=== PATIENT | male | born 1985 | race Caucasian/White ===

== ENCOUNTER 2016-11-21 09:18 | Outpatient (CLI) | payer OTHER | END 2016-11-21 09:19 | disposition home or self-care (01) | LOC: SC 09:18 | PROVIDERS: ATTEND Specialist | DX: G47.10 Hypersomnia, unspecified (principal); R06.83 Snoring; G47.8 Other sleep disorders | CPT/HCPCS: 99204; 99212 ==

== ENCOUNTER 2016-12-14 21:31 | Outpatient (CLI) | payer OTHER | END 2016-12-14 21:32 | disposition home or self-care (01) | LOC: SC 21:31 | PROVIDERS: ATTEND Specialist | DX: G47.33 Obstructive sleep apnea (adult) (pediatric) (principal) | CPT/HCPCS: 95810 ==

== ENCOUNTER 2017-03-06 08:55 | Outpatient (CLI) | payer OTHER | END 2017-03-06 08:56 | disposition home or self-care (01) | LOC: SC 08:55 | PROVIDERS: ATTEND Specialist | DX: R06.83 Snoring (principal) | CPT/HCPCS: 99212; 99214 ==

== ENCOUNTER 2017-12-17 15:18 | Outpatient (CLI) | payer BC | END 2017-12-17 15:19 | disposition home or self-care (01) | LOC: SC 15:18 | PROVIDERS: ATTEND Nurse Practitioner Family | DX: G47.33 Obstructive sleep apnea (adult) (pediatric) (principal) | CPT/HCPCS: 99212; 99214 ==

== ENCOUNTER 2018-03-14 13:33 | Outpatient (CLI) | payer BC | END 2018-03-14 13:34 | disposition home or self-care (01) | LOC: SC 13:33 | PROVIDERS: ATTEND Nurse Practitioner Family | DX: G47.33 Obstructive sleep apnea (adult) (pediatric) (principal) | CPT/HCPCS: 99212; 99214 ==

== ENCOUNTER 2018-06-20 12:48 | Outpatient (CLI) | payer BC | END 2018-06-20 12:49 | disposition home or self-care (01) | LOC: SC 12:48 | PROVIDERS: ATTEND Nurse Practitioner Family | DX: G47.33 Obstructive sleep apnea (adult) (pediatric) (principal) | CPT/HCPCS: 99212; 99214 ==

== ENCOUNTER 2018-11-06 08:16 | Outpatient (CLI) | payer BC | END 2018-11-06 08:17 | disposition home or self-care (01) | LOC: SC 08:16 | PROVIDERS: ATTEND Nurse Practitioner Family | DX: G47.33 Obstructive sleep apnea (adult) (pediatric) (principal) | CPT/HCPCS: 99212; 99214 ==

== ENCOUNTER 2020-04-13 08:00 | Outpatient (CLI) | payer BC | END 2020-04-13 23:59 | disposition home or self-care (01) | LOC: LAB.R 08:00 | PROVIDERS: ATTEND Nurse Practitioner | DX: U07.1 COVID-19 (principal) | CPT/HCPCS: 87070; 87077; 87275; 87276 ==

== ENCOUNTER 2020-05-26 15:47 | Outpatient (CLI) | payer BC ==
[2020-05-26 18:26] LABS: ALBUMIN 4.7 g/dL (3.2-5.5); ALBUMIN/GLOBULIN RATIO 1.9 (1.0-2.2); ALKALINE PHOSPHATASE 60 IU/L (42-121); ALT ALANINE AMINOTRANSFERASE 63 IU/L (10-60); AST ASPARTATE AMINOTRANSFERASE 31 IU/L (10-42); BILIRUBIN,TOTAL 0.8 mg/dL (0.2-1.0); BUN - BLOOD UREA NITROGEN 21 mg/dL (6-20); CALCIUM 9.3 mg/dL (8.5-10.3); CARBON DIOXIDE - CO2 22 mmol/L (21-32); CHLORIDE 110 mmol/L (101-111); CHOL/HDL RATIO 7.2 (<5.0); CHOLESTEROL 246 mg/dL; CREATININE 0.8 mg/dL (0.6-1.2); GLUCOSE 122 mg/dL (70-100); HDL CHOLESTEROL 34 mg/dL; LDL CHOLESTEROL,CALCULATED 148 mg/dL; LDL/HDL RATIO 4.4 (<3.6); SODIUM 138 mmol/L (135-145); TOTAL PROTEIN 7.2 g/dL (6.7-8.2); VLDL CHOLESTEROL 64 mg/dL
== END 2020-05-26 23:59 | disposition home or self-care (01) ==
LOC: LAB.WCP 15:47
PROVIDERS: ATTEND Physician Assistant Medical
DX: E83.52 Hypercalcemia (principal); E78.1 Pure hyperglyceridemia; F43.21 Adjustment disorder with depressed mood
CPT/HCPCS: 36415; 80053; 80061; 83721; 84443

== ENCOUNTER 2021-02-25 08:00 | Outpatient (CLI) | payer BC | END 2021-02-25 23:59 | disposition home or self-care (01) | LOC: LAB.N 08:00 | PROVIDERS: ATTEND Family Medicine | DX: R07.0 Pain in throat (principal); Z20.822 Contact with and (suspected) exposure to COVID-19 | CPT/HCPCS: 87070 ==

== ENCOUNTER 2021-06-08 08:00 | Outpatient (CLI) | payer BC ==
[2021-06-08 19:01] LABS: ALBUMIN 4.5 g/dL (3.2-5.5); ALBUMIN/GLOBULIN RATIO 1.7 (1.0-2.2); ALKALINE PHOSPHATASE 61 IU/L (42-121); ALT ALANINE AMINOTRANSFERASE 82 IU/L (10-60); AST ASPARTATE AMINOTRANSFERASE 37 IU/L (10-42); BILIRUBIN,TOTAL 0.7 mg/dL (0.2-1.0); BUN - BLOOD UREA NITROGEN 15 mg/dL (6-20); CARBON DIOXIDE - CO2 23 mmol/L (21-32); CHLORIDE 106 mmol/L (101-111); CHOL/HDL RATIO 6.8 (<5.0); CHOLESTEROL 250 mg/dL; CREATININE 0.8 mg/dL (0.6-1.2); GFR - MDRD 110 (>89); GLUCOSE 93 mg/dL (70-100); HDL CHOLESTEROL 37 mg/dL; LDL CHOLESTEROL,CALCULATED 178 mg/dL; LDL/HDL RATIO 4.8 (<3.6); POTASSIUM 4.1 mmol/L (3.5-5.0); SODIUM 137 mmol/L (135-145); TOTAL PROTEIN 7.2 g/dL (6.7-8.2); TRIGLYCERIDES 174 mg/dL; VLDL CHOLESTEROL 35 mg/dL
[2021-06-08 20:25] LABS: ESTIMATED AVERAGE GLUCOSE 108 mg/dL (70-100); HEMOGLOBIN A1c% 5.4 % (4.27-6.07)
== END 2021-06-08 23:59 | disposition home or self-care (01) ==
LOC: LAB.WCP 08:00
PROVIDERS: ATTEND Physician Assistant Medical
DX: E78.1 Pure hyperglyceridemia (principal); R73.9 Hyperglycemia, unspecified
CPT/HCPCS: 36415; 80053; 80061; 83036; 83721

== ENCOUNTER 2022-03-22 16:49 | Outpatient (CLI) | payer BC ==
--- NOTE | 2022-03-22 18:39 | CT Report ---
PROCEDURE: ABDOMEN/PELVIS WO INDICATIONS: HEMATURIA TECHNIQUE: Noncontrast 5 mm thick sections acquired from the diaphragms to the symphysis. 5 mm coronal and sagi ttal reformats were then performed. For radiation dose reduction, the following was used: automated exposure control, adjustment of mA and/or kV according to patient size. COMPARISON: None. FINDINGS: Image quality: Excellent. FINDINGS: Visualized lung bases: No pleural effusion. Liver and biliary tree: Hepatic steatosis. No obvious evidence of bile duct dilation on this noncontr ast exam. Gallbladder: No radiopaque cholelithiasis. Spleen: Unremarkable noncontrast appearance. Pancreas: Unremarkable noncontrast appearance. Adrenal glands: 7.3 cm right adrenal myelolipoma. Kidneys and ureters: 4 mm stone present at the left mid ureter with minimal-mild upstream hydroureter onephrosis. Multiple, approximately 4 small nonobstructing stones present at the inferior left kidney , largest measures 6 mm. Gastrointestinal tract: No bowel obstruction. Peritoneal cavity: No free air or free fluid. Bladder: Unremarkable noncontrast appearance. Pelvic organs: Unremarkable noncontrast appearance. Vasculature: No abdominal aortic aneurysm. Musculoskeletal: Degenerative change of the spine. IMPRESSION: 1. A 4 mm stone is present at the left mid ureter with minimal-mild upstream hydroureteronephrosis. 2. Nonobstructing left nephrolithiasis. 3. A 7.3 cm right adrenal myelolipoma is present. 4. Hepatic steatosis. Reviewed by: Michael Tuttle MD on 03/22/2022 6:37 PM PST Approved by: Michael Tuttle MD on 03/22/2022 6:37 PM PST Station ID: [id number]
== END 2022-03-22 16:50 | disposition home or self-care (01) ==
LOC: DI 16:49
PROVIDERS: ATTEND Physician Assistant
DX: N13.2 Hydronephrosis with renal and ureteral calculous obstruction (principal); D17.79 Benign lipomatous neoplasm of other sites; K76.0 Fatty (change of) liver, not elsewhere classified

== ENCOUNTER 2022-07-07 10:27 | Inpatient (IN) | payer BC ==
[2022-07-07] MEDS ORDERED: SODIUM CHLORIDE 0.9% 1,000 ML IV STA ×4 (10:59→16:28)
--- OUTSIDE RECORDS SUMMARY | 2022-07-07 11:16 | EXTERNAL MEDICAL SUMMARY RPT | Continuity of Care Document ---
:1985 Author Organization [facility] Address [address] [place] [address] Phone Care Team Providers Name Role Phone Unavailable Unavailable Unavailable Pinky Kahn Unavailable Unavailable Allergies and Intolerances date description facility type (no date) amoxicillin [facility] (unknown) Encounters No information. Functional Status No information. Immunizations No information. Medications date description facility 2022-04-24 00:00 Ondansetron [facility] 2022-06-01 00:00 Ondansetron [facility] 2022-06-05 00:00 Ondansetron [facility] 2022-06-01 00:00 [facility]:00 Oxycodone [facility] 2022-06-06 00:00 Paroxetine Hcl [facility] 2022-04-24 00:00 Ipratropium [place] [facility] 2022-04-24 00:00 Benzonatate [facility] 2022-05-17 00:00 Sucralfate [facility] 2022-05-17 00:00 Omeprazole [facility] 2022-06-01 00:00 Ketorolac [facility] 2022-06-12 00:00 Oxybutynin Chloride [facility] 2022-06-01 00:00 Tamsulosin [facility] Problems date description facility 2022-04-24 10:10 Cough, unspecified [facility] 2022-04-24 10:10 Fever, unspecified [facility] 2022-04-24 10:14 Cough, unspecified [facility] 2022-04-24 10:14 Fever, unspecified [facility] 2022-04-24 10:35 Cough, unspecified [facility] 2022-04-24 10:35 Fever, unspecified [facility] 2022-04-25 02:12 Cough, unspecified [facility] 2022-04-25 02:12 Fever, unspecified [facility] 2022-05-17 00:00 Acute epigastric pain [facility] 2022-05-30 00:00 Myelolipoma of right adrenal gland Is [facility] 2022-05-30 00:00 Calculus of left kidney [facility] 2022-05-30 00:00 History of renal calculi [facility] 2022-05-30 08:32 Epigastric pain [facility] 2022-05-30 08:39 Epigastric pain [facility] 2022-06-01 00:00 Steatosis of [facility] 2022-06-01 00:00 Calculus of proximal left ureter [facility] 2022-06-06 00:00 Calculus of left ureter [facility] 2022-06-06 00:00 Renal colic on left side [facility] 2022-06-06 00:00 Family history of kidney stones [facility] 2022-06-06 13:22 Contact with and (suspected) exposure [place] [id number] 2022-06-06 13:40 Contact with and (suspected) exposure [place] [id number] 2022-06-06 14:36 [facility] 2022-06-06 15:00 [facility] 2022-06-06 17:20 [facility] 2022-06-06 17:29 [facility] 2022-06-06 17:31 [facility] 2022-06-06 17:32 [facility] 2022-06-06 17:37 [facility] 2022-06-07 00:58 Contact with and (suspected) exposure [place] [id number] 2022-06-07 07:48 [facility] 2022-06-07 13:04 [facility] 2022-06-09 13:50 [facility] 2022-06-12 10:04 [facility] 2022-06-12 10:04 [facility] 2022-06-12 11:55 [facility] 2022-06-12 11:55 [facility] 2022-06-15 00:00 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 2022-06-16 07:34 [facility] 2022-06-16 07:34 Other mechanical complication of [facility] ureteral stent, 2022-06-16 09:53 [facility] 2022-06-16 09:53 Other mechanical complication of [facility] ureteral stent, 2022-06-16 10:04 Calculus of ureter [facility] 2022-06-16 10:04 Other mechanical complication of [facility] ureteral stent, 2022-06-16 10:52 Calculus of ureter [facility] 2022-06-16 10:52 Other mechanical complication of [facility] ureteral stent, Procedures date description facility 2022-04-17 00:00 XR [facility] 2022-06-06 00:00 XR [facility] 2022-06-12 00:00 XR [facility] 2022-06-16 00:00 Cysto/Ureteroscopy/Laser Lithotripsy (L eft) [facility] 2022-05-17 00:00 CT kidney, ureter and bladder [facility] 2022-06-01 00:00 CT kidney, ureter and bladder [facility] 2022-06-06 00:00 XR fluoro, less than 60 minutes [facility] 2022-06-16 00:00 XR fluoro, less than 60 minutes [facility] Results/Labs test date author facility value unit interpret ation Result panel 1 (unknown) (no date) (unknown) [place] (no value[facility] Result panel 2 (unknown) (no date) (unknown) [place] ([facility]) Result panel 3 (unknown) (no date) (unknown) [place] ([facility] value[facility] unknown) Result panel 4 (unknown) (no date) ([place] [facility] [facility]) Result panel 5 (unknown) (no date) (unknown) [place] (no value[facility] unknown) Result panel 6 (unknown) (no date) (unknown) [place] (no value[facility]) Result panel 7 (unknown) (no date) (unknown[facility] [place] [facility]) Result panel 8 (unknown) (no date) (unknown) [place] (no value[facility] unknown) Result panel 9 (unknown) (no date) (unknown[facility] [place] [facility]) Result panel 10 (unknown) (no date) (unknown[facility] [place] [facility]) Result panel 11 (unknown) (no date) (unknown[facility] [place] [facility]) Result panel 12 (unknown) (no date) (unknown[facility] [place] [facility]) Result panel 13 (unknown) (no date) (unknown[facility] [place] [facility]) Result panel 14 (unknown) (no date) (unknown[facility] [place] [facility]) Result panel 15 (unknown) (no date) (unknown[facility] [place] [facility]) Result panel 16 (unknown) (no date) (unknown[facility] [place] [facility]) Result panel 17 (unknown) (no date) (unknown[facility] [place] [facility]) Result panel 18 (unknown) (no date) (unknown[facility] [place] [facility]) Result panel 19 (unknown) (no date) (unknown[facility] [place] [facility]) Result panel 20 (unknown) (no date) (unknown[facility] [place] [facility]) Result panel 21 (unknown) (no date) (unknown[facility] [place] [facility]) Result panel 22 (unknown) (no date) (unknown[facility] [place] [facility]) Result panel 23 (unknown) (no date) (unknown[facility] [place] [facility]) Result panel 24 (unknown) (no date) (unknown[facility]) Result panel 25 (unknown) (no date) (unknown[facility] [place] [facility]) Result panel 26 (unknown) (no date) (unknown[facility]) Result panel 27 (unknown) (no date) (unknown[facility]) Result panel 28 (unknown) (no date) (unknown[facility]) Result panel 29 (unknown) (no date) (unknown[facility]) Result panel 30 (unknown) (no date) (unknown[facility]) Result panel 31 (unknown) (no date) (unknown[facility]) Result panel 32 (unknown) (no date) (unknown[facility]) Result panel 33 (unknown) (no date) (unknown[facility]) Result panel 34 (unknown) (no date) (unknown[facility]) Result panel 35 (unknown) (no date) (unknown[facility]) Result panel 36 (unknown) (no date) (unknown[facility]) Result panel 37 (unknown) (no date) (unknown[facility]) Result panel 38 (unknown) (no date) (unknown[facility]) Result panel 39 (unknown) (no date) (unknown[facility]) Result panel 40 (unknown) (no date) (unknown[facility]) Result panel 41 (unknown) (no date) (unknown[facility]) Result panel 42 (unknown) (no date) (unknown[facility]) Result panel 43 (unknown) (no date) (unknown[facility]) Result panel 44 (unknown) (no date) (unknown[facility]) Result panel 45 (unknown) (no date) (unknown[facility]) Result panel 46 (unknown) (no date) (unknown[facility]) Result panel 47 (unknown) (no date) (unknown[facility]) Result panel 48 (unknown) (no date) (unknown[facility]) Result panel 49 (unknown) (no date) (unknown[facility]) Result panel 50 (unknown) (no date) (unknown[facility]) Result panel 51 (unknown) (no date) (unknown[facility]) Result panel 52 (unknown) (no date) (unknown[facility]) Result panel 53 (unknown) (no date) (unknown[facility]) Result panel 54 (unknown) (no date) (unknown[facility]) Result panel 55 (unknown) (no date) (unknown[facility]) Result panel 56 (unknown) (no date) (unknown[facility]) Result panel 57 (unknown) (no date) (unknown[facility]) Result panel 58 (unknown) (no date) (unknown[facility]) Result panel 59 (unknown) (no date) (unknown[facility]) Result panel 60 (unknown) (no date) (unknown[facility]) Result panel 61 (unknown) (no date) (unknown[facility]) Result panel 62 (unknown) (no date) (unknown[facility]) Result panel 63 (unknown) (no date) (unknown[facility]) Result panel 64 (unknown) (no date) (unknown[facility]) Result panel 65 (unknown) (no date) (unknown[facility]) Result panel 66 (unknown) (no date) (unknown[facility]) Result panel 67 (unknown) (no date) (unknown[facility]) Result panel 68 (unknown) (no date) (unknown[facility]) Result panel 69 (unknown) (no date) (unknown[facility]) Result panel 70 (unknown) (no date) (unknown[facility]) Result panel 71 (unknown) (no date) (unknown[facility]) Result panel 72 (unknown) (no date) (unknown[facility]) Result panel 73 (unknown) (no date) (unknown[facility]) Result panel 74 (unknown) (no date) (unknown[facility]) Result panel 75 (unknown) (no date) (unknown[facility]) Result panel 76 (unknown) (no date) (unknown[facility]) Result panel 77 (unknown) (no date) (unknown[facility]) Result panel 78 (unknown) (no date) (unknown[facility]) Result panel 79 (unknown) (no date) (unknown[facility]) Result panel 80 (unknown) (no date) (unknown[facility]) Result panel 81 (unknown) (no date) (unknown[facility]) Result panel 82 (unknown) (no date) (unknown[facility]) Result panel 83 (unknown) (no date) (unknown[facility]) Result panel 84 (unknown) (no date) (unknown[facility]) Result panel 85 (unknown) (no date) (unknown[facility]) Result panel 86 (unknown) (no date) (unknown[facility]) Result panel 87 (unknown) (no date) (unknown[facility]) Result panel 88 (unknown) (no date) (unknown[facility]) Result panel 89 (unknown) (no date) (unknown[facility]) Result panel 90 (unknown) (no date) (unknown[facility]) Result panel 91 (unknown) (no date) (unknown[facility]) Result panel 92 (unknown) (no date) (unknown[facility]) Result panel 93 (unknown) (no date) (unknown[facility]) Result panel 94 (unknown) (no date) (unknown[facility]) Result panel 95 (unknown) (no date) (unknown[facility]) Result panel 96 (unknown) (no date) (unknown[facility]) Result panel 97 (unknown) (no date) (unknown[facility]) Result panel 98 (unknown) (no date) (unknown[facility]) Result panel 99 (unknown) (no date) (unknown[facility]) Result panel 100 (unknown) (no date) (unknown[facility]) Result panel 101 (unknown) (no date) (unknown[facility]) Result panel 102 (unknown) (no date) (unknown[facility]) Result panel 103 (unknown) (no date) (unknown[facility]) Result panel 104 (unknown) (no date) (unknown[facility]) Result panel 105 (unknown) (no date) (unknown[facility]) Result panel 106 (unknown) (no date) (unknown[facility]) Result panel 107 (unknown) (no date) (unknown[facility]) Result panel 108 (unknown) (no date) (unknown[facility]) Result panel 109 (unknown) (no date) (unknown[facility]) Result panel 110 (unknown) (no date) (unknown[facility]) Result panel 111 (unknown) (no date) (unknown[facility]) Result panel 112 (unknown) (no date) (unknown[facility]) Result panel 113 (unknown) (no date) (unknown[facility]) Result panel 114 (unknown) (no date) (unknown[facility]) Result panel 115 (unknown) (no date) (unknown[facility]) Result panel 116 (unknown) (no date) (unknown[facility]) Result panel 117 (unknown) (no date) (unknown[facility]) Result panel 118 (unknown) (no date) (unknown[facility]) Result panel 119 (unknown) (no date) (unknown[facility]) Result panel 120 (unknown) (no date) (unknown[facility]) Result panel 121 (unknown) (no date) (unknown[facility]) Result panel 122 (unknown) (no date) (unknown[facility]) Result panel 123 (unknown) (no date) (unknown[facility]) Result panel 124 (unknown) (no date) (unknown[facility]) Result panel 125 (unknown) (no date) (unknown[facility]) Result panel 126 (unknown) (no date) (unknown[facility]) Result panel 127 (unknown) (no date) (unknown[facility]) Result panel 128 (unknown) (no date) (unknown[facility]) Result panel 129 (unknown) (no date) (unknown[facility]) Result panel 130 (unknown) (no date) (unknown[facility]) Result panel 131 (unknown) (no date) (unknown[facility]) Result panel 132 (unknown) (no date) (unknown[facility]) Result panel 133 (unknown) (no date) (unknown[facility]) Result panel 134 (unknown) (no date) (unknown[facility]) Result panel 135 (unknown) (no date) (unknown[facility]) Result panel 136 (unknown) (no date) (unknown[facility]) Result panel 137 (unknown) (no date) (unknown[facility]) Result panel 138 (unknown) (no date) (unknown[facility]) Result panel 139 (unknown) (no date) (unknown[facility]) Result panel 140 (unknown) (no date) (unknown[facility]) Result panel 141 (unknown) (no date) (unknown[facility]) Result panel 142 (unknown) (no date) (unknown[facility]) Result panel 143 (unknown) (no date) (unknown[facility]) Result panel 144 (unknown) (no date) (unknown[facility]) Result panel 145 (unknown) (no date) (unknown[facility]) Result panel 146 (unknown) (no date) (unknown[facility]) Result panel 147 (unknown) (no date) (unknown[facility]) Result panel 148 (unknown) (no date) (unknown[facility]) Result panel 149 (unknown) (no date) (unknown[facility]) Result panel 150 (unknown) (no date) (unknown[facility]) Result panel 151 (unknown) (no date) (unknown[facility]) Result panel 152 (unknown) (no date) (unknown[facility]) Result panel 153 (unknown) (no date) (unknown[facility]) Result panel 154 (unknown) (no date) (unknown[facility]) Result panel 155 (unknown) (no date) (unknown[facility]) Result panel 156 (unknown) (no date) (unknown[facility]) Result panel 157 (unknown) (no date) (unknown[facility]) Result panel 158 (unknown) (no date) (unknown[facility]) Result panel 159 (unknown) (no date) (unknown[facility]) Result panel 160 (unknown) (no date) (unknown[facility]) Result panel 161 (unknown) (no date) (unknown[facility]) Result panel 162 (unknown) (no date) (unknown[facility]) Result panel 163 (unknown) (no date) (unknown[facility]) Result panel 164 (unknown) (no date) (unknown[facility]) Result panel 165 (unknown) (no date) (unknown[facility]) Result panel 166 (unknown) (no date) (unknown[facility]) Result panel 167 (unknown) (no date) (unknown[facility]) Result panel 168 (unknown) (no date) (unknown[facility]) Result panel 169 (unknown) (no date) (unknown[facility]) Result panel 170 (unknown) (no date) (unknown[facility]) Result panel 171 (unknown) (no date) (unknown[facility]) Result panel 172 (unknown) (no date) (unknown[facility]) Result panel 173 (unknown) (no date) (unknown[facility]) Result panel 174 (unknown) (no date) (unknown[facility]) Result panel 175 (unknown) (no date) (unknown[facility]) Result panel 176 (unknown) (no date) (unknown[facility]) Result panel 177 (unknown) (no date) (unknown[facility]) Result panel 178 (unknown) (no date) (unknown[facility]) Result panel 179 (unknown) (no date) (unknown[facility]) Result panel 180 (unknown) (no date) (unknown[facility]) Result panel 181 (unknown) (no date) (unknown[facility]) Result panel 182 (unknown) (no date) (unknown[facility]) Result panel 183 (unknown) (no date) (unknown[facility]) Result panel 184 (unknown) (no date) (unknown[facility]) Result panel 185 (unknown) (no date) (unknown[facility]) Result panel 186 (unknown) (no date) (unknown[facility]) Result panel 187 (unknown) (no date) (unknown[facility]) Result panel 188 (unknown) (no date) (unknown[facility] Result panel 189 (unknown) (no date) (unknown[facility]) Result panel 190 (unknown) (no date) (unknown[facility] Result panel 191 (unknown) (no date) (unknown[facility]) Result panel 192 (unknown) (no date) (unknown) [facility]) Result panel 193 (unknown) (no date) (unknown) [facility] [facility] Result panel 194 (unknown) (no date) (unknown) [facility]) Result panel 195 (unknown) (no date) (unknown) [facility]) Result panel 196 (unknown) (no date) (unknown) [facility] Result panel 197 (unknown) (no date) (unknown) [facility]) Result panel 198 (unknown) (no date) (unknown) [facility]) Result panel 199 (unknown) (no date) (unknown) [facility]) Result panel 200 (unknown) (no date) (unknown) [facility]) Result panel 201 (unknown) (no date) (unknown) [facility]) Result panel 202 (unknown) (no date) (unknown) [facility]) Result panel 203 (unknown) (no date) (unknown) [facility]) Result panel 204 (unknown) (no date) (unknown) [facility]) Result panel 205 (unknown) (no date) (unknown) [facility]) Result panel 206 (unknown) (no date) (unknown) [facility]) Result panel 207 (unknown) (no date) (unknown) [facility]) Result panel 208 (unknown) (no date) (unknown) [facility]) Result panel 209 (unknown) (no date) (unknown) [facility]) Result panel 210 (unknown) (no date) (unknown) [facility]) Result panel 211 (unknown) (no date) (unknown) [facility] Result panel 212 (unknown) (no date) (unknown) [facility]) Result panel 213 (unknown) (no date) (unknown) [facility]) Result panel 214 (unknown) (no date) (unknown) [facility]) Result panel 215 (unknown) (no date) (unknown) [facility]) Result panel 216 (unknown) (no date) (unknown) [facility]) Result panel 217 (unknown) (no date) (unknown) [facility]) Result panel 218 (unknown) (no date) (unknown) [facility]) Result panel 219 (unknown) (no date) (unknown[facility]) Result panel 220 (unknown) (no date) (unknown) [facility]) Result panel 221 (unknown) (no date) (unknown) [facility]) Result panel 222 (unknown) (no date) (unknown) [facility]) Result panel 223 (unknown) (no date) (unknown) [facility]) Result panel 224 (unknown) (no date) (unknown) [facility]) Result panel 225 (unknown) (no date) (unknown) [facility]) Result panel 226 (unknown) (no date) (unknown) [facility]) Result panel 227 (unknown) (no date) (unknown) [facility]) Result panel 228 (unknown) (no date) (unknown) [facility]) Result panel 229 (unknown) (no date) (unknown) [facility]) Result panel 230 (unknown) (no date) (unknown) [facility]) Result panel 231 (unknown) (no date) (unknown) [facility]) Result panel 232 (unknown) (no date) (unknown) [facility]) Result panel 233 (unknown) (no date) (unknown) [facility]) Result panel 234 (unknown) (no date) (unknown) [facility]) Result panel 235 (unknown) (no date) (unknown) [facility]) Result panel 236 (unknown) (no date) (unknown) [facility]) Result panel 237 (unknown) (no date) (unknown) [facility]) Result panel 238 (unknown) (no date) (unknown) [facility]) Result panel 239 (unknown) (no date) (unknown) [facility]) Result panel 240 (unknown) (no date) (unknown) [facility]) Result panel 241 (unknown) (no date) (unknown) [facility]) Result panel 242 (unknown) (no date) (unknown) [facility]) Result panel 243 (unknown) (no date) (unknown) [facility]) Result panel 244 (unknown) (no date) (unknown) [facility]) Result panel 245 (unknown) (no date) (unknown) [facility]) Result panel 246 (unknown) (no date) (unknown) [facility]) Result panel 247 (unknown) (no date) (unknown) [facility]) Result panel 248 (unknown) (no date) (unknown) [facility]) Result panel 249 (unknown) (no date) (unknown) [facility]) Result panel 250 (unknown) (no date) (unknown) [facility]) Result panel 251 (unknown) (no date) (unknown) [facility]) Result panel 252 (unknown) (no date) (unknown) [facility]) Result panel 253 (unknown) (no date) (unknown) [facility]) Result panel 254 (unknown) (no date) (unknown) [facility]) Result panel 255 (unknown) (no date) (unknown) [facility]) Result panel 256 (unknown) (no date) (unknown) [facility]) Result panel 257 (unknown) (no date) (unknown) [facility]) Result panel 258 (unknown) (no date) (unknown) [facility]) Result panel 259 (unknown) (no date) (unknown) [facility]) Result panel 260 (unknown) (no date) (unknown) [facility]) Result panel 261 (unknown) (no date) (unknown) [facility]) Result panel 262 (unknown) (no date) (unknown) [facility]) Result panel 263 (unknown) (no date) (unknown) [facility]) Result panel 264 (unknown) (no date) (unknown) [facility]) Result panel 265 (unknown) (no date) (unknown) [facility]) Result panel 266 (unknown) (no date) (unknown) [facility]) Result panel 267 (unknown) (no date) (unknown) [facility]) Result panel 268 (unknown) (no date) (unknown) [facility]) Result panel 269 (unknown) (no date) (unknown) [facility]) Result panel 270 (unknown) (no date) (unknown) [facility]) Result panel 271 (unknown) (no date) (unknown) [facility]) Result panel 272 (unknown) (no date) (unknown) [facility]) Result panel 273 (unknown) (no date) (unknown) [facility]) Result panel 274 (unknown) (no date) (unknown) [facility]) Result panel 275 (unknown) (no date) (unknown) [facility]) Result panel 276 (unknown) (no date) (unknown) [facility]) Result panel 277 (unknown) (no date) (unknown) [facility]) Result panel 278 (unknown) (no date) (unknown) [facility]) Result panel 279 (unknown) (no date) (unknown) [facility]) Result panel 280 (unknown) (no date) (unknown) [facility]) Result panel 281 (unknown) (no date) (unknown) [facility]) Result panel 282 (unknown) (no date) (unknown) [facility]) Result panel 283 (unknown) (no date) (unknown) [facility]) Result panel 284 (unknown) (no date) (unknown) [facility]) Result panel 285 (unknown) (no date) (unknown) [facility]) Result panel 286 (unknown) (no date) (unknown) [facility]) Result panel 287 (unknown) (no date) (unknown) [facility]) Result panel 288 (unknown) (no date) (unknown) [facility]) Result panel 289 (unknown) (no date) (unknown) [facility]) Result panel 290 (unknown) (no date) (unknown) [facility]) Result panel 291 (unknown) (no date) (unknown) [facility]) Result panel 292 (unknown) (no date) (unknown) [facility]) Result panel 293 (unknown) (no date) (unknown) [facility]) Result panel 294 (unknown) (no date) (unknown) [facility]) Result panel 295 (unknown) (no date) (unknown) [facility]) Result panel 296 (unknown) (no date) (unknown) [facility]) Result panel 297 (unknown) (no date) (unknown) [facility]) Result panel 298 (unknown) (no date) (unknown) [facility]) Result panel 299 (unknown) (no date) (unknown) [facility]) Result panel 300 (unknown) (no date) (unknown) [facility]) Result panel 301 (unknown) (no date) (unknown) [facility]) Result panel 302 (unknown) (no date) (unknown) [facility]) Result panel 303 (unknown) (no date) (unknown) [facility]) Result panel 304 (unknown) (no date) (unknown) [facility]) Result panel 305 (unknown) (no date) (unknown) [facility]) Result panel 306 (unknown) (no date) (unknown) [facility]) Result panel 307 (unknown) (no date) (unknown) [facility]) Result panel 308 (unknown) (no date) (unknown) [facility]) Result panel 309 (unknown) (no date) (unknown) [facility]) Result panel 310 (unknown) (no date) (unknown[facility]) Result panel 311 (unknown) (no date) (unknown[facility]) Result panel 312 (unknown) (no date) (unknown) [facility]) Result panel 313 (unknown) (no date) (unknown) [facility]) Result panel 314 (unknown) (no date) (unknown) [facility]) Result panel 315 (unknown) (no date) (unknown) [facility]) Result panel 316 (unknown) (no date) (unknown) [facility]) Result panel 317 (unknown) (no date) (unknown) [facility]) Result panel 318 (unknown) (no date) (unknown) [facility]) Result panel 319 (unknown) (no date) (unknown) [facility]) Result panel 320 (unknown) (no date) (unknown) [facility]) Result panel 321 (unknown) (no date) (unknown) [facility]) Result panel 322 (unknown) (no date) (unknown) [facility]) Result panel 323 (unknown) (no date) (unknown) [facility]) Result panel 324 (unknown) (no date) (unknown) [facility]) Result panel 325 (unknown) (no date) (unknown) [facility]) Result panel 326 (unknown) (no date) (unknown) [facility]) Result panel 327 (unknown) (no date) (unknown) [facility]) Result panel 328 (unknown) (no date) (unknown) [facility]) Result panel 329 (unknown) (no date) (unknown) [facility]) Result panel 330 (unknown) (no date) (unknown) [facility]) Result panel 331 (unknown) (no date) (unknown) [facility]) Result panel 332 (unknown) (no date) (unknown) [facility]) Result panel 333 (unknown) (no date) (unknown) [facility]) Result panel 334 (unknown) (no date) (unknown) [facility]) Result panel 335 (unknown) (no date) (unknown) [facility]) Result panel 336 (unknown) (no date) (unknown) [facility]) Result panel 337 (unknown) (no date) (unknown) [facility]) Result panel 338 (unknown) (no date) (unknown) [facility]) Result panel 339 (unknown) (no date) (unknown) [facility]) Result panel 340 (unknown) (no date) (unknown) [facility]) Result panel 341 (unknown) (no date) (unknown) [facility]) Result panel 342 (unknown) (no date) (unknown) [facility]) Result panel 343 (unknown) (no date) (unknown) [facility]) Result panel 344 (unknown) (no date) (unknown) [facility]) Result panel 345 (unknown) (no date) (unknown) [facility]) Result panel 346 (unknown) (no date) (unknown) [facility]) Result panel 347 (unknown) (no date) (unknown) [facility]) Result panel 348 (unknown) (no date) (unknown) [facility]) Result panel 349 (unknown) (no date) (unknown) [facility]) Result panel 350 (unknown) (no date) (unknown) [facility]) Result panel 351 (unknown) (no date) (unknown) [facility]) Result panel 352 (unknown) (no date) (unknown) [facility]) Result panel 353 (unknown) (no date) (unknown) [facility]) Result panel 354 (unknown) (no date) (unknown) [facility]) Result panel 355 (unknown) (no date) (unknown) [facility]) Result panel 356 (unknown) (no date) (unknown) [facility]) Result panel 357 (unknown) (no date) (unknown) [facility]) Result panel 358 (unknown) (no date) (unknown) [facility]) Result panel 359 (unknown) (no date) (unknown) [facility]) Result panel 360 (unknown) (no date) (unknown) [facility]) Result panel 361 (unknown) (no date) (unknown) [facility]) Result panel 362 (unknown) (no date) (unknown) [facility]) Result panel 363 (unknown) (no date) (unknown) [facility]) Result panel 364 (unknown) (no date) (unknown) [facility]) Result panel 365 (unknown) (no date) (unknown) [facility]) Result panel 366 (unknown) (no date) (unknown) [facility]) Result panel 367 (unknown) (no date) (unknown) [facility]) Result panel 368 (unknown) (no date) (unknown) [facility]) Result panel 369 (unknown) (no date) (unknown) [facility]) Result panel 370 (unknown) (no date) (unknown) [facility]) Result panel 371 (unknown) (no date) (unknown) [facility]) Result panel 372 (unknown) (no date) (unknown) [facility]) Result panel 373 (unknown) (no date) (unknown) [facility]) Result panel 374 (unknown) (no date) (unknown) [facility]) Result panel 375 (unknown) (no date) (unknown) [facility]) Result panel 376 (unknown) (no date) (unknown) [facility]) Result panel 377 (unknown) (no date) (unknown) [facility]) Result panel 378 (unknown) (no date) (unknown) [facility]) Result panel 379 (unknown) (no date) (unknown) [facility]) Result panel 380 (unknown) (no date) (unknown) [facility]) Result panel 381 (unknown) (no date) (unknown) [facility]) Result panel 382 (unknown) (no date) (unknown) [facility]) Result panel 383 (unknown) (no date) (unknown) [facility]) Result panel 384 (unknown) (no date) (unknown) [facility]) Result panel 385 (unknown) (no date) (unknown) [facility]) Result panel 386 (unknown) (no date) (unknown) [facility]) Result panel 387 (unknown) (no date) (unknown) [facility]) Result panel 388 (unknown) (no date) (unknown) [facility]) Result panel 389 (unknown) (no date) (unknown) [facility]) Result panel 390 (unknown) (no date) (unknown) [facility]) Result panel 391 (unknown) (no date) (unknown[facility]) Result panel 392 (unknown) (no date) (unknown) [facility]) Result panel 393 (unknown) (no date) (unknown) [facility]) Result panel 394 (unknown) (no date) (unknown) [facility]) Result panel 395 (unknown) (no date) (unknown) [facility]) Result panel 396 (unknown) (no date) (unknown) [facility]) Result panel 397 (unknown) (no date) (unknown) [facility]) Result panel 398 (unknown) (no date) (unknown) [facility]) Result panel 399 (unknown) (no date) (unknown) [facility]) Result panel 400 (unknown) (no date) (unknown) [facility]) Result panel 401 (unknown) (no date) (unknown) [facility]) Result panel 402 (unknown) (no date) (unknown) [facility]) Result panel 403 (unknown) (no date) (unknown) [facility]) Result panel 404 (unknown) (no date) (unknown) [facility]) Result panel 405 (unknown) (no date) (unknown) [facility]) Result panel 406 (unknown) (no date) (unknown) [facility]) Result panel 407 (unknown) (no date) (unknown) [facility]) Result panel 408 (unknown) (no date) (unknown) [facility]) Result panel 409 (unknown) (no date) (unknown) [facility]) Result panel 410 (unknown) (no date) (unknown[facility]) Result panel 411 (unknown) (no date) (unknown) [facility]) Result panel 412 (unknown) (no date) (unknown) [facility]) Result panel 413 (unknown) (no date) (unknown) [facility]) Result panel 414 (unknown) (no date) (unknown) [facility]) Result panel 415 (unknown) (no date) (unknown) [facility]) Result panel 416 (unknown) (no date) (unknown) [facility]) Result panel 417 (unknown) (no date) (unknown) [facility]) Result panel 418 (unknown) (no date) (unknown) [facility]) Result panel 419 (unknown) (no date) (unknown) [facility]) Result panel 420 (unknown) (no date) (unknown) [facility]) Result panel 421 (unknown) (no date) (unknown) [facility]) Result panel 422 (unknown) (no date) (unknown) [facility]) Result panel 423 (unknown) (no date) (unknown) [facility]) Result panel 424 (unknown) (no date) (unknown) [facility]) Result panel 425 (unknown) (no date) (unknown) [facility]) Result panel 426 (unknown) (no date) (unknown) [facility]) Result panel 427 (unknown) (no date) (unknown) [facility]) Result panel 428 (unknown) (no date) (unknown) [facility]) Result panel 429 (unknown) (no date) (unknown) [facility]) Result panel 430 (unknown) (no date) (unknown) [facility] Result panel 431 (unknown) (no date) [facility]) Result panel 432 (unknown) (no date) (unknown) [facility] Result panel 433 (unknown) (no date) (unknown) [facility] Result panel 434 (unknown) (no date) (unknown) [facility] Result panel 435 (unknown) (no date) (unknown) [facility]) Result panel 436 (unknown) (no date) (unknown) [facility] Result panel 437 (unknown) (no date) (unknown) [facility]) Result panel 438 (unknown) (no date) (unknown) [facility] Result panel 439 (unknown) (no date) (unknown) [facility] Result panel 440 (unknown) (no date) (unknown) [facility] Result panel 441 (unknown) (no date) (unknown) [facility]) Result panel 442 (unknown) (no date) (unknown) [facility] Result panel 443 (unknown) (no date) (unknown) [facility]) Result panel 444 (unknown) (no date) (unknown) [facility] Result panel 445 (unknown) (no date) (unknown) [facility] Result panel 446 (unknown) (no date) (unknown) [facility]) Result panel 447 (unknown) (no date) (unknown) [facility]) Result panel 448 (unknown) (no date) (unknown) [facility] Result panel 449 (unknown) (no date) (unknown) [facility]) Result panel 450 (unknown) (no date) (unknown[facility]) Result panel 451 (unknown) (no date) (unknown) [facility] Result panel 452 (unknown) (no date) (unknown) [facility] Result panel 453 (unknown) (no date) (unknown[facility] Result panel 454 (unknown) (no date) (unknown) [facility] Result panel 455 (unknown) (no date) (unknown) [facility] Result panel 456 (unknown) (no date) (unknown) [facility] Result panel 457 (unknown) (no date) (unknown) [facility] Result panel 458 (unknown) (no date) (unknown[facility] Result panel 459 (unknown) (no date) (unknown[facility]) Result panel 460 (unknown) (no date) (unknown) [facility]) Result panel 461 (unknown) (no date) (unknown) [facility]) Result panel 462 (unknown) (no date) (unknown) [facility]) Result panel 463 (unknown) (no date) (unknown) [facility] Result panel 464 (unknown) (no date) (unknown) [facility]) Result panel 465 (unknown) (no date) (unknown[facility] Result panel 466 (unknown) (no date) (unknown) [facility]) Result panel 467 (unknown) (no date) (unknown[facility]) Result panel 468 (unknown) (no date) (unknown) [facility] Result panel 469 (unknown) (no date) (unknown) [facility] Result panel 470 (unknown) (no date) (unknown) [facility] Result panel 471 (unknown) (no date) (unknown) [facility] Result panel 472 (unknown) (no date) (unknown) [facility] Result panel 473 (unknown) (no date) (unknown) [facility] Result panel 474 (unknown) (no date) (unknown) [facility] Result panel 475 (unknown) (no date) (unknown) [facility]) Result panel 476 (unknown) (no date) (unknown) [facility]) Result panel 477 (unknown) (no date) (unknown[facility] Result panel 478 (unknown) (no date) (unknown[facility]) Result panel 479 (unknown) (no date) (unknown) [facility]) Result panel 480 (unknown) (no date) (unknown) [facility]) Result panel 481 (unknown) (no date) (unknown) [facility]) Result panel 482 (unknown) (no date) (unknown) [facility]) Result panel 483 (unknown) (no date) (unknown) [facility]) Result panel 484 (unknown) (no date) (unknown) [facility]) Result panel 485 (unknown) (no date) (unknown) [facility] Result panel 486 (unknown) (no date) (unknown) [facility]) Result panel 487 (unknown) (no date) (unknown) [facility] Result panel 488 (unknown) (no date) (unknown) [facility]) Result panel 489 (unknown) (no date) (unknown) [facility]) Result panel 490 (unknown) (no date) (unknown) [facility] Result panel 491 (unknown) (no date) (unknown) [facility]) Result panel 492 (unknown) (no date) (unknown) [facility]) Result panel 493 (unknown) (no date) (unknown) [facility]) Result panel 494 (unknown) (no date) (unknown) [facility]) Result panel 495 (unknown) (no date) (unknown) [facility]) Result panel 496 (unknown) (no date) (unknown) [facility]) Result panel 497 (unknown) (no date) (unknown) [facility]) Result panel 498 (unknown) (no date) (unknown) [facility]) Result panel 499 (unknown) (no date) (unknown) [facility]) Result panel 500 (unknown) (no date) (unknown) [facility]) Result panel 501 (unknown) (no date) (unknown) [facility]) Result panel 502 (unknown) (no date) (unknown) [facility]) Result panel 503 (unknown) (no date) (unknown) [facility]) Result panel 504 (unknown) (no date) (unknown) [facility]) Result panel 505 (unknown) (no date) (unknown) [facility]) Result panel 506 (unknown) (no date) (unknown) [facility]) Result panel 507 (unknown) (no date) (unknown) [facility]) Result panel 508 (unknown) (no date) (unknown) [facility]) Result panel 509 (unknown) (no date) (unknown) [facility]) Result panel 510 (unknown) (no date) (unknown) [facility]) Result panel 511 (unknown) (no date) (unknown) [facility]) Result panel 512 (unknown) (no date) (unknown) [facility]) Result panel 513 (unknown) (no date) (unknown) [facility]) Result panel 514 (unknown) (no date) (unknown) [facility]) Result panel 515 (unknown) (no date) (unknown) [facility]) Result panel 516 (unknown) (no date) (unknown) [facility]) Result panel 517 (unknown) (no date) (unknown) [facility]) Result panel 518 (unknown) (no date) (unknown) [facility] Result panel 519 (unknown) (no date) (unknown) [facility]) Result panel 520 (unknown) (no date) (unknown) [facility]) Result panel 521 (unknown) (no date) (unknown) [facility]) Result panel 522 (unknown) (no date) (unknown) [facility]) Result panel 523 (unknown) (no date) (unknown) [facility]) Result panel 524 (unknown) (no date) (unknown) [facility]) Result panel 525 (unknown) (no date) (unknown) [facility]) Result panel 526 (unknown) (no date) (unknown) [facility]) Result panel 527 (unknown) (no date) (unknown) [facility]) Result panel 528 (unknown) (no date) (unknown) [facility]) Result panel 529 (unknown) (no date) (unknown) [facility]) Result panel 530 (unknown) (no date) (unknown) [facility]) Result panel 531 (unknown) (no date) (unknown) [facility]) Result panel 532 (unknown) (no date) (unknown) [facility]) Result panel 533 (unknown) (no date) (unknown) [facility] Result panel 534 (unknown) (no date) (unknown[facility]) Result panel 535 (unknown) (no date) (unknown) [facility]) Result panel 536 (unknown) (no date) (unknown) [facility]) Result panel 537 (unknown) (no date) (unknown) [facility]) Result panel 538 (unknown) (no date) (unknown) [facility]) Result panel 539 (unknown) (no date) (unknown) [facility]) Result panel 540 (unknown) (no date) (unknown) [facility]) Result panel 541 (unknown) (no date) (unknown) [facility]) Result panel 542 (unknown) (no date) (unknown) [facility]) Result panel 543 (unknown) (no date) (unknown) [facility]) Result panel 544 (unknown) (no date) (unknown) [facility]) Result panel 545 (unknown) (no date) (unknown) [facility]) Result panel 546 (unknown) (no date) (unknown) [facility]) Result panel 547 (unknown) (no date) (unknown) [facility]) Result panel 548 (unknown) (no date) (unknown) [facility]) Result panel 549 (unknown) (no date) (unknown[facility]) Result panel 550 (unknown) (no date) (unknown) [facility]) Result panel 551 (unknown) (no date) (unknown) [facility]) Result panel 552 (unknown) (no date) (unknown) [facility]) Result panel 553 (unknown) (no date) (unknown) [facility]) Result panel 554 (unknown) (no date) (unknown) [facility]) Result panel 555 (unknown) (no date) (unknown) [facility]) Result panel 556 (unknown) (no date) (unknown) [facility]) Result panel 557 (unknown) (no date) (unknown) [facility]) Result panel 558 (unknown) (no date) (unknown) [facility]) Result panel 559 (unknown) (no date) (unknown) [facility]) Result panel 560 (unknown) (no date) (unknown) [facility]) Result panel 561 (unknown) (no date) (unknown) [facility]) Result panel 562 (unknown) (no date) (unknown) [facility]) Result panel 563 (unknown) (no date) (unknown) [facility]) Result panel 564 (unknown) (no date) (unknown) [facility]) Result panel 565 (unknown) (no date) (unknown) [facility]) Result panel 566 (unknown) (no date) (unknown) [facility]) Result panel 567 (unknown) (no date) (unknown) [facility]) Result panel 568 (unknown) (no date) (unknown) [facility]) Result panel 569 (unknown) (no date) (unknown) [facility]) Result panel 570 (unknown) (no date) (unknown) [facility]) Result panel 571 (unknown) (no date) (unknown) [facility]) Result panel 572 (unknown) (no date) (unknown) [facility]) Result panel 573 (unknown) (no date) (unknown) [facility]) Result panel 574 (unknown) (no date) (unknown) [facility]) Result panel 575 (unknown) (no date) (unknown) [facility]) Result panel 576 (unknown) (no date) (unknown) [facility]) Result panel 577 (unknown) (no date) (unknown) [facility]) Result panel 578 (unknown) (no date) (unknown) [facility]) Result panel 579 (unknown) (no date) (unknown) [facility]) Result panel 580 (unknown) (no date) (unknown) [facility]) Result panel 581 (unknown) (no date) (unknown) [facility]) Result panel 582 (unknown) (no date) (unknown) [facility]) Result panel 583 (unknown) (no date) (unknown) [facility]) Result panel 584 (unknown) (no date) (unknown) [facility]) Result panel 585 (unknown) (no date) (unknown) [facility]) Result panel 586 (unknown) (no date) (unknown) [facility]) Result panel 587 (unknown) (no date) (unknown) [facility]) Result panel 588 (unknown) (no date) (unknown) [facility]) Result panel 589 (unknown) (no date) (unknown) [facility]) Result panel 590 (unknown) (no date) (unknown) [facility]) Result panel 591 (unknown) (no date) (unknown) [facility]) Result panel 592 (unknown) (no date) (unknown) [facility]) Result panel 593 (unknown) (no date) (unknown) [facility]) Result panel 594 (unknown) (no date) (unknown) [facility]) Result panel 595 (unknown) (no date) (unknown) [facility]) Result panel 596 (unknown) (no date) (unknown) [facility]) Result panel 597 (unknown) (no date) (unknown) [facility]) Result panel 598 (unknown) (no date) (unknown) [facility]) Result panel 599 (unknown) (no date) (unknown) [facility]) Result panel 600 (unknown) (no date) (unknown) [facility]) Result panel 601 (unknown) (no date) (unknown) [facility]) Result panel 602 (unknown) (no date) (unknown) [facility]) Result panel 603 (unknown) (no date) (unknown) [facility]) Result panel 604 (unknown) (no date) (unknown) [facility]) Result panel 605 (unknown) (no date) (unknown) [facility]) Result panel 606 (unknown) (no date) (unknown) [facility]) Result panel 607 (unknown) (no date) (unknown) [facility]) Result panel 608 (unknown) (no date) (unknown) [facility]) Result panel 609 (unknown) (no date) (unknown) [facility]) Result panel 610 (unknown) (no date) (unknown) [facility]) Result panel 611 (unknown) (no date) (unknown) [facility]) Result panel 612 (unknown) (no date) (unknown) [facility]) Result panel 613 (unknown) (no date) (unknown) [facility]) Result panel 614 (unknown) (no date) (unknown) [facility]) Result panel 615 (unknown) (no date) (unknown) [facility]) Result panel 616 (unknown) (no date) (unknown) [facility]) Result panel 617 (unknown) (no date) (unknown) [facility]) Result panel 618 (unknown) (no date) (unknown) [facility]) Result panel 619 (unknown) (no date) (unknown) [facility]) Result panel 620 (unknown) (no date) (unknown) [facility]) Result panel 621 (unknown) (no date) (unknown) [facility]) Result panel 622 (unknown) (no date) (unknown) [facility]) Result panel 623 (unknown) (no date) (unknown) [facility]) Result panel 624 (unknown) (no date) (unknown) [facility]) Result panel 625 (unknown) (no date) (unknown) [facility]) Result panel 626 (unknown) (no date) (unknown) [facility]) Result panel 627 (unknown) (no date) (unknown) [facility]) Result panel 628 (unknown) (no date) (unknown) [facility]) Result panel 629 (unknown) (no date) (unknown) [facility]) Result panel 630 (unknown) (no date) (unknown) [facility]) Result panel 631 (unknown) (no date) (unknown) [facility]) Result panel 632 (unknown) (no date) (unknown) [facility]) Result panel 633 (unknown) (no date) (unknown) [facility]) Result panel 634 (unknown) (no date) (unknown) [facility]) Result panel 635 (unknown) (no date) (unknown) [facility]) Result panel 636 (unknown) (no date) (unknown) [facility]) Result panel 637 (unknown) (no date) (unknown) [facility]) Result panel 638 (unknown) (no date) (unknown) [facility]) Result panel 639 (unknown) (no date) (unknown) [facility]) Result panel 640 (unknown) (no date) (unknown) [facility]) Result panel 641 (unknown) (no date) (unknown) [facility]) Result panel 642 (unknown) (no date) (unknown) [facility]) Result panel 643 (unknown) (no date) (unknown) [facility]) Result panel 644 (unknown) (no date) (unknown) [facility]) Result panel 645 (unknown) (no date) (unknown) [facility]) Result panel 646 (unknown) (no date) (unknown) [facility]) Result panel 647 (unknown) (no date) (unknown) [facility]) Result panel 648 (unknown) (no date) (unknown) [facility]) Result panel 649 (unknown) (no date) (unknown) [facility]) Result panel 650 (unknown) (no date) (unknown) [facility]) Result panel 651 (unknown) (no date) (unknown) [facility]) Result panel 652 (unknown) (no date) (unknown) [facility]) Result panel 653 (unknown) (no date) (unknown) [facility]) Result panel 654 (unknown) (no date) (unknown) [facility]) Result panel 655 (unknown) (no date) (unknown) [facility]) Result panel 656 (unknown) (no date) (unknown) [facility]) Result panel 657 (unknown) (no date) (unknown) [facility]) Result panel 658 (unknown) (no date) (unknown) [facility]) Result panel 659 (unknown) (no date) (unknown) [facility]) Result panel 660 (unknown) (no date) (unknown) [facility]) Result panel 661 (unknown) (no date) (unknown) [facility]) Result panel 662 (unknown) (no date) (unknown) [facility]) Result panel 663 (unknown) (no date) (unknown) [facility]) Result panel 664 (unknown) (no date) (unknown) [facility]) Result panel 665 (unknown) (no date) (unknown) [facility]) Result panel 666 (unknown) (no date) (unknown) [facility]) Result panel 667 (unknown) (no date) (unknown) [facility]) Result panel 668 (unknown) (no date) (unknown) [facility] unknown) Result panel 669 (unknown) (no date) (unknown) [facility]) Result panel 670 (unknown) (no date) (unknown) [facility] Result panel 671 (unknown) (no date) (unknown) [facility] Result panel 672 (unknown) (no date) (unknown) [facility]) Result panel 673 (unknown) (no date) (unknown) [facility]) Result panel 674 (unknown) (no date) (unknown) [facility]) Result panel 675 (unknown) (no date) (unknown) [facility]) Result panel 676 (unknown) (no date) (unknown) [facility]) Result panel 677 (unknown) (no date) (unknown) [facility]) Result panel 678 (unknown) (no date) (unknown) [facility]) Result panel 679 (unknown) (no date) (unknown) [facility]) Result panel 680 (unknown) (no date) (unknown) [facility]) Result panel 681 (unknown) (no date) (unknown) [facility]) Result panel 682 (unknown) (no date) (unknown) [facility]) Result panel 683 (unknown) (no date) (unknown) [facility]) Result panel 684 (unknown) (no date) (unknown) [facility]) Result panel 685 (unknown) (no date) (unknown) [facility]) Result panel 686 (unknown) (no date) (unknown) [facility]) Result panel 687 (unknown) (no date) (unknown) [facility]) Result panel 688 (unknown) (no date) (unknown) [facility]) Result panel 689 (unknown) (no date) (unknown) [facility]) Result panel 690 (unknown) (no date) (unknown) [facility]) Result panel 691 (unknown) (no date) (unknown) [facility]) Result panel 692 (unknown) (no date) (unknown) [facility]) Result panel 693 (unknown) (no date) (unknown) [facility]) Result panel 694 (unknown) (no date) (unknown) [facility]) Result panel 695 (unknown) (no date) (unknown) [facility]) Result panel 696 (unknown) (no date) (unknown) [facility]) Result panel 697 (unknown) (no date) (unknown) [facility]) Result panel 698 (unknown) (no date) (unknown) [facility]) Result panel 699 (unknown) (no date) (unknown) [facility]) Result panel 700 (unknown) (no date) (unknown) [facility]) Result panel 701 (unknown) (no date) (unknown) [facility]) Result panel 702 (unknown) (no date) (unknown) [facility]) Result panel 703 (unknown) (no date) (unknown) [facility]) Result panel 704 (unknown) (no date) (unknown) [facility]) Result panel 705 (unknown) (no date) (unknown) [facility]) Result panel 706 (unknown) (no date) (unknown) [facility]) Result panel 707 (unknown) (no date) (unknown) [facility]) Result panel 708 (unknown) (no date) (unknown) [facility]) Result panel 709 (unknown) (no date) (unknown) [facility]) Result panel 710 (unknown) (no date) (unknown) [facility]) Result panel 711 (unknown) (no date) (unknown) [facility]) Result panel 712 (unknown) (no date) (unknown) [facility]) Result panel 713 (unknown) (no date) (unknown) [facility]) Result panel 714 (unknown) (no date) (unknown) [facility]) Result panel 715 (unknown) (no date) (unknown) [facility]) Result panel 716 (unknown) (no date) (unknown) [facility]) Result panel 717 (unknown) (no date) (unknown) [facility]) Result panel 718 (unknown) (no date) (unknown) [facility]) Result panel 719 (unknown) (no date) (unknown) [facility]) Result panel 720 (unknown) (no date) (unknown) [facility]) Result panel 721 (unknown) (no date) (unknown) [facility]) Result panel 722 (unknown) (no date) (unknown) [facility]) Result panel 723 (unknown) (no date) (unknown) [facility]) Result panel 724 (unknown) (no date) (unknown) [facility]) Result panel 725 (unknown) (no date) (unknown) [facility]) Result panel 726 (unknown) (no date) (unknown) [facility]) Result panel 727 (unknown) (no date) (unknown) [facility]) Result panel 728 (unknown) (no date) (unknown) [facility]) Result panel 729 (unknown) (no date) (unknown) [facility]) Result panel 730 (unknown) (no date) (unknown) [facility]) Result panel 731 (unknown) (no date) (unknown) [facility]) Result panel 732 (unknown) (no date) (unknown) [facility]) Result panel 733 (unknown) (no date) (unknown) [facility]) Result panel 734 (unknown) (no date) (unknown) [facility]) Result panel 735 (unknown) (no date) (unknown) [facility]) Result panel 736 (unknown) (no date) (unknown) [facility]) Result panel 737 (unknown) (no date) (unknown) [facility]) Result panel 738 (unknown) (no date) (unknown) [facility]) Result panel 739 (unknown) (no date) (unknown) [facility]) Result panel 740 (unknown) (no date) (unknown) [facility]) Result panel 741 (unknown) (no date) (unknown) [facility]) Result panel 742 (unknown) (no date) (unknown) [facility]) Result panel 743 (unknown) (no date) (unknown) [facility]) Result panel 744 (unknown) (no date) (unknown) [facility]) Result panel 745 (unknown) (no date) (unknown) [facility]) Result panel 746 (unknown) (no date) (unknown) [facility]) Result panel 747 (unknown) (no date) (unknown) [facility]) Result panel 748 (unknown) (no date) (unknown) [facility]) Result panel 749 (unknown) (no date) (unknown) [facility]) Result panel 750 (unknown) (no date) (unknown) [facility]) Result panel 751 (unknown) (no date) (unknown) [facility]) Result panel 752 (unknown) (no date) (unknown) [facility]) Result panel 753 (unknown) (no date) (unknown) [facility]) Result panel 754 (unknown) (no date) (unknown) [facility]) Result panel 755 (unknown) (no date) (unknown) [facility]) Result panel 756 (unknown) (no date) (unknown) [facility]) Result panel 757 (unknown) (no date) (unknown) [facility]) Result panel 758 (unknown) (no date) (unknown) [facility]) Result panel 759 (unknown) (no date) (unknown) [facility]) Result panel 760 (unknown) (no date) (unknown) [facility]) Result panel 761 (unknown) (no date) (unknown) [facility]) Result panel 762 (unknown) (no date) (unknown) [facility]) Result panel 763 (unknown) (no date) (unknown) [facility]) Result panel 764 (unknown) (no date) (unknown) [facility]) Result panel 765 (unknown) (no date) (unknown) [facility]) Result panel 766 (unknown) (no date) (unknown) [facility]) Result panel 767 (unknown) (no date) (unknown) [facility]) Result panel 768 (unknown) (no date) (unknown) [facility]) Result panel 769 (unknown) (no date) (unknown) [facility]) Result panel 770 (unknown) (no date) (unknown) [facility]) Result panel 771 (unknown) (no date) (unknown) [facility]) Result panel 772 (unknown) (no date) (unknown) [facility]) Result panel 773 (unknown) (no date) (unknown) [facility]) Result panel 774 (unknown) (no date) (unknown) [facility]) Result panel 775 (unknown) (no date) (unknown) [facility]) Result panel 776 (unknown) (no date) (unknown) [facility]) Result panel 777 (unknown) (no date) (unknown) [facility]) Result panel 778 (unknown) (no date) (unknown) [facility]) Result panel 779 (unknown) (no date) (unknown) [facility]) Result panel 780 (unknown) (no date) (unknown) [facility]) Result panel 781 (unknown) (no date) (unknown) [facility]) Result panel 782 (unknown) (no date) (unknown) [facility]) Result panel 783 (unknown) (no date) (unknown) [facility]) Result panel 784 (unknown) (no date) (unknown) [facility]) Result panel 785 (unknown) (no date) (unknown) [facility]) Result panel 786 (unknown) (no date) (unknown) [facility]) Result panel 787 (unknown) (no date) (unknown) [facility]) Result panel 788 (unknown) (no date) (unknown) [facility]) Result panel 789 (unknown) (no date) (unknown) [facility]) Result panel 790 (unknown) (no date) (unknown) [facility]) Result panel 791 (unknown) (no date) (unknown) [facility]) Result panel 792 (unknown) (no date) (unknown) [facility]) Result panel 793 (unknown) (no date) (unknown) [facility]) Result panel 794 (unknown) (no date) (unknown) [facility]) Result panel 795 (unknown) (no date) (unknown) [facility]) Result panel 796 (unknown) (no date) (unknown) [facility]) Result panel 797 (unknown) (no date) (unknown) [facility]) Result panel 798 (unknown) (no date) (unknown) [facility]) Result panel 799 (unknown) (no date) (unknown) [facility]) Result panel 800 (unknown) (no date) (unknown) [facility]) Result panel 801 (unknown) (no date) (unknown) [facility]) Result panel 802 (unknown) (no date) (unknown) [facility]) Result panel 803 (unknown) (no date) (unknown) [facility]) Result panel 804 (unknown) (no date) (unknown) [facility]) Result panel 805 (unknown) (no date) (unknown) [facility]) Result panel 806 (unknown) (no date) (unknown) [facility]) Result panel 807 (unknown) (no date) (unknown) [facility]) Result panel 808 (unknown) (no date) (unknown) [facility]) Result panel 809 (unknown) (no date) (unknown) [facility]) Result panel 810 (unknown) (no date) (unknown) [facility]) Result panel 811 (unknown) (no date) (unknown) [facility]) Result panel 812 (unknown) (no date) (unknown) [facility]) Result panel 813 (unknown) (no date) (unknown) [facility]) Result panel 814 (unknown) (no date) (unknown) [facility]) Result panel 815 (unknown) (no date) (unknown) [facility]) Result panel 816 (unknown) (no date) (unknown) [facility]) Result panel 817 (unknown) (no date) (unknown) [facility]) Result panel 818 (unknown) (no date) (unknown) [facility]) Result panel 819 (unknown) (no date) (unknown) [facility]) Result panel 820 (unknown) (no date) (unknown) [facility]) Result panel 821 (unknown) (no date) (unknown) [facility]) Result panel 822 (unknown) (no date) (unknown) [facility]) Result panel 823 (unknown) (no date) (unknown) [facility]) Result panel 824 (unknown) (no date) (unknown) [facility]) Result panel 825 (unknown) (no date) (unknown) [facility]) Result panel 826 (unknown) (no date) (unknown) [facility]) Result panel 827 (unknown) (no date) (unknown) [facility]) Result panel 828 (unknown) (no date) (unknown) [facility]) Result panel 829 (unknown) (no date) (unknown) [facility]) Result panel 830 (unknown) (no date) (unknown) [facility]) Result panel 831 (unknown) (no date) (unknown) [facility]) Result panel 832 (unknown) (no date) (unknown) [facility]) Result panel 833 (unknown) (no date) (unknown) [facility]) Result panel 834 (unknown) (no date) (unknown) [facility]) Result panel 835 (unknown) (no date) (unknown) [facility]) Result panel 836 (unknown) (no date) (unknown) [facility]) Result panel 837 (unknown) (no date) (unknown) [facility]) Result panel 838 (unknown) (no date) (unknown) [facility]) Result panel 839 (unknown) (no date) (unknown) [facility]) Result panel 840 (unknown) (no date) (unknown) [facility]) Result panel 841 (unknown) (no date) (unknown) [facility]) Result panel 842 (unknown) (no date) (unknown) [facility]) Result panel 843 (unknown) (no date) (unknown) [facility]) Result panel 844 (unknown) (no date) (unknown) [facility]) Result panel 845 (unknown) (no date) (unknown) [facility]) Result panel 846 (unknown) (no date) (unknown) [facility]) Result panel 847 (unknown) (no date) (unknown) [facility]) Result panel 848 (unknown) (no date) (unknown) [facility]) Result panel 849 (unknown) (no date) (unknown) [facility]) Result panel 850 (unknown) (no date) (unknown) [facility]) Result panel 851 (unknown) (no date) (unknown) [facility]) Result panel 852 (unknown) (no date) (unknown) [facility]) Result panel 853 (unknown) (no date) (unknown) [facility]) Result panel 854 (unknown) (no date) (unknown) [facility]) Result panel 855 (unknown) (no date) (unknown) [facility]) Result panel 856 (unknown) (no date) (unknown) [facility]) Result panel 857 (unknown) (no date) (unknown) [facility]) Result panel 858 (unknown) (no date) (unknown) [facility]) Result panel 859 (unknown) (no date) (unknown) [facility]) Result panel 860 (unknown) (no date) (unknown) [facility]) Result panel 861 (unknown) (no date) (unknown) [facility]) Result panel 862 (unknown) (no date) (unknown) [facility]) Result panel 863 (unknown) (no date) (unknown) [facility]) Result panel 864 (unknown) (no date) (unknown) [facility]) Result panel 865 (unknown) (no date) (unknown) [facility]) Result panel 866 (unknown) (no date) (unknown) [facility]) Result panel 867 (unknown) (no date) (unknown) [facility]) Result panel 868 (unknown) (no date) (unknown) [facility]) Result panel 869 (unknown) (no date) (unknown) [facility]) Result panel 870 (unknown) (no date) (unknown) [facility]) Result panel 871 (unknown) (no date) (unknown) [facility]) Result panel 872 (unknown) (no date) (unknown) [facility]) Result panel 873 (unknown) (no date) (unknown) [facility]) Result panel 874 (unknown) (no date) (unknown) [facility]) Result panel 875 (unknown) (no date) (unknown) [facility]) Result panel 876 (unknown) (no date) (unknown) [facility]) Result panel 877 (unknown) (no date) (unknown) [facility]) Result panel 878 (unknown) (no date) (unknown) [facility]) Result panel 879 (unknown) (no date) (unknown) [facility]) Result panel 880 (unknown) (no date) (unknown) [facility]) Result panel 881 (unknown) (no date) (unknown) [facility]) Result panel 882 (unknown) (no date) (unknown) [facility]) Result panel 883 (unknown) (no date) (unknown) [facility]) Result panel 884 (unknown) (no date) (unknown) [facility]) Result panel 885 (unknown) (no date) (unknown) [facility]) Result panel 886 (unknown) (no date) (unknown) [facility]) Result panel 887 (unknown) (no date) (unknown) [facility]) Result panel 888 (unknown) (no date) (unknown) [facility]) Result panel 889 (unknown) (no date) (unknown) [facility]) Result panel 890 (unknown) (no date) (unknown) [facility]) Result panel 891 (unknown) (no date) (unknown) [facility]) Result panel 892 (unknown) (no date) (unknown) [facility]) Result panel 893 (unknown) (no date) (unknown) [facility]) Result panel 894 (unknown) (no date) (unknown) [facility]) Result panel 895 (unknown) (no date) (unknown) [facility]) Result panel 896 (unknown) (no date) (unknown) [facility]) Result panel 897 (unknown) (no date) (unknown) [facility]) Result panel 898 (unknown) (no date) (unknown) [facility]) Result panel 899 (unknown) (no date) (unknown) [facility]) Result panel 900 (unknown) (no date) (unknown) [facility]) Result panel 901 (unknown) (no date) (unknown) [facility]) Result panel 902 (unknown) (no date) (unknown) [facility]) Result panel 903 (unknown) (no date) (unknown) [facility]) Result panel 904 (unknown) (no date) (unknown) [facility]) Result panel 905 (unknown) (no date) (unknown) [facility]) Result panel 906 (unknown) (no date) (unknown) [facility] (no [facility]) Result panel 907 (unknown) (no date) (unknown) [facility]) Result panel 908 (unknown) (no date) (unknown) [facility]) Result panel 909 (unknown) (no date) (unknown) [facility]) Result panel 910 (unknown) (no date) (unknown) [facility]) Result panel 911 (unknown) (no date) (unknown) [facility]) Result panel 912 (unknown) (no date) (unknown) [facility]) Result panel 913 (unknown) (no date) (unknown) [facility]) Result panel 914 (unknown) (no date) (unknown) [facility]) Result panel 915 (unknown) (no date) (unknown) [facility]) Result panel 916 (unknown) (no date) (unknown) [facility]) Result panel 917 (unknown) (no date) (unknown) [facility]) Result panel 918 (unknown) (no date) (unknown[facility]) Result panel 919 (unknown) (no date) (unknown) [facility]) Result panel 920 (unknown) (no date) (unknown) [facility]) Result panel 921 (unknown) (no date) (unknown) [facility] Result panel 922 (unknown) (no date) (unknown[facility]) Result panel 923 (unknown) (no date) (unknown) [facility]) Result panel 924 (unknown) (no date) (unknown[facility]) Result panel 925 (unknown) (no date) (unknown) [facility]) Result panel 926 (unknown) (no date) (unknown) [facility]) Result panel 927 (unknown) (no date) (unknown) [facility]) Result panel 928 (unknown) (no date) (unknown) [facility]) Result panel 929 (unknown) (no date) (unknown) [facility]) Result panel 930 (unknown) (no date) (unknown) [facility]) Result panel 931 (unknown) (no date) (unknown) [facility]) Result panel 932 (unknown) (no date) (unknown) [facility]) Result panel 933 (unknown) (no date) (unknown) [facility]) Result panel 934 (unknown) (no date) (unknown) [facility]) Result panel 935 (unknown) (no date) (unknown) [facility]) Result panel 936 (unknown) (no date) (unknown) [facility]) Result panel 937 (unknown) (no date) (unknown) [facility]) Result panel 938 (unknown) (no date) (unknown) [facility]) Result panel 939 (unknown) (no date) (unknown) [facility]) Result panel 940 (unknown) (no date) (unknown) [facility]) Result panel 941 (unknown) (no date) (unknown) [facility]) Result panel 942 (unknown) (no date) (unknown) [facility]) Result panel 943 (unknown) (no date) (unknown) [facility]) Result panel 944 (unknown) (no date) (unknown) [facility]) Result panel 945 (unknown) (no date) (unknown) [facility]) Result panel 946 (unknown) (no date) (unknown) [facility]) Result panel 947 (unknown) (no date) (unknown) [facility]) Result panel 948 (unknown) (no date) (unknown) [facility]) Result panel 949 (unknown) (no date) (unknown) [facility]) Result panel 950 (unknown) (no date) (unknown) [facility]) Result panel 951 (unknown) (no date) (unknown) [facility]) Result panel 952 (unknown) (no date) (unknown) [facility]) Result panel 953 (unknown) (no date) (unknown) [facility]) Result panel 954 (unknown) (no date) (unknown) [facility]) Result panel 955 (unknown) (no date) (unknown) [facility]) Result panel 956 (unknown) (no date) (unknown) [facility]) Result panel 957 (unknown) (no date) (unknown) [facility]) Result panel 958 (unknown) (no date) (unknown) [facility]) Result panel 959 (unknown) (no date) (unknown) [facility]) Result panel 960 (unknown) (no date) (unknown) [facility]) Result panel 961 (unknown) (no date) (unknown) [facility]) Result panel 962 (unknown) (no date) (unknown) [facility]) Result panel 963 (unknown) (no date) (unknown) [facility]) Result panel 964 (unknown) (no date) (unknown) [facility]) Result panel 965 (unknown) (no date) (unknown) [facility]) Result panel 966 (unknown) (no date) (unknown) [facility]) Result panel 967 (unknown) (no date) (unknown) [facility]) Result panel 968 (unknown) (no date) (unknown) [facility]) Result panel 969 (unknown) (no date) (unknown) [facility]) Result panel 970 (unknown) (no date) (unknown) [facility]) Result panel 971 (unknown) (no date) (unknown) [facility]) Result panel 972 (unknown) (no date) (unknown) [facility]) Result panel 973 (unknown) (no date) (unknown) [facility]) Result panel 974 (unknown) (no date) (unknown) [facility]) Result panel 975 (unknown) (no date) (unknown) [facility]) Result panel 976 (unknown) (no date) (unknown) [facility]) Result panel 977 (unknown) (no date) (unknown) [facility]) Result panel 978 (unknown) (no date) (unknown) [facility]) Result panel 979 (unknown) (no date) (unknown) [facility]) Result panel 980 (unknown) (no date) (unknown) [facility]) Result panel 981 (unknown) (no date) (unknown) [facility]) Result panel 982 (unknown) (no date) (unknown) [facility]) Result panel 983 (unknown) (no date) (unknown) [facility]) Result panel 984 (unknown) (no date) (unknown) [facility]) Result panel 985 (unknown) (no date) (unknown) [facility]) Result panel 986 (unknown) (no date) (unknown) [facility]) Result panel 987 (unknown) (no date) (unknown) [facility]) Result panel 988 (unknown) (no date) (unknown) [facility]) Result panel 989 (unknown) (no date) (unknown) [facility]) Result panel 990 (unknown) (no date) (unknown) [facility]) Result panel 991 (unknown) (no date) (unknown) [facility]) Result panel 992 (unknown) (no date) (unknown) [facility]) Result panel 993 (unknown) (no date) (unknown) [facility]) Result panel 994 (unknown) (no date) (unknown) [facility]) Result panel 995 (unknown) (no date) (unknown) [facility]) Result panel 996 (unknown) (no date) (unknown) [facility]) Result panel 997 (unknown) (no date) (unknown) [facility]) Result panel 998 (unknown) (no date) (unknown) [facility]) Result panel 999 (unknown) (no date) (unknown) [facility]) Result panel 1000 (unknown) (no date) (unknown) [facility]) Result panel 1001 (unknown) (no date) (unknown) [facility]) Result panel 1002 (unknown) (no date) (unknown) [facility]) Result panel 1003 (unknown) (no date) (unknown) [facility]) Result panel 1004 (unknown) (no date) (unknown) [facility]) Result panel 1005 (unknown) (no date) (unknown) [facility]) Result panel 1006 (unknown) (no date) (unknown) [facility]) Result panel 1007 (unknown) (no date) (unknown) [facility]) Result panel 1008 (unknown) (no date) (unknown) [facility]) Result panel 1009 (unknown) (no date) (unknown) [facility]) Result panel 1010 (unknown) (no date) (unknown) [facility]) Result panel 1011 (unknown) (no date) (unknown) [facility]) Result panel 1012 (unknown) (no date) (unknown) [facility]) Result panel 1013 (unknown) (no date) (unknown) [facility]) Result panel 1014 (unknown) (no date) (unknown) [facility]) Result panel 1015 (unknown) (no date) (unknown) [facility]) Result panel 1016 (unknown) (no (unknown) (unknown) (no value) (units (unk nown) date) unknown) (unknown) (no (unknown) (unknown) 04/17/22 (units (unkno wn) date) unknown) (unknown) (no (unknown) (unknown) [address] [place] [address] (units (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) unknown) (unknown) (no (unknown) (unknown) [id number] (units (unkno wn) date) unknown) (unknown) (no (unknown) (unknown) Accession (units (unkn own) date) Number: unknown) [id number] (unknown) (no (unknown) (unknown) Age/Sex: 36 / M (units (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) Date of Service: unknown) (unknown) (no (unknown) (unknown) NAVEEN Priest (units ( 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) [id number] unknown) (unknown) (no (unknown) (unknown) Approved by: (units (u nknown) date) chelo Redding) Melanie on 04/17/2022 at 13:22 (unknown) (no (unknown) (unknown) COMPARISON: (units (un known) date) None. unknown) (unknown) (no (unknown) (unknown) : 1985 (units (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) Acct:[id number] unknown) (unknown) (no (unknown) (unknown) Dictated by: (units (u nknown) date) chelo Redding) JesusD. on 04/17/2022 at 13:21 (unknown) (no (unknown) (unknown) FINDINGS: (units (unkn own) date) unknown) (unknown) (no (unknown) (unknown) IMPRESSION: (units (un known) date) Approximately 5 unknown) mm left interpolar renal calculus with no (unknown) (no (unknown) (unknown) INDICATIONS: (units (u nknown) date) KIDNEY STONES unknown) (unknown) (no (unknown) (unknown) [facility] (units (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) unknown) (unknown) (no (unknown) (unknown) Left interpolar (units (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) region renal unknown) calculus measuring 5 mm. No additional urinary (unknown) (no (unknown) (unknown) Loc: RAD (units (unkno wn) date) unknown) (unknown) (no (unknown) (unknown) Ordering (units (unkno wn) date) Provider: unknown) Pinky Kahn P.A-C (unknown) (no (unknown) (unknown) PROCEDURE: XR (units ( 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) KUB unknown) (unknown) (no (unknown) (unknown) Patient: (units (unkno wn) date) Jaquan Rodríguez MR#: unknown) [id number] (unknown) (no (unknown) (unknown) Procedure: XR (units ( 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) KUB unknown) (unknown) (no (unknown) (unknown) Signed (units (unkno wn) date) unknown) (unknown) (no (unknown) (unknown) TECHNIQUE: One (units (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) view of the unknown) abdomen acquired. (unknown) (no (unknown) (unknown) XRay Report (units (un known) date) unknown) (unknown) (no (unknown) (unknown) abnormality. (units (u nknown) date) unknown) (unknown) (no (unknown) (unknown) additional (units (unk nown) date) urinary unknown) (unknown) (no (unknown) (unknown) calculus (units (unkno wn) date) identified. unknown) Normal bowel gas pattern. Significant osseous (unknown) (no (unknown) (unknown) tract calculus (units (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) identified. unknown) (unknown) (no (unknown) (unknown) tract (units (unkno wn) date) unknown) Result panel 1017 (unknown) (no (unknown) (unknown) (no value) (units (unk nown) date) unknown) (unknown) (no (unknown) (unknown) 04/24/22 (units (unkno wn) date) unknown) (unknown) (no (unknown) (unknown) 04/24/22] (units (unkn own) date) unknown) (unknown) (no (unknown) (unknown) [id number] (units (unkno wn) date) unknown) (unknown) (no (unknown) (unknown) Age/Sex: 36 / M (units (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) Date of Service: unknown) (unknown) (no (unknown) (unknown) Allergies (units (unkn own) date) unknown) (unknown) (no (unknown) (unknown) [facility] (units (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) Medicine unknown) (unknown) (no (unknown) (unknown) [place], [place] (units ( 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) [id number] unknown) (unknown) (no (unknown) (unknown) Assessment + (units (u nknown) date) Plan unknown) (unknown) (no (unknown) (unknown) Attending Dr: (units ( 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) Lakeisha Tillman unknown) COLOR CARD 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 unknown) (unknown) (no (unknown) (unknown) Documented By: (units (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) Lakeisha Tillman unknown) COLOR CARD MAKER 04/24/22 1009 (unknown) (no (unknown) (unknown) Draft (units (unkno wn) date) unknown) (unknown) (no (unknown) (unknown) Family [facility] (units (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) Office Visit unknown) (unknown) (no (unknown) (unknown) Healthy adult (units ( 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) unknown) (unknown) (no (unknown) (unknown) Intake Note: (units (u nknown) date) unknown) (unknown) (no (unknown) (unknown) Intake performed (units (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) by: Vidhya Delgado unknown) (unknown) (no (unknown) (unknown) Intake (units (unkno wn) date) unknown) (unknown) (no (unknown) (unknown) Intake- Clincial (units (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) Staff unknown) (unknown) (no (unknown) (unknown) Loc: [facility] (units (unkno wn) date) unknown) (unknown) (no (unknown) (unknown) Medical History (units (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) (Reviewed unknown) 03/23/22 @ 07:46 by Reshma Connor DO) (unknown) (no (unknown) (unknown) Medications (units (un known) date) unknown) (unknown) (no (unknown) (unknown) Orders (units (unkno wn) date) unknown) (unknown) (no (unknown) (unknown) Orders: (units (unkno wn) date) unknown) (unknown) (no (unknown) (unknown) PFSH (units (unkno wn) date) unknown) (unknown) (no (unknown) (unknown) Patient: (units (unkno wn) date) Jaquan Rodríguez MR#: unknown) [id number] (unknown) (no (unknown) (unknown) Reason For Visit (units (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) unknown) (unknown) (no (unknown) (unknown) Signed By: (units (unk nown) date) unknown) (unknown) (no (unknown) (unknown) Smoking Status: (units (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) Never smoker unknown) (unknown) (no (unknown) (unknown) This note may (units ( 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) have been all or unknown) partially generated using voice recognition (unknown) (no (unknown) (unknown) Tobacco + (units (unkn own) date) Substance Use unknown) (unknown) (no (unknown) (unknown) Tobacco Status (units (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) unknown) (unknown) (no (unknown) (unknown) Visit Reasons: (units (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) 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 unknown) throat sinus congestion vomiting (unknown) (no (unknown) (unknown) [History (units (unkno wn) date) Confirmed unknown) 04/24/22] (unknown) (no (unknown) (unknown) amoxicillin (units (un known) date) [AMOXICILLIN] unknown) Allergy (Unknown, Verified 04/24/22 10:11) (unknown) (no (unknown) (unknown) bupropion HCl (units ( 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) 150 mg 24 hr unknown) tablet, extended release 150 mg PO DAILY 04/05/21 (unknown) (no (unknown) (unknown) fluoxetine 20 mg (units (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) capsule 20 mg PO unknown) QDAY #0 caps 02/01/16 [History Confirmed (unknown) (no (unknown) (unknown) have occurred. (units (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) If there are any unknown) questions, please contact the Medical Records (unknown) (no (unknown) (unknown) may occur. (units (unk nown) date) Occasional unknown) wrong-word or 'sound-alike' substitutions may have (unknown) (no (unknown) (unknown) meloxicam 7.5 mg (units (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) tablet 7.5 mg PO unknown) BID PRN pain #14 tabs 03/23/22 [Rx Confirmed (unknown) (no (unknown) (unknown) occurred due to (units (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) the inherent unknown) limitations of voice recognition software. Please (unknown) (no (unknown) (unknown) oxycodone 5 mg (units (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) tablet 5 mg PO unknown) Q6H PRN pain #14 tabs 03/23/22 [Rx Confirmed (unknown) (no (unknown) (unknown) read the note (units ( 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) carefully and unknown) recognize, using context, where these substitutions (unknown) (no (unknown) (unknown) sick for the (units (u nknown) date) last 7 days. unknown) tylenol and motrin rotating. 102 temps at home, (unknown) (no (unknown) (unknown) software. 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 (unknown) (no (unknown) (unknown) unspecified (units (un known) date) unknown) Result panel 1018 (unknown) (no (unknown) (unknown) (no value) (units (unk nown) date) unknown) (unknown) (no (unknown) (unknown) #15 mL 04/24/22 (units (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) [Rx Confirmed unknown) 04/24/22] (unknown) (no (unknown) (unknown) (1) Viral (units (unkn own) date) illness: unknown) (unknown) (no (unknown) (unknown) 10:28 (units (unkno wn) date) unknown) (unknown) (no (unknown) (unknown) 04/24/22 1034 (units ( 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) unknown) (unknown) (no (unknown) (unknown) 04/24/22 (units (unkno wn) date) unknown) (unknown) (no (unknown) (unknown) 04/24/22] (units (unkn own) date) unknown) (unknown) (no (unknown) (unknown) 5498 (units (unkno wn) date) unknown) (unknown) (no (unknown) (unknown) Age/Sex: 36 / M (units (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) Date of Service: unknown) (unknown) (no (unknown) (unknown) Alignment and (units ( 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) Position: unknown) alignment normal (unknown) (no (unknown) (unknown) Allergies (units (unkn own) date) unknown) (unknown) (no (unknown) (unknown) [facility] (units (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) Medicine unknown) (unknown) (no (unknown) (unknown) [place], [place] (units ( 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) [id number] unknown) (unknown) (no (unknown) (unknown) Assessment + Plan (units (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) unknown) (unknown) (no (unknown) (unknown) Attending Dr: (units ( 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) Lakeisha Tillman unknown) MARY (unknown) (no (unknown) (unknown) Auscultation: (units ( 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) clear to unknown) auscultation bilaterally (unknown) (no (unknown) (unknown) BMI 32.1 (units (unkno wn) date) unknown) (unknown) (no (unknown) (unknown) BP 125/71 (units (unkn own) date) unknown) (unknown) (no (unknown) (unknown) Blood Pressure (units (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) Location Lt radial unknown) (unknown) (no (unknown) (unknown) Chief Complaint (units (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) unknown) (unknown) (no (unknown) (unknown) Chief Complaint: (units (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) Viral illness unknown) (unknown) (no (unknown) (unknown) Confirmed (units (unkn own) date) 04/24/22] unknown) (unknown) (no (unknown) (unknown) Const (units (unkno wn) date) unknown) (unknown) (no (unknown) (unknown) Covid-19 + FLU (units (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) A/B + RSV - PCR unknown) Today R05.9 - Cough, unspecified, R50.9 - Fever, (unknown) (no (unknown) (unknown) : 1985 (units (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) Acct:[id number] unknown) (unknown) (no (unknown) (unknown) Dept at (units (unkno wn) date) . unknown) (unknown) (no (unknown) (unknown) Details: (units (unkno wn) date) unknown) (unknown) (no (unknown) (unknown) Documented By: (units (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) Lakeisha Tillman unknown) COLOR CARD MAKER 04/24/22 1009 (unknown) (no (unknown) (unknown) Ears: hearing (units ( 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) grossly normal unknown) bilaterally, external ears normal and TM's normal (unknown) (no (unknown) (unknown) Effort + (units (unkno wn) date) Inspection: normal unknown) respiratory effort (unknown) (no (unknown) (unknown) Exam Narrative (units (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) unknown) (unknown) (no (unknown) (unknown) Exam Narrative: (units (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) unknown) (unknown) (no (unknown) (unknown) Exam (units (unkno wn) date) unknown) (unknown) (no (unknown) (unknown) Eyes (units (unkno wn) date) unknown) (unknown) (no (unknown) (unknown) Face and sinus: (units (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) normal facial exam unknown) (unknown) (no (unknown) (unknown) Family Practice (units (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) Office Visit unknown) (unknown) (no (unknown) (unknown) General: (units (unkno wn) date) appearance normal, unknown) both eyes and all related structures (unknown) (no (unknown) (unknown) General: (units (unkno wn) date) cooperative, unknown) healthy appearing, mildly discomfort (unknown) (no (unknown) (unknown) General: no (units (un known) date) rashes or lesions unknown) noted (unknown) (no (unknown) (unknown) HENMT (units (unkno wn) date) unknown) (unknown) (no (unknown) (unknown) HPI and exam (units (u nknown) date) indicates need for unknown) viral testing. Rest, increase fluids. Small (unknown) (no (unknown) (unknown) HPI (units (unkno wn) date) unknown) (unknown) (no (unknown) (unknown) He did take his (units (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) 's Phenergan unknown) this morning with minimal relief. No active (unknown) (no (unknown) (unknown) Head: normal to (units (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) inspection unknown) (unknown) (no (unknown) (unknown) Healthy adult (units ( 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) unknown) (unknown) (no (unknown) (unknown) Height 5 ft 11 in (units (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) unknown) (unknown) (no (unknown) (unknown) Intake Note: (units (u nknown) date) unknown) (unknown) (no (unknown) (unknown) Intake performed (units (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) by: Vidhya Delgado unknown) (unknown) (no (unknown) (unknown) Intake (units (unkno wn) date) unknown) (unknown) (no (unknown) (unknown) Intake- Clincial (units (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) Staff unknown) (unknown) (no (unknown) (unknown) Loc: [facility] (units (unkno wn) date) unknown) (unknown) (no (unknown) (unknown) Medical History (units (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) (Reviewed 03/23/22 unknown) @ 07:46 by Reshma Connor DO) (unknown) (no (unknown) (unknown) Medications (units (un known) date) unknown) (unknown) (no (unknown) (unknown) Medications: (units (u nknown) date) unknown) (unknown) (no (unknown) (unknown) Mouth: oral (units (un known) date) mucosae normal unknown) (unknown) (no (unknown) (unknown) Neck (units (unkno wn) date) unknown) (unknown) (no (unknown) (unknown) Neck: normal (units (un known) date) visual inspection, unknown) full ROM and bilateral tonsillar lymphadenopathy (unknown) (no (unknown) (unknown) New (units (unkno wn) date) unknown) (unknown) (no (unknown) (unknown) Nose: external (units (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) nose normal, clear unknown) nasal drainage (unknown) (no (unknown) (unknown) Orders (units (unkno wn) date) unknown) (unknown) (no (unknown) (unknown) Orders: (units (unkno wn) date) unknown) (unknown) (no (unknown) (unknown) Oxygen Delivery (units (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) Method room air unknown) (unknown) (no (unknown) (unknown) PFSH (units (unkno wn) date) unknown) (unknown) (no (unknown) (unknown) Patient is alert, (units (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) oriented, able to unknown) talk in full sentences-mild discomfort. (unknown) (no (unknown) (unknown) Patient presents (units (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) to [facility] with unknown) concerns for fever, sore throat, congestion and (unknown) (no (unknown) (unknown) Patient presents (units (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) to walk-in clinic unknown) with complaints of viral illness symptoms (unknown) (no (unknown) (unknown) Patient: (units (unkno wn) date) Jaquan Rodríguez MR#: unknown) [id number] (unknown) (no (unknown) (unknown) Plan (units (unkno wn) date) unknown) (unknown) (no (unknown) (unknown) Position Sitting (units (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) unknown) (unknown) (no (unknown) (unknown) Pulse 111 H (units (un known) date) unknown) (unknown) (no (unknown) (unknown) Pulse Oximetry (units (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) (%) 98 unknown) (unknown) (no (unknown) (unknown) Pulse Source (units (u nknown) date) Monitor unknown) (unknown) (no (unknown) (unknown) Reason For Visit (units (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) unknown) (unknown) (no (unknown) (unknown) Resp (units (unkno wn) date) unknown) (unknown) (no (unknown) (unknown) Respiration 16 (units (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) unknown) (unknown) (no (unknown) (unknown) Signed By: (units (unk nown) date) <Electronically unknown) signed by Lakeisha Tillman> (unknown) (no (unknown) (unknown) Signed (units (unkno wn) date) unknown) (unknown) (no (unknown) (unknown) Skin (units (unkno wn) date) unknown) (unknown) (no (unknown) (unknown) Smoking Status: (units (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) Never smoker unknown) (unknown) (no (unknown) (unknown) Teeth and (units (unkn own) date) gingiva: dentition unknown) normal (unknown) (no (unknown) (unknown) Temp 100.6 F H (units (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) unknown) (unknown) (no (unknown) (unknown) Temp Source Oral (units (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) unknown) (unknown) (no (unknown) (unknown) This note may (units ( 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) have been all or unknown) partially generated using voice recognition (unknown) (no (unknown) (unknown) Throat: posterior (units (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) oropharynx mild unknown) erythema without swelling or exudate (unknown) (no (unknown) (unknown) Tobacco + (units (unkn own) date) Substance Use unknown) (unknown) (no (unknown) (unknown) Tobacco Status (units (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) unknown) (unknown) (no (unknown) (unknown) 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 (units (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) fever sore throat unknown) sinus congestion vomiting (unknown) (no (unknown) (unknown) Visual Greene: (units (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) normal visual unknown) greene by confrontation (unknown) (no (unknown) (unknown) Vitals (units (unkno wn) date) unknown) (unknown) (no (unknown) (unknown) Weight 230 lb (units ( 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) unknown) (unknown) (no (unknown) (unknown) [History (units (unkno wn) date) Confirmed unknown) 04/24/22] (unknown) (no (unknown) (unknown) administer into (units (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) each nostril 2 unknown) sprays intranasal TID 4 days 15 mL 0RF (unknown) (no (unknown) (unknown) also states that (units (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) when he tries to unknown) eat or drink, he does have vomiting episodes. (unknown) (no (unknown) (unknown) amoxicillin (units (un known) date) [AMOXICILLIN] unknown) Allergy (Unknown, Verified 04/24/22 10:11) (unknown) (no (unknown) (unknown) and motrin (units (unk nown) date) rotating q 3. unknown) Reports 102 temps at home, and states tylenol takes it (unknown) (no (unknown) (unknown) benzonatate 100 (units (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) mg PO BID PRN 20 unknown) caps 0RF cough (unknown) (no (unknown) (unknown) benzonatate 100 (units (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) mg capsule 100 mg unknown) PO BID PRN cough #20 caps 04/24/22 [Rx (unknown) (no (unknown) (unknown) bilaterally (units (un known) date) unknown) (unknown) (no (unknown) (unknown) bupropion HCl 150 (units (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) mg 24 hr tablet, unknown) extended release 150 mg PO DAILY 04/05/21 (unknown) (no (unknown) (unknown) down to 100 or (units (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) so. unknown) (unknown) (no (unknown) (unknown) emergency (units (unkn own) date) department if unknown) symptoms worsen, new symptoms develop. Follow-up with (unknown) (no (unknown) (unknown) fluoxetine 20 mg (units (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) capsule 20 mg PO unknown) QDAY #0 caps 02/01/16 [History Confirmed (unknown) (no (unknown) (unknown) have occurred. If (units (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) there are any unknown) questions, please contact the Medical Records (unknown) (no (unknown) (unknown) including sinus (units (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) congestion, runny unknown) nose, cough, sore throat, body aches and fever (unknown) (no (unknown) (unknown) ipratropium (units (un known) date) bromide 42 mcg unknown) (0.06 %) nasal spray 2 spray intranasal TID 4 days (unknown) (no (unknown) (unknown) ipratropium (units (un known) date) bromide unknown) (unknown) (no (unknown) (unknown) may occur. (units (unk nown) date) Occasional unknown) wrong-word or 'sound-alike' substitutions may have (unknown) (no (unknown) (unknown) medications such (units (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) as unknown) Tylenol/ibuprofen, Delsym for cough. Return to the (unknown) (no (unknown) (unknown) meloxicam 7.5 mg (units (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) tablet 7.5 mg PO unknown) BID PRN pain #14 tabs 03/23/22 [Rx Confirmed (unknown) (no (unknown) (unknown) occurred due to (units (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) the inherent unknown) limitations of voice recognition software. Please (unknown) (no (unknown) (unknown) ondansetron 4 mg (units (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) PO Q8H PRN 14 tabs unknown) 0RF nausea and vomiting (unknown) (no (unknown) (unknown) ondansetron 4 mg (units (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) disintegrating unknown) tablet 4 mg PO Q8H PRN nausea and vomiting #14 (unknown) (no (unknown) (unknown) ongoing for about (units (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) a week. Has been unknown) taking [id number] medication. Patient (unknown) (no (unknown) (unknown) oxycodone 5 mg (units (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) tablet 5 mg PO Q6H unknown) PRN pain #14 tabs 03/23/22 [Rx Confirmed (unknown) (no (unknown) (unknown) primary care as (units (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) needed. unknown) (unknown) (no (unknown) (unknown) read the note (units ( 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) carefully and unknown) recognize, using context, where these substitutions (unknown) (no (unknown) (unknown) sips of water and (units (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) meals throughout unknown) the day. Continue [id number] (unknown) (no (unknown) (unknown) software. (units (unkn own) date) Although every unknown) effort is made to edit content, global account manager errors (unknown) (no (unknown) (unknown) tabs 04/24/22 [Rx (units (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) Confirmed unknown) 04/24/22] (unknown) (no (unknown) (unknown) tamsulosin 0.4 mg (units (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) capsule (Flomax) unknown) 0.4 mg PO DAILY #7 caps 03/23/22 [Rx (unknown) (no (unknown) (unknown) unspecified (units (un known) date) unknown) (unknown) (no (unknown) (unknown) vomiting during (units (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) visit. Patient's unknown) is also sick with similar symptoms. (unknown) (no (unknown) (unknown) vomiting. Patient (units (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) reports sx for the unknown) last 7 days. Reports home tx with Tylenol Result panel 1019 (unknown) (no date) (unknown) (unknown) Flu A (units (unkn own) POSITIVE unknown) (unknown) (no date) (unknown) (unknown) Flu B (units (unkn own) NEGATIVE unknown) (unknown) (no date) (unknown) (unknown) Negative (units (unkn own) unknown) (unknown) (no date) (unknown) (unknown) Negative (units (unkn own) unknown) Result panel 1020 (unknown) (no date) (unknown) (unknown) (no value) (units (un known) unknown) (unknown) (no date) (unknown) (unknown) Light growth (units ( unknown) - Mixed unknown) resident sandy Result panel 1021 (unknown) (no date) (unknown) (unknown) (no value) (units (un known) unknown) (unknown) (no date) (unknown) (unknown) Light growth (units ( unknown) - Mixed unknown) resident sandy Result panel 1022 (unknown) (no (unknown) (unknown) (no value) (units (unk nown) date) unknown) (unknown) (no (unknown) (unknown) 05/17/22 (units (unkno wn) date) unknown) (unknown) (no (unknown) (unknown) [address] [place] [address] (units (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) unknown) (unknown) (no (unknown) (unknown) 14:46. [place] (units ( 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) unknown) (unknown) (no (unknown) (unknown) [address] (units (unkno wn) date) unknown) (unknown) (no (unknown) (unknown) A cause of (units (unk nown) date) abdominal pain is unknown) not seen. (unknown) (no (unknown) (unknown) ABDOMEN/PELVIS (units (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) unknown) (unknown) (no (unknown) (unknown) ABDOMEN: (units (unkno wn) date) unknown) (unknown) (no (unknown) (unknown) Abdominal Nodes: (units (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) No enlarged unknown) retroperitoneal or mesenteric lymph nodes. (unknown) (no (unknown) (unknown) Accession Number: (units (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) [id number] unknown) (unknown) (no (unknown) (unknown) Additional (units (unk nown) date) findings: unknown) (unknown) (no (unknown) (unknown) Adrenal Glands: A (units (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) right adrenal unknown) myelolipoma is again seen measuring 7 cm. The (unknown) (no (unknown) (unknown) Age/Sex: 36 / M (units (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) Date of Service: unknown) (unknown) (no (unknown) (unknown) [place], [place] (units ( 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) [id number] unknown) (unknown) (no (unknown) (unknown) Approved by: (units (u nknown) date) abby Banegas M.D. on 05/17/2022 at 16:35 (unknown) (no (unknown) (unknown) Axial sections (units (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) were acquired from unknown) the lung bases to the pubic symphysis. (unknown) (no (unknown) (unknown) Biliary ducts: (units (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) Unremarkable. unknown) (unknown) (no (unknown) (unknown) Bladder: Normal (units (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) wall thickness. No unknown) stones. (unknown) (no (unknown) (unknown) Bones: (units (unkno wn) date) Unremarkable. unknown) (unknown) (no (unknown) (unknown) COMPARISON: (units (un known) date) [facility], unknown) CT, ABDOMEN/PELVIS WITH CONTRAST, 01/13/2015, (unknown) (no (unknown) (unknown) CT Scan Report (units (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) unknown) (unknown) (no (unknown) (unknown) Coronal and (units (un known) date) unknown) (unknown) (no (unknown) (unknown) : 1985 (units (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) Acct:[id number] unknown) (unknown) (no (unknown) (unknown) Dictated by: (units (u nknown) date) Nguyễn Montana, unknown) Melanie on 05/17/2022 at 16:32 (unknown) (no (unknown) (unknown) FINDINGS: (units (unkn own) date) unknown) (unknown) (no (unknown) (unknown) Fatty liver (units (un known) date) infiltration unknown) (unknown) (no (unknown) (unknown) Gallbladder: (units (u nknown) date) Unremarkable. unknown) (unknown) (no (unknown) (unknown) Heart: No (units (unkn own) date) significant unknown) findings. (unknown) (no (unknown) (unknown) Hospital, CR, XR (units (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) KUB, 04/17/2022, unknown) 12:09. [facility], , [place] (unknown) (no (unknown) (unknown) IMPRESSION: (units (un known) date) unknown) (unknown) (no (unknown) (unknown) INDICATIONS: (units (u nknown) date) upper abd pain, hx unknown) nephrolithiasis and lt 5mm renal calculus (unknown) (no (unknown) (unknown) Image quality: (units (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) Excellent. unknown) (unknown) (no (unknown) (unknown) [facility] (units (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) unknown) (unknown) (no (unknown) (unknown) Left Kidney: (units (u nknown) date) Nonobstructing unknown) left-sided kidney stones are seen, with the (unknown) (no (unknown) (unknown) Left Ureter: No (units (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) hydroureter. unknown) (unknown) (no (unknown) (unknown) Liver: Diffuse (units (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) fatty liver unknown) infiltration is noted. The liver is normal in size (unknown) (no (unknown) (unknown) Loc: ED (units (unkno wn) date) unknown) (unknown) (no (unknown) (unknown) Lung bases: (units (un known) date) Unremarkable. unknown) (unknown) (no (unknown) (unknown) Miscellaneous: No (units (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) inguinal hernias unknown) are seen. (unknown) (no (unknown) (unknown) Nonobstructing (units (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) left-sided kidney unknown) stones, without hydronephrosis. (unknown) (no (unknown) (unknown) Ordering (units (unkno wn) date) Provider: unknown) Ni Moran (unknown) (no (unknown) (unknown) PELVIS: (units (unkno wn) date) unknown) (unknown) (no (unknown) (unknown) PROCEDURE: CT (units ( 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) KIDNEY URETER unknown) BLADDER (KUB) (unknown) (no (unknown) (unknown) Pancreas: (units (unkn own) date) Unremarkable. unknown) (unknown) (no (unknown) (unknown) Patient: (units (unkno wn) date) Jaquan Rodríguez MR#: unknown) [id number] (unknown) (no (unknown) (unknown) Pelvic Nodes: (units ( 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) Unremarkable. unknown) (unknown) (no (unknown) (unknown) Pelvic Organs: (units (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) Unremarkable. unknown) (unknown) (no (unknown) (unknown) Peritoneum: No (units (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) abnormal unknown) intraperitoneal fluid. No free air. (unknown) (no (unknown) (unknown) Procedure: CT (units ( 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) kidney ureter unknown) bladder (KUB) (unknown) (no (unknown) (unknown) Right Kidney: No (units (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) stones or unknown) hydronephrosis. (unknown) (no (unknown) (unknown) Right Ureter: No (units (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) hydroureter. 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 unknown) (unknown) (no (unknown) (unknown) Signed (units (unkno wn) date) unknown) (unknown) (no (unknown) (unknown) Spleen: (units (unkno wn) date) Unremarkable. unknown) (unknown) (no (unknown) (unknown) Stomach and (units (un known) date) Bowel: Stomach, unknown) small bowel loops, and colon are unremarkable. (unknown) (no (unknown) (unknown) TECHNIQUE: (units (unk nown) date) unknown) (unknown) (no (unknown) (unknown) URINARY: (units (unkno wn) date) unknown) (unknown) (no (unknown) (unknown) Ventral Wall: No (units (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) hernia. unknown) (unknown) (no (unknown) (unknown) Vessels: Aorta (units (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) and inferior vena unknown) cava are normal in size. (unknown) (no (unknown) (unknown) WITHOUT CONTRAST, (units (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) 03/22/2022, 17:02. unknown) (unknown) (no (unknown) (unknown) adrenal gland is (units (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) unremarkable. unknown) (unknown) (no (unknown) (unknown) and (units (unkno wn) date) unknown) (unknown) (no (unknown) (unknown) automated (units (unkn own) date) exposure control, unknown) adjustment of mA and/or kV according to patient (unknown) (no (unknown) (unknown) demonstrates no (units (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) suspicious unknown) lesions. (unknown) (no (unknown) (unknown) hydronephrosis is (units (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) unknown) (unknown) (no (unknown) (unknown) largest (units (unkno wn) date) unknown) (unknown) (no (unknown) (unknown) left (units (unkno wn) date) unknown) (unknown) (no (unknown) (unknown) measuring 6 mm (units (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) craniocaudal and unknown) 700 [place] units. No left-sided (unknown) (no (unknown) (unknown) sagittal (units (unkno wn) date) reformats were unknown) performed. For radiation dose reduction, the following (unknown) (no (unknown) (unknown) seen. (units (unkno wn) date) unknown) (unknown) (no (unknown) (unknown) size. (units (unkno wn) date) unknown) (unknown) (no (unknown) (unknown) was used: (units (unkn own) date) unknown) Result panel 1023 (unknown) (no date) (unknown) (unknown) 0 /ul (unkn own) (unknown) (no date) (unknown) (unknown) 0.6 % (unkn own) (unknown) (no date) (unknown) (unknown) 1.8 % (unkn own) (unknown) (no date) (unknown) (unknown) 10.0 % (unkn own) (unknown) (no date) (unknown) (unknown) 100 /ul (unkn own) (unknown) (no date) (unknown) (unknown) 13.3 % (unkn own) (unknown) (no date) (unknown) (unknown) 15.3 g/dl (unkn own) (unknown) (no date) (unknown) (unknown) 1500 /ul (unkn own) (unknown) (no date) (unknown) (unknown) 239 x10 3/ul (unkn own) (unknown) (no date) (unknown) (unknown) 25.6 % (unkn own) (unknown) (no date) (unknown) (unknown) 31.7 pg (unkn own) (unknown) (no date) (unknown) (unknown) 34.9 % (unkn own) (unknown) (no date) (unknown) (unknown) 3700 /ul (unkn own) (unknown) (no date) (unknown) (unknown) 4.82 x10 6/ul (unkn own) (unknown) (no date) (unknown) (unknown) 43.9 % (unkn own) (unknown) (no date) (unknown) (unknown) 6.0 x10 3/ul (unkn own) (unknown) (no date) (unknown) (unknown) 600 /ul (unkn own) (unknown) (no date) (unknown) (unknown) 62.0 % (unkn own) (unknown) (no date) (unknown) (unknown) 90.9 fl (unkn own) Result panel 1024 (unknown) (no (unknown) (unknown) (no value) (units (unk nown) date) unknown) (unknown) (no (unknown) (unknown) 0.4 mg PO DAILY (units (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) Qty: 7 0RF unknown) (unknown) (no (unknown) (unknown) 05/17/22 16:44 (units (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) unknown) (unknown) (no (unknown) (unknown) 05/17/22 17:40 (units (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) unknown) (unknown) (no (unknown) (unknown) 05/17/22 18:05 (units (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) unknown) (unknown) (no (unknown) (unknown) 05/17/22 (units (unkno wn) date) Range/Units unknown) (unknown) (no (unknown) (unknown) 05/17/22 (units (unkno wn) date) unknown) (unknown) (no (unknown) (unknown) 1-2 tablets by (units (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) mouth every 6 unknown) hours as needed for pain. (unknown) (no (unknown) (unknown) 100 mg PO BID PRN (units (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) (Reason: cough) unknown) Qty: 20 0RF (unknown) (no (unknown) (unknown) 14:46.? [place] (units (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) unknown) (unknown) (no (unknown) (unknown) 150 mg PO DAILY (units (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) unknown) (unknown) (no (unknown) (unknown) 17:06 (units (unkno wn) date) unknown) (unknown) (no (unknown) (unknown) 18:05 (units (unkno wn) date) unknown) (unknown) (no (unknown) (unknown) 20 mg PO QDAY (units ( 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) Qty: 0 unknown) (unknown) (no (unknown) (unknown) 4 mg PO Q8H PRN (units (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) (Reason: nausea unknown) and vomiting) Qty: 14 0RF (unknown) (no (unknown) (unknown) 5 mg PO Q6H PRN (units (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) (Reason: pain) unknown) Qty: 14 0RF (unknown) (no (unknown) (unknown) [id number] (units (unkno wn) date) unknown) (unknown) (no (unknown) (unknown) 7.5 mg PO BID PRN (units (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) (Reason: pain) unknown) Qty: 14 0RF (unknown) (no (unknown) (unknown) ? (units (unkno wn) date) unknown) (unknown) (no (unknown) (unknown) ?automated (units (unk n) date) exposure control, unknown) adjustment of mA and/or kV according to patient (unknown) (no (unknown) (unknown) A cause of (units (unk n) date) abdominal pain is unknown) not seen. (unknown) (no (unknown) (unknown) ABDOMEN/PELVIS (units (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) unknown) (unknown) (no (unknown) (unknown) ABDOMEN: (units (unkno wn) date) unknown) (unknown) (no (unknown) (unknown) Abdominal Nodes:? (units (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) No enlarged unknown) retroperitoneal or mesenteric lymph nodes.? (unknown) (no (unknown) (unknown) Accession Number: (units (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) [id number] ?? unknown) (unknown) (no (unknown) (unknown) Acct:[id number] (units (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) unknown) (unknown) (no (unknown) (unknown) Additional (units (unk n) date) findings:? unknown) (unknown) (no (unknown) (unknown) Adrenal Glands:? (units (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) A right adrenal unknown) myelolipoma is again seen measuring 7 cm.? The (unknown) (no (unknown) (unknown) Age/Sex: 36 / M (units (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) unknown) (unknown) (no (unknown) (unknown) Allergies (units (unkn own) date) unknown) (unknown) (no (unknown) (unknown) Allergy/AdvReac (units (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) Type Severity unknown) Reaction Status Date / Time (unknown) (no (unknown) (unknown) Approved by: (units (u nknown) date) abby Banegas M.D. on 05/17/2022 at 16:35 ? (unknown) (no (unknown) (unknown) Axial sections (units (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) were acquired from unknown) the lung bases to the pubic symphysis.? (unknown) (no (unknown) (unknown) Baso # (Auto) 0 (units (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) (0-100) /uL unknown) (unknown) (no (unknown) (unknown) Baso % (Auto) 0.6 (units (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) (0-2) % unknown) (unknown) (no (unknown) (unknown) Biliary ducts:? (units (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) Unremarkable.? ? unknown) (unknown) (no (unknown) (unknown) Bladder:? Normal (units (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) wall thickness. No unknown) stones. ? ? (unknown) (no (unknown) (unknown) Blood Pressure (units (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) 145/83 H 05/17/22 unknown) 17:06 (unknown) (no (unknown) (unknown) Blood Pressure (units (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) 145/83 H unknown) (unknown) (no (unknown) (unknown) Bones:? (units (unkno wn) date) Unremarkable. unknown) (unknown) (no (unknown) (unknown) CBC Auto Diff (units ( 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) [Complete Blood unknown) Count AUTO DIFF] Stat (unknown) (no (unknown) (unknown) CMP (units (unkno wn) date) [Comprehensive unknown) Metabolic Panel] Stat (unknown) (no (unknown) (unknown) COMPARISON:? (units (u nknown) date) [facility], unknown) CT, ABDOMEN/PELVIS WITH CONTRAST, 01/13/2015, (unknown) (no (unknown) (unknown) CT kidney ureter (units (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) bladder (KUB) Stat unknown) (unknown) (no (unknown) (unknown) CT scan - (units (unkn own) date) abdomen/pelvis: unknown) (unknown) (no (unknown) (unknown) Chief Complaint: (units (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) Abdominal Pain unknown) (unknown) (no (unknown) (unknown) Coronal and (units (un known) date) unknown) (unknown) (no (unknown) (unknown) Course (units (unkno wn) date) unknown) (unknown) (no (unknown) (unknown) Covid-19 + FLU (units (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) A/B + RSV - PCR unknown) Stat (unknown) (no (unknown) (unknown) : 1985 (units (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) Acct:[id number] unknown) (unknown) (no (unknown) (unknown) : 1985 (units (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) unknown) (unknown) (no (unknown) (unknown) Date of Service: (units (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) 05/17/22 unknown) (unknown) (no (unknown) (unknown) Departure (units (unkn own) date) unknown) (unknown) (no (unknown) (unknown) Dictated by: (units (u nknown) date) Nguyễn Montana, unknownLamberto Navarro on 05/17/2022 at 16:32 ? ? (unknown) (no (unknown) (unknown) Discharge Plan (units (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) unknown) (unknown) (no (unknown) (unknown) ED Orders (units (unkn own) date) unknown) (unknown) (no (unknown) (unknown) ER Physician: (units ( 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) Ni Moran unknown) COLOR CARD MAKER (unknown) (no (unknown) (unknown) Emergency Report (units (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) unknown) (unknown) (no (unknown) (unknown) Eos # (Auto) 100 (units (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) (0-450) /uL unknown) (unknown) (no (unknown) (unknown) Eos % (Auto) 1.8 (units (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) L (2-4) % unknown) (unknown) (no (unknown) (unknown) Exam (units (unkno wn) date) unknown) (unknown) (no (unknown) (unknown) FINDINGS:? (units (unk nown) date) unknown) (unknown) (no (unknown) (unknown) Fatty liver (units (un known) date) infiltration unknown) (unknown) (no (unknown) (unknown) Gallbladder:? (units ( 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) Unremarkable.? ? unknown) (unknown) (no (unknown) (unknown) General (units (unkno wn) date) unknown) (unknown) (no (unknown) (unknown) HPI - Abdominal (units (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) Pain unknown) (unknown) (no (unknown) (unknown) Hct 43.9 (41-53) (units (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) % unknown) (unknown) (no (unknown) (unknown) Healthy adult (units ( 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) unknown) (unknown) (no (unknown) (unknown) Heart:? No (units (unk nown) date) significant unknown) findings. (unknown) (no (unknown) (unknown) Hgb 15.3 (units (unkno wn) date) (13.5-17.5) g/dL unknown) (unknown) (no (unknown) (unknown) Home Medications (units (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) unknown) (unknown) (no (unknown) (unknown) Hospital, CR, XR (units (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) [facility], 04/17/2022, unknown) 12:09.? [place] [facility], [place], [place] (unknown) (no (unknown) (unknown) IMPRESSION:? (units (u nknown) date) unknown) (unknown) (no (unknown) (unknown) INDICATIONS:? (units ( 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) upper abd pain, hx unknown) nephrolithiasis and lt 5mm renal calculus (unknown) (no (unknown) (unknown) Image quality:? (units (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) Excellent.? unknown) (unknown) (no (unknown) (unknown) Imaging Data (units (u nknown) date) unknown) (unknown) (no (unknown) (unknown) Initial Vital (units ( 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) Signs unknown) (unknown) (no (unknown) (unknown) Initial Vital (units ( 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) Signs: unknown) (unknown) (no (unknown) (unknown) [facility] (units (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) [address] unknown) [place] [address] (unknown) (no (unknown) (unknown) Lab Data (units (unkno wn) date) unknown) (unknown) (no (unknown) (unknown) Lab Results (units (un known) date) unknown) (unknown) (no (unknown) (unknown) Labs: (units (unkno wn) date) unknown) (unknown) (no (unknown) (unknown) Lactate (Lactic (units (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) Acid) Stat unknown) (unknown) (no (unknown) (unknown) Left Kidney:? (units (u nknown) date) Nonobstructing unknown) left-sided kidney stones are seen, with the largest (unknown) (no (unknown) (unknown) Left Ureter:? No (units (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) hydroureter.? unknown) (unknown) (no (unknown) (unknown) Lipase Stat (units (un known) date) unknown) (unknown) (no (unknown) (unknown) Liver: Diffuse (units (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) fatty liver unknown) infiltration is noted.? The liver is normal in size (unknown) (no (unknown) (unknown) Loc: ED (units (unkno wn) date) unknown) (unknown) (no (unknown) (unknown) Lung bases:? (units (u nknown) date) Unremarkable.? ? unknown) (unknown) (no (unknown) (unknown) Lymph # (Auto) (units (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) 1500 (9914-0635) unknown) /uL (unknown) (no (unknown) (unknown) Lymph % (Auto) (units (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) 25.6 (25-40) % unknown) (unknown) (no (unknown) (unknown) MCH 31.7 (26-34) (units (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) PG unknown) (unknown) (no (unknown) (unknown) MCHC 34.9 (30-36) (units (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) % unknown) (unknown) (no (unknown) (unknown) MCV 90.9 (80-100) (units (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) fL unknown) (unknown) (no (unknown) (unknown) MDM - Abdominal (units (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) Pain unknown) (unknown) (no (unknown) (unknown) MR#: [id number] (units (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) unknown) (unknown) (no (unknown) (unknown) Medical History (units (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) (Reviewed 03/23/22 unknown) @ 07:46 by Reshma Connor DO) (unknown) (no (unknown) (unknown) Medication (units (unk nown) date) Instructions unknown) Recorded Confirmed (unknown) (no (unknown) (unknown) Medication (units (unk nown) date) Instructions unknown) Recorded (unknown) (no (unknown) (unknown) Miscellaneous: No (units (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) inguinal hernias unknown) are seen. ? ? (unknown) (no (unknown) (unknown) Mode of arrival: (units (unknown) date) Ambulatory unknown) (unknown) (no (unknown) (unknown) [place] # (Auto) 600 (units (unknown) date) (0-900) /uL unknown) (unknown) (no (unknown) (unknown) [place] % (Auto) (units ( unknown) date) 10.0 (3-14) % unknown) (unknown) (no (unknown) (unknown) Neut # (Auto) (units ( unknown) date) 3700 (4688-5743) unknown) /uL (unknown) (no (unknown) (unknown) Neut % (Auto) (units ( unknown) date) 62.0 (50-75) % unknown) (unknown) (no (unknown) (unknown) No Action (units (unkn own) date) unknown) (unknown) (no (unknown) (unknown) Nonobstructing (units (unknown) date) left-sided kidney unknown) stones, without hydronephrosis. (unknown) (no (unknown) (unknown) Ordered: (units (unkno wn) date) unknown) (unknown) (no (unknown) (unknown) Ordering (units (unkno wn) date) Provider: unknown) [facility] (unknown) (no (unknown) (unknown) Orders (units (unkno wn) date) unknown) (unknown) (no (unknown) (unknown) Oxygen Delivery (units (unknown) date) Method 05/17/22 unknown) 17:06 (unknown) (no (unknown) (unknown) Oxygen Delivery (units (unknown) date) Method Room Air unknown) (unknown) (no (unknown) (unknown) PELVIS: (units (unkno wn) date) unknown) (unknown) (no (unknown) (unknown) PROCEDURE:? CT (units (unknown) date) KIDNEY URETER unknown) BLADDER (KUB) (unknown) (no (unknown) (unknown) Pancreas:? (units (unk nown) date) Unremarkable.? ? unknown) (unknown) (no (unknown) (unknown) Patient History (units (unknown) date) unknown) (unknown) (no (unknown) (unknown) Patient: (units (unkno wn) date) Jaquan Rodríguez MR#: unknown) [id number] (unknown) (no (unknown) (unknown) Patient: (units (unkno wn) date) Jaquan Rodríguez unknown) (unknown) (no (unknown) (unknown) Pelvic Nodes: (units ( unknown) date) Unremarkable. unknown) (unknown) (no (unknown) (unknown) Pelvic Organs:? (units (unknown) date) Unremarkable.? ? unknown) (unknown) (no (unknown) (unknown) Peritoneum:? No (units (unknown) date) abnormal unknown) intraperitoneal fluid.? No free air.? (unknown) (no (unknown) (unknown) Plt Count 239 (units ( unknown) date) (150-400) X103/uL unknown) (unknown) (no (unknown) (unknown) Prescriptions: (units (unknown) date) unknown) (unknown) (no (unknown) (unknown) Previous Rx's (units ( unknown) date) unknown) (unknown) (no (unknown) (unknown) Procedure: CT (units ( unknown) date) kidney ureter unknown) bladder (KUB) (unknown) (no (unknown) (unknown) Pulse Oximetry (units (unknown) date) 100 05/17/22 17:06 unknown) (unknown) (no (unknown) (unknown) Pulse Oximetry (units (unknown) date) 100 unknown) (unknown) (no (unknown) (unknown) Pulse Rate 80 (units ( unknown) date) 05/17/22 17:06 unknown) (unknown) (no (unknown) (unknown) Pulse Rate 80 (units ( unknown) date) unknown) (unknown) (no (unknown) (unknown) RBC 4.82 (units (unkno wn) date) (4.5-5.9) X106/uL unknown) (unknown) (no (unknown) (unknown) RDW 13.3 (units (unkno wn) date) (11.6-14.8) % unknown) (unknown) (no (unknown) (unknown) Radiologist's (units ( unknown) date) Impression: unknown) (unknown) (no (unknown) (unknown) Referrals: (units (unk nown) date) unknown) (unknown) (no (unknown) (unknown) Related Data (units (u nknown) date) unknown) (unknown) (no (unknown) (unknown) Respiratory Rate (units (unknown) date) 18 05/17/22 17:06 unknown) (unknown) (no (unknown) (unknown) Respiratory Rate (units (unknown) date) 18 unknown) (unknown) (no (unknown) (unknown) Result diagrams: (units (unknown) date) unknown) (unknown) (no (unknown) (unknown) Right Kidney: ? (units (unknown) date) No stones or unknown) hydronephrosis.? (unknown) (no (unknown) (unknown) Right Ureter:? No (units (unknown) date) hydroureter.? 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 (units (unkno wn) date) Unremarkable.? ? unknown) (unknown) (no (unknown) (unknown) Stated Complaint: (units (unknown) date) Severe upper ABD unknown) pain (unknown) (no (unknown) (unknown) Stomach and (units (un known) date) Bowel:? Stomach, unknown) small bowel loops, and colon are unremarkable.? (unknown) (no (unknown) (unknown) Substance Use (units ( unknown) date) Type: does not use unknown) (unknown) (no (unknown) (unknown) TECHNIQUE:? (units (un known) date) unknown) (unknown) (no (unknown) (unknown) Temperature 97.1 (units (unknown) date) F L 05/17/22 17:06 unknown) (unknown) (no (unknown) (unknown) Temperature 97.1 (units (unknown) date) F L unknown) (unknown) (no (unknown) (unknown) Time Seen by (units (u nknown) date) Provider: 05/17/22 unknown) 16:43 (unknown) (no (unknown) (unknown) UA Complete (units (un known) date) [Urinalysis and unknown) Microscopic] Stat (unknown) (no (unknown) (unknown) URINARY: (units (unkno wn) date) unknown) (unknown) (no (unknown) (unknown) Ventral Wall: ? (units (unknown) date) No hernia.? unknown) (unknown) (no (unknown) (unknown) Vessels:? Aorta (units (unknown) date) and inferior vena unknown) cava are normal in size.? (unknown) (no (unknown) (unknown) Vital Signs - 8 (units (unknown) date) hr unknown) (unknown) (no (unknown) (unknown) Vital Signs (units (un known) date) unknown) (unknown) (no (unknown) (unknown) Vital signs: (units (u nknown) date) unknown) (unknown) (no (unknown) (unknown) WBC 6.0 (units (unkno wn) date) (4.5-11.0) X103/uL unknown) (unknown) (no (unknown) (unknown) WITHOUT CONTRAST, (units (unknown) date) 03/22/2022, 17:02. unknown) (unknown) (no (unknown) (unknown) Pinky Kahn, (units (unknown) date) DEONNA [Primary Care unknown) Provider] (unknown) (no (unknown) (unknown) [Embedded Image (units (unknown) date) Not Available] unknown) (unknown) (no (unknown) (unknown) adrenal gland is (units (unknown) date) unremarkable. unknown) (unknown) (no (unknown) (unknown) alcohol intake (units (unknown) date) frequency: 3 or unknown) more drinks per day (unknown) (no (unknown) (unknown) amoxicillin (units (un known) date) [AMOXICILLIN] unknown) Allergy Unknown Verified 04/24/22 10:11 (unknown) (no (unknown) (unknown) and (units (unkno wn) date) unknown) (unknown) (no (unknown) (unknown) benzonatate 100 (units (unknown) date) mg capsule 100 mg unknown) PO BID PRN cough #20 caps 12/12/22 (unknown) (no (unknown) (unknown) benzonatate 100 (units (unknown) date) mg capsule unknown) (unknown) (no (unknown) (unknown) bupropion HCl 150 (units (unknown) date) mg 24 hr tablet, unknown) 150 mg PO DAILY 04/05/21 04/24/22 (unknown) (no (unknown) (unknown) bupropion HCl 150 (units (unknown) date) mg tablet extended unknown) release 24 hr (unknown) (no (unknown) (unknown) demonstrates no (units (unknown) date) suspicious unknown) lesions. (unknown) (no (unknown) (unknown) extended release (units (unknown) date) unknown) (unknown) (no (unknown) (unknown) fluoxetine 20 MG (units (unknown) date) capsule unknown) (unknown) (no (unknown) (unknown) fluoxetine 20 mg (units (unknown) date) capsule 20 mg PO unknown) QDAY #0 caps 01/31/04/24/22 (unknown) (no (unknown) (unknown) hydronephrosis is (units (unknown) date) unknown) (unknown) (no (unknown) (unknown) left (units (unkno wn) date) unknown) (unknown) (no (unknown) (unknown) measuring 6 mm (units (unknown) date) craniocaudal and unknown) 700 [place] units.? No left-sided (unknown) (no (unknown) (unknown) meloxicam 7.5 mg (units (unknown) date) tablet 7.5 mg PO unknown) BID PRN pain #14 tabs 03/23/22 (unknown) (no (unknown) (unknown) meloxicam 7.5 mg (units (unknown) date) tablet unknown) (unknown) (no (unknown) (unknown) ondansetron 4 mg (units (unknown) date) disintegrating 4 unknown) mg PO Q8H PRN nausea and 04/24/22 (unknown) (no (unknown) (unknown) ondansetron 4 mg (units (unknown) date) tablet,disintegrat unknown) ing (unknown) (no (unknown) (unknown) oxycodone 5 mg (units (unknown) date) tablet 5 mg PO Q6H unknown) PRN pain #14 tabs 03/23/22 (unknown) (no (unknown) (unknown) oxycodone 5 mg (units (unknown) date) tablet unknown) (unknown) (no (unknown) (unknown) sagittal (units (unkno wn) date) reformats were unknown) performed.? For radiation dose reduction, the following (unknown) (no (unknown) (unknown) seen.? (units (unkno wn) date) unknown) (unknown) (no (unknown) (unknown) size.? (units (unkno wn) date) unknown) (unknown) (no (unknown) (unknown) tablet vomiting (units (unknown) date) #14 tabs unknown) (unknown) (no (unknown) (unknown) tamsulosin 0.4 mg (units (unknown) date) capsule (Flomax) unknown) 0.4 mg PO DAILY #7 caps 03/23/22 (unknown) (no (unknown) (unknown) tamsulosin (units (unk nown) date) [Flomax] 0.4 mg unknown) capsule (unknown) (no (unknown) (unknown) was used: (units (unkn own) date) unknown) Result panel 1025 (unknown) (no date) (unknown) (unknown) > 60 ml/min (unkn own) (unknown) (no date) (unknown) (unknown) > 60 ml/min (unkn own) (unknown) (no date) (unknown) (unknown) 0.8 mg/dl (unkn own) (unknown) (no date) (unknown) (unknown) 0.82 mg/dl (unkn own) (unknown) (no date) (unknown) (unknown) 1.1 mmol/l (unkn own) (unknown) (no date) (unknown) (unknown) 1.4 (units unknown) (unknown) (unknown) (no date) (unknown) (unknown) 10 mg/dl (unkn own) (unknown) (no date) (unknown) (unknown) 104 mmol/l (unkn own) (unknown) (no date) (unknown) (unknown) 112 u/l (unkn own) (unknown) (no date) (unknown) (unknown) 12.2 (units unknown) (unknown) (unknown) (no date) (unknown) (unknown) 138 mmol/l (unkn own) (unknown) (no date) (unknown) (unknown) 20 mmol/l (unkn own) (unknown) (no date) (unknown) (unknown) 3.4 g/dl (unkn own) (unknown) (no date) (unknown) (unknown) 3.8 mmol/l (unkn own) (unknown) (no date) (unknown) (unknown) 4.9 g/dl (unkn own) (unknown) (no date) (unknown) (unknown) 44 iu/l (unkn own) (unknown) (no date) (unknown) (unknown) 8.3 g/dl (unkn own) (unknown) (no date) (unknown) (unknown) 85 u/l (unkn own) (unknown) (no date) (unknown) (unknown) 89 iu/l (unkn own) (unknown) (no date) (unknown) (unknown) 9.0 mg/dl (unkn own) (unknown) (no date) (unknown) (unknown) 92 mg/dl (unkn own) (unknown) (no date) (unknown) (unknown) 92 mg/dl (unkn own) Result panel 1026 (unknown) (no (unknown) (unknown) (no value) (units (unk nown) date) unknown) (unknown) (no (unknown) (unknown) 0.4 mg PO DAILY (units (unknown) date) Qty: 7 0RF unknown) (unknown) (no (unknown) (unknown) 05/17/22 16:44 (units (unknown) date) unknown) (unknown) (no (unknown) (unknown) 05/17/22 17:40 (units (unknown) date) unknown) (unknown) (no (unknown) (unknown) 05/17/22 18:05 (units (unknown) date) unknown) (unknown) (no (unknown) (unknown) 05/17/22 (units (unkno wn) date) Range/Units unknown) (unknown) (no (unknown) (unknown) 05/17/22 (units (unkno wn) date) unknown) (unknown) (no (unknown) (unknown) 1-2 tablets by (units (unknown) date) mouth every 6 unknown) hours as needed for pain. (unknown) (no (unknown) (unknown) 100 mg PO BID PRN (units (unknown) date) (Reason: cough) unknown) Qty: 20 0RF (unknown) (no (unknown) (unknown) 14:46.? [place] (units (unknown) date) unknown) (unknown) (no (unknown) (unknown) 150 mg PO DAILY (units (unknown) date) unknown) (unknown) (no (unknown) (unknown) 17:06 (units (unkno wn) date) unknown) (unknown) (no (unknown) (unknown) 18:05 (units (unkno wn) date) unknown) (unknown) (no (unknown) (unknown) 20 mg PO QDAY (units ( unknown) date) Qty: 0 unknown) (unknown) (no (unknown) (unknown) 4 mg PO Q8H PRN (units (unknown) date) (Reason: nausea unknown) and vomiting) Qty: 14 0RF (unknown) (no (unknown) (unknown) 5 mg PO Q6H PRN (units (unknown) date) (Reason: pain) unknown) Qty: 14 0RF (unknown) (no (unknown) (unknown) 5498 (units (unkno wn) date) unknown) (unknown) (no (unknown) (unknown) 7.5 mg PO BID PRN (units (unknown) date) (Reason: pain) unknown) Qty: 14 0RF (unknown) (no (unknown) (unknown) ? (units (unkno wn) date) unknown) (unknown) (no (unknown) (unknown) ?automated (units (unk nown) date) exposure control, unknown) adjustment of mA and/or kV according to patient (unknown) (no (unknown) (unknown) A cause of (units (unk nown) date) abdominal pain is unknown) not seen. (unknown) (no (unknown) (unknown) ABDOMEN/PELVIS (units (unknown) date) unknown) (unknown) (no (unknown) (unknown) ABDOMEN: (units (unkno wn) date) unknown) (unknown) (no (unknown) (unknown) Abdominal Nodes:? (units (unknown) date) No enlarged unknown) retroperitoneal or mesenteric lymph nodes.? (unknown) (no (unknown) (unknown) Accession Number: (units (unknown) date) [id number] ?? unknown) (unknown) (no (unknown) (unknown) Acct:[id number] (units (unknown) date) unknown) (unknown) (no (unknown) (unknown) Additional (units (unk nown) date) findings:? unknown) (unknown) (no (unknown) (unknown) Adrenal Glands:? (units (unknown) date) A right adrenal unknown) myelolipoma is again seen measuring 7 cm.? The (unknown) (no (unknown) (unknown) Age/Sex: 36 / M (units (unknown) date) unknown) (unknown) (no (unknown) (unknown) Allergies (units (unkn own) date) unknown) (unknown) (no (unknown) (unknown) Allergy/AdvReac (units (unknown) date) Type Severity unknown) Reaction Status Date / Time (unknown) (no (unknown) (unknown) Approved by: (units (u nknown) date) Nguyễn [place] unknownLamberto Navarro on 05/17/2022 at 16:35 ? (unknown) (no (unknown) (unknown) Axial sections (units (unknown) date) were acquired from unknown) the lung bases to the pubic symphysis.? (unknown) (no (unknown) (unknown) Baso # (Auto) 0 (units (unknown) date) (0-100) /uL unknown) (unknown) (no (unknown) (unknown) Baso % (Auto) 0.6 (units (unknown) date) (0-2) % unknown) (unknown) (no (unknown) (unknown) Biliary ducts:? (units (unknown) date) Unremarkable.? ? unknown) (unknown) (no (unknown) (unknown) Bladder:? Normal (units (unknown) date) wall thickness. No unknown) stones. ? ? (unknown) (no (unknown) (unknown) Blood Pressure (units (unknown) date) 145/83 H 05/17/22 unknown) 17:06 (unknown) (no (unknown) (unknown) Blood Pressure (units (unknown) date) 145/83 H unknown) (unknown) (no (unknown) (unknown) Bones:? (units (unkno wn) date) Unremarkable. unknown) (unknown) (no (unknown) (unknown) CBC Auto Diff (units ( unknown) date) [Complete Blood unknown) Count AUTO DIFF] Stat (unknown) (no (unknown) (unknown) CMP (units (unkno wn) date) [Comprehensive unknown) Metabolic Panel] Stat (unknown) (no (unknown) (unknown) COMPARISON:? (units (u nknown) date) [facility], unknown) CT, ABDOMEN/PELVIS WITH CONTRAST, 01/13/2015, (unknown) (no (unknown) (unknown) CT kidney ureter (units (unknown) date) bladder (KUB) Stat unknown) (unknown) (no (unknown) (unknown) CT scan - (units (unkn own) date) abdomen/pelvis: unknown) (unknown) (no (unknown) (unknown) Chief Complaint: (units (unknown) date) Abdominal Pain unknown) (unknown) (no (unknown) (unknown) [place] and (units (un known) date) unknown) (unknown) (no (unknown) (unknown) Course (units (unkno wn) date) unknown) (unknown) (no (unknown) (unknown) Covid-19 + FLU (units (unknown) date) A/B + RSV - PCR unknown) Stat (unknown) (no (unknown) (unknown) : 1985 (units (unknown) date) Acct:[id number] unknown) (unknown) (no (unknown) (unknown) : 1985 (units (unknown) date) unknown) (unknown) (no (unknown) (unknown) Date of Service: (units (unknown) date) 05/17/22 unknown) (unknown) (no (unknown) (unknown) Departure (units (unkn own) date) unknown) (unknown) (no (unknown) (unknown) Dictated by: (units (u nknown) date) abby Banegas M.D. on 05/17/2022 at 16:32 ? ? (unknown) (no (unknown) (unknown) Discharge Plan (units (unknown) date) unknown) (unknown) (no (unknown) (unknown) ED Orders (units (unkn own) date) unknown) (unknown) (no (unknown) (unknown) ER Physician: (units ( unknown) date) Ni Moran unknown) [employer] (unknown) (no (unknown) (unknown) Emergency Report (units (unknown) date) unknown) (unknown) (no (unknown) (unknown) Eos # (Auto) 100 (units (unknown) date) (0-450) /uL unknown) (unknown) (no (unknown) (unknown) Eos % (Auto) 1.8 (units (unknown) date) L (2-4) % unknown) (unknown) (no (unknown) (unknown) Exam (units (unkno wn) date) unknown) (unknown) (no (unknown) (unknown) FINDINGS:? (units (unk nown) date) unknown) (unknown) (no (unknown) (unknown) Fatty liver (units (un known) date) infiltration unknown) (unknown) (no (unknown) (unknown) Gallbladder:? (units ( unknown) date) Unremarkable.? ? unknown) (unknown) (no (unknown) (unknown) General (units (unkno wn) date) unknown) (unknown) (no (unknown) (unknown) HPI - Abdominal (units (unknown) date) Pain unknown) (unknown) (no (unknown) (unknown) Hct 43.9 (41-53) (units (unknown) date) % unknown) (unknown) (no (unknown) (unknown) Healthy adult (units ( unknown) date) unknown) (unknown) (no (unknown) (unknown) Heart:? No (units (unk nown) date) significant unknown) findings. (unknown) (no (unknown) (unknown) Hgb 15.3 (units (unkno wn) date) (13.5-17.5) g/dL unknown) (unknown) (no (unknown) (unknown) Home Medications (units (unknown) date) unknown) (unknown) (no (unknown) (unknown) Hospital, CR, XR (units (unknown) date) KUB, 04/17/2022, unknown) 12:09.? [facility], RG, CT (unknown) (no (unknown) (unknown) IMPRESSION:? (units (u nknown) date) unknown) (unknown) (no (unknown) (unknown) INDICATIONS:? (units ( unknown) date) upper abd pain, hx unknown) nephrolithiasis and lt 5mm renal calculus (unknown) (no (unknown) (unknown) Image quality:? (units (unknown) date) Excellent.? unknown) (unknown) (no (unknown) (unknown) Imaging Data (units (u nknown) date) unknown) (unknown) (no (unknown) (unknown) Initial Vital (units ( unknown) date) Signs unknown) (unknown) (no (unknown) (unknown) Initial Vital (units ( unknown) date) Signs: unknown) (unknown) (no (unknown) (unknown) [facility] (units (unknown) date) [address] unknown) [place] [address] (unknown) (no (unknown) (unknown) Lab Data (units (unkno wn) date) unknown) (unknown) (no (unknown) (unknown) Lab Results (units (un known) date) unknown) (unknown) (no (unknown) (unknown) Labs: (units (unkno wn) date) unknown) (unknown) (no (unknown) (unknown) Lactate (Lactic (units (unknown) date) Acid) Stat unknown) (unknown) (no (unknown) (unknown) Left Kidney:? (units (u nknown) date) Nonobstructing unknown) left-sided kidney stones are seen, with the largest (unknown) (no (unknown) (unknown) Left Ureter:? No (units (unknown) date) hydroureter.? unknown) (unknown) (no (unknown) (unknown) Lipase Stat (units (un known) date) unknown) (unknown) (no (unknown) (unknown) Liver: Diffuse (units (unknown) date) fatty liver unknown) infiltration is noted.? The liver is normal in size (unknown) (no (unknown) (unknown) Loc: ED (units (unkno wn) date) unknown) (unknown) (no (unknown) (unknown) Lung bases:? (units (u nknown) date) Unremarkable.? ? unknown) (unknown) (no (unknown) (unknown) Lymph # (Auto) (units (unknown) date) 1500 (2215-6105) unknown) /uL (unknown) (no (unknown) (unknown) Lymph % (Auto) (units (unknown) date) 25.6 (25-40) % unknown) (unknown) (no (unknown) (unknown) MCH 31.7 (26-34) (units (unknown) date) PG unknown) (unknown) (no (unknown) (unknown) MCHC 34.9 (30-36) (units (unknown) date) % unknown) (unknown) (no (unknown) (unknown) MCV 90.9 (80-100) (units (unknown) date) fL unknown) (unknown) (no (unknown) (unknown) MDM - Abdominal (units (unknown) date) Pain unknown) (unknown) (no (unknown) (unknown) MR#: [id number] (units (unknown) date) unknown) (unknown) (no (unknown) (unknown) Medical History (units (unknown) date) (Reviewed 03/23/22 unknown) @ 07:46 by Reshma Connor DO) (unknown) (no (unknown) (unknown) Medication (units (unk nown) date) Instructions unknown) Recorded Confirmed (unknown) (no (unknown) (unknown) Medication (units (unk nown) date) Instructions unknown) Recorded (unknown) (no (unknown) (unknown) Miscellaneous: No (units (unknown) date) inguinal hernias unknown) are seen. ? ? (unknown) (no (unknown) (unknown) Mode of arrival: (units (unknown) date) Ambulatory unknown) (unknown) (no (unknown) (unknown) [place] # (Auto) 600 (units (unknown) date) (0-900) /uL unknown) (unknown) (no (unknown) (unknown) [place] % (Auto) (units ( unknown) date) 10.0 (3-14) % unknown) (unknown) (no (unknown) (unknown) Neut # (Auto) (units ( unknown) date) 3700 (9530-4300) unknown) /uL (unknown) (no (unknown) (unknown) Neut % (Auto) (units ( unknown) date) 62.0 (50-75) % unknown) (unknown) (no (unknown) (unknown) No Action (units (unkn own) date) unknown) (unknown) (no (unknown) (unknown) Nonobstructing (units (unknown) date) left-sided kidney unknown) stones, without hydronephrosis. (unknown) (no (unknown) (unknown) Ordered: (units (unkno wn) date) unknown) (unknown) (no (unknown) (unknown) Ordering (units (unkno wn) date) Provider: unknown) Ni Moran (unknown) (no (unknown) (unknown) Orders (units (unkno wn) date) unknown) (unknown) (no (unknown) (unknown) Oxygen Delivery (units (unknown) date) Method 05/17/22 unknown) 17:06 (unknown) (no (unknown) (unknown) Oxygen Delivery (units (unknown) date) Method Room Air unknown) (unknown) (no (unknown) (unknown) PELVIS: (units (unkno wn) date) unknown) (unknown) (no (unknown) (unknown) PROCEDURE:? CT (units (unknown) date) KIDNEY URETER unknown) BLADDER (KUB) (unknown) (no (unknown) (unknown) Pancreas:? (units (unk nown) date) Unremarkable.? ? unknown) (unknown) (no (unknown) (unknown) Patient History (units (unknown) date) unknown) (unknown) (no (unknown) (unknown) Patient: (units (unkno wn) date) MarcosJaquan Montgomery MR#: unknown) [id number] (unknown) (no (unknown) (unknown) Patient: (units (unkno wn) date) MarcosJaquan unknown) (unknown) (no (unknown) (unknown) Pelvic Nodes: (units ( unknown) date) Unremarkable. unknown) (unknown) (no (unknown) (unknown) Pelvic Organs:? (units (unknown) date) Unremarkable.? ? unknown) (unknown) (no (unknown) (unknown) Peritoneum:? No (units (unknown) date) abnormal unknown) intraperitoneal fluid.? No free air.? (unknown) (no (unknown) (unknown) Plt Count 239 (units ( unknown) date) (150-400) X103/uL unknown) (unknown) (no (unknown) (unknown) Prescriptions: (units (unknown) date) unknown) (unknown) (no (unknown) (unknown) Previous Rx's (units ( unknown) date) unknown) (unknown) (no (unknown) (unknown) Procedure: CT (units ( unknown) date) kidney ureter unknown) bladder (KUB) (unknown) (no (unknown) (unknown) Pulse Oximetry (units (unknown) date) 100 05/17/22 17:06 unknown) (unknown) (no (unknown) (unknown) Pulse Oximetry (units (unknown) date) 100 unknown) (unknown) (no (unknown) (unknown) Pulse Rate 80 (units ( unknown) date) 05/17/22 17:06 unknown) (unknown) (no (unknown) (unknown) Pulse Rate 80 (units ( unknown) date) unknown) (unknown) (no (unknown) (unknown) RBC 4.82 (units (unkno wn) date) (4.5-5.9) X106/uL unknown) (unknown) (no (unknown) (unknown) RDW 13.3 (units (unkno wn) date) (11.6-14.8) % unknown) (unknown) (no (unknown) (unknown) Radiologist's (units ( unknown) date) Impression: unknown) (unknown) (no (unknown) (unknown) Referrals: (units (unk nown) date) unknown) (unknown) (no (unknown) (unknown) Related Data (units (u nknown) date) unknown) (unknown) (no (unknown) (unknown) Respiratory Rate (units (unknown) date) 18 05/17/22 17:06 unknown) (unknown) (no (unknown) (unknown) Respiratory Rate (units (unknown) date) 18 unknown) (unknown) (no (unknown) (unknown) Result diagrams: (units (unknown) date) unknown) (unknown) (no (unknown) (unknown) Right Kidney: ? (units (unknown) date) No stones or unknown) hydronephrosis.? (unknown) (no (unknown) (unknown) Right Ureter:? No (units (unknown) date) hydroureter.? 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 (units (unkno wn) date) Unremarkable.? ? unknown) (unknown) (no (unknown) (unknown) Stated Complaint: (units (unknown) date) Severe upper ABD unknown) pain (unknown) (no (unknown) (unknown) Stomach and (units (un known) date) Bowel:? Stomach, unknown) small bowel loops, and colon are unremarkable.? (unknown) (no (unknown) (unknown) Substance Use (units ( unknown) date) Type: does not use unknown) (unknown) (no (unknown) (unknown) TECHNIQUE:? (units (un known) date) unknown) (unknown) (no (unknown) (unknown) Temperature 97.1 (units (unknown) date) F L 05/17/22 17:06 unknown) (unknown) (no (unknown) (unknown) Temperature 97.1 (units (unknown) date) F L unknown) (unknown) (no (unknown) (unknown) Time Seen by (units (u nknown) date) Provider: 05/17/22 unknown) 16:43 (unknown) (no (unknown) (unknown) UA Complete (units (un known) date) [Urinalysis and unknown) Microscopic] Stat (unknown) (no (unknown) (unknown) URINARY: (units (unkno wn) date) unknown) (unknown) (no (unknown) (unknown) Ventral Wall: ? (units (unknown) date) No hernia.? unknown) (unknown) (no (unknown) (unknown) Vessels:? Aorta (units (unknown) date) and inferior vena unknown) cava are normal in size.? (unknown) (no (unknown) (unknown) Vital Signs - 8 (units (unknown) date) hr unknown) (unknown) (no (unknown) (unknown) Vital Signs (units (un known) date) unknown) (unknown) (no (unknown) (unknown) Vital signs: (units (u nknown) date) unknown) (unknown) (no (unknown) (unknown) WBC 6.0 (units (unkno wn) date) (4.5-11.0) X103/uL unknown) (unknown) (no (unknown) (unknown) WITHOUT CONTRAST, (units (unknown) date) 03/22/2022, 17:02. unknown) (unknown) (no (unknown) (unknown) Pinky Kahn, (units (unknown) date) PA-[facility] [Primary Care unknown) Provider] (unknown) (no (unknown) (unknown) [Embedded Image (units (unknown) date) Not Available] unknown) (unknown) (no (unknown) (unknown) adrenal gland is (units (unknown) date) unremarkable. unknown) (unknown) (no (unknown) (unknown) alcohol intake (units (unknown) date) frequency: 3 or unknown) more drinks per day (unknown) (no (unknown) (unknown) amoxicillin (units (un known) date) [AMOXICILLIN] unknown) Allergy Unknown Verified 04/24/22 10:11 (unknown) (no (unknown) (unknown) and (units (unkno wn) date) unknown) (unknown) (no (unknown) (unknown) benzonatate 100 (units (unknown) date) mg capsule 100 mg unknown) PO BID PRN cough #20 caps 04/24/22 (unknown) (no (unknown) (unknown) benzonatate 100 (units (unknown) date) mg capsule unknown) (unknown) (no (unknown) (unknown) bupropion HCl 150 (units (unknown) date) mg 24 hr tablet, unknown) 150 mg PO DAILY 04/05/21 04/24/22 (unknown) (no (unknown) (unknown) bupropion HCl 150 (units (unknown) date) mg tablet extended unknown) release 24 hr (unknown) (no (unknown) (unknown) demonstrates no (units (unknown) date) suspicious unknown) lesions. (unknown) (no (unknown) (unknown) extended release (units (unknown) date) unknown) (unknown) (no (unknown) (unknown) fluoxetine 20 MG (units (unknown) date) capsule unknown) (unknown) (no (unknown) (unknown) fluoxetine 20 mg (units (unknown) date) capsule 20 mg PO unknown) QDAY #0 caps 02/01/16 04/24/22 (unknown) (no (unknown) (unknown) hydronephrosis is (units (unknown) date) unknown) (unknown) (no (unknown) (unknown) left (units (unkno wn) date) unknown) (unknown) (no (unknown) (unknown) measuring 6 mm (units (unknown) date) craniocaudal and unknown) 700 [place] units.? No left-sided (unknown) (no (unknown) (unknown) meloxicam 7.5 mg (units (unknown) date) tablet 7.5 mg PO unknown) BID PRN pain #14 tabs 03/23/22 (unknown) (no (unknown) (unknown) meloxicam 7.5 mg (units (unknown) date) tablet unknown) (unknown) (no (unknown) (unknown) ondansetron 4 mg (units (unknown) date) disintegrating 4 unknown) mg PO Q8H PRN nausea and 04/24/22 (unknown) (no (unknown) (unknown) ondansetron 4 mg (units (unknown) date) tablet,disintegrat unknown) ing (unknown) (no (unknown) (unknown) oxycodone 5 mg (units (unknown) date) tablet 5 mg PO Q6H unknown) PRN pain #14 tabs 03/23/22 (unknown) (no (unknown) (unknown) oxycodone 5 mg (units (unknown) date) tablet unknown) (unknown) (no (unknown) (unknown) sagittal (units (unkno wn) date) reformats were unknown) performed.? For radiation dose reduction, the following (unknown) (no (unknown) (unknown) seen.? (units (unkno wn) date) unknown) (unknown) (no (unknown) (unknown) size.? (units (unkno wn) date) unknown) (unknown) (no (unknown) (unknown) tablet vomiting (units (unknown) date) #14 tabs unknown) (unknown) (no (unknown) (unknown) tamsulosin 0.4 mg (units (unknown) date) capsule (Flomax) unknown) 0.4 mg PO DAILY #7 caps 03/23/22 (unknown) (no (unknown) (unknown) tamsulosin (units (unk nown) date) [Flomax] 0.4 mg unknown) capsule (unknown) (no (unknown) (unknown) was used: (units (unkn own) date) unknown) Result panel 1027 (unknown) (no date) (unknown) (unknown) <=1.005 (units (unkn own) unknown) (unknown) (no date) (unknown) (unknown) 0.2 e.u./dl (unkn own) (unknown) (no date) (unknown) (unknown) 6.5 (units (unkn own) unknown) (unknown) (no date) (unknown) (unknown) CLEAR (units (unkn own) unknown) (unknown) (no date) (unknown) (unknown) NEGATIVE (units (unkn own) unknown) (unknown) (no date) (unknown) (unknown) NEGATIVE g/dl (unkn own) (unknown) (no date) (unknown) (unknown) YELLOW (units (unkn own) unknown) (unknown) (no date) (unknown) (unknown) YELLOW (units (unkn own) unknown) Result panel 1028 (unknown) (no (unknown) (unknown) (no value) (units (unk nown) date) unknown) (unknown) (no (unknown) (unknown) 0.4 mg PO DAILY (units (unknown) date) Qty: 7 0RF unknown) (unknown) (no (unknown) (unknown) 05/17/22 16:44 (units (unknown) date) unknown) (unknown) (no (unknown) (unknown) 05/17/22 17:40 (units (unknown) date) unknown) (unknown) (no (unknown) (unknown) 05/17/22 18:05 (units (unknown) date) unknown) (unknown) (no (unknown) (unknown) 05/17/22 (units (unkno wn) date) Range/Units unknown) (unknown) (no (unknown) (unknown) 05/17/22 (units (unkno wn) date) unknown) (unknown) (no (unknown) (unknown) 1-2 tablets by (units (unknown) date) mouth every 6 unknown) hours as needed for pain. (unknown) (no (unknown) (unknown) 100 mg PO BID PRN (units (unknown) date) (Reason: cough) unknown) Qty: 20 0RF (unknown) (no (unknown) (unknown) 14:46.? [place] (units (unknown) date) unknown) (unknown) (no (unknown) (unknown) 150 mg PO DAILY (units (unknown) date) unknown) (unknown) (no (unknown) (unknown) 17:06 (units (unkno wn) date) unknown) (unknown) (no (unknown) (unknown) 1830: Review of (units (unknown) date) CT demonstrates unknown) findings of fatty liver infiltration and (unknown) (no (unknown) (unknown) 183:?Review of (units (unknown) date) labs demonstrates unknown) no leukocytosis or anemia, no electrolyte (unknown) (no (unknown) (unknown) 18:05 (units (unkno wn) date) unknown) (unknown) (no (unknown) (unknown) 20 mg PO QDAY (units ( unknown) date) Qty: 0 unknown) (unknown) (no (unknown) (unknown) 4 mg PO Q8H PRN (units (unknown) date) (Reason: nausea unknown) and vomiting) Qty: 14 0RF (unknown) (no (unknown) (unknown) 5 mg PO Q6H PRN (units (unknown) date) (Reason: pain) unknown) Qty: 14 0RF (unknown) (no (unknown) (unknown) 5498 (units (o wn) date) unknown) (unknown) (no (unknown) (unknown) 7.5 mg PO BID PRN (units (unknown) date) (Reason: pain) unknown) Qty: 14 0RF (unknown) (no (unknown) (unknown) ? (units (o wn) date) unknown) (unknown) (no (unknown) (unknown) ?automated (units (k ) date) exposure control, unknown) adjustment of mA and/or kV according to patient (unknown) (no (unknown) (unknown) A cause of (units (k ) date) abdominal pain is unknown) not seen. (unknown) (no (unknown) (unknown) ABDOMEN/PELVIS (units (unknown) date) unknown) (unknown) (no (unknown) (unknown) ABDOMEN: (units (unkno wn) date) unknown) (unknown) (no (unknown) (unknown) Abdominal Nodes:? (units (unknown) date) No enlarged unknown) retroperitoneal or mesenteric lymph nodes.? (unknown) (no (unknown) (unknown) Accession Number: (units (unknown) date) [id number] ?? unknown) (unknown) (no (unknown) (unknown) Acct:[id number] (units (unknown) date) unknown) (unknown) (no (unknown) (unknown) Additional (units (unk nown) date) findings:? unknown) (unknown) (no (unknown) (unknown) Adrenal Glands:? (units (unknown) date) A right adrenal unknown) myelolipoma is again seen measuring 7 cm.? The (unknown) (no (unknown) (unknown) Age/Sex: 36 / M (units (unknown) date) unknown) (unknown) (no (unknown) (unknown) Allergies (units (unkn own) date) unknown) (unknown) (no (unknown) (unknown) Allergy/AdvReac (units (unknown) date) Type Severity unknown) Reaction Status Date / Time (unknown) (no (unknown) (unknown) Approved by: (units (u nknown) date) Nguyễn [place] unknownLamberto Navarro on 05/17/2022 at 16:35 ? (unknown) (no (unknown) (unknown) Axial sections (units (unknown) date) were acquired from unknown) the lung bases to the pubic symphysis.? (unknown) (no (unknown) (unknown) Baso # (Auto) 0 (units (unknown) date) (0-100) /uL unknown) (unknown) (no (unknown) (unknown) Baso % (Auto) 0.6 (units (unknown) date) (0-2) % unknown) (unknown) (no (unknown) (unknown) Biliary ducts:? (units (unknown) date) Unremarkable.? ? unknown) (unknown) (no (unknown) (unknown) Bladder:? Normal (units (unknown) date) wall thickness. No unknown) stones. ? ? (unknown) (no (unknown) (unknown) Blood Pressure (units (unknown) date) 145/83 H 05/17/22 unknown) 17:06 (unknown) (no (unknown) (unknown) Blood Pressure (units (unknown) date) 145/83 H unknown) (unknown) (no (unknown) (unknown) Bones:? (units (unkno wn) date) Unremarkable. unknown) (unknown) (no (unknown) (unknown) CBC Auto Diff (units ( unknown) date) [Complete Blood unknown) Count AUTO DIFF] Stat (unknown) (no (unknown) (unknown) CMP (units (unkno wn) date) [Comprehensive unknown) Metabolic Panel] Stat (unknown) (no (unknown) (unknown) COMPARISON:? (units (u nknown) date) [facility], unknown) CT, ABDOMEN/PELVIS WITH CONTRAST, 01/13/2015, (unknown) (no (unknown) (unknown) CT kidney ureter (units (unknown) date) bladder (KUB) Stat unknown) (unknown) (no (unknown) (unknown) CT scan - (units (unkn own) date) abdomen/pelvis: unknown) (unknown) (no (unknown) (unknown) Cardiovascular: (units (unknown) date) regular rate and unknown) rhythm, without tachycardia, S1-S2 without (unknown) (no (unknown) (unknown) Chief Complaint: (units (unknown) date) Abdominal Pain unknown) (unknown) (no (unknown) (unknown) Coronal and (units (un known) date) unknown) (unknown) (no (unknown) (unknown) Course of Care: (units (unknown) date) unknown) (unknown) (no (unknown) (unknown) Course (units (unkno wn) date) unknown) (unknown) (no (unknown) (unknown) Covid-19 + FLU (units (unknown) date) A/B + RSV - PCR unknown) Stat (unknown) (no (unknown) (unknown) : 1985 (units (unknown) date) Acct:[id number] unknown) (unknown) (no (unknown) (unknown) : 1985 (units (unknown) date) unknown) (unknown) (no (unknown) (unknown) Date of Service: (units (unknown) date) 05/17/22 unknown) (unknown) (no (unknown) (unknown) Departure (units (unkn own) date) unknown) (unknown) (no (unknown) (unknown) Dictated by: (units (u nknown) date) abby Banegas M.D. on 05/17/2022 at 16:32 ? ? (unknown) (no (unknown) (unknown) Differential (units (u nknown) date) diagnoses include, unknown) but are not limited to: ?Acute cholecystitis, (unknown) (no (unknown) (unknown) Discharge Plan (units (unknown) date) unknown) (unknown) (no (unknown) (unknown) ED Orders (units (unkn own) date) unknown) (unknown) (no (unknown) (unknown) ED provider (units (un known) date) independent unknown) interpretation (unknown) (no (unknown) (unknown) ER Physician: (units ( unknown) date) Ni Moran unknown) MARY (unknown) (no (unknown) (unknown) Electronically (units (unknown) date) signed by: unknown) MARY Kumar (unknown) (no (unknown) (unknown) Emergency Report (units (unknown) date) unknown) (unknown) (no (unknown) (unknown) Eos # (Auto) 100 (units (unknown) date) (0-450) /uL unknown) (unknown) (no (unknown) (unknown) Eos % (Auto) 1.8 (units (unknown) date) L (2-4) % unknown) (unknown) (no (unknown) (unknown) Exam Narrative: (units (unknown) date) unknown) (unknown) (no (unknown) (unknown) Exam (units (unkno wn) date) unknown) (unknown) (no (unknown) (unknown) FINDINGS:? (units (unk nown) date) unknown) (unknown) (no (unknown) (unknown) Fatty liver (units (un known) date) infiltration unknown) (unknown) (no (unknown) (unknown) GI: abdomen soft, (units (unknown) date) nontender to unknown) palpation, nondistended, without masses, rebound (unknown) (no (unknown) (unknown) Gallbladder:? (units ( unknown) date) Unremarkable.? ? unknown) (unknown) (no (unknown) (unknown) General (units (unkno wn) date) unknown) (unknown) (no (unknown) (unknown) General: (units (unkno wn) date) cooperative, unknown) comfortable, in no acute distress, well groomed, afebrile (unknown) (no (unknown) (unknown) HEENT: (units (unkno wn) date) symmetrical facial unknown) expressions, moist mucous membranes (unknown) (no (unknown) (unknown) HPI - Abdominal (units (unknown) date) Pain unknown) (unknown) (no (unknown) (unknown) HPI narrative: (units (unknown) date) unknown) (unknown) (no (unknown) (unknown) Hct 43.9 (41-53) (units (unknown) date) % unknown) (unknown) (no (unknown) (unknown) Healthy adult (units ( unknown) date) unknown) (unknown) (no (unknown) (unknown) Heart:? No (units (unk nown) date) significant unknown) findings. (unknown) (no (unknown) (unknown) Hgb 15.3 (units (unkno wn) date) (13.5-17.5) g/dL unknown) (unknown) (no (unknown) (unknown) History of (units (unk nown) date) Present Illness unknown) (unknown) (no (unknown) (unknown) Home Medications (units (unknown) date) unknown) (unknown) (no (unknown) (unknown) Hospital, CR, XR (units (unknown) date) [facility], 04/17/2022, unknown) 12:09.? [facility], RG, CT (unknown) (no (unknown) (unknown) I performed a (units ( unknown) date) preliminary unknown) independent interpretation of the following imaging (unknown) (no (unknown) (unknown) I, Ni Moran, (units (unknown) date) MARY, personally unknown) performed the services described in the (unknown) (no (unknown) (unknown) IMPRESSION:? (units (u nknown) date) unknown) (unknown) (no (unknown) (unknown) INDICATIONS:? (units ( unknown) date) upper abd pain, hx unknown) nephrolithiasis and lt 5mm renal calculus (unknown) (no (unknown) (unknown) Image quality:? (units (unknown) date) Excellent.? unknown) (unknown) (no (unknown) (unknown) Imaging Data (units (u nknown) date) unknown) (unknown) (no (unknown) (unknown) Initial Vital (units ( unknown) date) Signs unknown) (unknown) (no (unknown) (unknown) Initial Vital (units ( unknown) date) Signs: unknown) (unknown) (no (unknown) (unknown) [facility] (units (unknown) date) [address] unknown) [place] [address] (unknown) (no (unknown) (unknown) Lab Data (units (unkno wn) date) unknown) (unknown) (no (unknown) (unknown) Lab Results (units (un known) date) unknown) (unknown) (no (unknown) (unknown) Labs: (units (unkno wn) date) unknown) (unknown) (no (unknown) (unknown) Lactate (Lactic (units (unknown) date) Acid) Stat unknown) (unknown) (no (unknown) (unknown) Left Kidney:? (units (u nknown) date) Nonobstructing unknown) left-sided kidney stones are seen, with the largest (unknown) (no (unknown) (unknown) Left Ureter:? No (units (unknown) date) hydroureter.? unknown) (unknown) (no (unknown) (unknown) Lipase Stat (units (un known) date) unknown) (unknown) (no (unknown) (unknown) Liver: Diffuse (units (unknown) date) fatty liver unknown) infiltration is noted.? The liver is normal in size (unknown) (no (unknown) (unknown) Loc: ED (units (unkno wn) date) unknown) (unknown) (no (unknown) (unknown) Lung bases:? (units (u nknown) date) Unremarkable.? ? unknown) (unknown) (no (unknown) (unknown) Lymph # (Auto) (units (unknown) date) 1500 ([id number]) unknown) /uL (unknown) (no (unknown) (unknown) Lymph % (Auto) (units (unknown) date) 25.6 (25-40) % unknown) (unknown) (no (unknown) (unknown) MCH 31.7 (26-34) (units (unknown) date) PG unknown) (unknown) (no (unknown) (unknown) MCHC 34.9 (30-36) (units (unknown) date) % unknown) (unknown) (no (unknown) (unknown) MCV 90.9 (80-100) (units (unknown) date) fL unknown) (unknown) (no (unknown) (unknown) MDM - Abdominal (units (unknown) date) Pain unknown) (unknown) (no (unknown) (unknown) MDM Narrative (units ( unknown) date) unknown) (unknown) (no (unknown) (unknown) MIPS: This (units (unk nown) date) encounter doesn't unknown) have any diagnosis associated with MIPS criteria. (unknown) (no (unknown) (unknown) MR#: [id number] (units (unknown) date) unknown) (unknown) (no (unknown) (unknown) MSK: moves all (units (unknown) date) extremities, unknown) neurovascularly intact, no weakness, normal tone (unknown) (no (unknown) (unknown) Medical History (units (unknown) date) (Reviewed 05/17/22 unknown) @ 18:51 by Ni Moran [facility]) (unknown) (no (unknown) (unknown) Medical decision (units (unknown) date) making narrative: unknown) (unknown) (no (unknown) (unknown) Medication (units (unk nown) date) Instructions unknown) Recorded Confirmed (unknown) (no (unknown) (unknown) Medication (units (unk nown) date) Instructions unknown) Recorded (unknown) (no (unknown) (unknown) Miscellaneous: No (units (unknown) date) inguinal hernias unknown) are seen. ? ? (unknown) (no (unknown) (unknown) Mode of arrival: (units (unknown) date) Ambulatory unknown) (unknown) (no (unknown) (unknown) [place] # (Auto) 600 (units (unknown) date) (0-900) /uL unknown) (unknown) (no (unknown) (unknown) [place] % (Auto) (units ( unknown) date) 10.0 (3-14) % unknown) (unknown) (no (unknown) (unknown) Narrative (units (unkn own) date) unknown) (unknown) (no (unknown) (unknown) Neuro: normal (units ( unknown) date) speech and unknown) cognition, A+O x3, ambulatory, clear speech (unknown) (no (unknown) (unknown) Neut # (Auto) (units ( unknown) date) 3700 ([phone]) unknown) /uL (unknown) (no (unknown) (unknown) Neut % (Auto) (units ( unknown) date) 62.0 (50-75) % unknown) (unknown) (no (unknown) (unknown) No Action (units (unkn own) date) unknown) (unknown) (no (unknown) (unknown) Nonobstructing (units (unknown) date) left-sided kidney unknown) stones, without hydronephrosis. (unknown) (no (unknown) (unknown) Occasional wrong (units (unknown) date) word or 'sound unknown) alike' substitutions may have occurred due to (unknown) (no (unknown) (unknown) Ordered: (units (unkno wn) date) unknown) (unknown) (no (unknown) (unknown) Ordering (units (unkno wn) date) Provider: unknown) Ni Moran (unknown) (no (unknown) (unknown) Orders (units (unkno wn) date) unknown) (unknown) (no (unknown) (unknown) Oxygen Delivery (units (unknown) date) Method 05/17/22 unknown) 17:06 (unknown) (no (unknown) (unknown) Oxygen Delivery (units (unknown) date) Method Room Air unknown) (unknown) (no (unknown) (unknown) PELVIS: (units (unkno wn) date) unknown) (unknown) (no (unknown) (unknown) PROCEDURE:? CT (units (unknown) date) KIDNEY URETER unknown) BLADDER (KUB) (unknown) (no (unknown) (unknown) Pancreas:? (units (unk nown) date) Unremarkable.? ? unknown) (unknown) (no (unknown) (unknown) Patient History (units (unknown) date) unknown) (unknown) (no (unknown) (unknown) Patient had a 5 mm (units (unknown) date) left interpolar unknown) renal calculus without urinary tract calculus (unknown) (no (unknown) (unknown) Patient's (units (unkn own) date) symptoms improved unknown) over duration of stay with above-stated therapies. (unknown) (no (unknown) (unknown) Patient: (units (unkno wn) date) Jaquan Rodríguez MR#: unknown) [id number] (unknown) (no (unknown) (unknown) Patient: (units (unkno wn) date) Jaquan Rodríguez unknown) (unknown) (no (unknown) (unknown) Pelvic Nodes: (units ( unknown) date) Unremarkable. unknown) (unknown) (no (unknown) (unknown) Pelvic Organs:? (units (unknown) date) Unremarkable.? ? unknown) (unknown) (no (unknown) (unknown) Peritoneum:? No (units (unknown) date) abnormal unknown) intraperitoneal fluid.? No free air.? (unknown) (no (unknown) (unknown) Plt Count 239 (units ( unknown) date) (150-400) X103/uL unknown) (unknown) (no (unknown) (unknown) Portions of this (units (unknown) date) chart have been unknown) created with [employer] voice recognition software. (unknown) (no (unknown) (unknown) Prescriptions: (units (unknown) date) unknown) (unknown) (no (unknown) (unknown) Previous Rx's (units ( unknown) date) unknown) (unknown) (no (unknown) (unknown) Procedure: CT (units ( unknown) date) kidney ureter unknown) bladder (KUB) (unknown) (no (unknown) (unknown) Psych: mental (units ( unknown) date) status is grossly unknown) normal, congruent mood, normal affect, pleasant (unknown) (no (unknown) (unknown) Pulse Oximetry (units (unknown) date) 100 05/17/22 17:06 unknown) (unknown) (no (unknown) (unknown) Pulse Oximetry (units (unknown) date) 100 unknown) (unknown) (no (unknown) (unknown) Pulse Rate 80 (units ( unknown) date) 05/17/22 17:06 unknown) (unknown) (no (unknown) (unknown) Pulse Rate 80 (units ( unknown) date) unknown) (unknown) (no (unknown) (unknown) RBC 4.82 (units (unkno wn) date) (4.5-5.9) X106/uL unknown) (unknown) (no (unknown) (unknown) RDW 13.3 (units (unkno wn) date) (11.6-14.8) % unknown) (unknown) (no (unknown) (unknown) ROS Unobtainable: (units (unknown) date) All systems unknown) reviewed + are unremarkable except as noted in HPI (unknown) (no (unknown) (unknown) RSV, (units (unkno wn) date) appendicitis, unknown) acute cystitis, nephrolithiasis, ureteral obstruction, (unknown) (no (unknown) (unknown) Radiologist's (units ( unknown) date) Impression: unknown) (unknown) (no (unknown) (unknown) Referrals: (units (unk nown) date) unknown) (unknown) (no (unknown) (unknown) Related Data (units (u nknown) date) unknown) (unknown) (no (unknown) (unknown) Respiratory Rate (units (unknown) date) 18 05/17/22 17:06 unknown) (unknown) (no (unknown) (unknown) Respiratory Rate (units (unknown) date) 18 unknown) (unknown) (no (unknown) (unknown) Respiratory: (units (u nknown) date) normal effort, unknown) able to speak in complete sentences, without (unknown) (no (unknown) (unknown) Result diagrams: (units (unknown) date) unknown) (unknown) (no (unknown) (unknown) Review of Systems (units (unknown) date) unknown) (unknown) (no (unknown) (unknown) Reviewed vitals (units (unknown) date) signs and nursing unknown) notes. (unknown) (no (unknown) (unknown) Right Kidney: ? (units (unknown) date) No stones or unknown) hydronephrosis.? (unknown) (no (unknown) (unknown) Right Ureter:? No (units (unknown) date) hydroureter.? 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 unknown) (unknown) (no (unknown) (unknown) Routine labs, (units ( unknown) date) respiratory panel unknown) abdominal CT KUB, urinalysis, lipase and (unknown) (no (unknown) (unknown) Rx Instructions: (units (unknown) date) unknown) (unknown) (no (unknown) (unknown) Signed By: (units (unk nown) date) unknown) (unknown) (no (unknown) (unknown) Skin: brisk (units (un known) date) capillary refill, unknown) without pallor or erythema (unknown) (no (unknown) (unknown) Smoking Status: (units (unknown) date) Never smoker unknown) (unknown) (no (unknown) (unknown) Social History (units (unknown) date) (Reviewed 05/17/22 unknown) @ 18:51 by Ni Moran [facility]) (unknown) (no (unknown) (unknown) Social (units (unkno wn) date) determinants of unknown) health that may impact treatment or disposition: none (unknown) (no (unknown) (unknown) Source: patient (units (unknown) date) unknown) (unknown) (no (unknown) (unknown) Spleen:? (units (unkno wn) date) Unremarkable.? ? unknown) (unknown) (no (unknown) (unknown) Stated Complaint: (units (unknown) date) Severe upper ABD unknown) pain (unknown) (no (unknown) (unknown) Stomach and (units (un known) date) Bowel:? Stomach, unknown) small bowel loops, and colon are unremarkable.? (unknown) (no (unknown) (unknown) Substance Use (units ( unknown) date) Type: does not use unknown) (unknown) (no (unknown) (unknown) TECHNIQUE:? (units (un known) date) unknown) (unknown) (no (unknown) (unknown) Temperature 97.1 (units (unknown) date) F L 05/17/22 17:06 unknown) (unknown) (no (unknown) (unknown) Temperature 97.1 (units (unknown) date) F L unknown) (unknown) (no (unknown) (unknown) This is (units (unkno wn) date) 36-year-old male unknown) without significant medical history who presents (unknown) (no (unknown) (unknown) This is a (units (unkn own) date) 36-year-old male unknown) who is presenting to the ED via POV with epigastric (unknown) (no (unknown) (unknown) Time Seen by (units (u nknown) date) Provider: 05/17/22 unknown) 16:43 (unknown) (no (unknown) (unknown) UA Complete (units (un known) date) [Urinalysis and unknown) Microscopic] Stat (unknown) (no (unknown) (unknown) URINARY: (units (unkno wn) date) unknown) (unknown) (no (unknown) (unknown) Ventral Wall: ? (units (unknown) date) No hernia.? unknown) (unknown) (no (unknown) (unknown) Vessels:? Aorta (units (unknown) date) and inferior vena unknown) cava are normal in size.? (unknown) (no (unknown) (unknown) Vital Signs - 8 (units (unknown) date) hr unknown) (unknown) (no (unknown) (unknown) Vital Signs (units (un known) date) unknown) (unknown) (no (unknown) (unknown) Vital Signs: I, (units (unknown) date) the ED provider, unknown) reviewed the patient?s vital signs, past (unknown) (no (unknown) (unknown) Vital signs: (units (u nknown) date) unknown) (unknown) (no (unknown) (unknown) WBC 6.0 (units (unkno wn) date) (4.5-11.0) X103/uL unknown) (unknown) (no (unknown) (unknown) WITHOUT CONTRAST, (units (unknown) date) 03/22/2022, 17:02. unknown) (unknown) (no (unknown) (unknown) Pinky Kahn, (units (unknown) date) DEONNA [Primary Care unknown) Provider] (unknown) (no (unknown) (unknown) [Embedded Image (units (unknown) date) Not Available] unknown) (unknown) (no (unknown) (unknown) abdominal CT with (units (unknown) date) contrast ordered. unknown) (unknown) (no (unknown) (unknown) abnormalities, (units (unknown) date) mild elevation ALT unknown) at a 9 otherwise no elevation to liver (unknown) (no (unknown) (unknown) adrenal gland is (units (unknown) date) unremarkable. unknown) (unknown) (no (unknown) (unknown) alcohol intake (units (unknown) date) frequency: 3 or unknown) more drinks per day (unknown) (no (unknown) (unknown) amoxicillin (units (un known) date) [AMOXICILLIN] unknown) Allergy Unknown Verified 04/24/22 10:11 (unknown) (no (unknown) (unknown) and below (units (unkn own) date) unknown) (unknown) (no (unknown) (unknown) and cooperative (units (unknown) date) unknown) (unknown) (no (unknown) (unknown) and specific (units (un known) date) details were unknown) provided for the plan of care. Questions are addressed (unknown) (no (unknown) (unknown) and states that (units (unknown) date) he has a family unknown) history of gallbladder disease and autoimmune (unknown) (no (unknown) (unknown) and there is (units (u nknown) date) agreement with the unknown) plan and for follow-up. Patient is appropriate (unknown) (no (unknown) (unknown) and (units (unkno wn) date) unknown) (unknown) (no (unknown) (unknown) benzonatate 100 (units (unknown) date) mg capsule 100 mg unknown) PO BID PRN cough #20 caps 04/24/22 (unknown) (no (unknown) (unknown) benzonatate 100 (units (unknown) date) mg capsule unknown) (unknown) (no (unknown) (unknown) bupropion HCl 150 (units (unknown) date) mg 24 hr tablet, unknown) 150 mg PO DAILY 04/05/21 04/24/22 (unknown) (no (unknown) (unknown) bupropion HCl 150 (units (unknown) date) mg tablet extended unknown) release 24 hr (unknown) (no (unknown) (unknown) choledocholithias (units (unknown) date) is, cholangitis, unknown) gastritis, esophagitis with underlying GERD, (unknown) (no (unknown) (unknown) complaining of (units (unknown) date) pain and diarrhea unknown) with concern for other problem. Patient states (unknown) (no (unknown) (unknown) demonstrates no (units (unknown) date) suspicious unknown) lesions. (unknown) (no (unknown) (unknown) diarrhea that (units ( unknown) date) started last unknown) night, history of influenza A positive on 04/24/2022 (unknown) (no (unknown) (unknown) disease (units (unkno wn) date) complaining unknown) nausea, emesis x1, and denies history gastritis or gastric (unknown) (no (unknown) (unknown) documentation, (units (unknown) date) and it accurately unknown) records my words and actions. I collaborated (unknown) (no (unknown) (unknown) emergency (units (unkn own) date) department unknown) complaining of epigastric pain since early this morning, (unknown) (no (unknown) (unknown) enzymes, lipase (units (unknown) date) unknown) (unknown) (no (unknown) (unknown) extended release (units (unknown) date) unknown) (unknown) (no (unknown) (unknown) fluoxetine 20 MG (units (unknown) date) capsule unknown) (unknown) (no (unknown) (unknown) fluoxetine 20 mg (units (unknown) date) capsule 20 mg PO unknown) QDAY #0 caps 02/01/16 04/24/22 (unknown) (no (unknown) (unknown) for outpatient (units (unknown) date) management. 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 No left-sided (unknown) (no (unknown) (unknown) medical records (units (unknown) date) and encounters if unknown) available, and nursing notes. I have spoken (unknown) (no (unknown) (unknown) meloxicam 7.5 mg (units (unknown) date) tablet 7.5 mg PO unknown) BID PRN pain #14 tabs 03/23/22 (unknown) (no (unknown) (unknown) meloxicam 7.5 mg (units (unknown) date) tablet unknown) (unknown) (no (unknown) (unknown) on 04/17/2022 via (units (unknown) date) x-ray KUB. unknown) (unknown) (no (unknown) (unknown) ondansetron 4 mg (units (unknown) date) disintegrating 4 unknown) mg PO Q8H PRN nausea and 04/24/22 (unknown) (no (unknown) (unknown) ondansetron 4 mg (units (unknown) date) tablet,disintegrat unknown) ing (unknown) (no (unknown) (unknown) oxycodone 5 mg (units (unknown) date) tablet 5 mg PO Q6H unknown) PRN pain #14 tabs 03/23/22 (unknown) (no (unknown) (unknown) oxycodone 5 mg (units (unknown) date) tablet unknown) (unknown) (no (unknown) (unknown) pain, diarrhea, (units (unknown) date) and recent history unknown) of influenza A positive on 04/24/2022. (unknown) (no (unknown) (unknown) peripheral edema, (units (unknown) date) warm extremities unknown) (unknown) (no (unknown) (unknown) pyelonephritis, (units (unknown) date) AAA, ACS, unknown) infectious colitis. (unknown) (no (unknown) (unknown) sagittal (units (unkno wn) date) reformats were unknown) performed.? For radiation dose reduction, the following (unknown) (no (unknown) (unknown) seen.? (units (unkno wn) date) unknown) (unknown) (no (unknown) (unknown) size.? (units (unkno wn) date) unknown) (unknown) (no (unknown) (unknown) studies: CT KUB (units (unknown) date) unknown) (unknown) (no (unknown) (unknown) tablet vomiting (units (unknown) date) #14 tabs unknown) (unknown) (no (unknown) (unknown) tamsulosin 0.4 mg (units (unknown) date) capsule (Flomax) unknown) 0.4 mg PO DAILY #7 caps 03/23/22 (unknown) (no (unknown) (unknown) tamsulosin (units (unk nown) date) [Flomax] 0.4 mg unknown) capsule (unknown) (no (unknown) (unknown) tenderness or (units ( unknown) date) exquisite unknown) tenderness with exam. 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 (unknown) (no (unknown) (unknown) ulcer but recent (units (unknown) date) history of left 5 unknown) mm renal calculi without obstruction (unknown) (no (unknown) (unknown) understanding. (units (unknown) date) Counseling was unknown) provided regarding the diagnosis and prognosis, (unknown) (no (unknown) (unknown) urinary frequency (units (unknown) date) or urgency. unknown) (unknown) (no (unknown) (unknown) viral (units (unkno wn) date) gastroenteritis or unknown) other acute viral process including COVID, influenza or (unknown) (no (unknown) (unknown) was used: (units (unkn own) date) unknown) (unknown) (no (unknown) (unknown) wheezing, (units (unkn own) date) stridor, or unknown) abnormal breath sounds. No retractions or tachypnea. (unknown) (no (unknown) (unknown) with the ED (units (un known) date) attending unknown) physician for FRITZ level 2, 3, and some level 4s as needed (unknown) (no (unknown) (unknown) with the (units (unkno wn) date) patient/family and unknown) discussed today?s findings whom verbalize Result panel 1029 (unknown) (no date) (unknown) (unknown) <=1.005 (units (unkn own) unknown) (unknown) (no date) (unknown) (unknown) 0-1 /HPF (units (unkn own) unknown) (unknown) (no date) (unknown) (unknown) 0.2 e.u./dl (unkn own) (unknown) (no date) (unknown) (unknown) 6.5 (units (unkn own) unknown) (unknown) (no date) (unknown) (unknown) CLEAR (units (unkn own) unknown) (unknown) (no date) (unknown) (unknown) Cult Not (units (unkn own) Indicated unknown) (unknown) (no date) (unknown) (unknown) NEGATIVE (units (unkn own) unknown) (unknown) (no date) (unknown) (unknown) NEGATIVE g/dl (unkn own) (unknown) (no date) (unknown) (unknown) None Seen (units (unk nown) unknown) (unknown) (no date) (unknown) (unknown) None Seen (units (unk nown) unknown) (unknown) (no date) (unknown) (unknown) YELLOW (units (unkn own) unknown) (unknown) (no date) (unknown) (unknown) YELLOW (units (unkn own) unknown) Result panel 1030 (unknown) (no date) (unknown) (unknown) Flu A (units (unkn own) NEGATIVE unknown) (unknown) (no date) (unknown) (unknown) Flu B (units (unkn own) NEGATIVE unknown) (unknown) (no date) (unknown) (unknown) Negative (units (unkn own) unknown) (unknown) (no date) (unknown) (unknown) Negative (units (unkn own) unknown) Result panel 1031 (unknown) (no (unknown) (unknown) (no value) (units (unk nown) date) unknown) (unknown) (no (unknown) (unknown) 0.4 mg PO DAILY (units (unknown) date) Qty: 7 0RF unknown) (unknown) (no (unknown) (unknown) 05/17/22 05/17/22 (units (unknown) date) 05/17/22 unknown) Range/Units (unknown) (no (unknown) (unknown) 05/17/22 16:44 (units (unknown) date) unknown) (unknown) (no (unknown) (unknown) 05/17/22 18:05 (units (unknown) date) unknown) (unknown) (no (unknown) (unknown) 05/17/22 18:14 (units (unknown) date) unknown) (unknown) (no (unknown) (unknown) 05/17/22 (units (unkno wn) date) Range/Units unknown) (unknown) (no (unknown) (unknown) 05/17/22 (units (unkno wn) date) unknown) (unknown) (no (unknown) (unknown) 1-2 tablets by (units (unknown) date) mouth every 6 unknown) hours as needed for pain. (unknown) (no (unknown) (unknown) 100 mg PO BID PRN (units (unknown) date) (Reason: cough) unknown) Qty: 20 0RF (unknown) (no (unknown) (unknown) 14:46.? [place] (units (unknown) date) unknown) (unknown) (no (unknown) (unknown) 150 mg PO DAILY (units (unknown) date) unknown) (unknown) (no (unknown) (unknown) 17:06 (units (unkno wn) date) unknown) (unknown) (no (unknown) (unknown) 1829: Review of (units (unknown) date) CT demonstrates unknown) findings of fatty liver infiltration and (unknown) (no (unknown) (unknown) 1830:?Review of (units (unknown) date) labs demonstrates unknown) no leukocytosis or anemia, no electrolyte (unknown) (no (unknown) (unknown) 18:05 18:05 18:05 (units (unknown) date) unknown) (unknown) (no (unknown) (unknown) 18:30 (units (unkno wn) date) unknown) (unknown) (no (unknown) (unknown) 20 mg PO QDAY (units ( unknown) date) Qty: 0 unknown) (unknown) (no (unknown) (unknown) 4 mg PO Q8H PRN (units (unknown) date) (Reason: nausea unknown) and vomiting) Qty: 14 0RF (unknown) (no (unknown) (unknown) 5 mg PO Q6H PRN (units (unknown) date) (Reason: pain) unknown) Qty: 14 0RF (unknown) (no (unknown) (unknown) 5498 (units (unkno wn) date) unknown) (unknown) (no (unknown) (unknown) 7.5 mg PO BID PRN (units (unknown) date) (Reason: pain) unknown) Qty: 14 0RF (unknown) (no (unknown) (unknown) ? (units (unkno wn) date) unknown) (unknown) (no (unknown) (unknown) ?automated (units (k ) date) exposure control, unknown) adjustment of mA and/or kV according to patient (unknown) (no (unknown) (unknown) A cause of (units (unk n) date) abdominal pain is unknown) not seen. (unknown) (no (unknown) (unknown) ABDOMEN/PELVIS (units (unknown) date) unknown) (unknown) (no (unknown) (unknown) ABDOMEN: (units (unkno wn) date) unknown) (unknown) (no (unknown) (unknown) ALT (<50) IU/L (units (unknown) date) unknown) (unknown) (no (unknown) (unknown) ALT 89 H (<50) (units (unknown) date) IU/L unknown) (unknown) (no (unknown) (unknown) AST (17-59) IU/L (units (unknown) date) unknown) (unknown) (no (unknown) (unknown) AST 44 (17-59) (units (unknown) date) IU/L unknown) (unknown) (no (unknown) (unknown) Abdominal Nodes:? (units (unknown) date) No enlarged unknown) retroperitoneal or mesenteric lymph nodes.? (unknown) (no (unknown) (unknown) Accession Number: (units (unknown) date) [id number] ?? unknown) (unknown) (no (unknown) (unknown) Acct:[id number] (units (unknown) date) unknown) (unknown) (no (unknown) (unknown) Additional (units (unk nown) date) findings:? unknown) (unknown) (no (unknown) (unknown) Adrenal Glands:? (units (unknown) date) A right adrenal unknown) myelolipoma is again seen measuring 7 cm.? The (unknown) (no (unknown) (unknown) Age/Sex: 36 / M (units (unknown) date) unknown) (unknown) (no (unknown) (unknown) Albumin (3.5-5.0) (units (unknown) date) g/dL unknown) (unknown) (no (unknown) (unknown) Albumin 4.9 (units (un known) date) (3.5-5.0) g/dL unknown) (unknown) (no (unknown) (unknown) Albumin/Globulin (units (unknown) date) Ratio (1.0-2.8) unknown) (unknown) (no (unknown) (unknown) Albumin/Globulin (units (unknown) date) Ratio 1.4 unknown) (1.0-2.8) (unknown) (no (unknown) (unknown) Alkaline (units (unkno wn) date) Phosphatase unknown) (38-126) U/L (unknown) (no (unknown) (unknown) Alkaline (units (unkno wn) date) Phosphatase 85 unknown) (38-126) U/L (unknown) (no (unknown) (unknown) Allergies (units (unkn own) date) unknown) (unknown) (no (unknown) (unknown) Allergy/AdvReac (units (unknown) date) Type Severity unknown) Reaction Status Date / Time (unknown) (no (unknown) (unknown) Approved by: (units (u nknown) date) abby Banegas M.D. on 05/17/2022 at 16:35 ? (unknown) (no (unknown) (unknown) Axial sections (units (unknown) date) were acquired from unknown) the lung bases to the pubic symphysis.? (unknown) (no (unknown) (unknown) BUN (9-20) mg/dL (units (unknown) date) unknown) (unknown) (no (unknown) (unknown) BUN 10 (9-20) (units ( unknown) date) mg/dL unknown) (unknown) (no (unknown) (unknown) BUN/Creatinine (units (unknown) date) Ratio (6-22) unknown) (unknown) (no (unknown) (unknown) BUN/Creatinine (units (unknown) date) Ratio 12.2 (6-22) unknown) (unknown) (no (unknown) (unknown) Baso # (Auto) (units ( unknown) date) (0-100) /uL unknown) (unknown) (no (unknown) (unknown) Baso # (Auto) 0 (units (unknown) date) (0-100) /uL unknown) (unknown) (no (unknown) (unknown) Baso % (Auto) (units ( unknown) date) (0-2) % unknown) (unknown) (no (unknown) (unknown) Baso % (Auto) 0.6 (units (unknown) date) (0-2) % unknown) (unknown) (no (unknown) (unknown) Biliary ducts:? (units (unknown) date) Unremarkable.? ? unknown) (unknown) (no (unknown) (unknown) Bladder:? Normal (units (unknown) date) wall thickness. No unknown) stones. ? ? (unknown) (no (unknown) (unknown) Blood Pressure (units (unknown) date) 145/83 H 05/17/22 unknown) 17:06 (unknown) (no (unknown) (unknown) Blood Pressure (units (unknown) date) 145/83 H unknown) (unknown) (no (unknown) (unknown) Bones:? (units (unkno wn) date) Unremarkable. unknown) (unknown) (no (unknown) (unknown) CBC Auto Diff (units ( unknown) date) [Complete Blood unknown) Count AUTO DIFF] Stat (unknown) (no (unknown) (unknown) CMP (units (unkno wn) date) [Comprehensive unknown) Metabolic Panel] Stat (unknown) (no (unknown) (unknown) COMPARISON:? (units (u nknown) date) [facility], unknown) CT, ABDOMEN/PELVIS WITH CONTRAST, 01/13/2015, (unknown) (no (unknown) (unknown) CT kidney ureter (units (unknown) date) bladder (KUB) Stat unknown) (unknown) (no (unknown) (unknown) CT scan - (units (unkn own) date) abdomen/pelvis: unknown) (unknown) (no (unknown) (unknown) Calcium (units (unkno wn) date) (8.4-10.2) mg/dL unknown) (unknown) (no (unknown) (unknown) Calcium 9.0 (units (un known) date) (8.4-10.2) mg/dL unknown) (unknown) (no (unknown) (unknown) Carbon Dioxide (units (unknown) date) (22-32) mmol/L unknown) (unknown) (no (unknown) (unknown) Carbon Dioxide 20 (units (unknown) date) L (22-32) mmol/L unknown) (unknown) (no (unknown) (unknown) Cardiovascular: (units (unknown) date) regular rate and unknown) rhythm, without tachycardia, S1-S2 without (unknown) (no (unknown) (unknown) Chief Complaint: (units (unknown) date) Abdominal Pain unknown) (unknown) (no (unknown) (unknown) Chloride (98-107) (units (unknown) date) mmol/L unknown) (unknown) (no (unknown) (unknown) Chloride 104 (units (u nknown) date) (98-107) mmol/L unknown) (unknown) (no (unknown) (unknown) Coronal and (units (un known) date) unknown) (unknown) (no (unknown) (unknown) Course of Care: (units (unknown) date) unknown) (unknown) (no (unknown) (unknown) Course (units (unkno wn) date) unknown) (unknown) (no (unknown) (unknown) Covid-19 + FLU (units (unknown) date) A/B + RSV - PCR unknown) Stat (unknown) (no (unknown) (unknown) Creatinine (units (unk nown) date) (0.66-1.25) mg/dL unknown) (unknown) (no (unknown) (unknown) Creatinine 0.82 (units (unknown) date) (0.66-1.25) mg/dL unknown) (unknown) (no (unknown) (unknown) : 1985 (units (unknown) date) Acct:[id number] unknown) (unknown) (no (unknown) (unknown) : 1985 (units (unknown) date) unknown) (unknown) (no (unknown) (unknown) Date of Service: (units (unknown) date) 05/17/22 unknown) (unknown) (no (unknown) (unknown) Departure (units (unkn own) date) unknown) (unknown) (no (unknown) (unknown) Dictated by: (units (u nknown) date) Nguyễn [place], unknownLamberto Navarro on 05/17/2022 at 16:32 ? ? (unknown) (no (unknown) (unknown) Differential (units (u nknown) date) diagnoses include, unknown) but are not limited to: ?Acute cholecystitis, (unknown) (no (unknown) (unknown) Discharge Plan (units (unknown) date) unknown) (unknown) (no (unknown) (unknown) ED Orders (units (unkn own) date) unknown) (unknown) (no (unknown) (unknown) ED provider (units (un known) date) independent unknown) interpretation (unknown) (no (unknown) (unknown) ER Physician: (units ( unknown) date) Ni Moran unknown) MARY (unknown) (no (unknown) (unknown) Electronically (units (unknown) date) signed by: unknown) MARY Kumar (unknown) (no (unknown) (unknown) Emergency Report (units (unknown) date) unknown) (unknown) (no (unknown) (unknown) Eos # (Auto) (units (u nknown) date) (0-450) /uL unknown) (unknown) (no (unknown) (unknown) Eos # (Auto) 100 (units (unknown) date) (0-450) /uL unknown) (unknown) (no (unknown) (unknown) Eos % (Auto) (units (u nknown) date) (2-4) % unknown) (unknown) (no (unknown) (unknown) Eos % (Auto) 1.8 (units (unknown) date) L (2-4) % unknown) (unknown) (no (unknown) (unknown) Estimated GFR > (units (unknown) date) 60 (>60) mL/min unknown) (unknown) (no (unknown) (unknown) Estimated GFR (units ( unknown) date) (>60) mL/min unknown) (unknown) (no (unknown) (unknown) Exam Narrative: (units (unknown) date) unknown) (unknown) (no (unknown) (unknown) Exam (units (unkno wn) date) unknown) (unknown) (no (unknown) (unknown) FINDINGS:? (units (unk nown) date) unknown) (unknown) (no (unknown) (unknown) Fatty liver (units (un known) date) infiltration unknown) (unknown) (no (unknown) (unknown) GI: abdomen soft, (units (unknown) date) nontender to unknown) palpation, nondistended, without masses, rebound (unknown) (no (unknown) (unknown) Gallbladder:? (units ( unknown) date) Unremarkable.? ? unknown) (unknown) (no (unknown) (unknown) General (units (unkno wn) date) unknown) (unknown) (no (unknown) (unknown) General: (units (unkno wn) date) cooperative, unknown) comfortable, in no acute distress, well groomed, afebrile (unknown) (no (unknown) (unknown) Globulin (units (unkno wn) date) (1.7-4.1) g/dL unknown) (unknown) (no (unknown) (unknown) Globulin 3.4 (units (u nknown) date) (1.7-4.1) g/dL unknown) (unknown) (no (unknown) (unknown) Glucose (70-100) (units (unknown) date) mg/dL unknown) (unknown) (no (unknown) (unknown) Glucose 92 (units (unk nown) date) (70-100) mg/dL unknown) (unknown) (no (unknown) (unknown) HEENT: (units (unkno wn) date) symmetrical facial unknown) expressions, moist mucous membranes (unknown) (no (unknown) (unknown) HPI - Abdominal (units (unknown) date) Pain unknown) (unknown) (no (unknown) (unknown) HPI narrative: (units (unknown) date) unknown) (unknown) (no (unknown) (unknown) Hct (41-53) % (units ( unknown) date) unknown) (unknown) (no (unknown) (unknown) Hct 43.9 (41-53) (units (unknown) date) % unknown) (unknown) (no (unknown) (unknown) Healthy adult (units ( unknown) date) unknown) (unknown) (no (unknown) (unknown) Heart:? No (units (unk nown) date) significant unknown) findings. (unknown) (no (unknown) (unknown) Hgb (13.5-17.5) (units (unknown) date) g/dL unknown) (unknown) (no (unknown) (unknown) Hgb 15.3 (units (unkno wn) date) (13.5-17.5) g/dL unknown) (unknown) (no (unknown) (unknown) History of (units (unk nown) date) Present Illness unknown) (unknown) (no (unknown) (unknown) Home Medications (units (unknown) date) unknown) (unknown) (no (unknown) (unknown) Hospital, CR, XR (units (unknown) date) [facility], 04/17/[facility], unknown) 12:09.? [facility], RG, CT (unknown) (no (unknown) (unknown) I performed a (units ( unknown) date) preliminary unknown) independent interpretation of the following imaging (unknown) (no (unknown) (unknown) I, Ni Moran, (units (unknown) date) MARY, personally unknown) performed the services described in the (unknown) (no (unknown) (unknown) IMPRESSION:? (units (u nknown) date) unknown) (unknown) (no (unknown) (unknown) INDICATIONS:? (units ( unknown) date) upper abd pain, hx unknown) nephrolithiasis and lt 5mm renal calculus (unknown) (no (unknown) (unknown) Image quality:? (units (unknown) date) Excellent.? unknown) (unknown) (no (unknown) (unknown) Imaging Data (units (u nknown) date) unknown) (unknown) (no (unknown) (unknown) Initial Vital (units ( unknown) date) Signs unknown) (unknown) (no (unknown) (unknown) Initial Vital (units ( unknown) date) Signs: unknown) (unknown) (no (unknown) (unknown) [facility] (units (unknown) date) [address] unknown) [place] [address] (unknown) (no (unknown) (unknown) Lab Data (units (unkno wn) date) unknown) (unknown) (no (unknown) (unknown) Lab Results (units (un known) date) unknown) (unknown) (no (unknown) (unknown) Labs: (units (unkno wn) date) unknown) (unknown) (no (unknown) (unknown) Lactate (0.7-2.1) (units (unknown) date) mmol/L unknown) (unknown) (no (unknown) (unknown) Lactate (Lactic (units (unknown) date) Acid) Stat unknown) (unknown) (no (unknown) (unknown) Lactate 1.1 (units (un known) date) (0.7-2.1) mmol/L unknown) (unknown) (no (unknown) (unknown) Left Kidney:? (units (u nknown) date) Nonobstructing unknown) left-sided kidney stones are seen, with the largest (unknown) (no (unknown) (unknown) Left Ureter:? No (units (unknown) date) hydroureter.? unknown) (unknown) (no (unknown) (unknown) Lipase (23-300) (units (unknown) date) U/L unknown) (unknown) (no (unknown) (unknown) Lipase 112 (units (unk nown) date) (23-300) U/L unknown) (unknown) (no (unknown) (unknown) Lipase Stat (units (un known) date) unknown) (unknown) (no (unknown) (unknown) Liver: Diffuse (units (unknown) date) fatty liver unknown) infiltration is noted.? The liver is normal in size (unknown) (no (unknown) (unknown) Loc: ED (units (unkno wn) date) unknown) (unknown) (no (unknown) (unknown) Lung bases:? (units (u nknown) date) Unremarkable.? ? unknown) (unknown) (no (unknown) (unknown) Lymph # (Auto) (units (unknown) date) (9091-6935) /uL unknown) (unknown) (no (unknown) (unknown) Lymph # (Auto) (units (unknown) date) 1500 (4194-6408) unknown) /uL (unknown) (no (unknown) (unknown) Lymph % (Auto) (units (unknown) date) (25-40) % unknown) (unknown) (no (unknown) (unknown) Lymph % (Auto) (units (unknown) date) 25.6 (25-40) % unknown) (unknown) (no (unknown) (unknown) MCH (26-34) PG (units (unknown) date) unknown) (unknown) (no (unknown) (unknown) MCH 31.7 (26-34) (units (unknown) date) PG unknown) (unknown) (no (unknown) (unknown) MCHC (30-36) % (units (unknown) date) unknown) (unknown) (no (unknown) (unknown) MCHC 34.9 (30-36) (units (unknown) date) % unknown) (unknown) (no (unknown) (unknown) MCV (80-100) fL (units (unknown) date) unknown) (unknown) (no (unknown) (unknown) MCV 90.9 (80-100) (units (unknown) date) fL unknown) (unknown) (no (unknown) (unknown) MDM - Abdominal (units (unknown) date) Pain unknown) (unknown) (no (unknown) (unknown) MDM Narrative (units ( unknown) date) unknown) (unknown) (no (unknown) (unknown) MIPS: This (units (unk nown) date) encounter doesn't unknown) have any diagnosis associated with MIPS criteria. (unknown) (no (unknown) (unknown) MR#: [id number] (units (unknown) date) unknown) (unknown) (no (unknown) (unknown) MSK: moves all (units (unknown) date) extremities, unknown) neurovascularly intact, no weakness, normal tone (unknown) (no (unknown) (unknown) Medical History (units (unknown) date) (Reviewed 05/17/22 unknown) @ 18:51 by Ni Moran [facility]) (unknown) (no (unknown) (unknown) Medical decision (units (unknown) date) making narrative: unknown) (unknown) (no (unknown) (unknown) Medication (units (unk nown) date) Instructions unknown) Recorded Confirmed (unknown) (no (unknown) (unknown) Medication (units (unk nown) date) Instructions unknown) Recorded (unknown) (no (unknown) (unknown) Miscellaneous: No (units (unknown) date) inguinal hernias unknown) are seen. ? ? (unknown) (no (unknown) (unknown) Mode of arrival: (units (unknown) date) Ambulatory unknown) (unknown) (no (unknown) (unknown) [place] # (Auto) (units ( unknown) date) (0-900) /uL unknown) (unknown) (no (unknown) (unknown) [place] # (Auto) 600 (units (unknown) date) (0-900) /uL unknown) (unknown) (no (unknown) (unknown) [place] % (Auto) (units ( unknown) date) (3-14) % unknown) (unknown) (no (unknown) (unknown) [place] % (Auto) (units ( unknown) date) 10.0 (3-14) % unknown) (unknown) (no (unknown) (unknown) Narrative (units (unkn own) date) unknown) (unknown) (no (unknown) (unknown) Neuro: normal (units ( unknown) date) speech and unknown) cognition, A+O x3, ambulatory, clear speech (unknown) (no (unknown) (unknown) Neut # (Auto) (units ( unknown) date) (1322-1030) /uL unknown) (unknown) (no (unknown) (unknown) Neut # (Auto) (units ( unknown) date) 3700 (9176-9722) unknown) /uL (unknown) (no (unknown) (unknown) Neut % (Auto) (units ( unknown) date) (50-75) % unknown) (unknown) (no (unknown) (unknown) Neut % (Auto) (units ( unknown) date) 62.0 (50-75) % unknown) (unknown) (no (unknown) (unknown) No Action (units (unkn own) date) unknown) (unknown) (no (unknown) (unknown) Nonobstructing (units (unknown) date) left-sided kidney unknown) stones, without hydronephrosis. (unknown) (no (unknown) (unknown) Occasional wrong (units (unknown) date) word or 'sound unknown) alike' substitutions may have occurred due to (unknown) (no (unknown) (unknown) Ordered: (units (unkno wn) date) unknown) (unknown) (no (unknown) (unknown) Ordering (units (unkno wn) date) Provider: unknown) Ni Moran (unknown) (no (unknown) (unknown) Orders (units (unkno wn) date) unknown) (unknown) (no (unknown) (unknown) Oxygen Delivery (units (unknown) date) Method 05/17/22 unknown) 17:06 (unknown) (no (unknown) (unknown) Oxygen Delivery (units (unknown) date) Method Room Air unknown) (unknown) (no (unknown) (unknown) PELVIS: (units (unkno wn) date) unknown) (unknown) (no (unknown) (unknown) PROCEDURE:? CT (units (unknown) date) KIDNEY URETER unknown) BLADDER (KUB) (unknown) (no (unknown) (unknown) Pancreas:? (units (unk nown) date) Unremarkable.? ? unknown) (unknown) (no (unknown) (unknown) Patient History (units (unknown) date) unknown) (unknown) (no (unknown) (unknown) Patient had a 5 mm (units (unknown) date) left interpolar unknown) renal calculus without urinary tract calculus (unknown) (no (unknown) (unknown) Patient's (units (unkn own) date) symptoms improved unknown) over duration of stay with above-stated therapies. (unknown) (no (unknown) (unknown) Patient: (units (unkno wn) date) Jaquan Rodríguez MR#: unknown) [id number] (unknown) (no (unknown) (unknown) Patient: (units (unkno wn) date) Jaquan Rodríguez unknown) (unknown) (no (unknown) (unknown) Pelvic Nodes: (units ( unknown) date) Unremarkable. unknown) (unknown) (no (unknown) (unknown) Pelvic Organs:? (units (unknown) date) Unremarkable.? ? unknown) (unknown) (no (unknown) (unknown) Peritoneum:? No (units (unknown) date) abnormal unknown) intraperitoneal fluid.? No free air.? (unknown) (no (unknown) (unknown) Plt Count (units (unkn own) date) (150-400) X103/uL unknown) (unknown) (no (unknown) (unknown) Plt Count 239 (units ( unknown) date) (150-400) X103/uL unknown) (unknown) (no (unknown) (unknown) Portions of this (units (unknown) date) chart have been unknown) created with [employer] voice recognition software. (unknown) (no (unknown) (unknown) Potassium (units (unkn own) date) (3.4-5.1) mmol/L unknown) (unknown) (no (unknown) (unknown) Potassium 3.8 (units ( unknown) date) (3.4-5.1) mmol/L unknown) (unknown) (no (unknown) (unknown) Prescriptions: (units (unknown) date) unknown) (unknown) (no (unknown) (unknown) Previous Rx's (units ( unknown) date) unknown) (unknown) (no (unknown) (unknown) Procedure: CT (units ( unknown) date) kidney ureter unknown) bladder (KUB) (unknown) (no (unknown) (unknown) Psych: mental (units ( unknown) date) status is grossly unknown) normal, congruent mood, normal affect, pleasant (unknown) (no (unknown) (unknown) Pulse Oximetry (units (unknown) date) 100 05/17/22 17:06 unknown) (unknown) (no (unknown) (unknown) Pulse Oximetry (units (unknown) date) 100 unknown) (unknown) (no (unknown) (unknown) Pulse Rate 80 (units ( unknown) date) 05/17/22 17:06 unknown) (unknown) (no (unknown) (unknown) Pulse Rate 80 (units ( unknown) date) unknown) (unknown) (no (unknown) (unknown) RBC (4.5-5.9) (units ( unknown) date) X106/uL unknown) (unknown) (no (unknown) (unknown) RBC 4.82 (units (unkno wn) date) (4.5-5.9) X106/uL unknown) (unknown) (no (unknown) (unknown) RDW (11.6-14.8) % (units (unknown) date) unknown) (unknown) (no (unknown) (unknown) RDW 13.3 (units (unkno wn) date) (11.6-14.8) % unknown) (unknown) (no (unknown) (unknown) ROS Unobtainable: (units (unknown) date) All systems unknown) reviewed + are unremarkable except as noted in HPI (unknown) (no (unknown) (unknown) RSV, (units (unkno wn) date) appendicitis, unknown) acute cystitis, nephrolithiasis, ureteral obstruction, (unknown) (no (unknown) (unknown) Radiologist's (units ( unknown) date) Impression: unknown) (unknown) (no (unknown) (unknown) Referrals: (units (unk nown) date) unknown) (unknown) (no (unknown) (unknown) Related Data (units (u nknown) date) unknown) (unknown) (no (unknown) (unknown) Respiratory Rate (units (unknown) date) 18 05/17/22 17:06 unknown) (unknown) (no (unknown) (unknown) Respiratory Rate (units (unknown) date) 18 unknown) (unknown) (no (unknown) (unknown) Respiratory panel (units (unknown) date) unknown) (unknown) (no (unknown) (unknown) Respiratory: (units (u nknown) date) normal effort, unknown) able to speak in complete sentences, without (unknown) (no (unknown) (unknown) Result diagrams: (units (unknown) date) unknown) (unknown) (no (unknown) (unknown) Review of Systems (units (unknown) date) unknown) (unknown) (no (unknown) (unknown) Reviewed vitals (units (unknown) date) signs and nursing unknown) notes. (unknown) (no (unknown) (unknown) Right Kidney: ? (units (unknown) date) No stones or unknown) hydronephrosis.? (unknown) (no (unknown) (unknown) Right Ureter:? No (units (unknown) date) hydroureter.? 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 unknown) (unknown) (no (unknown) (unknown) Routine labs, (units ( unknown) date) respiratory panel unknown) abdominal CT KUB, urinalysis, lipase and (unknown) (no (unknown) (unknown) Rx Instructions: (units (unknown) date) unknown) (unknown) (no (unknown) (unknown) Signed By: (units (unk nown) date) unknown) (unknown) (no (unknown) (unknown) Skin: brisk (units (un known) date) capillary refill, unknown) without pallor or erythema (unknown) (no (unknown) (unknown) Smoking Status: (units (unknown) date) Never smoker unknown) (unknown) (no (unknown) (unknown) Social History (units (unknown) date) (Reviewed 05/17/22 unknown) @ 18:51 by Ni Moran [facility]) (unknown) (no (unknown) (unknown) Social (units (unkno wn) date) determinants of unknown) health that may impact treatment or disposition: none (unknown) (no (unknown) (unknown) Sodium (137-145) (units (unknown) date) mmol/L unknown) (unknown) (no (unknown) (unknown) Sodium 138 (units (unk nown) date) (137-145) mmol/L unknown) (unknown) (no (unknown) (unknown) Source: patient (units (unknown) date) unknown) (unknown) (no (unknown) (unknown) Spleen:? (units (unkno wn) date) Unremarkable.? ? unknown) (unknown) (no (unknown) (unknown) Stated Complaint: (units (unknown) date) Severe upper ABD unknown) pain (unknown) (no (unknown) (unknown) Stomach and (units (un known) date) Bowel:? Stomach, unknown) small bowel loops, and colon are unremarkable.? (unknown) (no (unknown) (unknown) Substance Use (units ( unknown) date) Type: does not use unknown) (unknown) (no (unknown) (unknown) TECHNIQUE:? (units (un known) date) unknown) (unknown) (no (unknown) (unknown) Temperature 97.1 (units (unknown) date) F L 05/17/22 17:06 unknown) (unknown) (no (unknown) (unknown) Temperature 97.1 (units (unknown) date) F L unknown) (unknown) (no (unknown) (unknown) This is (units (unkno wn) date) 36-year-old male unknown) without significant medical history who presents (unknown) (no (unknown) (unknown) This is a (units (unkn own) date) 36-year-old male unknown) who is presenting to the ED via POV with epigastric (unknown) (no (unknown) (unknown) Time Seen by (units (u nknown) date) Provider: 05/17/22 unknown) 16:43 (unknown) (no (unknown) (unknown) Total Bilirubin (units (unknown) date) (0.2-1.3) mg/dL unknown) (unknown) (no (unknown) (unknown) Total Bilirubin (units (unknown) date) 0.8 (0.2-1.3) unknown) mg/dL (unknown) (no (unknown) (unknown) Total Protein (units ( unknown) date) (6.3-8.2) g/dL unknown) (unknown) (no (unknown) (unknown) Total Protein 8.3 (units (unknown) date) H (6.3-8.2) g/dL unknown) (unknown) (no (unknown) (unknown) UA Complete (units (un known) date) [Urinalysis and unknown) Microscopic] Stat (unknown) (no (unknown) (unknown) URINARY: (units (unkno wn) date) unknown) (unknown) (no (unknown) (unknown) Ur Culture (units (unk nown) date) Indicated? Cult unknown) not indicated (unknown) (no (unknown) (unknown) Ur Culture (units (unk nown) date) Indicated? unknown) (unknown) (no (unknown) (unknown) Ur Leukocyte (units (u nknown) date) Esterase unknown) (NEGATIVE) (unknown) (no (unknown) (unknown) Ur Leukocyte (units (u nknown) date) Esterase Negative unknown) (NEGATIVE) (unknown) (no (unknown) (unknown) Ur Specific (units (un known) date) [place] <=1.005 unknown) (1.000-1.035) (unknown) (no (unknown) (unknown) Ur Specific (units (un known) date) [place] unknown) (1.000-1.035) (unknown) (no (unknown) (unknown) Ur Squamous Epith (units (unknown) date) Cells (0-5/HPF) unknown) (unknown) (no (unknown) (unknown) Ur Squamous Epith (units (unknown) date) Cells 0-1 /hpf unknown) (0-5/HPF) (unknown) (no (unknown) (unknown) Urine Appearance (units (unknown) date) Clear unknown) (unknown) (no (unknown) (unknown) Urine Appearance (units (unknown) date) unknown) (unknown) (no (unknown) (unknown) Urine Bacteria (units (unknown) date) (None) unknown) (unknown) (no (unknown) (unknown) Urine Bacteria (units (unknown) date) None seen (None) unknown) (unknown) (no (unknown) (unknown) Urine Bilirubin (units (unknown) date) (NEGATIVE) unknown) (unknown) (no (unknown) (unknown) Urine Bilirubin (units (unknown) date) Negative unknown) (NEGATIVE) (unknown) (no (unknown) (unknown) Urine Color (units (un known) date) Yellow unknown) (unknown) (no (unknown) (unknown) Urine Color (units (un known) date) unknown) (unknown) (no (unknown) (unknown) Urine Glucose (units ( unknown) date) (UA) (Negative) unknown) g/dL (unknown) (no (unknown) (unknown) Urine Glucose (units ( unknown) date) (UA) Negative unknown) (Negative) g/dL (unknown) (no (unknown) (unknown) Urine Ketones (units ( unknown) date) (NEGATIVE) unknown) (unknown) (no (unknown) (unknown) Urine Ketones (units ( unknown) date) Negative unknown) (NEGATIVE) (unknown) (no (unknown) (unknown) Urine Nitrate (units ( unknown) date) (Negative) unknown) (unknown) (no (unknown) (unknown) Urine Nitrate (units ( unknown) date) Negative unknown) (Negative) (unknown) (no (unknown) (unknown) Urine Occult (units (u nknown) date) Blood (Negative) unknown) (unknown) (no (unknown) (unknown) Urine Occult (units (u nknown) date) Blood Negative unknown) (Negative) (unknown) (no (unknown) (unknown) Urine Protein (units ( unknown) date) (Negative) unknown) (unknown) (no (unknown) (unknown) Urine Protein (units ( unknown) date) Negative unknown) (Negative) (unknown) (no (unknown) (unknown) Urine RBC (units (unkn own) date) (0-5/HPF) unknown) (unknown) (no (unknown) (unknown) Urine RBC None (units (unknown) date) seen (0-5/HPF) unknown) (unknown) (no (unknown) (unknown) Urine (units (unkno wn) date) Urobilinogen (0.2) unknown) E.U./dL (unknown) (no (unknown) (unknown) Urine (units (unkno wn) date) Urobilinogen 0.2 unknown) (0.2) E.U./dL (unknown) (no (unknown) (unknown) Urine WBC (units (unkn own) date) (0-5/HPF) unknown) (unknown) (no (unknown) (unknown) Urine WBC None (units (unknown) date) seen (0-5/HPF) unknown) (unknown) (no (unknown) (unknown) Urine pH (units (unkno wn) date) (4.5-8.0) unknown) (unknown) (no (unknown) (unknown) Urine pH 6.5 (units (u nknown) date) (4.5-8.0) unknown) (unknown) (no (unknown) (unknown) Ventral Wall: ? (units (unknown) date) No hernia.? unknown) (unknown) (no (unknown) (unknown) Vessels:? Aorta (units (unknown) date) and inferior vena unknown) cava are normal in size.? (unknown) (no (unknown) (unknown) Vital Signs - 8 (units (unknown) date) hr unknown) (unknown) (no (unknown) (unknown) Vital Signs (units (un known) date) unknown) (unknown) (no (unknown) (unknown) Vital Signs: I, (units (unknown) date) the ED provider, unknown) reviewed the patient?s vital signs, past (unknown) (no (unknown) (unknown) Vital signs: (units (u nknown) date) unknown) (unknown) (no (unknown) (unknown) WBC (4.5-11.0) (units (unknown) date) X103/uL unknown) (unknown) (no (unknown) (unknown) WBC 6.0 (units (unkno wn) date) (4.5-11.0) X103/uL unknown) (unknown) (no (unknown) (unknown) WITHOUT CONTRAST, (units (unknown) date) 03/22/2022, 17:02. unknown) (unknown) (no (unknown) (unknown) Pinky Kahn, (units (unknown) date) PA-C [Primary Care unknown) Provider] (unknown) (no (unknown) (unknown) [Embedded Image (units (unknown) date) Not Available] unknown) (unknown) (no (unknown) (unknown) abdominal CT with (units (unknown) date) contrast ordered. unknown) (unknown) (no (unknown) (unknown) abnormalities, (units (unknown) date) mild elevation ALT unknown) at a 9 otherwise no elevation to liver (unknown) (no (unknown) (unknown) adrenal gland is (units (unknown) date) unremarkable. unknown) (unknown) (no (unknown) (unknown) alcohol intake (units (unknown) date) frequency: 3 or unknown) more drinks per day (unknown) (no (unknown) (unknown) amoxicillin (units (un known) date) [AMOXICILLIN] unknown) Allergy Unknown Verified 04/24/22 10:11 (unknown) (no (unknown) (unknown) and below (units (unkn own) date) unknown) (unknown) (no (unknown) (unknown) and cooperative (units (unknown) date) unknown) (unknown) (no (unknown) (unknown) and specific (units (un known) date) details were unknown) provided for the plan of care. Questions are addressed (unknown) (no (unknown) (unknown) and states that (units (unknown) date) he has a family unknown) history of gallbladder disease and autoimmune (unknown) (no (unknown) (unknown) and there is (units (u nknown) date) agreement with the unknown) plan and for follow-up. Patient is appropriate (unknown) (no (unknown) (unknown) and (units (unkno wn) date) unknown) (unknown) (no (unknown) (unknown) benzonatate 100 (units (unknown) date) mg capsule 100 mg unknown) PO BID PRN cough #20 caps 04/24/22 (unknown) (no (unknown) (unknown) benzonatate 100 (units (unknown) date) mg capsule unknown) (unknown) (no (unknown) (unknown) bupropion HCl 150 (units (unknown) date) mg 24 hr tablet, unknown) 150 mg PO DAILY 04/05/21 04/24/22 (unknown) (no (unknown) (unknown) bupropion HCl 150 (units (unknown) date) mg tablet extended unknown) release 24 hr (unknown) (no (unknown) (unknown) choledocholithias (units (unknown) date) is, cholangitis, unknown) gastritis, esophagitis with underlying GERD, (unknown) (no (unknown) (unknown) complaining of (units (unknown) date) pain and diarrhea unknown) with concern for other problem. Patient states (unknown) (no (unknown) (unknown) demonstrates no (units (unknown) date) suspicious unknown) lesions. (unknown) (no (unknown) (unknown) diarrhea that (units ( unknown) date) started last unknown) night, history of influenza A positive on 04/24/2022 (unknown) (no (unknown) (unknown) disease (units (unkno wn) date) complaining unknown) nausea, emesis x1, and denies history gastritis or gastric (unknown) (no (unknown) (unknown) documentation, (units (unknown) date) and it accurately unknown) records my words and actions. I collaborated (unknown) (no (unknown) (unknown) emergency (units (unkn own) date) department unknown) complaining of epigastric pain since early this morning, (unknown) (no (unknown) (unknown) enzymes, lipase (units (unknown) date) unknown) (unknown) (no (unknown) (unknown) extended release (units (unknown) date) unknown) (unknown) (no (unknown) (unknown) fluoxetine 20 MG (units (unknown) date) capsule unknown) (unknown) (no (unknown) (unknown) fluoxetine 20 mg (units (unknown) date) capsule 20 mg PO unknown) QDAY #0 caps 02/01/16 04/24/22 (unknown) (no (unknown) (unknown) for outpatient (units (unknown) date) management. 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 No left-sided (unknown) (no (unknown) (unknown) medical records (units (unknown) date) and encounters if unknown) available, and nursing notes. I have spoken (unknown) (no (unknown) (unknown) meloxicam 7.5 mg (units (unknown) date) tablet 7.5 mg PO unknown) BID PRN pain #14 tabs 03/23/22 (unknown) (no (unknown) (unknown) meloxicam 7.5 mg (units (unknown) date) tablet unknown) (unknown) (no (unknown) (unknown) on 04/17/2022 via (units (unknown) date) x-ray KUB. unknown) (unknown) (no (unknown) (unknown) ondansetron 4 mg (units (unknown) date) disintegrating 4 unknown) mg PO Q8H PRN nausea and 04/24/22 (unknown) (no (unknown) (unknown) ondansetron 4 mg (units (unknown) date) tablet,disintegrat unknown) ing (unknown) (no (unknown) (unknown) oxycodone 5 mg (units (unknown) date) tablet 5 mg PO Q6H unknown) PRN pain #14 tabs 03/23/22 (unknown) (no (unknown) (unknown) oxycodone 5 mg (units (unknown) date) tablet unknown) (unknown) (no (unknown) (unknown) pain, diarrhea, (units (unknown) date) and recent history unknown) of influenza A positive on 04/24/2022. (unknown) (no (unknown) (unknown) peripheral edema, (units (unknown) date) warm extremities unknown) (unknown) (no (unknown) (unknown) pyelonephritis, (units (unknown) date) AAA, ACS, unknown) infectious colitis. (unknown) (no (unknown) (unknown) sagittal (units (unkno wn) date) reformats were unknown) performed.? For radiation dose reduction, the following (unknown) (no (unknown) (unknown) seen.? (units (unkno wn) date) unknown) (unknown) (no (unknown) (unknown) size.? (units (unkno wn) date) unknown) (unknown) (no (unknown) (unknown) studies: CT KUB (units (unknown) date) unknown) (unknown) (no (unknown) (unknown) tablet vomiting (units (unknown) date) #14 tabs unknown) (unknown) (no (unknown) (unknown) tamsulosin 0.4 mg (units (unknown) date) capsule (Flomax) unknown) 0.4 mg PO DAILY #7 caps 03/23/22 (unknown) (no (unknown) (unknown) tamsulosin (units (unk nown) date) [Flomax] 0.4 mg unknown) capsule (unknown) (no (unknown) (unknown) tenderness or (units ( unknown) date) exquisite unknown) tenderness with exam. 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 (unknown) (no (unknown) (unknown) ulcer but recent (units (unknown) date) history of left 5 unknown) mm renal calculi without obstruction (unknown) (no (unknown) (unknown) understanding. (units (unknown) date) Counseling was unknown) provided regarding the diagnosis and prognosis, (unknown) (no (unknown) (unknown) urinary frequency (units (unknown) date) or urgency. unknown) (unknown) (no (unknown) (unknown) viral (units (unkno wn) date) gastroenteritis or unknown) other acute viral process including COVID, influenza or (unknown) (no (unknown) (unknown) was used: (units (unkn own) date) unknown) (unknown) (no (unknown) (unknown) wheezing, (units (unkn own) date) stridor, or unknown) abnormal breath sounds. No retractions or tachypnea. (unknown) (no (unknown) (unknown) with the ED (units (un known) date) attending unknown) physician for FRITZ level 2, 3, and some level 4s as needed (unknown) (no (unknown) (unknown) with the (units (unkno wn) date) patient/family and unknown) discussed today?s findings whom verbalize Result panel 1032 (unknown) (no (unknown) (unknown) (no value) (units (unk nown) date) unknown) (unknown) (no (unknown) (unknown) <Electronically (units (unknown) date) signed by Ni Low unknown) [employer]> (unknown) (no (unknown) (unknown) *If you do not have (unit s (unknown) date) a primary care unknown) provider please contact [phone] to (unknown) (no (unknown) (unknown) *Please continue to (unit s (unknown) date) take your regular unknown) medications as directed. (unknown) (no (unknown) (unknown) *Please follow up (units (unknown) date) with your primary unknown) care provider in 2-3 days, call for an (unknown) (no (unknown) (unknown) *Return to (units (unk nown) date) Emergency Department unknown) if you should have any new, worsening, or (unknown) (no (unknown) (unknown) *What to do: (units (u nknown) date) unknown) (unknown) (no (unknown) (unknown) *You have been (units (unknown) date) diagnosed with unknown) epigastric pain that evidence kidney stone today (unknown) (no (unknown) (unknown) 0.4 mg PO DAILY (units (unknown) date) Qty: 7 0RF unknown) (unknown) (no (unknown) (unknown) 05/17/22 05/17/22 (units (unknown) date) 05/17/22 Range/Units unknown) (unknown) (no (unknown) (unknown) 05/17/22 05/17/22 (units (unknown) date) Range/Units unknown) (unknown) (no (unknown) (unknown) 05/17/22 16:44 (units (unknown) date) unknown) (unknown) (no (unknown) (unknown) 05/17/22 18:05 (units (unknown) date) unknown) (unknown) (no (unknown) (unknown) 05/17/22 18:14 (units (unknown) date) unknown) (unknown) (no (unknown) (unknown) 05/17/22 18:30 (units (unknown) date) unknown) (unknown) (no (unknown) (unknown) 05/17/22 1944 (units ( unknown) date) unknown) (unknown) (no (unknown) (unknown) 05/17/22 (units (unkno wn) date) unknown) (unknown) (no (unknown) (unknown) 1 g PO BID Qty: 60 (units (unknown) date) 0RF unknown) (unknown) (no (unknown) (unknown) 1-2 tablets by (units (unknown) date) mouth every 6 hours unknown) as needed for pain. (unknown) (no (unknown) (unknown) 100 mg PO BID PRN (units (unknown) date) (Reason: cough) Qty: unknown) 20 0RF (unknown) (no (unknown) (unknown) 14:46.? [facility] (units (unknown) date) unknown) (unknown) (no (unknown) (unknown) 150 mg PO DAILY (units (unknown) date) unknown) (unknown) (no (unknown) (unknown) 17:06 (units (unkno wn) date) unknown) (unknown) (no (unknown) (unknown) 1830: Review of CT (units (unknown) date) demonstrates unknown) findings of fatty liver infiltration and (unknown) (no (unknown) (unknown) 1830:?Review of (units (unknown) date) labs demonstrates no unknown) leukocytosis or anemia, no electrolyte (unknown) (no (unknown) (unknown) 18:05 18:05 18:05 (units (unknown) date) unknown) (unknown) (no (unknown) (unknown) 18:14 18:30 (units (un known) date) unknown) (unknown) (no (unknown) (unknown) 20 mg PO QDAY Qty: (units (unknown) date) 0 unknown) (unknown) (no (unknown) (unknown) 4 mg PO Q8H PRN (units (unknown) date) (Reason: nausea and unknown) vomiting) Qty: 14 0RF (unknown) (no (unknown) (unknown) 40 mg PO DAILY Qty: (unit s (unknown) date) 60 0RF unknown) (unknown) (no (unknown) (unknown) 5 mg PO Q6H PRN (units (unknown) date) (Reason: pain) Qty: unknown) 14 0RF (unknown) (no (unknown) (unknown) 5498 (units (unkno wn) date) unknown) (unknown) (no (unknown) (unknown) 7.5 mg PO BID PRN (units (unknown) date) (Reason: pain) Qty: unknown) 14 0RF (unknown) (no (unknown) (unknown) ? (units (unkno wn) date) unknown) (unknown) (no (unknown) (unknown) ?automated exposure (unit s (unknown) date) control, adjustment unknown) of mA and/or kV according to patient (unknown) (no (unknown) (unknown) A cause of (units (unk nown) date) abdominal pain is unknown) not seen. (unknown) (no (unknown) (unknown) ABDOMEN/PELVIS (units (unknown) date) unknown) (unknown) (no (unknown) (unknown) ABDOMEN: (units (unkno wn) date) unknown) (unknown) (no (unknown) (unknown) ALT (<50) IU/L (units (unknown) date) unknown) (unknown) (no (unknown) (unknown) ALT 89 H (<50) IU/L (unit s (unknown) date) unknown) (unknown) (no (unknown) (unknown) AST (17-59) IU/L (units (unknown) date) unknown) (unknown) (no (unknown) (unknown) AST 44 (17-59) IU/L (unit s (unknown) date) unknown) (unknown) (no (unknown) (unknown) Abdominal Nodes:? (units (unknown) date) No enlarged unknown) retroperitoneal or mesenteric lymph nodes.? (unknown) (no (unknown) (unknown) Accession Number: (units (unknown) date) [id number] ?? unknown) (unknown) (no (unknown) (unknown) Acct:[id number] (units (unknown) date) unknown) (unknown) (no (unknown) (unknown) Activity (units (unkno wn) date) Restrictions/Additio unknown) nal Instructions: (unknown) (no (unknown) (unknown) Acute epigastric (units (unknown) date) pain unknown) (unknown) (no (unknown) (unknown) Additional (units (unk nown) date) findings:? unknown) (unknown) (no (unknown) (unknown) Adrenal Glands:? A (units (unknown) date) right adrenal unknown) myelolipoma is again seen measuring 7 cm.? The (unknown) (no (unknown) (unknown) Age/Sex: 36 / M (units (unknown) date) unknown) (unknown) (no (unknown) (unknown) Al Hydrox/Mg (units (u nknown) date) Hydrox/Simethicone unknown) 20 ml/ Lidocaine HCl 15 ml 0 ml PO NOW ONE (unknown) (no (unknown) (unknown) Albumin (3.5-5.0) (units (unknown) date) g/dL unknown) (unknown) (no (unknown) (unknown) Albumin 4.9 (units (un known) date) (3.5-5.0) g/dL unknown) (unknown) (no (unknown) (unknown) Albumin/Globulin (units (unknown) date) Ratio (1.0-2.8) unknown) (unknown) (no (unknown) (unknown) Albumin/Globulin (units (unknown) date) Ratio 1.4 (1.0-2.8) unknown) (unknown) (no (unknown) (unknown) Alkaline (units (unkno wn) date) Phosphatase (38-126) unknown) U/L (unknown) (no (unknown) (unknown) Alkaline (units (unkno wn) date) Phosphatase 85 unknown) (38-126) U/L (unknown) (no (unknown) (unknown) Allergies (units (unkn own) date) unknown) (unknown) (no (unknown) (unknown) Allergy/AdvReac (units (unknown) date) Type Severity unknown) Reaction Status Date / Time (unknown) (no (unknown) (unknown) Approved by: Nguyễn Riojasunits (unknown) date) Thom Montana M.D. on unknown) 05/17/2022 at 16:35 ? (unknown) (no (unknown) (unknown) Axial sections were (unit s (unknown) date) acquired from the unknown) lung bases to the pubic symphysis.? (unknown) (no (unknown) (unknown) BUN (9-20) mg/dL (units (unknown) date) unknown) (unknown) (no (unknown) (unknown) BUN 10 (9-20) mg/dL (unit s (unknown) date) unknown) (unknown) (no (unknown) (unknown) BUN/Creatinine (units (unknown) date) Ratio (6-22) unknown) (unknown) (no (unknown) (unknown) BUN/Creatinine (units (unknown) date) Ratio 12.2 (6-22) unknown) (unknown) (no (unknown) (unknown) Baso # (Auto) (units ( unknown) date) (0-100) /uL unknown) (unknown) (no (unknown) (unknown) Baso # (Auto) 0 (units (unknown) date) (0-100) /uL unknown) (unknown) (no (unknown) (unknown) Baso % (Auto) (0-2) (unit s (unknown) date) % unknown) (unknown) (no (unknown) (unknown) Baso % (Auto) 0.6 (units (unknown) date) (0-2) % unknown) (unknown) (no (unknown) (unknown) Biliary ducts:? (units (unknown) date) Unremarkable.? ? unknown) (unknown) (no (unknown) (unknown) Bladder:? Normal (units (unknown) date) wall thickness. No unknown) stones. ? ? (unknown) (no (unknown) (unknown) Blood Pressure (units (unknown) date) 145/83 H 05/17/22 unknown) 17:06 (unknown) (no (unknown) (unknown) Blood Pressure (units (unknown) date) 145/83 H unknown) (unknown) (no (unknown) (unknown) Bones:? (units (unkno wn) date) Unremarkable. unknown) (unknown) (no (unknown) (unknown) CBC Auto Diff (units ( unknown) date) [Complete Blood unknown) Count AUTO DIFF] Stat (unknown) (no (unknown) (unknown) CMP [Comprehensive (units (unknown) date) Metabolic Panel] unknown) Stat (unknown) (no (unknown) (unknown) COMPARISON:? [facility] ([facility], [facility], unknown) ABDOMEN/PELVIS WITH CONTRAST, 01/13/2015, (unknown) (no (unknown) (unknown) CT kidney ureter (units (unknown) date) bladder (KUB) Stat unknown) (unknown) (no (unknown) (unknown) CT scan - (units (unkn own) date) abdomen/pelvis: unknown) (unknown) (no (unknown) (unknown) CT. He was (units (unk nown) date) nontender over the unknown) right upper quadrant with palpation. (unknown) (no (unknown) (unknown) Calcium (8.4-10.2) (units (unknown) date) mg/dL unknown) (unknown) (no (unknown) (unknown) Calcium 9.0 (units (un known) date) (8.4-10.2) mg/dL unknown) (unknown) (no (unknown) (unknown) Carbon Dioxide (units (unknown) date) (22-32) mmol/L unknown) (unknown) (no (unknown) (unknown) Carbon Dioxide 20 L (unit s (unknown) date) (22-32) mmol/L unknown) (unknown) (no (unknown) (unknown) Cardiovascular: (units (unknown) date) regular rate and unknown) rhythm, without tachycardia, S1-S2 without (unknown) (no (unknown) (unknown) Chief Complaint: (units (unknown) date) Abdominal Pain unknown) (unknown) (no (unknown) (unknown) Chloride (98-107) (units (unknown) date) mmol/L unknown) (unknown) (no (unknown) (unknown) Chloride 104 (units (u nknown) date) (98-107) mmol/L unknown) (unknown) (no (unknown) (unknown) Clinical (units (unkno wn) date) Impression: unknown) (unknown) (no (unknown) (unknown) Coronal and (units (un known) date) unknown) (unknown) (no (unknown) (unknown) Course of Care: (units (unknown) date) unknown) (unknown) (no (unknown) (unknown) Course (units (unkno wn) date) unknown) (unknown) (no (unknown) (unknown) Covid-19 + FLU A/B (units (unknown) date) + RSV - PCR Stat unknown) (unknown) (no (unknown) (unknown) Creatinine (units (unk nown) date) (0.66-1.25) mg/dL unknown) (unknown) (no (unknown) (unknown) Creatinine 0.82 (units (unknown) date) (0.66-1.25) mg/dL unknown) (unknown) (no (unknown) (unknown) : 1985 (units (unknown) date) Acct:[id number] unknown) (unknown) (no (unknown) (unknown) : 1985 (units (unknown) date) unknown) (unknown) (no (unknown) (unknown) Date of Service: (units (unknown) date) 05/17/22 unknown) (unknown) (no (unknown) (unknown) Departure (units (unkn own) date) unknown) (unknown) (no (unknown) (unknown) Dictated by: Nguyễn (units (unknown) date) Thom Montana M.D. on unknown) 05/17/2022 at 16:32 ? ? (unknown) (no (unknown) (unknown) Differential (units (u nknown) date) diagnoses include, unknown) but are not limited to: ?Acute cholecystitis, (unknown) (no (unknown) (unknown) Discharge Plan (units (unknown) date) unknown) (unknown) (no (unknown) (unknown) Discontinued (units (u nknown) date) Medications unknown) (unknown) (no (unknown) (unknown) ED Orders (units (unkn own) date) unknown) (unknown) (no (unknown) (unknown) ED provider (units (unk nown) date) independent unknown) interpretation of CT KUB did not see urinary obstruction (unknown) (no (unknown) (unknown) ER Physician: (units ( unknown) date) Ni Moran unknown) (unknown) (no (unknown) (unknown) Electronically (units (unknown) date) signed by: MARY Ryder (unknown) (no (unknown) (unknown) Emergency Report (units (unknown) date) unknown) (unknown) (no (unknown) (unknown) Eos # (Auto) (units (u nknown) date) (0-450) /uL unknown) (unknown) (no (unknown) (unknown) Eos # (Auto) 100 (units (unknown) date) (0-450) /uL unknown) (unknown) (no (unknown) (unknown) Eos % (Auto) (2-4) (units (unknown) date) % unknown) (unknown) (no (unknown) (unknown) Eos % (Auto) 1.8 L (units (unknown) date) (2-4) % unknown) (unknown) (no (unknown) (unknown) Estimated GFR > 60 (units (unknown) date) (>60) mL/min unknown) (unknown) (no (unknown) (unknown) Estimated GFR (>60) (unit s (unknown) date) mL/min unknown) (unknown) (no (unknown) (unknown) Exam Narrative: (units (unknown) date) unknown) (unknown) (no (unknown) (unknown) Exam (units (unkno wn) date) unknown) (unknown) (no (unknown) (unknown) FINDINGS:? (units (unk nown) date) unknown) (unknown) (no (unknown) (unknown) Fatty liver (units (un known) date) infiltration unknown) (unknown) (no (unknown) (unknown) GI: abdomen soft, (units (unknown) date) nontender to unknown) palpation, nondistended, without masses, rebound (unknown) (no (unknown) (unknown) Gallbladder:? (units ( unknown) date) Unremarkable.? ? unknown) (unknown) (no (unknown) (unknown) General (units (unkno wn) date) unknown) (unknown) (no (unknown) (unknown) General: (units (unkno wn) date) cooperative, unknown) comfortable, in no acute distress, well groomed, afebrile (unknown) (no (unknown) (unknown) Globulin (1.7-4.1) (units (unknown) date) g/dL unknown) (unknown) (no (unknown) (unknown) Globulin 3.4 (units (u nknown) date) (1.7-4.1) g/dL unknown) (unknown) (no (unknown) (unknown) Glucose (70-100) (units (unknown) date) mg/dL unknown) (unknown) (no (unknown) (unknown) Glucose 92 (70-100) (unit s (unknown) date) mg/dL unknown) (unknown) (no (unknown) (unknown) HEENT: symmetrical (units (unknown) date) facial expressions, unknown) moist mucous membranes (unknown) (no (unknown) (unknown) HPI - Abdominal (units (unknown) date) Pain unknown) (unknown) (no (unknown) (unknown) HPI narrative: (units (unknown) date) unknown) (unknown) (no (unknown) (unknown) Hct (41-53) % (units ( unknown) date) unknown) (unknown) (no (unknown) (unknown) Hct 43.9 (41-53) % (units (unknown) date) unknown) (unknown) (no (unknown) (unknown) Healthy adult (units ( unknown) date) unknown) (unknown) (no (unknown) (unknown) Heart:? No (units (unk nown) date) significant unknown) findings. (unknown) (no (unknown) (unknown) Hgb (13.5-17.5) (units (unknown) date) g/dL unknown) (unknown) (no (unknown) (unknown) Hgb 15.3 (units (unkno wn) date) (13.5-17.5) g/dL unknown) (unknown) (no (unknown) (unknown) History of Present (units (unknown) date) Illness unknown) (unknown) (no (unknown) (unknown) Home Medications (units (unknown) date) unknown) (unknown) (no (unknown) (unknown) Hospital, CR, XR (units (unknown) date) KUB, 04/17/2022, unknown) 12:09.? [facility], RG, CT (unknown) (no (unknown) (unknown) [facility], (units (unknown) date) MARY, personally unknown) performed the services described in the (unknown) (no (unknown) (unknown) IMPRESSION:? (units (u nknown) date) unknown) (unknown) (no (unknown) (unknown) INDICATIONS:? upper (unit s (unknown) date) abd pain, hx unknown) nephrolithiasis and lt 5mm renal calculus (unknown) (no (unknown) (unknown) Image quality:? (units (unknown) date) Excellent.? unknown) (unknown) (no (unknown) (unknown) Imaging Data (units (u nknown) date) unknown) (unknown) (no (unknown) (unknown) Influenza A (units (un known) date) (RT-PCR) (NEGATIVE) unknown) (unknown) (no (unknown) (unknown) Influenza A (units (un known) date) (RT-PCR) Flu a unknown) negative (NEGATIVE) (unknown) (no (unknown) (unknown) Influenza B (units (un known) date) (RT-PCR) (NEGATIVE) unknown) (unknown) (no (unknown) (unknown) Influenza B (units (un known) date) (RT-PCR) Flu b unknown) negative (NEGATIVE) (unknown) (no (unknown) (unknown) Initial Vital Signs (unit s (unknown) date) unknown) (unknown) (no (unknown) (unknown) Initial Vital (units ( unknown) date) Signs: unknown) (unknown) (no (unknown) (unknown) Instructions: DI (units (unknown) date) for Gastritis, DI unknown) for Epigastric Pain (unknown) (no (unknown) (unknown) [facility] (units (unknown) date) [address] [place] [address] Street unknown) [place] [address] (unknown) (no (unknown) (unknown) Lab Data (units (unkno wn) date) unknown) (unknown) (no (unknown) (unknown) Lab Results (units (un known) date) unknown) (unknown) (no (unknown) (unknown) Lab work does not (units (unknown) date) show leukocytosis or unknown) anemia, no significant hemoconcentration (unknown) (no (unknown) (unknown) Labs: (units (unkno wn) date) unknown) (unknown) (no (unknown) (unknown) Lactate (0.7-2.1) (units (unknown) date) mmol/L unknown) (unknown) (no (unknown) (unknown) Lactate (Lactic (units (unknown) date) Acid) Stat unknown) (unknown) (no (unknown) (unknown) Lactate 1.1 (units (un known) date) (0.7-2.1) mmol/L unknown) (unknown) (no (unknown) (unknown) Left Kidney:? (units (u nknown) date) Nonobstructing unknown) left-sided kidney stones are seen, with the largest (unknown) (no (unknown) (unknown) Left Ureter:? No (units (unknown) date) hydroureter.? unknown) (unknown) (no (unknown) (unknown) Lipase (23-300) U/L (unit s (unknown) date) unknown) (unknown) (no (unknown) (unknown) Lipase 112 (23-300) (unit s (unknown) date) U/L unknown) (unknown) (no (unknown) (unknown) Lipase Stat (units (un known) date) unknown) (unknown) (no (unknown) (unknown) Liver: Diffuse (units (unknown) date) fatty liver unknown) infiltration is noted.? The liver is normal in size (unknown) (no (unknown) (unknown) Loc: ED (units (unkno wn) date) unknown) (unknown) (no (unknown) (unknown) Lung bases:? (units (u nknown) date) Unremarkable.? ? unknown) (unknown) (no (unknown) (unknown) Lymph # (Auto) (units (unknown) date) (6929-8089) /uL unknown) (unknown) (no (unknown) (unknown) Lymph # (Auto) 1500 (unit s (unknown) date) (5941-0165) /uL unknown) (unknown) (no (unknown) (unknown) Lymph % (Auto) (units (unknown) date) (25-40) % unknown) (unknown) (no (unknown) (unknown) Lymph % (Auto) 25.6 (unit s (unknown) date) (25-40) % unknown) (unknown) (no (unknown) (unknown) MCH (26-34) PG (units (unknown) date) unknown) (unknown) (no (unknown) (unknown) MCH 31.7 (26-34) PG (unit s (unknown) date) unknown) (unknown) (no (unknown) (unknown) MCHC (30-36) % (units (unknown) date) unknown) (unknown) (no (unknown) (unknown) MCHC 34.9 (30-36) % (unit s (unknown) date) unknown) (unknown) (no (unknown) (unknown) MCV (80-100) fL (units (unknown) date) unknown) (unknown) (no (unknown) (unknown) MCV 90.9 (80-100) (units (unknown) date) fL unknown) (unknown) (no (unknown) (unknown) MDM - Abdominal (units (unknown) date) Pain unknown) (unknown) (no (unknown) (unknown) MDM Narrative (units ( unknown) date) unknown) (unknown) (no (unknown) (unknown) MIPS: This (units (unk nown) date) encounter doesn't unknown) have any diagnosis associated with MIPS criteria. (unknown) (no (unknown) (unknown) MR#: [id number] (units (unknown) date) unknown) (unknown) (no (unknown) (unknown) MSK: moves all (units (unknown) date) extremities, unknown) neurovascularly intact, no weakness, normal tone (unknown) (no (unknown) (unknown) Medical History (units (unknown) date) (Reviewed 05/17/22 @ unknown) 18:51 by Ni Moran [facility]) (unknown) (no (unknown) (unknown) Medical decision (units (unknown) date) making narrative: unknown) (unknown) (no (unknown) (unknown) Medication (units (unk nown) date) Instructions unknown) Recorded Confirmed (unknown) (no (unknown) (unknown) Medication (units (unk nown) date) Instructions unknown) Recorded (unknown) (no (unknown) (unknown) Miscellaneous: No (units (unknown) date) inguinal hernias are unknown) seen. ? ? (unknown) (no (unknown) (unknown) Mode of arrival: (units (unknown) date) Ambulatory unknown) (unknown) (no (unknown) (unknown) [place] # (Auto) (units ( unknown) date) (0-900) /uL unknown) (unknown) (no (unknown) (unknown) [place] # (Auto) 600 (units (unknown) date) (0-900) /uL unknown) (unknown) (no (unknown) (unknown) [place] % (Auto) (units ( unknown) date) (3-14) % unknown) (unknown) (no (unknown) (unknown) [place] % (Auto) 10.0 (units (unknown) date) (3-14) % unknown) (unknown) (no (unknown) (unknown) Narrative (units (unkn own) date) unknown) (unknown) (no (unknown) (unknown) Neuro: normal (units ( unknown) date) speech and unknown) cognition, A+O x3, ambulatory, clear speech (unknown) (no (unknown) (unknown) Neut # (Auto) (units ( unknown) date) (8843-8875) /uL unknown) (unknown) (no (unknown) (unknown) Neut # (Auto) 3700 (units (unknown) date) (0864-0461) /uL unknown) (unknown) (no (unknown) (unknown) Neut % (Auto) (units ( unknown) date) (50-75) % unknown) (unknown) (no (unknown) (unknown) Neut % (Auto) 62.0 (units (unknown) date) (50-75) % unknown) (unknown) (no (unknown) (unknown) New (units (unkno wn) date) unknown) (unknown) (no (unknown) (unknown) No Action (units (unkn own) date) unknown) (unknown) (no (unknown) (unknown) Nonobstructing (units (unknown) date) left-sided kidney unknown) stones, without hydronephrosis. (unknown) (no (unknown) (unknown) Occasional wrong (units (unknown) date) word or 'sound unknown) alike' substitutions may have occurred due to (unknown) (no (unknown) (unknown) Ordered: (units (unkno wn) date) unknown) (unknown) (no (unknown) (unknown) Ordering Provider: (units (unknown) date) Ni Moran unknown) (unknown) (no (unknown) (unknown) Orders (units (unkno wn) date) unknown) (unknown) (no (unknown) (unknown) Oxygen Delivery (units (unknown) date) Method 05/17/22 unknown) 17:06 (unknown) (no (unknown) (unknown) Oxygen Delivery (units (unknown) date) Method Room Air unknown) (unknown) (no (unknown) (unknown) PELVIS: (units (unkno wn) date) unknown) (unknown) (no (unknown) (unknown) PROCEDURE:? CT (units (unknown) date) KIDNEY URETER unknown) BLADDER (KUB) (unknown) (no (unknown) (unknown) Pancreas:? (units (unk nown) date) Unremarkable.? ? unknown) (unknown) (no (unknown) (unknown) Pantoprazole Sodium (unit s (unknown) date) (Pantoprazole Dr 20 unknown) Mg Tablet) 20 mg PO NOW ONE (unknown) (no (unknown) (unknown) Patient (units (unkno wn) date) Disposition: Home unknown) (unknown) (no (unknown) (unknown) Patient History (units (unknown) date) unknown) (unknown) (no (unknown) (unknown) Patient had a 5 mm (units (unknown) date) left interpolar unknown) renal calculus without urinary tract calculus (unknown) (no (unknown) (unknown) Patient's symptoms (units (unknown) date) improved over unknown) duration of stay with above-stated therapies. (unknown) (no (unknown) (unknown) Patient: Jaquan Rodríguez (unit s (unknown) date) E MR#: [id number] unknown) (unknown) (no (unknown) (unknown) Patient: Jaquan Rodríguez (unit s (unknown) date) E unknown) (unknown) (no (unknown) (unknown) Pelvic Nodes: (units ( unknown) date) Unremarkable. unknown) (unknown) (no (unknown) (unknown) Pelvic Organs:? (units (unknown) date) Unremarkable.? ? unknown) (unknown) (no (unknown) (unknown) Peritoneum:? No (units (unknown) date) abnormal unknown) intraperitoneal fluid.? No free air.? (unknown) (no (unknown) (unknown) Plt Count (150-400) (unit s (unknown) date) X103/uL unknown) (unknown) (no (unknown) (unknown) Plt Count 239 (units ( unknown) date) (150-400) X103/uL unknown) (unknown) (no (unknown) (unknown) Portions of this (units (unknown) date) chart have been unknown) created with [employer] voice recognition software. (unknown) (no (unknown) (unknown) Potassium (3.4-5.1) (unit s (unknown) date) mmol/L unknown) (unknown) (no (unknown) (unknown) Potassium 3.8 (units ( unknown) date) (3.4-5.1) mmol/L unknown) (unknown) (no (unknown) (unknown) Prescriptions: (units (unknown) date) unknown) (unknown) (no (unknown) (unknown) Previous Rx's (units ( unknown) date) unknown) (unknown) (no (unknown) (unknown) Procedure: CT (units ( unknown) date) kidney ureter unknown) bladder (KUB) (unknown) (no (unknown) (unknown) Psych: mental (units ( unknown) date) status is grossly unknown) normal, congruent mood, normal affect, pleasant (unknown) (no (unknown) (unknown) Pulse Oximetry 100 (units (unknown) date) 05/17/22 17:06 unknown) (unknown) (no (unknown) (unknown) Pulse Oximetry 100 (units (unknown) date) unknown) (unknown) (no (unknown) (unknown) Pulse Rate 80 (units ( unknown) date) 05/17/22 17:06 unknown) (unknown) (no (unknown) (unknown) Pulse Rate 80 (units ( unknown) date) unknown) (unknown) (no (unknown) (unknown) RBC (4.5-5.9) (units ( unknown) date) X106/uL unknown) (unknown) (no (unknown) (unknown) RBC 4.82 (4.5-5.9) (units (unknown) date) X106/uL unknown) (unknown) (no (unknown) (unknown) RDW (11.6-14.8) % (units (unknown) date) unknown) (unknown) (no (unknown) (unknown) RDW 13.3 (units (unkno wn) date) (11.6-14.8) % unknown) (unknown) (no (unknown) (unknown) ROS Unobtainable: (units (unknown) date) All systems reviewed unknown) + are unremarkable except as noted in HPI (unknown) (no (unknown) (unknown) RSV (PCR) (units (unkn own) date) (Negative) unknown) (unknown) (no (unknown) (unknown) RSV (PCR) Negative (units (unknown) date) (Negative) unknown) (unknown) (no (unknown) (unknown) RSV, appendicitis, (units (unknown) date) acute cystitis, unknown) nephrolithiasis, ureteral obstruction, (unknown) (no (unknown) (unknown) RSV. CT abdomen is (units (unknown) date) negative for acute unknown) abnormality. Patient is in his 2 weeks (unknown) (no (unknown) (unknown) Radiologist's (units ( unknown) date) Impression: unknown) (unknown) (no (unknown) (unknown) Referrals: (units (unk nown) date) unknown) (unknown) (no (unknown) (unknown) Related Data (units (u nknown) date) unknown) (unknown) (no (unknown) (unknown) Respiratory Rate 18 (unit s (unknown) date) 05/17/22 17:06 unknown) (unknown) (no (unknown) (unknown) Respiratory Rate 18 (unit s (unknown) date) unknown) (unknown) (no (unknown) (unknown) Respiratory panel (units (unknown) date) is negative for RSV, unknown) influenza a, B and COVID-19 (unknown) (no (unknown) (unknown) Respiratory: normal (unit s (unknown) date) effort, able to unknown) speak in complete sentences, without (unknown) (no (unknown) (unknown) Result diagrams: (units (unknown) date) unknown) (unknown) (no (unknown) (unknown) Review of Systems (units (unknown) date) unknown) (unknown) (no (unknown) (unknown) Reviewed vitals (units (unknown) date) signs and nursing unknown) notes. (unknown) (no (unknown) (unknown) Right Kidney: ? No (units (unknown) date) stones or unknown) hydronephrosis.? (unknown) (no (unknown) (unknown) Right Ureter:? No (units (unknown) date) hydroureter.? unknown) (unknown) (no (unknown) (unknown) Right adrenal gland (unit s (unknown) date) myelolipoma unknown) (unknown) (no (unknown) (unknown) Routine labs, (units ( unknown) date) respiratory panel unknown) abdominal CT KUB, urinalysis, lipase and (unknown) (no (unknown) (unknown) Rx Instructions: (units (unknown) date) unknown) (unknown) (no (unknown) (unknown) SARS-CoV-2 (PCR) (units (unknown) date) (Negative) unknown) (unknown) (no (unknown) (unknown) SARS-CoV-2 (PCR) (units (unknown) date) Negative (Negative) unknown) (unknown) (no (unknown) (unknown) Signed By: (units (unk nown) date) unknown) (unknown) (no (unknown) (unknown) Skin: brisk (units (un known) date) capillary refill, unknown) without pallor or erythema (unknown) (no (unknown) (unknown) Smoking Status: (units (unknown) date) Never smoker unknown) (unknown) (no (unknown) (unknown) Social History (units (unknown) date) (Reviewed 05/17/22 @ unknown) 18:51 by MARY Morrow) (unknown) (no (unknown) (unknown) Social determinants (unit s (unknown) date) of health that may unknown) impact treatment or disposition: none (unknown) (no (unknown) (unknown) Sodium (137-145) (units (unknown) date) mmol/L unknown) (unknown) (no (unknown) (unknown) Sodium 138 (units (unk nown) date) (137-145) mmol/L unknown) (unknown) (no (unknown) (unknown) Source: patient (units (unknown) date) unknown) (unknown) (no (unknown) (unknown) Spleen:? (units (unkno wn) date) Unremarkable.? ? unknown) (unknown) (no (unknown) (unknown) Stand Alone Forms: (units (unknown) date) Patient Portal/API unknown) (unknown) (no (unknown) (unknown) Stated Complaint: (units (unknown) date) Severe upper ABD unknown) pain (unknown) (no (unknown) (unknown) Stomach and Bowel:? (unit s (unknown) date) Stomach, small bowel unknown) loops, and colon are unremarkable.? (unknown) (no (unknown) (unknown) Stop: 05/17/22 (units (unknown) date) 19:24 unknown) (unknown) (no (unknown) (unknown) Stop: 05/17/22 (units (unknown) date) 19:33 unknown) (unknown) (no (unknown) (unknown) Substance Use Type: (unit s (unknown) date) does not use unknown) (unknown) (no (unknown) (unknown) TECHNIQUE:? (units (un known) date) unknown) (unknown) (no (unknown) (unknown) Temperature 97.1 F (units (unknown) date) L 05/17/22 17:06 unknown) (unknown) (no (unknown) (unknown) Temperature 97.1 F (units (unknown) date) L unknown) (unknown) (no (unknown) (unknown) This is 36-year-old (unit s (unknown) date) male without unknown) significant medical history who presents (unknown) (no (unknown) (unknown) This is a (units (unkn own) date) 36-year-old male who unknown) is presenting to the ED via POV with epigastric (unknown) (no (unknown) (unknown) Time Seen by (units (u nknown) date) Provider: 05/17/22 unknown) 16:43 (unknown) (no (unknown) (unknown) Total Bilirubin (units (unknown) date) (0.2-1.3) mg/dL unknown) (unknown) (no (unknown) (unknown) Total Bilirubin 0.8 (unit s (unknown) date) (0.2-1.3) mg/dL unknown) (unknown) (no (unknown) (unknown) Total Protein (units ( unknown) date) (6.3-8.2) g/dL unknown) (unknown) (no (unknown) (unknown) Total Protein 8.3 H (unit s (unknown) date) (6.3-8.2) g/dL unknown) (unknown) (no (unknown) (unknown) Treated with GI (units (unknown) date) cocktail and unknown) Protonix. (unknown) (no (unknown) (unknown) UA Complete (units (un known) date) [Urinalysis and unknown) Microscopic] Stat (unknown) (no (unknown) (unknown) URINARY: (units (unkno wn) date) unknown) (unknown) (no (unknown) (unknown) Ur Culture (units (unk nown) date) Indicated? Cult not unknown) indicated (unknown) (no (unknown) (unknown) Ur Culture (units (unk nown) date) Indicated? unknown) (unknown) (no (unknown) (unknown) Ur Leukocyte (units (u nknown) date) Esterase (NEGATIVE) unknown) (unknown) (no (unknown) (unknown) Ur Leukocyte (units (u nknown) date) Esterase Negative unknown) (NEGATIVE) (unknown) (no (unknown) (unknown) Ur Specific [place] (unit s (unknown) date) <=1.005 unknown) (1.000-1.035) (unknown) (no (unknown) (unknown) Ur Specific [place] (unit s (unknown) date) (1.000-1.035) unknown) (unknown) (no (unknown) (unknown) Ur Squamous Epith (units (unknown) date) Cells (0-5/HPF) unknown) (unknown) (no (unknown) (unknown) Ur Squamous Epith (units (unknown) date) Cells 0-1 /hpf unknown) (0-5/HPF) (unknown) (no (unknown) (unknown) Urine Appearance (units (unknown) date) Clear unknown) (unknown) (no (unknown) (unknown) Urine Appearance (units (unknown) date) unknown) (unknown) (no (unknown) (unknown) Urine Bacteria (units (unknown) date) (None) unknown) (unknown) (no (unknown) (unknown) Urine Bacteria None (unit s (unknown) date) seen (None) unknown) (unknown) (no (unknown) (unknown) Urine Bilirubin (units (unknown) date) (NEGATIVE) unknown) (unknown) (no (unknown) (unknown) Urine Bilirubin (units (unknown) date) Negative (NEGATIVE) unknown) (unknown) (no (unknown) (unknown) Urine Color Yellow (units (unknown) date) unknown) (unknown) (no (unknown) (unknown) Urine Color (units (un known) date) unknown) (unknown) (no (unknown) (unknown) Urine Glucose (UA) (units (unknown) date) (Negative) g/dL unknown) (unknown) (no (unknown) (unknown) Urine Glucose (UA) (units (unknown) date) Negative (Negative) unknown) g/dL (unknown) (no (unknown) (unknown) Urine Ketones (units ( unknown) date) (NEGATIVE) unknown) (unknown) (no (unknown) (unknown) Urine Ketones (units ( unknown) date) Negative (NEGATIVE) unknown) (unknown) (no (unknown) (unknown) Urine Nitrate (units ( unknown) date) (Negative) unknown) (unknown) (no (unknown) (unknown) Urine Nitrate (units ( unknown) date) Negative (Negative) unknown) (unknown) (no (unknown) (unknown) Urine Occult Blood (units (unknown) date) (Negative) unknown) (unknown) (no (unknown) (unknown) Urine Occult Blood (units (unknown) date) Negative (Negative) unknown) (unknown) (no (unknown) (unknown) Urine Protein (units ( unknown) date) (Negative) unknown) (unknown) (no (unknown) (unknown) Urine Protein (units ( unknown) date) Negative (Negative) unknown) (unknown) (no (unknown) (unknown) Urine RBC (0-5/HPF) (unit s (unknown) date) unknown) (unknown) (no (unknown) (unknown) Urine RBC None seen (unit s (unknown) date) (0-5/HPF) unknown) (unknown) (no (unknown) (unknown) Urine Urobilinogen (units (unknown) date) (0.2) E.U./dL unknown) (unknown) (no (unknown) (unknown) Urine Urobilinogen (units (unknown) date) 0.2 (0.2) E.U./dL unknown) (unknown) (no (unknown) (unknown) Urine WBC (0-5/HPF) (unit s (unknown) date) unknown) (unknown) (no (unknown) (unknown) Urine WBC None seen (unit s (unknown) date) (0-5/HPF) unknown) (unknown) (no (unknown) (unknown) Urine pH (4.5-8.0) (units (unknown) date) unknown) (unknown) (no (unknown) (unknown) Urine pH 6.5 (units (u nknown) date) (4.5-8.0) unknown) (unknown) (no (unknown) (unknown) Ventral Wall: ? No (units (unknown) date) hernia.? unknown) (unknown) (no (unknown) (unknown) Vessels:? Aorta and (unit s (unknown) date) inferior vena cava unknown) are normal in size.? (unknown) (no (unknown) (unknown) Vital Signs - 8 hr (units (unknown) date) unknown) (unknown) (no (unknown) (unknown) Vital Signs (units (un known) date) unknown) (unknown) (no (unknown) (unknown) Vital Signs: I, the (unit s (unknown) date) ED provider, unknown) reviewed the patient?s vital signs, past (unknown) (no (unknown) (unknown) Vital signs: (units (u nknown) date) unknown) (unknown) (no (unknown) (unknown) WBC (4.5-11.0) (units (unknown) date) X103/uL unknown) (unknown) (no (unknown) (unknown) WBC 6.0 (4.5-11.0) (units (unknown) date) X103/uL unknown) (unknown) (no (unknown) (unknown) WITHOUT CONTRAST, (units (unknown) date) 03/22/2022, 17:02. unknown) (unknown) (no (unknown) (unknown) Will have patient (units (unknown) date) follow-up with PCP, unknown) discharge with omeprazole and Carafate, (unknown) (no (unknown) (unknown) Pinky Kahn, (units (unknown) date) DEONNA [Primary Care unknown) Provider] (unknown) (no (unknown) (unknown) [ ] New medication (units (unknown) date) written as a paper unknown) prescription (unknown) (no (unknown) (unknown) [ ] No new (units (unk nown) date) medications given unknown) (unknown) (no (unknown) (unknown) [ x] New medication (unit s (unknown) date) prescriptions sent unknown) to your pharmacy: [[facility]] (unknown) (no (unknown) (unknown) [Embedded Image Not (unit s (unknown) date) Available] unknown) (unknown) (no (unknown) (unknown) abdominal CT with (units (unknown) date) contrast ordered. unknown) (unknown) (no (unknown) (unknown) abnormalities, mild (unit s (unknown) date) elevation ALT at a 9 unknown) otherwise no elevation to liver (unknown) (no (unknown) (unknown) adrenal gland is (units (unknown) date) unremarkable. unknown) (unknown) (no (unknown) (unknown) alcohol intake (units (unknown) date) frequency: 3 or more unknown) drinks per day (unknown) (no (unknown) (unknown) amoxicillin (units (un known) date) [AMOXICILLIN] unknown) Allergy Unknown Verified 04/24/22 10:11 (unknown) (no (unknown) (unknown) and below (units (unkn own) date) unknown) (unknown) (no (unknown) (unknown) and cooperative (units (unknown) date) unknown) (unknown) (no (unknown) (unknown) and specific details (unit s (unknown) date) were provided for unknown) the plan of care. Questions are addressed (unknown) (no (unknown) (unknown) and states that he (units (unknown) date) has a family history unknown) of gallbladder disease and autoimmune (unknown) (no (unknown) (unknown) and stay hydrated. (units (unknown) date) Use Tylenol for your unknown) pain, please start taking 40 mg (unknown) (no (unknown) (unknown) and there is (units (u nknown) date) agreement with the unknown) plan and for follow-up. Patient is appropriate (unknown) (no (unknown) (unknown) and (units (unkno wn) date) unknown) (unknown) (no (unknown) (unknown) appointment. Let (units (unknown) date) them know you were unknown) seen in the Emergency Department and that we (unknown) (no (unknown) (unknown) asked that you be (units (unknown) date) seen for follow-up. unknown) We will electronically transmit a record (unknown) (no (unknown) (unknown) bacteria via (units (u nknown) date) microscopy. unknown) Respiratory panel is negative for COVID influenza and (unknown) (no (unknown) (unknown) benzonatate 100 mg (units (unknown) date) capsule 100 mg PO unknown) BID PRN cough #20 caps 04/24/22 (unknown) (no (unknown) (unknown) benzonatate 100 mg (units (unknown) date) capsule unknown) (unknown) (no (unknown) (unknown) bupropion HCl 150 (units (unknown) date) mg 24 hr tablet, 150 unknown) mg PO DAILY 04/05/21 04/24/22 (unknown) (no (unknown) (unknown) bupropion HCl 150 (units (unknown) date) mg tablet extended unknown) release 24 hr (unknown) (no (unknown) (unknown) choledocholithiasis (unit s (unknown) date) , cholangitis, unknown) gastritis, esophagitis with underlying GERD, (unknown) (no (unknown) (unknown) complaining of pain (unit s (unknown) date) and diarrhea with unknown) concern for other problem. Patient states (unknown) (no (unknown) (unknown) concerning (units (unk nown) date) symptoms, such as unknown) [fever greater than 101F, chills, worsening pain, (unknown) (no (unknown) (unknown) creatinine, total (units (unknown) date) bilirubin, or unknown) lipase. UA is negative for WBCs, RBCs, and (unknown) (no (unknown) (unknown) demonstrates no (units (unknown) date) suspicious lesions. unknown) (unknown) (no (unknown) (unknown) diarrhea that (units ( unknown) date) started last night, unknown) history of influenza A positive on 04/24/2022 (unknown) (no (unknown) (unknown) disease complaining (unit s (unknown) date) nausea, emesis x1, unknown) and denies history gastritis or gastric (unknown) (no (unknown) (unknown) documentation, and (units (unknown) date) it accurately unknown) records my words and actions. I collaborated (unknown) (no (unknown) (unknown) emergency (units (unkn own) date) department unknown) complaining of epigastric pain since early this morning, (unknown) (no (unknown) (unknown) encourage (units (unkn own) date) hydration, rest, and unknown) follow up with PCP (unknown) (no (unknown) (unknown) enzymes, lipase (units (unknown) date) unknown) (unknown) (no (unknown) (unknown) establish care with [facility]unit [facility] ([facility]) [facility]. (unknown) (no (unknown) (unknown) extended release (units (unknown) date) unknown) (unknown) (no (unknown) (unknown) flu, COVID and RSV (units (unknown) date) test was negative, I unknown) am glad that you are getting better from (unknown) (no (unknown) (unknown) fluoxetine 20 MG (units (unknown) date) capsule unknown) (unknown) (no (unknown) (unknown) fluoxetine 20 mg (units (unknown) date) capsule 20 mg PO unknown) QDAY #0 caps 02/01/16 04/24/22 (unknown) (no (unknown) (unknown) following influenza (unit s (unknown) date) infection. Does not unknown) appear to be dehydrated, acutely ill, (unknown) (no (unknown) (unknown) for outpatient (units (unknown) date) management. unknown) (unknown) (no (unknown) (unknown) history but states (units (unknown) date) that he drinks unknown) alcohol, denies having withdrawals, denies (unknown) (no (unknown) (unknown) hydronephrosis is (units (unknown) date) unknown) (unknown) (no (unknown) (unknown) incidental finding (units (unknown) date) of right adrenal unknown) gland myelolipoma (unknown) (no (unknown) (unknown) is tolerating p.o. (units (unknown) date) and differential unknown) diagnoses of gastritis or gastric ulcer are (unknown) (no (unknown) (unknown) left (units (unkno wn) date) unknown) (unknown) (no (unknown) (unknown) measuring 6 mm (units (unknown) date) craniocaudal and 700 unknown) [place] units.? No left-sided (unknown) (no (unknown) (unknown) medical records and (unit s (unknown) date) encounters if unknown) available, and nursing notes. I have spoken (unknown) (no (unknown) (unknown) meloxicam 7.5 mg (units (unknown) date) tablet 7.5 mg PO BID unknown) PRN pain #14 tabs 03/23/22 (unknown) (no (unknown) (unknown) meloxicam 7.5 mg (units (unknown) date) tablet unknown) (unknown) (no (unknown) (unknown) most likely (units (un known) date) etiology. Patient unknown) admits to a high fat diet, could be gallbladder (unknown) (no (unknown) (unknown) of today's note if (units (unknown) date) your PCP is in our unknown) system (unknown) (no (unknown) (unknown) omeprazole 20 mg (units (unknown) date) tablet,delayed 40 mg unknown) PO DAILY #60 tabs 05/17/22 (unknown) (no (unknown) (unknown) omeprazole 20 mg (units (unknown) date) tablet,delayed unknown) release (DR/EC) (unknown) (no (unknown) (unknown) omeprazole each (units (unknown) date) morning. Use unknown) Carafate 2-3 times daily as needed to COVID your (unknown) (no (unknown) (unknown) on 04/17/2022 via (units (unknown) date) x-ray KUB. unknown) (unknown) (no (unknown) (unknown) on CT. This could (units (unknown) date) be due to gastritis, unknown) gastric ulcer, duodenal ulcer. Your (unknown) (no (unknown) (unknown) ondansetron 4 mg (units (unknown) date) disintegrating 4 mg unknown) PO Q8H PRN nausea and 04/24/22 (unknown) (no (unknown) (unknown) ondansetron 4 mg (units (unknown) date) tablet,disintegratin unknown) g (unknown) (no (unknown) (unknown) or lymphopenia, no (units (unknown) date) electrolyte unknown) abnormalities or elevation in lactate, (unknown) (no (unknown) (unknown) or other acute (units (unknown) date) abnormality. unknown) (unknown) (no (unknown) (unknown) outpatient testing (units (unknown) date) as needed, you may unknown) need an endoscopy in the future. I hope (unknown) (no (unknown) (unknown) oxycodone 5 mg (units (unknown) date) tablet 5 mg PO Q6H unknown) PRN pain #14 tabs 03/23/22 (unknown) (no (unknown) (unknown) oxycodone 5 mg (units (unknown) date) tablet unknown) (unknown) (no (unknown) (unknown) pain, diarrhea, and (unit s (unknown) date) recent history of unknown) influenza A positive on 04/24/2022. (unknown) (no (unknown) (unknown) peripheral edema, (units (unknown) date) warm extremities unknown) (unknown) (no (unknown) (unknown) persistent vomiting (unit s (unknown) date) or other bothersome unknown) symptoms]. (unknown) (no (unknown) (unknown) pyelonephritis, (units (unknown) date) AAA, ACS, infectious unknown) colitis. (unknown) (no (unknown) (unknown) related however his (unit s (unknown) date) liver enzymes were unknown) negative as well as his abdominal pelvis (unknown) (no (unknown) (unknown) release (units (unkno wn) date) unknown) (unknown) (no (unknown) (unknown) sagittal reformats (units (unknown) date) were performed.? For unknown) radiation dose reduction, the following (unknown) (no (unknown) (unknown) seen.? (units (unkno wn) date) unknown) (unknown) (no (unknown) (unknown) size.? (units (unkno wn) date) unknown) (unknown) (no (unknown) (unknown) stomach. Please (units (unknown) date) follow-up with your unknown) primary care provider for any additional (unknown) (no (unknown) (unknown) sucralfate 1 gram (units (unknown) date) tablet (Carafate) 1 unknown) g PO BID #60 tabs 05/17/22 (unknown) (no (unknown) (unknown) sucralfate (units (unk nown) date) [Carafate] 1 gram unknown) tablet (unknown) (no (unknown) (unknown) tablet vomiting #14 (unit s (unknown) date) tabs unknown) (unknown) (no (unknown) (unknown) tamsulosin 0.4 mg (units (unknown) date) capsule (Flomax) 0.4 unknown) mg PO DAILY #7 caps 03/23/22 (unknown) (no (unknown) (unknown) tamsulosin [Flomax] (unit s (unknown) date) 0.4 mg capsule unknown) (unknown) (no (unknown) (unknown) tenderness or (units ( unknown) date) exquisite tenderness unknown) with exam. 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 (units (unknown) date) Please avoid unknown) ibuprofen, acidic foods, smoking, high sat meals (unknown) (no (unknown) (unknown) the inherent (units (u nknown) date) limitations of this unknown) software. (unknown) (no (unknown) (unknown) ulcer but recent (units (unknown) date) history of left 5 mm unknown) renal calculi without obstruction (unknown) (no (unknown) (unknown) understanding. (units (unknown) date) Counseling was unknown) provided regarding the diagnosis and prognosis, (unknown) (no (unknown) (unknown) urinary frequency (units (unknown) date) or urgency. unknown) (unknown) (no (unknown) (unknown) viral (units (unkno wn) date) gastroenteritis or unknown) other acute viral process including COVID, influenza or (unknown) (no (unknown) (unknown) was used: (units (unkn own) date) unknown) (unknown) (no (unknown) (unknown) wheezing, stridor, (units (unknown) date) or abnormal breath unknown) sounds. No retractions or tachypnea. (unknown) (no (unknown) (unknown) with the ED (units (un known) date) attending physician unknown) for FRITZ level 2, 3, and some level 4s as needed (unknown) (no (unknown) (unknown) with the (units (unkno wn) date) patient/family and unknown) discussed today?s findings whom verbalize (unknown) (no (unknown) (unknown) you feel better (units (unknown) date) soon, thank you for unknown) coming in for evaluation. Result panel [id number] (unknown) (no (unknown) (unknown) (no value) (units (unk nown) date) unknown) (unknown) (no (unknown) (unknown) <Electronically (units (unknown) date) signed by Ni Low unknown) MARY Moran> (unknown) (no (unknown) (unknown) <Electronically (units (unknown) date) signed by Josemanuel Montes D.O.> (unknown) (no (unknown) (unknown) <Ni Moran, (units (unknown) date) MARY - Last Filed: unknown) 05/17/22 19:44> (unknown) (no (unknown) (unknown) <Josemanuel Montes DO (unit s (unknown) date) - Last Filed: unknown) 05/17/22 21:21> (unknown) (no (unknown) (unknown) *If you do not have (unit s (unknown) date) a primary care unknown) provider please contact [phone] to (unknown) (no (unknown) (unknown) *Please continue to (unit s (unknown) date) take your regular unknown) medications as directed. (unknown) (no (unknown) (unknown) *Please follow up (units (unknown) date) with your primary unknown) care provider in 2-3 days, call for an (unknown) (no (unknown) (unknown) *Return to (units (unk nown) date) Emergency Department unknown) if you should have any new, worsening, or (unknown) (no (unknown) (unknown) *What to do: (units (u nknown) date) unknown) (unknown) (no (unknown) (unknown) *You have been (units (unknown) date) diagnosed with unknown) epigastric pain that evidence kidney stone today (unknown) (no (unknown) (unknown) , COVID and RSV (units (unknown) date) test was negative, I unknown) am glad that you are getting better from (unknown) (no (unknown) (unknown) 0.4 mg PO DAILY (units (unknown) date) Qty: 7 0RF unknown) (unknown) (no (unknown) (unknown) 05/17/22 05/17/22 (units (unknown) date) 05/17/22 Range/Units unknown) (unknown) (no (unknown) (unknown) 05/17/22 05/17/22 (units (unknown) date) Range/Units unknown) (unknown) (no (unknown) (unknown) 05/17/22 16:44 (units (unknown) date) unknown) (unknown) (no (unknown) (unknown) 05/17/22 18:05 (units (unknown) date) unknown) (unknown) (no (unknown) (unknown) 05/17/22 18:14 (units (unknown) date) unknown) (unknown) (no (unknown) (unknown) 05/17/22 1944 (units ( unknown) date) unknown) (unknown) (no (unknown) (unknown) 05/17/22 2121 (units ( unknown) date) unknown) (unknown) (no (unknown) (unknown) 05/17/22 (units (unkno wn) date) unknown) (unknown) (no (unknown) (unknown) 1 g PO BID Qty: 60 (units (unknown) date) 0RF unknown) (unknown) (no (unknown) (unknown) 1-2 tablets by (units (unknown) date) mouth every 6 hours unknown) as needed for pain. (unknown) (no (unknown) (unknown) 100 mg PO BID PRN (units (unknown) date) (Reason: cough) Qty: unknown) 20 0RF (unknown) (no (unknown) (unknown) 14:46.? [facility] (units (unknown) date) unknown) (unknown) (no (unknown) (unknown) 150 mg PO DAILY (units (unknown) date) unknown) (unknown) (no (unknown) (unknown) 17:06 05/17/22 (units (unknown) date) unknown) (unknown) (no (unknown) (unknown) 1830: Review of CT (units (unknown) date) demonstrates unknown) findings of fatty liver infiltration and (unknown) (no (unknown) (unknown) 1830:?Review of (units (unknown) date) labs demonstrates no unknown) leukocytosis or anemia, no electrolyte (unknown) (no (unknown) (unknown) 18:05 18:05 18:05 (units (unknown) date) unknown) (unknown) (no (unknown) (unknown) 18:14 18:30 (units (un known) date) unknown) (unknown) (no (unknown) (unknown) 19:59 (units (unkno wn) date) unknown) (unknown) (no (unknown) (unknown) 20 mg PO QDAY Qty: (units (unknown) date) 0 unknown) (unknown) (no (unknown) (unknown) 4 mg PO Q8H PRN (units (unknown) date) (Reason: nausea and unknown) vomiting) Qty: 14 0RF (unknown) (no (unknown) (unknown) 40 mg PO DAILY Qty: (unit s (unknown) date) 60 0RF unknown) (unknown) (no (unknown) (unknown) 5 mg PO Q6H PRN (units (unknown) date) (Reason: pain) Qty: unknown) 14 0RF (unknown) (no (unknown) (unknown) 5498 (units (unkno wn) date) unknown) (unknown) (no (unknown) (unknown) 7.5 mg PO BID PRN (units (unknown) date) (Reason: pain) Qty: unknown) 14 0RF (unknown) (no (unknown) (unknown) ? (units (unkno wn) date) unknown) (unknown) (no (unknown) (unknown) ?automated exposure (unit s (unknown) date) control, adjustment unknown) of mA and/or kV according to patient (unknown) (no (unknown) (unknown) A cause of (units (unk n) date) abdominal pain is unknown) not seen. (unknown) (no (unknown) (unknown) ABDOMEN/PELVIS (units (unknown) date) unknown) (unknown) (no (unknown) (unknown) ABDOMEN: (units (unkno wn) date) unknown) (unknown) (no (unknown) (unknown) ALT (<50) IU/L (units (unknown) date) unknown) (unknown) (no (unknown) (unknown) ALT 89 H (<50) IU/L (unit s (unknown) date) unknown) (unknown) (no (unknown) (unknown) AST (17-59) IU/L (units (unknown) date) unknown) (unknown) (no (unknown) (unknown) AST 44 (17-59) IU/L (unit s (unknown) date) unknown) (unknown) (no (unknown) (unknown) Abdominal Nodes:? (units (unknown) date) No enlarged unknown) retroperitoneal or mesenteric lymph nodes.? (unknown) (no (unknown) (unknown) Accession Number: (units (unknown) date) [id number] ?? unknown) (unknown) (no (unknown) (unknown) Acct:[id number] (units (unknown) date) unknown) (unknown) (no (unknown) (unknown) Activity (units (unkno wn) date) Restrictions/Additio unknown) nal Instructions: (unknown) (no (unknown) (unknown) Acute epigastric (units (unknown) date) pain unknown) (unknown) (no (unknown) (unknown) Additional (units (unk n) date) findings:? unknown) (unknown) (no (unknown) (unknown) Adrenal Glands:? A (units (unknown) date) right adrenal unknown) myelolipoma is again seen measuring 7 cm.? The (unknown) (no (unknown) (unknown) Age/Sex: 36 / M (units (unknown) date) unknown) (unknown) (no (unknown) (unknown) Al Hydrox/Mg (units (u nknown) date) Hydrox/Simethicone unknown) 20 ml/ Lidocaine HCl 15 ml 0 ml PO NOW ONE (unknown) (no (unknown) (unknown) Albumin (3.5-5.0) (units (unknown) date) g/dL unknown) (unknown) (no (unknown) (unknown) Albumin 4.9 (units (un known) date) (3.5-5.0) g/dL unknown) (unknown) (no (unknown) (unknown) Albumin/Globulin (units (unknown) date) Ratio (1.0-2.8) unknown) (unknown) (no (unknown) (unknown) Albumin/Globulin (units (unknown) date) Ratio 1.4 (1.0-2.8) unknown) (unknown) (no (unknown) (unknown) Alkaline (units (unkno wn) date) Phosphatase (38-126) unknown) U/L (unknown) (no (unknown) (unknown) Alkaline (units (unkno wn) date) Phosphatase 85 unknown) (38-126) U/L (unknown) (no (unknown) (unknown) Allergies (units (unkn own) date) unknown) (unknown) (no (unknown) (unknown) Allergy/AdvReac (units (unknown) date) Type Severity unknown) Reaction Status Date / Time (unknown) (no (unknown) (unknown) Approved by: Nguyễn (units (unknown) date) Thom Montana M.D. on unknown) 05/17/2022 at 16:35 ? (unknown) (no (unknown) (unknown) Axial sections were (unit s (unknown) date) acquired from the unknown) lung bases to the pubic symphysis.? (unknown) (no (unknown) (unknown) BUN (9-20) mg/dL (units (unknown) date) unknown) (unknown) (no (unknown) (unknown) BUN 10 (9-20) mg/dL (unit s (unknown) date) unknown) (unknown) (no (unknown) (unknown) BUN/Creatinine (units (unknown) date) Ratio (6-22) unknown) (unknown) (no (unknown) (unknown) BUN/Creatinine (units (unknown) date) Ratio 12.2 (6-22) unknown) (unknown) (no (unknown) (unknown) Baso # (Auto) (units ( unknown) date) (0-100) /uL unknown) (unknown) (no (unknown) (unknown) Baso # (Auto) 0 (units (unknown) date) (0-100) /uL unknown) (unknown) (no (unknown) (unknown) Baso % (Auto) (0-2) (unit s (unknown) date) % unknown) (unknown) (no (unknown) (unknown) Baso % (Auto) 0.6 (units (unknown) date) (0-2) % unknown) (unknown) (no (unknown) (unknown) Biliary ducts:? (units (unknown) date) Unremarkable.? ? unknown) (unknown) (no (unknown) (unknown) Bladder:? Normal (units (unknown) date) wall thickness. No unknown) stones. ? ? (unknown) (no (unknown) (unknown) Blood Pressure (units (unknown) date) 145/83 H 05/17/22 unknown) 17:06 (unknown) (no (unknown) (unknown) Blood Pressure (units (unknown) date) 145/83 H 138/77 unknown) (unknown) (no (unknown) (unknown) Bones:? (units (unkno wn) date) Unremarkable. unknown) (unknown) (no (unknown) (unknown) CBC Auto Diff (units ( unknown) date) [Complete Blood unknown) Count AUTO DIFF] Stat (unknown) (no (unknown) (unknown) CMP [Comprehensive (units (unknown) date) Metabolic Panel] unknown) Stat (unknown) (no (unknown) (unknown) COMPARISON:? [facility] ([facility] date[facility], [facility], unknown) ABDOMEN/PELVIS WITH CONTRAST, 01/13/2015, (unknown) (no (unknown) (unknown) CT kidney ureter (units (unknown) date) bladder (KUB) Stat unknown) (unknown) (no (unknown) (unknown) CT scan - (units (unkn own) date) abdomen/pelvis: unknown) (unknown) (no (unknown) (unknown) CT. He was (units (unk n) date) nontender over the unknown) right upper quadrant with palpation. (unknown) (no (unknown) (unknown) Calcium (8.4-10.2) (units (unknown) date) mg/dL unknown) (unknown) (no (unknown) (unknown) Calcium 9.0 (units (un known) date) (8.4-10.2) mg/dL unknown) (unknown) (no (unknown) (unknown) Carbon Dioxide (units (unknown) date) (22-32) mmol/L unknown) (unknown) (no (unknown) (unknown) Carbon Dioxide 20 L (unit s (unknown) date) (22-32) mmol/L unknown) (unknown) (no (unknown) (unknown) Cardiovascular: (units (unknown) date) regular rate and unknown) rhythm, without tachycardia, S1-S2 without (unknown) (no (unknown) (unknown) Chief Complaint: (units (unknown) date) Abdominal Pain unknown) (unknown) (no (unknown) (unknown) Chloride (98-107) (units (unknown) date) mmol/L unknown) (unknown) (no (unknown) (unknown) Chloride 104 (units (u nknown) date) (98-107) mmol/L unknown) (unknown) (no (unknown) (unknown) Clinical (units (unkno wn) date) Impression: unknown) (unknown) (no (unknown) (unknown) Coronal and (units (un known) date) unknown) (unknown) (no (unknown) (unknown) Cosign (units (unkno wn) date) unknown) (unknown) (no (unknown) (unknown) Course of Care: (units (unknown) date) unknown) (unknown) (no (unknown) (unknown) Course (units (unkno wn) date) unknown) (unknown) (no (unknown) (unknown) Covid-19 + FLU A/B (units (unknown) date) + RSV - PCR Stat unknown) (unknown) (no (unknown) (unknown) Creatinine (units (unk nown) date) (0.66-1.25) mg/dL unknown) (unknown) (no (unknown) (unknown) Creatinine 0.82 (units (unknown) date) (0.66-1.25) mg/dL unknown) (unknown) (no (unknown) (unknown) : 1985 (units (unknown) date) Acct:[id number] unknown) (unknown) (no (unknown) (unknown) : 1985 (units (unknown) date) unknown) (unknown) (no (unknown) (unknown) Date of Service: (units (unknown) date) 05/17/22 unknown) (unknown) (no (unknown) (unknown) Departure (units (unkn own) date) unknown) (unknown) (no (unknown) (unknown) Dictated by: Nguyễn (units (unknown) date) Thom Montana M.D. on unknown) 05/17/2022 at 16:32 ? ? (unknown) (no (unknown) (unknown) Differential (units (u nknown) date) diagnoses include, unknown) but are not limited to: ?Acute cholecystitis, (unknown) (no (unknown) (unknown) Discharge Plan (units (unknown) date) unknown) (unknown) (no (unknown) (unknown) Discontinued (units (u nknown) date) Medications unknown) (unknown) (no (unknown) (unknown) Documented By: RLS (units (unknown) date) unknown) (unknown) (no (unknown) (unknown) Dr Montes Co-Sign (units (unknown) date) Statement: I was unknown) available for consultation during this (unknown) (no (unknown) (unknown) ED Attending (units (u nknown) date) Cosignature unknown) Attestation: (unknown) (no (unknown) (unknown) ED Orders (units (unkn own) date) unknown) (unknown) (no (unknown) (unknown) ED provider (units (unk nown) date) independent unknown) interpretation of CT KUB did not see urinary obstruction (unknown) (no (unknown) (unknown) ER Physician: (units ( unknown) date) Ni Moran unknown) (unknown) (no (unknown) (unknown) Electronically (units (unknown) date) signed by: MARY Ryder (unknown) (no (unknown) (unknown) Emergency Report (units (unknown) date) unknown) (unknown) (no (unknown) (unknown) Eos # (Auto) (units (u nknown) date) (0-450) /uL unknown) (unknown) (no (unknown) (unknown) Eos # (Auto) 100 (units (unknown) date) (0-450) /uL unknown) (unknown) (no (unknown) (unknown) Eos % (Auto) (2-4) (units (unknown) date) % unknown) (unknown) (no (unknown) (unknown) Eos % (Auto) 1.8 L (units (unknown) date) (2-4) % unknown) (unknown) (no (unknown) (unknown) Estimated GFR > 60 (units (unknown) date) (>60) mL/min unknown) (unknown) (no (unknown) (unknown) Estimated GFR (>60) (unit s (unknown) date) mL/min unknown) (unknown) (no (unknown) (unknown) Exam Narrative: (units (unknown) date) unknown) (unknown) (no (unknown) (unknown) Exam (units (unkno wn) date) unknown) (unknown) (no (unknown) (unknown) FINDINGS:? (units (unk nown) date) unknown) (unknown) (no (unknown) (unknown) Fatty liver (units (un known) date) infiltration unknown) (unknown) (no (unknown) (unknown) GI: abdomen soft, (units (unknown) date) nontender to unknown) palpation, nondistended, without masses, rebound (unknown) (no (unknown) (unknown) Gallbladder:? (units ( unknown) date) Unremarkable.? ? unknown) (unknown) (no (unknown) (unknown) General (units (unkno wn) date) unknown) (unknown) (no (unknown) (unknown) General: (units (unkno wn) date) cooperative, unknown) comfortable, in no acute distress, well groomed, afebrile (unknown) (no (unknown) (unknown) Globulin (1.7-4.1) (units (unknown) date) g/dL unknown) (unknown) (no (unknown) (unknown) Globulin 3.4 (units (u nknown) date) (1.7-4.1) g/dL unknown) (unknown) (no (unknown) (unknown) Glucose (70-100) (units (unknown) date) mg/dL unknown) (unknown) (no (unknown) (unknown) Glucose 92 (70-100) (unit s (unknown) date) mg/dL unknown) (unknown) (no (unknown) (unknown) HEENT: symmetrical (units (unknown) date) facial expressions, unknown) moist mucous membranes (unknown) (no (unknown) (unknown) HPI - Abdominal (units (unknown) date) Pain unknown) (unknown) (no (unknown) (unknown) HPI narrative: (units (unknown) date) unknown) (unknown) (no (unknown) (unknown) Hct (41-53) % (units ( unknown) date) unknown) (unknown) (no (unknown) (unknown) Hct 43.9 (41-53) % (units (unknown) date) unknown) (unknown) (no (unknown) (unknown) Healthy adult (units ( unknown) date) unknown) (unknown) (no (unknown) (unknown) Heart:? No (units (unk nown) date) significant unknown) findings. (unknown) (no (unknown) (unknown) Hgb (13.5-17.5) (units (unknown) date) g/dL unknown) (unknown) (no (unknown) (unknown) Hgb 15.3 (units (unkno wn) date) (13.5-17.5) g/dL unknown) (unknown) (no (unknown) (unknown) History of Present (units (unknown) date) Illness unknown) (unknown) (no (unknown) (unknown) Home Medications (units (unknown) date) unknown) (unknown) (no (unknown) (unknown) Hospital, CR, XR (units (unknown) date) KUB, 04/17/2022, unknown) 12:09.? [facility], RG, CT (unknown) (no (unknown) (unknown) Ni De Los Santos, (units (unknown) date) MARY, personally unknown) performed the services described in the (unknown) (no (unknown) (unknown) IMPRESSION:? (units (u nknown) date) unknown) (unknown) (no (unknown) (unknown) INDICATIONS:? upper (unit s (unknown) date) abd pain, hx unknown) nephrolithiasis and lt 5mm renal calculus (unknown) (no (unknown) (unknown) Image quality:? (units (unknown) date) Excellent.? unknown) (unknown) (no (unknown) (unknown) Imaging Data (units (u nknown) date) unknown) (unknown) (no (unknown) (unknown) Influenza A (units (un known) date) (RT-PCR) (NEGATIVE) unknown) (unknown) (no (unknown) (unknown) Influenza A (units (un known) date) (RT-PCR) Flu a unknown) negative (NEGATIVE) (unknown) (no (unknown) (unknown) Influenza B (units (un known) date) (RT-PCR) (NEGATIVE) unknown) (unknown) (no (unknown) (unknown) Influenza B (units (un known) date) (RT-PCR) Flu b unknown) negative (NEGATIVE) (unknown) (no (unknown) (unknown) Initial Vital Signs (unit s (unknown) date) unknown) (unknown) (no (unknown) (unknown) Initial Vital (units ( unknown) date) Signs: unknown) (unknown) (no (unknown) (unknown) Instructions: DI (units (unknown) date) for Gastritis, DI unknown) for Epigastric Pain (unknown) (no (unknown) (unknown) [facility] (units (unknown) date) [address] [place] [address] unknown) [place] [address] (unknown) (no (unknown) (unknown) Lab Data (units (unkno wn) date) unknown) (unknown) (no (unknown) (unknown) Lab Results (units (un known) date) unknown) (unknown) (no (unknown) (unknown) Lab work does not (units (unknown) date) show leukocytosis or unknown) anemia, no significant hemoconcentration (unknown) (no (unknown) (unknown) Labs: (units (unkno wn) date) unknown) (unknown) (no (unknown) (unknown) Lactate (0.7-2.1) (units (unknown) date) mmol/L unknown) (unknown) (no (unknown) (unknown) Lactate (Lactic (units (unknown) date) Acid) Stat unknown) (unknown) (no (unknown) (unknown) Lactate 1.1 (units (un known) date) (0.7-2.1) mmol/L unknown) (unknown) (no (unknown) (unknown) Last Admin: (units (un known) date) 05/17/22 19:43 Dose: unknown) 20 mg (unknown) (no (unknown) (unknown) Last Admin: (units (un known) date) 05/17/22 19:50 Dose: unknown) 45 ml (unknown) (no (unknown) (unknown) Left Kidney:? (units (u nknown) date) Nonobstructing unknown) left-sided kidney stones are seen, with the largest (unknown) (no (unknown) (unknown) Left Ureter:? No (units (unknown) date) hydroureter.? unknown) (unknown) (no (unknown) (unknown) Lipase (23-300) U/L (unit s (unknown) date) unknown) (unknown) (no (unknown) (unknown) Lipase 112 (23-300) (unit s (unknown) date) U/L unknown) (unknown) (no (unknown) (unknown) Lipase Stat (units (un known) date) unknown) (unknown) (no (unknown) (unknown) Liver: Diffuse (units (unknown) date) fatty liver unknown) infiltration is noted.? The liver is normal in size (unknown) (no (unknown) (unknown) Loc: ED (units (unkno wn) date) unknown) (unknown) (no (unknown) (unknown) Lung bases:? (units (u nknown) date) Unremarkable.? ? unknown) (unknown) (no (unknown) (unknown) Lymph # (Auto) (units (unknown) date) (8871-3165) /uL unknown) (unknown) (no (unknown) (unknown) Lymph # (Auto) 1500 (unit s (unknown) date) (5934-3878) /uL unknown) (unknown) (no (unknown) (unknown) Lymph % (Auto) (units (unknown) date) (25-40) % unknown) (unknown) (no (unknown) (unknown) Lymph % (Auto) 25.6 (unit s (unknown) date) (25-40) % unknown) (unknown) (no (unknown) (unknown) MCH (26-34) PG (units (unknown) date) unknown) (unknown) (no (unknown) (unknown) MCH 31.7 (26-34) PG (unit s (unknown) date) unknown) (unknown) (no (unknown) (unknown) MCHC (30-36) % (units (unknown) date) unknown) (unknown) (no (unknown) (unknown) MCHC 34.9 (30-36) % (unit s (unknown) date) unknown) (unknown) (no (unknown) (unknown) MCV (80-100) fL (units (unknown) date) unknown) (unknown) (no (unknown) (unknown) MCV 90.9 (80-100) (units (unknown) date) fL unknown) (unknown) (no (unknown) (unknown) MDM - Abdominal (units (unknown) date) Pain unknown) (unknown) (no (unknown) (unknown) MDM Narrative (units ( unknown) date) unknown) (unknown) (no (unknown) (unknown) MIPS: This (units (unk nown) date) encounter doesn't unknown) have any diagnosis associated with MIPS criteria. (unknown) (no (unknown) (unknown) MR#: [id number] (units (unknown) date) unknown) (unknown) (no (unknown) (unknown) MSK: moves all (units (unknown) date) extremities, unknown) neurovascularly intact, no weakness, normal tone (unknown) (no (unknown) (unknown) Medical History (units (unknown) date) (Reviewed 05/17/22 @ unknown) 18:51 by Ni Moran [facility]) (unknown) (no (unknown) (unknown) Medical decision (units (unknown) date) making narrative: unknown) (unknown) (no (unknown) (unknown) Medication (units (unk nown) date) Instructions unknown) Recorded Confirmed (unknown) (no (unknown) (unknown) Medication (units (unk nown) date) Instructions unknown) Recorded (unknown) (no (unknown) (unknown) Miscellaneous: No (units (unknown) date) inguinal hernias are unknown) seen. ? ? (unknown) (no (unknown) (unknown) Mode of arrival: (units (unknown) date) Ambulatory unknown) (unknown) (no (unknown) (unknown) [place] # (Auto) (units ( unknown) date) (0-900) /uL unknown) (unknown) (no (unknown) (unknown) [place] # (Auto) 600 (units (unknown) date) (0-900) /uL unknown) (unknown) (no (unknown) (unknown) [place] % (Auto) (units ( unknown) date) (3-14) % unknown) (unknown) (no (unknown) (unknown) [place] % (Auto) 10.0 (units (unknown) date) (3-14) % unknown) (unknown) (no (unknown) (unknown) Narrative (units (unkn own) date) unknown) (unknown) (no (unknown) (unknown) Neuro: normal (units ( unknown) date) speech and unknown) cognition, A+O x3, ambulatory, clear speech (unknown) (no (unknown) (unknown) Neut # (Auto) (units ( unknown) date) (9232-6505) /uL unknown) (unknown) (no (unknown) (unknown) Neut # (Auto) 3700 (units (unknown) date) (4502-9943) /uL unknown) (unknown) (no (unknown) (unknown) Neut % (Auto) (units ( unknown) date) (50-75) % unknown) (unknown) (no (unknown) (unknown) Neut % (Auto) 62.0 (units (unknown) date) (50-75) % unknown) (unknown) (no (unknown) (unknown) New (units (unkno wn) date) unknown) (unknown) (no (unknown) (unknown) No Action (units (unkn own) date) unknown) (unknown) (no (unknown) (unknown) Nonobstructing (units (unknown) date) left-sided kidney unknown) stones, without hydronephrosis. (unknown) (no (unknown) (unknown) Occasional wrong (units (unknown) date) word or 'sound unknown) alike' substitutions may have occurred due to (unknown) (no (unknown) (unknown) Ordered: (units (unkno wn) date) unknown) (unknown) (no (unknown) (unknown) Ordering Provider: (units (unknown) date) Ni Moran unknown) (unknown) (no (unknown) (unknown) Orders (units (unkno wn) date) unknown) (unknown) (no (unknown) (unknown) Oxygen Delivery (units (unknown) date) Method 05/17/22 unknown) 17:06 (unknown) (no (unknown) (unknown) Oxygen Delivery (units (unknown) date) Method Room Air unknown) (unknown) (no (unknown) (unknown) PELVIS: (units (unkno wn) date) unknown) (unknown) (no (unknown) (unknown) PROCEDURE:? CT (units (unknown) date) KIDNEY URETER unknown) BLADDER (KUB) (unknown) (no (unknown) (unknown) Pancreas:? (units (unk nown) date) Unremarkable.? ? unknown) (unknown) (no (unknown) (unknown) Pantoprazole Sodium (unit s (unknown) date) (Pantoprazole Dr 20 unknown) Mg Tablet) 20 mg PO NOW ONE (unknown) (no (unknown) (unknown) Patient (units (unkno wn) date) Disposition: Home unknown) (unknown) (no (unknown) (unknown) Patient History (units (unknown) date) unknown) (unknown) (no (unknown) (unknown) Patient had a 5 mm (units (unknown) date) left interpolar unknown) renal calculus without urinary tract calculus (unknown) (no (unknown) (unknown) Patient's symptoms (units (unknown) date) improved over unknown) duration of stay with above-stated therapies. (unknown) (no (unknown) (unknown) Patient: Jaquan Rodríguez (unit s (unknown) date) E MR#: [id number] unknown) (unknown) (no (unknown) (unknown) Patient: Jaquan Rodríguez (unit s (unknown) date) E unknown) (unknown) (no (unknown) (unknown) Pelvic Nodes: (units ( unknown) date) Unremarkable. unknown) (unknown) (no (unknown) (unknown) Pelvic Organs:? (units (unknown) date) Unremarkable.? ? unknown) (unknown) (no (unknown) (unknown) Peritoneum:? No (units (unknown) date) abnormal unknown) intraperitoneal fluid.? No free air.? (unknown) (no (unknown) (unknown) Plt Count (150-400) (unit s (unknown) date) X103/uL unknown) (unknown) (no (unknown) (unknown) Plt Count 239 (units ( unknown) date) (150-400) X103/uL unknown) (unknown) (no (unknown) (unknown) Portions of this (units (unknown) date) chart have been unknown) created with [employer] voice recognition software. (unknown) (no (unknown) (unknown) Potassium (3.4-5.1) (unit s (unknown) date) mmol/L unknown) (unknown) (no (unknown) (unknown) Potassium 3.8 (units ( unknown) date) (3.4-5.1) mmol/L unknown) (unknown) (no (unknown) (unknown) Prescriptions: (units (unknown) date) unknown) (unknown) (no (unknown) (unknown) Previous Rx's (units ( unknown) date) unknown) (unknown) (no (unknown) (unknown) Procedure: CT (units ( unknown) date) kidney ureter unknown) bladder (KUB) (unknown) (no (unknown) (unknown) Psych: mental (units ( unknown) date) status is grossly unknown) normal, congruent mood, normal affect, pleasant (unknown) (no (unknown) (unknown) Pulse Oximetry 100 (units (unknown) date) 05/17/22 17:06 unknown) (unknown) (no (unknown) (unknown) Pulse Oximetry 100 (units (unknown) date) 99 unknown) (unknown) (no (unknown) (unknown) Pulse Rate 80 (units ( unknown) date) 05/17/22 17:06 unknown) (unknown) (no (unknown) (unknown) Pulse Rate 80 95 H (units (unknown) date) unknown) (unknown) (no (unknown) (unknown) RBC (4.5-5.9) (units ( unknown) date) X106/uL unknown) (unknown) (no (unknown) (unknown) RBC 4.82 (4.5-5.9) (units (unknown) date) X106/uL unknown) (unknown) (no (unknown) (unknown) RDW (11.6-14.8) % (units (unknown) date) unknown) (unknown) (no (unknown) (unknown) RDW 13.3 (units (unkno wn) date) (11.6-14.8) % unknown) (unknown) (no (unknown) (unknown) ROS Unobtainable: (units (unknown) date) All systems reviewed unknown) + are unremarkable except as noted in HPI (unknown) (no (unknown) (unknown) RSV (PCR) (units (unkn own) date) (Negative) unknown) (unknown) (no (unknown) (unknown) RSV (PCR) Negative (units (unknown) date) (Negative) unknown) (unknown) (no (unknown) (unknown) RSV, appendicitis, (units (unknown) date) acute cystitis, unknown) nephrolithiasis, ureteral obstruction, (unknown) (no (unknown) (unknown) Radiologist's (units ( unknown) date) Impression: unknown) (unknown) (no (unknown) (unknown) Referrals: (units (unk nown) date) unknown) (unknown) (no (unknown) (unknown) Related Data (units (u nknown) date) unknown) (unknown) (no (unknown) (unknown) Respiratory Rate 18 (unit s (unknown) date) 05/17/22 17:06 unknown) (unknown) (no (unknown) (unknown) Respiratory Rate 18 (unit s (unknown) date) 18 unknown) (unknown) (no (unknown) (unknown) Respiratory panel (units (unknown) date) is negative for RSV, unknown) influenza a, B and COVID-19 (unknown) (no (unknown) (unknown) Respiratory: normal (unit s (unknown) date) effort, able to unknown) speak in complete sentences, without (unknown) (no (unknown) (unknown) Result diagrams: (units (unknown) date) unknown) (unknown) (no (unknown) (unknown) Review of Systems (units (unknown) date) unknown) (unknown) (no (unknown) (unknown) Reviewed vitals (units (unknown) date) signs and nursing unknown) notes. (unknown) (no (unknown) (unknown) Right Kidney: ? No (units (unknown) date) stones or unknown) hydronephrosis.? (unknown) (no (unknown) (unknown) Right Ureter:? No (units (unknown) date) hydroureter.? unknown) (unknown) (no (unknown) (unknown) Right adrenal gland (unit s (unknown) date) myelolipoma unknown) (unknown) (no (unknown) (unknown) Routine labs, (units ( unknown) date) respiratory panel unknown) abdominal CT KUB, urinalysis, lipase and (unknown) (no (unknown) (unknown) Rx Instructions: (units (unknown) date) unknown) (unknown) (no (unknown) (unknown) SARS-CoV-2 (PCR) (units (unknown) date) (Negative) unknown) (unknown) (no (unknown) (unknown) SARS-CoV-2 (PCR) (units (unknown) date) Negative (Negative) unknown) (unknown) (no (unknown) (unknown) Signed By: (units (unk nown) date) unknown) (unknown) (no (unknown) (unknown) Skin: brisk (units (un known) date) capillary refill, unknown) without pallor or erythema (unknown) (no (unknown) (unknown) Smoking Status: (units (unknown) date) Never smoker unknown) (unknown) (no (unknown) (unknown) Social History (units (unknown) date) (Reviewed 05/17/22 @ unknown) 18:51 by Ni Moran [facility]) (unknown) (no (unknown) (unknown) Social determinants (unit s (unknown) date) of health that may unknown) impact treatment or disposition: none (unknown) (no (unknown) (unknown) Sodium (137-145) (units (unknown) date) mmol/L unknown) (unknown) (no (unknown) (unknown) Sodium 138 (units (unk nown) date) (137-145) mmol/L unknown) (unknown) (no (unknown) (unknown) Source: patient (units (unknown) date) unknown) (unknown) (no (unknown) (unknown) Spleen:? (units (unkno wn) date) Unremarkable.? ? unknown) (unknown) (no (unknown) (unknown) Stand Alone Forms: (units (unknown) date) Patient Portal/API unknown) (unknown) (no (unknown) (unknown) Stated Complaint: (units (unknown) date) Severe upper ABD unknown) pain (unknown) (no (unknown) (unknown) Stomach and Bowel:? (unit s (unknown) date) Stomach, small bowel unknown) loops, and colon are unremarkable.? (unknown) (no (unknown) (unknown) Stop: 05/17/22 (units (unknown) date) 19:24 unknown) (unknown) (no (unknown) (unknown) Stop: 01/04/23 (units (unknown) date) 19:33 unknown) (unknown) (no (unknown) (unknown) Substance Use Type: (unit s (unknown) date) does not use unknown) (unknown) (no (unknown) (unknown) TECHNIQUE:? (units (un known) date) unknown) (unknown) (no (unknown) (unknown) Temperature 97.1 F (units (unknown) date) L 05/17/22 17:06 unknown) (unknown) (no (unknown) (unknown) Temperature 97.1 F (units (unknown) date) L unknown) (unknown) (no (unknown) (unknown) This is 36-year-old (unit s (unknown) date) male without unknown) significant medical history who presents (unknown) (no (unknown) (unknown) This is a (units (unkn own) date) 36-year-old male who unknown) is presenting to the ED via POV with epigastric (unknown) (no (unknown) (unknown) Time Seen by (units (u nknown) date) Provider: 05/17/22 unknown) 16:43 (unknown) (no (unknown) (unknown) Total Bilirubin (units (unknown) date) (0.2-1.3) mg/dL unknown) (unknown) (no (unknown) (unknown) Total Bilirubin 0.8 (unit s (unknown) date) (0.2-1.3) mg/dL unknown) (unknown) (no (unknown) (unknown) Total Protein (units ( unknown) date) (6.3-8.2) g/dL unknown) (unknown) (no (unknown) (unknown) Total Protein 8.3 H (unit s (unknown) date) (6.3-8.2) g/dL unknown) (unknown) (no (unknown) (unknown) Treated with GI (units (unknown) date) cocktail and unknown) Protonix. (unknown) (no (unknown) (unknown) URINARY: (units (unkno wn) date) unknown) (unknown) (no (unknown) (unknown) Ur Culture (units (unk nown) date) Indicated? Cult not unknown) indicated (unknown) (no (unknown) (unknown) Ur Culture (units (unk nown) date) Indicated? unknown) (unknown) (no (unknown) (unknown) Ur Leukocyte (units (u nknown) date) Esterase (NEGATIVE) unknown) (unknown) (no (unknown) (unknown) Ur Leukocyte (units (u nknown) date) Esterase Negative unknown) (NEGATIVE) (unknown) (no (unknown) (unknown) Ur Specific [place] (unit s (unknown) date) <=1.005 unknown) (1.000-1.035) (unknown) (no (unknown) (unknown) Ur Specific [place] (unit s (unknown) date) (1.000-1.035) unknown) (unknown) (no (unknown) (unknown) Ur Squamous Epith (units (unknown) date) Cells (0-5/HPF) unknown) (unknown) (no (unknown) (unknown) Ur Squamous Epith (units (unknown) date) Cells 0-1 /hpf unknown) (0-5/HPF) (unknown) (no (unknown) (unknown) Urine Appearance (units (unknown) date) Clear unknown) (unknown) (no (unknown) (unknown) Urine Appearance (units (unknown) date) unknown) (unknown) (no (unknown) (unknown) Urine Bacteria (units (unknown) date) (None) unknown) (unknown) (no (unknown) (unknown) Urine Bacteria None (unit s (unknown) date) seen (None) unknown) (unknown) (no (unknown) (unknown) Urine Bilirubin (units (unknown) date) (NEGATIVE) unknown) (unknown) (no (unknown) (unknown) Urine Bilirubin (units (unknown) date) Negative (NEGATIVE) unknown) (unknown) (no (unknown) (unknown) Urine Color Yellow (units (unknown) date) unknown) (unknown) (no (unknown) (unknown) Urine Color (units (un known) date) unknown) (unknown) (no (unknown) (unknown) Urine Glucose (UA) (units (unknown) date) (Negative) g/dL unknown) (unknown) (no (unknown) (unknown) Urine Glucose (UA) (units (unknown) date) Negative (Negative) unknown) g/dL (unknown) (no (unknown) (unknown) Urine Ketones (units ( unknown) date) (NEGATIVE) unknown) (unknown) (no (unknown) (unknown) Urine Ketones (units ( unknown) date) Negative (NEGATIVE) unknown) (unknown) (no (unknown) (unknown) Urine Nitrate (units ( unknown) date) (Negative) unknown) (unknown) (no (unknown) (unknown) Urine Nitrate (units ( unknown) date) Negative (Negative) unknown) (unknown) (no (unknown) (unknown) Urine Occult Blood (units (unknown) date) (Negative) unknown) (unknown) (no (unknown) (unknown) Urine Occult Blood (units (unknown) date) Negative (Negative) unknown) (unknown) (no (unknown) (unknown) Urine Protein (units ( unknown) date) (Negative) unknown) (unknown) (no (unknown) (unknown) Urine Protein (units ( unknown) date) Negative (Negative) unknown) (unknown) (no (unknown) (unknown) Urine RBC (0-5/HPF) (unit s (unknown) date) unknown) (unknown) (no (unknown) (unknown) Urine RBC None seen (unit s (unknown) date) (0-5/HPF) unknown) (unknown) (no (unknown) (unknown) Urine Urobilinogen (units (unknown) date) (0.2) E.U./dL unknown) (unknown) (no (unknown) (unknown) Urine Urobilinogen (units (unknown) date) 0.2 (0.2) E.U./dL unknown) (unknown) (no (unknown) (unknown) Urine WBC (0-5/HPF) (unit s (unknown) date) unknown) (unknown) (no (unknown) (unknown) Urine WBC None seen (unit s (unknown) date) (0-5/HPF) unknown) (unknown) (no (unknown) (unknown) Urine pH (4.5-8.0) (units (unknown) date) unknown) (unknown) (no (unknown) (unknown) Urine pH 6.5 (units (u nknown) date) (4.5-8.0) unknown) (unknown) (no (unknown) (unknown) Ventral Wall: ? No (units (unknown) date) hernia.? unknown) (unknown) (no (unknown) (unknown) Vessels:? Aorta and (unit s (unknown) date) inferior vena cava unknown) are normal in size.? (unknown) (no (unknown) (unknown) Vital Signs - 8 hr (units (unknown) date) unknown) (unknown) (no (unknown) (unknown) Vital Signs (units (un known) date) unknown) (unknown) (no (unknown) (unknown) Vital Signs: I, the (unit s (unknown) date) ED provider, unknown) reviewed the patient?s vital signs, past (unknown) (no (unknown) (unknown) Vital signs: (units (u nknown) date) unknown) (unknown) (no (unknown) (unknown) WBC (4.5-11.0) (units (unknown) date) X103/uL unknown) (unknown) (no (unknown) (unknown) WBC 6.0 (4.5-11.0) (units (unknown) date) X103/uL unknown) (unknown) (no (unknown) (unknown) WITHOUT CONTRAST, (units (unknown) date) 03/22/2022, 17:02. unknown) (unknown) (no (unknown) (unknown) Will have patient (units (unknown) date) follow-up with PCP, unknown) discharge with omeprazole and Carafate, (unknown) (no (unknown) (unknown) Pinky Kahn, (units (unknown) date) DEONNA [Primary Care unknown) Provider] (unknown) (no (unknown) (unknown) [ ] New medication (units (unknown) date) written as a paper unknown) prescription (unknown) (no (unknown) (unknown) [ ] No new (units (unk nown) date) medications given unknown) (unknown) (no (unknown) (unknown) [ x] New medication (unit s (unknown) date) prescriptions sent unknown) to your pharmacy: [[facility]] (unknown) (no (unknown) (unknown) [Embedded Image Not (unit s (unknown) date) Available] unknown) (unknown) (no (unknown) (unknown) abdomen is negative (unit s (unknown) date) for acute unknown) abnormality. Patient is in his 2 weeks following (unknown) (no (unknown) (unknown) abdominal CT with (units (unknown) date) contrast ordered. unknown) (unknown) (no (unknown) (unknown) abnormalities, mild (unit s (unknown) date) elevation ALT at a 9 unknown) otherwise no elevation to liver (unknown) (no (unknown) (unknown) administrative (units (unknown) date) purposes only. I did unknown) not have direct contact with this patient (unknown) (no (unknown) (unknown) adrenal gland is (units (unknown) date) unremarkable. unknown) (unknown) (no (unknown) (unknown) alcohol intake (units (unknown) date) frequency: 3 or more unknown) drinks per day (unknown) (no (unknown) (unknown) amoxicillin (units (un known) date) [AMOXICILLIN] unknown) Allergy Unknown Verified 04/24/22 10:11 (unknown) (no (unknown) (unknown) and below (units (unkn own) date) unknown) (unknown) (no (unknown) (unknown) and cooperative (units (unknown) date) unknown) (unknown) (no (unknown) (unknown) and specific details (unit s (unknown) date) were provided for unknown) the plan of care. Questions are addressed (unknown) (no (unknown) (unknown) and states that he (units (unknown) date) has a family history unknown) of gallbladder disease and autoimmune (unknown) (no (unknown) (unknown) and stay hydrated. (units (unknown) date) Use Tylenol for your unknown) pain, please start taking 40 mg (unknown) (no (unknown) (unknown) and there is (units (u nknown) date) agreement with the unknown) plan and for follow-up. Patient is appropriate (unknown) (no (unknown) (unknown) and (units (unkno wn) date) unknown) (unknown) (no (unknown) (unknown) appointment. Let (units (unknown) date) them know you were unknown) seen in the Emergency Department and that we (unknown) (no (unknown) (unknown) asked that you be (units (unknown) date) seen for follow-up. unknown) We will electronically transmit a record (unknown) (no (unknown) (unknown) benzonatate 100 mg (units (unknown) date) capsule 100 mg PO unknown) BID PRN cough #20 caps 04/24/22 (unknown) (no (unknown) (unknown) benzonatate 100 mg (units (unknown) date) capsule unknown) (unknown) (no (unknown) (unknown) bupropion HCl 150 (units (unknown) date) mg 24 hr tablet, 150 unknown) mg PO DAILY 04/05/21 04/24/22 (unknown) (no (unknown) (unknown) bupropion HCl 150 (units (unknown) date) mg tablet extended unknown) release 24 hr (unknown) (no (unknown) (unknown) choledocholithiasis (unit s (unknown) date) , cholangitis, unknown) gastritis, esophagitis with underlying GERD, (unknown) (no (unknown) (unknown) complaining of pain (unit s (unknown) date) and diarrhea with unknown) concern for other problem. Patient states (unknown) (no (unknown) (unknown) concerning (units (unk nown) date) symptoms, such as unknown) [fever greater than 101F, chills, worsening pain, (unknown) (no (unknown) (unknown) demonstrates no (units (unknown) date) suspicious lesions. unknown) (unknown) (no (unknown) (unknown) diarrhea that (units ( unknown) date) started last night, unknown) history of influenza A positive on 04/24/2022 (unknown) (no (unknown) (unknown) disease complaining (unit s (unknown) date) nausea, emesis x1, unknown) and denies history gastritis or gastric (unknown) (no (unknown) (unknown) documentation, and (units (unknown) date) it accurately unknown) records my words and actions. I collaborated (unknown) (no (unknown) (unknown) during this visit. (units (unknown) date) They were seen unknown) independently by the [facility]. (unknown) (no (unknown) (unknown) emergency (units (unkn own) date) department unknown) complaining of epigastric pain since early this morning, (unknown) (no (unknown) (unknown) encourage (units (unkn own) date) hydration, rest, and unknown) follow up with PCP (unknown) (no (unknown) (unknown) enzymes, lipase (units (unknown) date) unknown) (unknown) (no (unknown) (unknown) establish care with (unit s (unknown) date) [facility] care providers. (unknown) (no (unknown) (unknown) extended release (units (unknown) date) unknown) (unknown) (no (unknown) (unknown) fluoxetine 20 MG (units (unknown) date) capsule unknown) (unknown) (no (unknown) (unknown) fluoxetine 20 mg (units (unknown) date) capsule 20 mg PO unknown) QDAY #0 caps 02/01/16 04/24/22 (unknown) (no (unknown) (unknown) for outpatient (units (unknown) date) management. unknown) (unknown) (no (unknown) (unknown) history but states (units (unknown) date) that he drinks unknown) alcohol, denies having withdrawals, denies (unknown) (no (unknown) (unknown) hydronephrosis is (units (unknown) date) unknown) (unknown) (no (unknown) (unknown) incidental finding (units (unknown) date) of right adrenal unknown) gland myelolipoma (unknown) (no (unknown) (unknown) ine, total (units (unk nown) date) bilirubin, or unknown) lipase. UA is negative for WBCs, RBCs, and bacteria (unknown) (no (unknown) (unknown) influenza (units (unkn own) date) infection. Does not unknown) appear to be dehydrated, acutely ill, is (unknown) (no (unknown) (unknown) left (units (unkno wn) date) unknown) (unknown) (no (unknown) (unknown) measuring 6 mm (units (unknown) date) craniocaudal and 700 unknown) [place] units.? No left-sided (unknown) (no (unknown) (unknown) medical records and (unit s (unknown) date) encounters if unknown) available, and nursing notes. I have spoken (unknown) (no (unknown) (unknown) meloxicam 7.5 mg (units (unknown) date) tablet 7.5 mg PO BID unknown) PRN pain #14 tabs 03/23/22 (unknown) (no (unknown) (unknown) meloxicam 7.5 mg (units (unknown) date) tablet unknown) (unknown) (no (unknown) (unknown) most likely (units (un known) date) etiology. Patient unknown) admits to a high fat diet, could be gallbladder (unknown) (no (unknown) (unknown) of today's note if (units (unknown) date) your PCP is in our unknown) system (unknown) (no (unknown) (unknown) omeprazole 20 mg (units (unknown) date) tablet,delayed 40 mg unknown) PO DAILY #60 tabs 05/17/22 (unknown) (no (unknown) (unknown) omeprazole 20 mg (units (unknown) date) tablet,delayed unknown) release (DR/EC) (unknown) (no (unknown) (unknown) omeprazole each (units (unknown) date) morning. Use unknown) Carafate 2-3 times daily as needed to COVID your (unknown) (no (unknown) (unknown) on 04/17/2022 via (units (unknown) date) x-ray KUB. unknown) (unknown) (no (unknown) (unknown) on CT. This could (units (unknown) date) be due to gastritis, unknown) gastric ulcer, duodenal ulcer. Your flu (unknown) (no (unknown) (unknown) ondansetron 4 mg (units (unknown) date) disintegrating 4 mg unknown) PO Q8H PRN nausea and 04/24/22 (unknown) (no (unknown) (unknown) ondansetron 4 mg (units (unknown) date) tablet,disintegratin unknown) g (unknown) (no (unknown) (unknown) or lymphopenia, no (units (unknown) date) electrolyte unknown) abnormalities or elevation in lactate, creatin (unknown) (no (unknown) (unknown) or other acute (units (unknown) date) abnormality. unknown) (unknown) (no (unknown) (unknown) outpatient testing (units (unknown) date) as needed, you may unknown) need an endoscopy in the future. I hope (unknown) (no (unknown) (unknown) oxycodone 5 mg (units (unknown) date) tablet 5 mg PO Q6H unknown) PRN pain #14 tabs 03/23/22 (unknown) (no (unknown) (unknown) oxycodone 5 mg (units (unknown) date) tablet unknown) (unknown) (no (unknown) (unknown) pain, diarrhea, and (unit s (unknown) date) recent history of unknown) influenza A positive on 04/24/2022. (unknown) (no (unknown) (unknown) patient's emergency (unit s (unknown) date) department visit. unknown) This chart is signed by myself for (unknown) (no (unknown) (unknown) peripheral edema, (units (unknown) date) warm extremities unknown) (unknown) (no (unknown) (unknown) persistent vomiting (unit s (unknown) date) or other bothersome unknown) symptoms]. (unknown) (no (unknown) (unknown) pyelonephritis, (units (unknown) date) AAA, ACS, infectious unknown) colitis. (unknown) (no (unknown) (unknown) related however his (unit s (unknown) date) liver enzymes were unknown) negative as well as his abdominal pelvis (unknown) (no (unknown) (unknown) release (units (unkno wn) date) unknown) (unknown) (no (unknown) (unknown) sagittal reformats (units (unknown) date) were performed.? For unknown) radiation dose reduction, the following (unknown) (no (unknown) (unknown) seen.? (units (unkno wn) date) unknown) (unknown) (no (unknown) (unknown) size.? (units (unkno wn) date) unknown) (unknown) (no (unknown) (unknown) stomach. Please (units (unknown) date) follow-up with your unknown) primary care provider for any additional (unknown) (no (unknown) (unknown) sucralfate 1 gram (units (unknown) date) tablet (Carafate) 1 unknown) g PO BID #60 tabs 05/17/22 (unknown) (no (unknown) (unknown) sucralfate (units (unk nown) date) [Carafate] 1 gram unknown) tablet (unknown) (no (unknown) (unknown) tablet vomiting #14 (unit s (unknown) date) tabs unknown) (unknown) (no (unknown) (unknown) tamsulosin 0.4 mg (units (unknown) date) capsule (Flomax) 0.4 unknown) mg PO DAILY #7 caps 03/23/22 (unknown) (no (unknown) (unknown) tamsulosin [Flomax] (unit s (unknown) date) 0.4 mg capsule unknown) (unknown) (no (unknown) (unknown) tenderness or (units ( unknown) date) exquisite tenderness unknown) with exam. 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 (units (unknown) date) Please avoid unknown) ibuprofen, acidic foods, smoking, high sat meals (unknown) (no (unknown) (unknown) the inherent (units (u nknown) date) limitations of this unknown) software. (unknown) (no (unknown) (unknown) tolerating p.o. and (unit s (unknown) date) differential unknown) diagnoses of gastritis or gastric ulcer are (unknown) (no (unknown) (unknown) ulcer but recent (units (unknown) date) history of left 5 mm unknown) renal calculi without obstruction (unknown) (no (unknown) (unknown) understanding. (units (unknown) date) Counseling was unknown) provided regarding the diagnosis and prognosis, (unknown) (no (unknown) (unknown) urinary frequency (units (unknown) date) or urgency. unknown) (unknown) (no (unknown) (unknown) via microscopy. (units (unknown) date) Respiratory panel is unknown) negative for COVID influenza and RSV. CT (unknown) (no (unknown) (unknown) viral (units (unkno wn) date) gastroenteritis or unknown) other acute viral process including COVID, influenza or (unknown) (no (unknown) (unknown) was used: (units (unkn own) date) unknown) (unknown) (no (unknown) (unknown) wheezing, stridor, (units (unknown) date) or abnormal breath unknown) sounds. No retractions or tachypnea. (unknown) (no (unknown) (unknown) with the ED (units (un known) date) attending physician unknown) for FRITZ level 2, 3, and some level 4s as needed (unknown) (no (unknown) (unknown) with the (units (unkno wn) date) patient/family and unknown) discussed today?s findings whom verbalize (unknown) (no (unknown) (unknown) you feel better (units (unknown) date) soon, thank you for unknown) coming in for evaluation. Result panel 1034 (unknown) (no (unknown) (unknown) (no value) (units (unk nown) date) unknown) (unknown) (no (unknown) (unknown) 05/30/22 (units (unkno wn) date) unknown) (unknown) (no (unknown) (unknown) 36 y/o M (units (unkno wn) date) presents to unknown) clinic as a New Patient. Kidney stones. (unknown) (no (unknown) (unknown) [id number] (units (unkno wn) date) unknown) (unknown) (no (unknown) (unknown) Age/Sex: 36 / M (units (unknown) date) Date of Service: unknown) (unknown) (no (unknown) (unknown) Allergies (units (unkn own) date) unknown) (unknown) (no (unknown) (unknown) NAVEEN Priest (units ( unknown) date) [id number] unknown) (unknown) (no (unknown) (unknown) Attending Dr: (units ( unknown) date) Marshal Wahl MD unknown) (unknown) (no (unknown) (unknown) : 1985 (units (unknown) date) Acct:[id number] unknown) (unknown) (no (unknown) (unknown) Dept at (units (unkno wn) date) . unknown) (unknown) (no (unknown) (unknown) Documented By: (units (unknown) date) Marshal Wahl MD unknown) 05/30/22 0823 (unknown) (no (unknown) (unknown) Draft (units (unkno wn) date) unknown) (unknown) (no (unknown) (unknown) Healthy adult (units ( unknown) date) unknown) (unknown) (no (unknown) (unknown) Intake Note: (units (u nknown) date) unknown) (unknown) (no (unknown) (unknown) Intake performed (units (unknown) date) by: unknown) Renea Gibbs (unknown) (no (unknown) (unknown) Intake (units (unkno wn) date) unknown) (unknown) (no (unknown) (unknown) Intake- Clincial (units (unknown) date) Staff unknown) (unknown) (no (unknown) (unknown) [facility] (units (unknown) date) unknown) (unknown) (no (unknown) (unknown) Loc: [facility] (units (unkno wn) date) unknown) (unknown) (no (unknown) (unknown) Medical History (units (unknown) date) (Reviewed unknown) 05/17/22 @ 18:51 by Ni Moran [facility]) (unknown) (no (unknown) (unknown) PFSH (units (unkno wn) date) unknown) (unknown) (no (unknown) (unknown) Patient: (units (unkno wn) date) Jaquan Rodríguez MR#: unknown) [id number] (unknown) (no (unknown) (unknown) Reason For Visit (units (unknown) date) unknown) (unknown) (no (unknown) (unknown) Signed By: (units (unk nown) date) unknown) (unknown) (no (unknown) (unknown) Smoking Status: (units (unknown) date) Never smoker unknown) (unknown) (no (unknown) (unknown) Social History (units (unknown) date) (Reviewed unknown) 05/17/22 @ 18:51 by Ni Moran [facility]) (unknown) (no (unknown) (unknown) This note may (units ( unknown) date) have been all or unknown) partially generated using voice recognition (unknown) (no (unknown) (unknown) Tobacco Status (units (unknown) date) unknown) (unknown) (no (unknown) (unknown) Urology Office (units (unknown) date) Visit unknown) (unknown) (no (unknown) (unknown) Visit Reasons: (units (unknown) date) 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 (units (unknown) date) If there are any unknown) questions, please contact the Medical Records (unknown) (no (unknown) (unknown) may occur. (units (unk nown) date) Occasional unknown) wrong-word or 'sound-alike' substitutions may have (unknown) (no (unknown) (unknown) occurred due to (units (unknown) date) the inherent unknown) limitations of voice recognition software. Please (unknown) (no (unknown) (unknown) read the note (units ( unknown) date) carefully and unknown) recognize, using context, where these substitutions (unknown) (no (unknown) (unknown) software. (units (unkn own) date) Although every unknown) effort is made to edit content, global account manager errors Result panel 1035 (unknown) (no (unknown) (unknown) (no value) (units (unk nown) date) unknown) (unknown) (no (unknown) (unknown) 05/30/22 (units (unkno wn) date) unknown) (unknown) (no (unknown) (unknown) 08:28 (units (unkno wn) date) unknown) (unknown) (no (unknown) (unknown) 23 (units (unkno wn) date) unknown) (unknown) (no (unknown) (unknown) 28 (units (unkno wn) date) unknown) (unknown) (no (unknown) (unknown) 3 (units (unkno wn) date) unknown) (unknown) (no (unknown) (unknown) 36 y/o M (units (unkno wn) date) presents to unknown) clinic as a New Patient. Kidney stones. (unknown) (no (unknown) (unknown) 5498 (units (unkno wn) date) unknown) (unknown) (no (unknown) (unknown) :28 (units (unkno wn) date) unknown) (unknown) (no (unknown) (unknown) Age/Sex: 36 / M (units (unknown) date) Date of Service: unknown) (unknown) (no (unknown) (unknown) Allergies (units (unkn own) date) unknown) (unknown) (no (unknown) (unknown) [place], [place] (units ( unknown) date) [address] unknown) (unknown) (no (unknown) (unknown) Assessment + (units (u nknown) date) Plan unknown) (unknown) (no (unknown) (unknown) Asthma (units (unkno wn) date) unknown) (unknown) (no (unknown) (unknown) Attending Dr: (units ( unknown) date) Marshal Wahl MD unknown) (unknown) (no (unknown) (unknown) : 1985 (units (unknown) date) Acct:[id number] unknown) (unknown) (no (unknown) (unknown) Depression (units (unk nown) date) unknown) (unknown) (no (unknown) (unknown) Dept at (units (unkno wn) date) . unknown) (unknown) (no (unknown) (unknown) Documented By: (units (unknown) date) Marshal Wahl MD unknown) 05/30/22 0823 (unknown) (no (unknown) (unknown) Draft (units (unkno wn) date) unknown) (unknown) (no (unknown) (unknown) Family History (units (unknown) date) (Updated 05/30/22 unknown) @ 08:30 by Renea Gibbs RN) (unknown) (no (unknown) (unknown) Father Diabetes (units (unknown) date) mellitus unknown) (unknown) (no (unknown) (unknown) H/O vasectomy (units ( unknown) date) unknown) (unknown) (no (unknown) (unknown) Healthy adult (units ( unknown) date) unknown) (unknown) (no (unknown) (unknown) History of back (units (unknown) date) surgery unknown) (unknown) (no (unknown) (unknown) Hx of migraines (units (unknown) date) unknown) (unknown) (no (unknown) (unknown) Hyperlipidemia (units (unknown) date) unknown) (unknown) (no (unknown) (unknown) Hypertension (units (u nknown) date) unknown) (unknown) (no (unknown) (unknown) Intake Note: (units (u nknown) date) unknown) (unknown) (no (unknown) (unknown) Intake performed (units (unknown) date) by: unknown) Renea Gibbs (unknown) (no (unknown) (unknown) Intake (units (unkno wn) date) unknown) (unknown) (no (unknown) (unknown) Intake- Clincial (units (unknown) date) Staff unknown) (unknown) (no (unknown) (unknown) [facility] (units (unknown) date) unknown) (unknown) (no (unknown) (unknown) Kidney stones (units ( unknown) date) unknown) (unknown) (no (unknown) (unknown) Loc: [facility] (units (unkno wn) date) unknown) (unknown) (no (unknown) (unknown) Medical History (units (unknown) date) (Updated 05/30/22 unknown) @ 08:29 by Renea Gibbs RN) (unknown) (no (unknown) (unknown) Mother Cancer (units ( unknown) date) unknown) (unknown) (no (unknown) (unknown) Orders (units (unkno wn) date) unknown) (unknown) (no (unknown) (unknown) Orders: (units (unkno wn) date) unknown) (unknown) (no (unknown) (unknown) PFSH (units (unkno wn) date) unknown) (unknown) (no (unknown) (unknown) POC Urine Dip (units ( unknown) date) Today R10.13 - unknown) Epigastric pain (unknown) (no (unknown) (unknown) Patient: (units (unkno wn) date) Jaquan Rodríguez MR#: unknown) [id number] (unknown) (no (unknown) (unknown) Reason For Visit (units (unknown) date) unknown) (unknown) (no (unknown) (unknown) Results (units (unkno wn) date) unknown) (unknown) (no (unknown) (unknown) Signed By: (units (unk nown) date) unknown) (unknown) (no (unknown) (unknown) Sister Kidney (units ( unknown) date) stones unknown) (unknown) (no (unknown) (unknown) Smoking Status: (units (unknown) date) Never smoker unknown) (unknown) (no (unknown) (unknown) Social History (units (unknown) date) (Updated 05/30/22 unknown) @ 08:30 by Renea Gibbs RN) (unknown) (no (unknown) (unknown) Surgical History (units (unknown) date) (Updated 05/30/22 unknown) @ 08:29 by Renea Gibbs RN) (unknown) (no (unknown) (unknown) This note may (units ( unknown) date) have been all or unknown) partially generated using voice recognition (unknown) (no (unknown) (unknown) Tobacco Status (units (unknown) date) unknown) (unknown) (no (unknown) (unknown) Urine Appearance (units (unknown) date) Clear Last Edit unknown) by Renea Gibbs RN on 05/30/22 08:28 (unknown) (no (unknown) (unknown) Urine Bilirubin (units (unknown) date) Negative Last unknown) Edit by Renea Gibbs RN on 05/30/22 08:28 (unknown) (no (unknown) (unknown) Urine Blood 2+ (units (unknown) date) 80 Ryan/uL Last unknown) Edit by Renea Gibbs RN on 05/30/22 08:28 (unknown) (no (unknown) (unknown) Urine Color (units (un known) date) Yellow Last Edit unknown) by Renea Gibbs RN on 05/30/22 08:28 (unknown) (no (unknown) (unknown) Urine Dipstick (units (unknown) date) unknown) (unknown) (no (unknown) (unknown) Urine Glucose (units ( unknown) date) Negative mg/dL unknown) Last Edit by Renea Gibbs RN on 05/30/22 08: (unknown) (no (unknown) (unknown) Urine Ketones (units ( unknown) date) Negative Last unknown) Edit by Renea Gibbs RN on 05/30/22 08:28 (unknown) (no (unknown) (unknown) Urine Leukocyte (units (unknown) date) Esterase Negative unknown) Last Edit by Renea Gibbs RN on (unknown) (no (unknown) (unknown) Urine Nitrate (units ( unknown) date) Negative Last unknown) Edit by Renea Gibbs RN on 05/30/22 08:28 (unknown) (no (unknown) (unknown) Urine Protein (units ( unknown) date) Negative Last unknown) Edit by Renea Gibbs RN on 05/30/22 08:28 (unknown) (no (unknown) (unknown) Urine Specific (units (unknown) date) [place] 1.025 unknown) Last Edit by Renea Gibbs RN on 05/30/22 08 (unknown) (no (unknown) (unknown) Urine (units (unkno wn) date) Urobilinogen - unknown) 0.2 mg/dL Last Edit by Renea Gibbs RN on (unknown) (no (unknown) (unknown) Urine pH 6.0 (units (u nknown) date) Last Edit by unknown) Renea Gibbs RN on 05/30/22 08:28 (unknown) (no (unknown) (unknown) Urology Office (units (unknown) date) Visit unknown) (unknown) (no (unknown) (unknown) Visit Reasons: (units (unknown) date) 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 (units (unknown) date) If there are any unknown) questions, please contact the Medical Records (unknown) (no (unknown) (unknown) marital status: (units (unknown) date) unknown) (unknown) (no (unknown) (unknown) may occur. (units (unk nown) date) Occasional unknown) wrong-word or 'sound-alike' substitutions may have (unknown) (no (unknown) (unknown) number of (units (unkn own) date) children: 2 unknown) (unknown) (no (unknown) (unknown) occurred due to (units (unknown) date) the inherent unknown) limitations of voice recognition software. Please (unknown) (no (unknown) (unknown) read the note (units ( unknown) date) carefully and unknown) recognize, using context, where these substitutions (unknown) (no (unknown) (unknown) software. 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 His (unknown) (no (unknown) (unknown) 2. 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 Kidney stones. (unknown) (no (unknown) (unknown) 5498 (units (unkno wn) date) unknown) (unknown) (no (unknown) (unknown) :28 (units (unkno wn) date) unknown) (unknown) (no (unknown) (unknown) Abdominal exam: (units (unknown) date) Soft, nontender, unknown) without palpable mass or hepatosplenomegaly (unknown) (no (unknown) (unknown) Add'l Complaint: (units (unknown) date) unknown) (unknown) (no (unknown) (unknown) Age/Sex: 36 / M (units (unknown) date) Date of Service: unknown) (unknown) (no (unknown) (unknown) All systems (units (un known) date) reviewed + are unknown) unremarkable except as noted in HPI and below (And (unknown) (no (unknown) (unknown) Allergies (units (unkn own) date) unknown) (unknown) (no (unknown) (unknown) [place] [address] (unit s (unknown) date) unknown) (unknown) (no (unknown) (unknown) Assessment + Plan (units (unknown) date) unknown) (unknown) (no (unknown) (unknown) Assessment and (units (unknown) date) plan: 1. Left kidney unknown) stone plan is left extracorporeal shockwave (unknown) (no (unknown) (unknown) Asthma (units (unkno wn) date) unknown) (unknown) (no (unknown) (unknown) Attending Dr: Marshal (unit s (unknown) date) Pablo Wahl MD unknown) (unknown) (no (unknown) (unknown) Back: Without CVA (units (unknown) date) or flank tenderness unknown) to percussion (unknown) (no (unknown) (unknown) Cardiovascular (units (unknown) date) exam: Regular rate unknown) and rhythm without murmur (unknown) (no (unknown) (unknown) Chief Complaint (units (unknown) date) unknown) (unknown) (no (unknown) (unknown) Chief Complaint: (units (unknown) date) Left kidney stone unknown) (unknown) (no (unknown) (unknown) Code(s): (units (unkno wn) date) unknown) (unknown) (no (unknown) (unknown) Const (units (unkno wn) date) unknown) (unknown) (no (unknown) (unknown) 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 unknown) (unknown) (no (unknown) (unknown) Details: (units (unkno wn) date) unknown) (unknown) (no (unknown) (unknown) Documented By: (units (unknown) date) Marshal Wahl MD unknown) 05/30/22 0823 (unknown) (no (unknown) (unknown) Exam Narrative (units (unknown) date) unknown) (unknown) (no (unknown) (unknown) Exam Narrative: (units (unknown) date) unknown) (unknown) (no (unknown) (unknown) Exam (units (unkno wn) date) unknown) (unknown) (no (unknown) (unknown) Family History (units (unknown) date) (Reviewed 05/30/22 @ unknown) 09:07 by Marshal Wahl MD) (unknown) (no (unknown) (unknown) Father Diabetes (units (unknown) date) mellitus unknown) (unknown) (no (unknown) (unknown) General: This is an (unit s (unknown) date) awake, alert, unknown) oriented, bearded, tattooed male (unknown) (no (unknown) (unknown) Genitourinary exam: (unit s (unknown) date) Circumcised male, unknown) normal meatus, normal penis, normal (unknown) (no (unknown) (unknown) H/O vasectomy (units ( unknown) date) unknown) (unknown) (no (unknown) (unknown) HPI (units (unkno wn) date) unknown) (unknown) (no (unknown) (unknown) Healthy adult (units ( unknown) date) unknown) (unknown) (no (unknown) (unknown) History of back (units (unknown) date) surgery unknown) (unknown) (no (unknown) (unknown) History of kidney (units (unknown) date) stones unknown) (unknown) (no (unknown) (unknown) Hx of migraines (units (unknown) date) unknown) (unknown) (no (unknown) (unknown) Hyperlipidemia (units (unknown) date) unknown) (unknown) (no (unknown) (unknown) Hypertension (units (u nknown) date) unknown) (unknown) (no (unknown) (unknown) Intake Note: (units (u nknown) date) unknown) (unknown) (no (unknown) (unknown) Intake performed (units (unknown) date) by: Renea Gibbs unknown) (unknown) (no (unknown) (unknown) Intake (units (unkno wn) date) unknown) (unknown) (no (unknown) (unknown) Intake- Clincial (units (unknown) date) Staff unknown) (unknown) (no (unknown) (unknown) [facility] (units (unknown) date) unknown) (unknown) (no (unknown) (unknown) Kidney stones (units ( unknown) date) unknown) (unknown) (no (unknown) (unknown) Left renal stone (units (unknown) date) unknown) (unknown) (no (unknown) (unknown) Loc: [facility] (units (unkno wn) date) unknown) (unknown) (no (unknown) (unknown) Lungs: Clear full (units (unknown) date) and equal unknown) (unknown) (no (unknown) (unknown) Medical History (units (unknown) date) (Updated 05/30/22 @ unknown) 09:08 by Marshal Wahl MD) (unknown) (no (unknown) (unknown) Medications (units (un known) date) unknown) (unknown) (no (unknown) (unknown) Mother Cancer (units ( unknown) date) unknown) (unknown) (no (unknown) (unknown) 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 unknown) (unknown) (no (unknown) (unknown) N20.0 - Calculus of (unit s (unknown) date) kidney unknown) (unknown) (no (unknown) (unknown) Neurologic exam: (units (unknown) date) Grossly intact unknown) (unknown) (no (unknown) (unknown) Orders (units (unkno wn) date) unknown) (unknown) (no (unknown) (unknown) Orders: (units (unkno wn) date) unknown) (unknown) (no (unknown) (unknown) PFSH (units (unkno wn) date) unknown) (unknown) (no (unknown) (unknown) POC Urine Dip Today (unit s (unknown) date) R10.13 - Epigastric unknown) pain (unknown) (no (unknown) (unknown) Patient: Jaquan Rodríguez (unit s (unknown) date) Valentina MR#: [id number] unknown) (unknown) (no (unknown) (unknown) Plan (units (unkno wn) date) unknown) (unknown) (no (unknown) (unknown) ROS (units (unkno wn) date) unknown) (unknown) (no (unknown) (unknown) Reason For Visit (units (unknown) date) unknown) (unknown) (no (unknown) (unknown) Rectal exam: Not (units (unknown) date) indicated and not unknown) done (unknown) (no (unknown) (unknown) Results (units (unkno wn) date) unknown) (unknown) (no (unknown) (unknown) Right adrenal (units ( unknown) date) myelolipoma, history unknown) of kidney stones, family history of kidney (unknown) (no (unknown) (unknown) Signed By: (units (unk nown) date) <Electronically unknown) signed by Marshal Wahl MD> (unknown) (no (unknown) (unknown) Signed (units (unkno wn) date) unknown) (unknown) (no (unknown) (unknown) Sister Kidney (units ( unknown) date) stones unknown) (unknown) (no (unknown) (unknown) Smoking Status: (units (unknown) date) Never smoker unknown) (unknown) (no (unknown) (unknown) Social History (units (unknown) date) (Reviewed 05/30/22 @ unknown) 09:07 by Marshal Wahl MD) (unknown) (no (unknown) (unknown) Status: Acute (units ( unknown) date) unknown) (unknown) (no (unknown) (unknown) Surgical History (units (unknown) date) (Reviewed 05/30/22 @ unknown) 09:07 by Marshal Wahl MD) (unknown) (no (unknown) (unknown) This 36-year-old (units (unknown) date) male comes to unknown) Urology Clinic as a new patient with complaint of (unknown) (no (unknown) (unknown) This note may have (units (unknown) date) been all or unknown) partially generated using voice recognition (unknown) (no (unknown) (unknown) Tobacco Status (units (unknown) date) unknown) (unknown) (no (unknown) (unknown) Urine Appearance (units (unknown) date) Clear Last Edit by unknown) Renea Gibbs RN on 05/30/22 08:28 (unknown) (no (unknown) (unknown) Urine Bilirubin (units (unknown) date) Negative Last Edit unknown) by Renea Gibbs RN on 05/30/22 08:28 (unknown) (no (unknown) (unknown) Urine Blood 2+ 80 (units (unknown) date) Ryan/uL Last Edit by unknown) Renea Gibbs RN on 05/30/22 08:28 (unknown) (no (unknown) (unknown) Urine Color Yellow (units (unknown) date) Last Edit by Renea unknown) KRUPA Gibbs on 05/30/22 08:28 (unknown) (no (unknown) (unknown) Urine Dipstick (units (unknown) date) unknown) (unknown) (no (unknown) (unknown) Urine Glucose (units ( unknown) date) Negative mg/dL Last unknown) Edit by Renea Gibbs RN on 05/30/22 08: (unknown) (no (unknown) (unknown) Urine Ketones (units ( unknown) date) Negative Last Edit unknown) by Renea Gibbs RN on 05/30/22 08:28 (unknown) (no (unknown) (unknown) Urine Leukocyte (units (unknown) date) Esterase Negative unknown) Last Edit by Renea Gibbs RN on (unknown) (no (unknown) (unknown) Urine Nitrate (units ( unknown) date) Negative Last Edit unknown) by Renea Gibbs RN on 05/30/22 08:28 (unknown) (no (unknown) (unknown) Urine Protein (units ( unknown) date) Negative Last Edit unknown) by Renea Gibbs RN on 05/30/22 08:28 (unknown) (no (unknown) (unknown) Urine Specific (units (unknown) date) [place] 1.025 Last unknown) Edit by Renea Gibbs RN on 05/30/22 08 (unknown) (no (unknown) (unknown) Urine Urobilinogen (units (unknown) date) - 0.2 mg/dL Last unknown) Edit by Renea Gibbs RN on (unknown) (no (unknown) (unknown) Urine pH 6.0 Last (units (unknown) date) Edit by Renea unknown) KRUPA Gibbs on 05/30/22 08:28 (unknown) (no (unknown) (unknown) Urology Office (units (unknown) date) Visit unknown) (unknown) (no (unknown) (unknown) Visit Reasons: (units (unknown) date) 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 (unknown) (no (unknown) (unknown) amoxicillin (units (un known) date) [AMOXICILLIN] unknown) Allergy (Unknown, Verified 05/30/22 08:31) (unknown) (no (unknown) (unknown) and asymptomatic. (units (unknown) date) Comes with a CT scan unknown) and KUB which were reviewed and reviewed (unknown) (no (unknown) (unknown) available to (units (u nknown) date) discuss this if he unknown) should so desire after that visit. (unknown) (no (unknown) (unknown) bleeding, infection, (unit s (unknown) date) injury to unknown) surrounding structures, renal failure, failure to (unknown) (no (unknown) (unknown) but no sign of (units (unknown) date) infection. Discussed unknown) with the patient extracorporeal shockwave (unknown) (no (unknown) (unknown) cleared we will (units (unknown) date) move forward with a unknown) metabolic workup. (unknown) (no (unknown) (unknown) discuss these (units ( unknown) date) things with him unknown) further. And he was very appreciative that with (unknown) (no (unknown) (unknown) have occurred. If (units (unknown) date) there are any unknown) questions, please contact the Medical Records (unknown) (no (unknown) (unknown) kidney stones. As (units (unknown) date) it turns out he has unknown) a left renal calculus. Nonobstructing (unknown) (no (unknown) (unknown) lithotripsy and (units (unknown) date) stent placement. unknown) Procedure risks and alternatives his questions (unknown) (no (unknown) (unknown) lithotripsy with (units (unknown) date) stent placement. unknown) After this is done in the stone fragments of (unknown) (no (unknown) (unknown) marital status: (units (unknown) date) unknown) (unknown) (no (unknown) (unknown) may occur. (units (unk nown) date) Occasional unknown) wrong-word or 'sound-alike' substitutions may have (unknown) (no (unknown) (unknown) myelolipoma is with (units (unknown) date) him and suggested unknown) that if he has questions would be happy to (unknown) (no (unknown) (unknown) number of children: (unit s (unknown) date) 2 unknown) (unknown) (no (unknown) (unknown) occurred due to the (unit s (unknown) date) inherent limitations unknown) of voice recognition software. Please (unknown) (no (unknown) (unknown) of and then (units (un known) date) unforeseen and unknown) unpredictable sequelae and complications. Patient is (unknown) (no (unknown) (unknown) omeprazole 20 mg (units (unknown) date) tablet,delayed unknown) release 40 mg PO DAILY #60 tabs 05/17/22 [Rx] (unknown) (no (unknown) (unknown) problem list) (units ( unknown) date) unknown) (unknown) (no (unknown) (unknown) read the note (units ( unknown) date) carefully and unknown) recognize, using context, where these substitutions (unknown) (no (unknown) (unknown) regard to his (units ( unknown) date) stones he is had unknown) multiple stones has a family history of kidney (unknown) (no (unknown) (unknown) reports he is (units ( unknown) date) scheduled to see a unknown) ?surgeon? next Sunday. Discussed adrenal (unknown) (no (unknown) (unknown) scrotum, normal (units (unknown) date) testes bilaterally, unknown) normal epididymis, cord with changes of (unknown) (no (unknown) (unknown) shockwave (units (unkn own) date) lithotripsy. Patient unknown) has not undergone a metabolic workup and that is (unknown) (no (unknown) (unknown) sided stone. Which (units (unknown) date) can be seen on KUB unknown) in would be amenable to extracorporeal (unknown) (no (unknown) (unknown) software. Although (units (unknown) date) every effort is made unknown) to edit content, global account manager errors (unknown) (no (unknown) (unknown) stones and has (units (unknown) date) passed a number. In unknown) my review of the CT he has just the left (unknown) (no (unknown) (unknown) stones (units (unkno wn) date) unknown) (unknown) (no (unknown) (unknown) treat the stone, (units (unknown) date) need for future unknown) procedures, the stent and this sequelae there (unknown) (no (unknown) (unknown) urinalysis today (units (unknown) date) shows specific unknown) gravity 1.025 and does have microscopic blood (unknown) (no (unknown) (unknown) vasectomy (units (unkn own) date) unknown) (unknown) (no (unknown) (unknown) were answered and (units (unknown) date) he wishes to unknown) proceed. Risks to include but not limited to (unknown) (no (unknown) (unknown) who is in no acute (units (unknown) date) distress unknown) (unknown) (no (unknown) (unknown) with the patient. (units (unknown) date) The CT scan also unknown) shows a 7 cm adrenal myelolipoma. Patient Result panel 1037 (unknown) (no (unknown) (unknown) (no value) (units (unk nown) date) unknown) (unknown) (no (unknown) (unknown) 06/01/22 (units (unkno wn) date) unknown) (unknown) (no (unknown) (unknown) 1. Left proximal (units (unknown) date) ureteral calculus unknown) associated with mild left hydronephrosis. (unknown) (no (unknown) (unknown) [address] [place] [address] (units (unknown) date) unknown) (unknown) (no (unknown) (unknown) 16:52. (units (unkno wn) date) unknown) (unknown) (no (unknown) (unknown) 2. Multiple (units (un known) date) nonobstructing unknown) left renal calculi. (unknown) (no (unknown) (unknown) [id number] (units (unkno wn) date) unknown) (unknown) (no (unknown) (unknown) 3. Right adrenal (units (unknown) date) adenomyelolipoma. unknown) (unknown) (no (unknown) (unknown) 4. Normal (units (unkn own) date) appendix. unknown) (unknown) (no (unknown) (unknown) 5. Hepatic (units (unk nown) date) steatosis. unknown) (unknown) (no (unknown) (unknown) ABDOMEN: (units (unkno wn) date) unknown) (unknown) (no (unknown) (unknown) Abdominal Nodes: (units (unknown) date) No enlarged unknown) retroperitoneal or mesenteric lymph nodes. (unknown) (no (unknown) (unknown) Accession Number: (units (unknown) date) [id number] unknown) (unknown) (no (unknown) (unknown) Adrenal Glands: (units (unknown) date) No change in soft unknown) tissue density and fat density containing (unknown) (no (unknown) (unknown) Age/Sex: 36 / M (units (unknown) date) Date of Service: unknown) (unknown) (no (unknown) (unknown) NAVEEN Priest (units ( unknown) date) 19373 unknown) (unknown) (no (unknown) (unknown) Approved by: (units (u nknown) date) Verónica Holcomb M.D. unknown) on 06/01/2022 at 13:55 (unknown) (no (unknown) (unknown) Axial sections (units (unknown) date) were acquired from unknown) the lung bases to the pubic symphysis. (unknown) (no (unknown) (unknown) Biliary ducts: (units (unknown) date) Unremarkable. unknown) (unknown) (no (unknown) (unknown) Bladder: Normal (units (unknown) date) wall thickness. No unknown) stones. (unknown) (no (unknown) (unknown) Bones: (units (unkno wn) date) Unremarkable. unknown) (unknown) (no (unknown) (unknown) COMPARISON: (units (un known) date) [facility], unknown) CT, CT KIDNEY URETER BLADDER (KUB), 05/17/2022, (unknown) (no (unknown) (unknown) CT Scan Report (units (unknown) date) unknown) (unknown) (no (unknown) (unknown) Coronal and (units (un known) date) unknown) (unknown) (no (unknown) (unknown) : 1985 (units (unknown) date) Acct:[id number] unknown) (unknown) (no (unknown) (unknown) Dictated by: (units (u nknown) date) Verónica Holcomb M.D. unknown) on 06/01/2022 at 13:53 (unknown) (no (unknown) (unknown) FINDINGS: (units (unkn own) date) unknown) (unknown) (no (unknown) (unknown) Gallbladder: (units (u nknown) date) Unremarkable. unknown) (unknown) (no (unknown) (unknown) Heart: No (units (unkn own) date) significant unknown) findings. (unknown) (no (unknown) (unknown) IMPRESSION: (units (un known) date) unknown) (unknown) (no (unknown) (unknown) INDICATIONS: left (units (unknown) date) flank pain unknown) (unknown) (no (unknown) (unknown) Image quality: (units (unknown) date) Excellent. unknown) (unknown) (no (unknown) (unknown) [facility] (units (unknown) date) unknown) (unknown) (no (unknown) (unknown) Liver: Liver (units (u nknown) date) demonstrates unknown) diffusely decreased density. (unknown) (no (unknown) (unknown) Loc: ED (units (unkno wn) date) unknown) (unknown) (no (unknown) (unknown) Lung bases: (units (un known) date) Unremarkable. unknown) (unknown) (no (unknown) (unknown) Miscellaneous: No (units (unknown) date) inguinal hernias unknown) are seen. (unknown) (no (unknown) (unknown) Normal (units (unkno wn) date) unknown) (unknown) (no (unknown) (unknown) Ordering (units (unkno wn) date) Provider: unknown) Ni Moran (unknown) (no (unknown) (unknown) PELVIS: (units (unkno wn) date) unknown) (unknown) (no (unknown) (unknown) PROCEDURE: CT (units ( unknown) date) KIDNEY URETER unknown) BLADDER (KUB) (unknown) (no (unknown) (unknown) Pancreas: (units (unkn own) date) Unremarkable. unknown) (unknown) (no (unknown) (unknown) Patient: (units (unkno wn) date) Jaquan Rodríguez MR#: unknown) [id number] (unknown) (no (unknown) (unknown) Pelvic Nodes: (units ( unknown) date) Unremarkable. unknown) (unknown) (no (unknown) (unknown) Pelvic Organs: (units (unknown) date) Unremarkable. unknown) (unknown) (no (unknown) (unknown) Peritoneum: No (units (unknown) date) abnormal unknown) intraperitoneal fluid. No free air. (unknown) (no (unknown) (unknown) Procedure: CT (units ( unknown) date) kidney ureter unknown) bladder (KUB) (unknown) (no (unknown) (unknown) Signed (units (unkno wn) date) unknown) (unknown) (no (unknown) (unknown) Spleen: (units (unkno wn) date) Unremarkable. unknown) (unknown) (no (unknown) (unknown) Stomach and (units (un known) date) Bowel: Stomach, unknown) small bowel loops, and colon are unremarkable. (unknown) (no (unknown) (unknown) TECHNIQUE: (units (unk nown) date) unknown) (unknown) (no (unknown) (unknown) There is mild (units ( unknown) date) left and minimal unknown) right perinephric fat stranding. No right (unknown) (no (unknown) (unknown) URINARY: (units (unkno wn) date) unknown) (unknown) (no (unknown) (unknown) Ventral Wall: No (units (unknown) date) hernia. unknown) (unknown) (no (unknown) (unknown) Vessels: Aorta (units (unknown) date) and inferior vena unknown) cava are normal in size. (unknown) (no (unknown) (unknown) adrenal mass (units (u nknown) date) measuring 72 mm. unknown) (unknown) (no (unknown) (unknown) appendix. (units (unkn own) date) unknown) (unknown) (no (unknown) (unknown) automated (units (unkn own) date) exposure control, unknown) adjustment of mA and/or kV according to patient (unknown) (no (unknown) (unknown) inferior pole (units ( unknown) date) kidney. There is unknown) mild left hydronephrosis. There is a proximal (unknown) (no (unknown) (unknown) left (units (unkno wn) date) unknown) (unknown) (no (unknown) (unknown) nephrolithiasis. (units (unknown) date) There are several unknown) punctate nonobstructing calculi within the (unknown) (no (unknown) (unknown) right (units (unkno wn) date) unknown) (unknown) (no (unknown) (unknown) sagittal (units (unkno wn) date) reformats were unknown) performed. For radiation dose reduction, the following (unknown) (no (unknown) (unknown) size. (units (unkno wn) date) unknown) (unknown) (no (unknown) (unknown) ureteral calculus (units (unknown) date) measuring 7 mm, unknown) and demonstrating Hounsfield units 754. (unknown) (no (unknown) (unknown) was used: (units (unkn own) date) unknown) Result panel 1038 (unknown) (no date) (unknown) (unknown) 0 /ul (unkn own) (unknown) (no date) (unknown) (unknown) 0 /ul (unkn own) (unknown) (no date) (unknown) (unknown) 0.3 % (unkn own) (unknown) (no date) (unknown) (unknown) 0.3 % (unkn own) (unknown) (no date) (unknown) (unknown) 11.1 % (unkn own) (unknown) (no date) (unknown) (unknown) 1100 /ul (unkn own) (unknown) (no date) (unknown) (unknown) 12.1 x10 3/ul (unkn own) (unknown) (no date) (unknown) (unknown) 13.3 % (unkn own) (unknown) (no date) (unknown) (unknown) 1300 /ul (unkn own) (unknown) (no date) (unknown) (unknown) 15.3 g/dl (unkn own) (unknown) (no date) (unknown) (unknown) 223 x10 3/ul (unkn own) (unknown) (no date) (unknown) (unknown) 30.7 pg (unkn own) (unknown) (no date) (unknown) (unknown) 33.6 % (unkn own) (unknown) (no date) (unknown) (unknown) 4.99 x10 6/ul (unkn own) (unknown) (no date) (unknown) (unknown) 45.6 % (unkn own) (unknown) (no date) (unknown) (unknown) 79.4 % (unkn own) (unknown) (no date) (unknown) (unknown) 8.9 % (unkn own) (unknown) (no date) (unknown) (unknown) 91.2 fl (unkn own) (unknown) (no date) (unknown) (unknown) 9600 /ul (unkn own) Result panel 1039 (unknown) (no date) (unknown) (unknown) > 60 ml/min (unkn own) (unknown) (no date) (unknown) (unknown) > 60 ml/min (unkn own) (unknown) (no date) (unknown) (unknown) 0.8 mg/dl (unkn own) (unknown) (no date) (unknown) (unknown) 1.16 mg/dl (unkn own) (unknown) (no date) (unknown) (unknown) 1.9 mg/dl (unkn own) (unknown) (no date) (unknown) (unknown) 104 mmol/l (unkn own) (unknown) (no date) (unknown) (unknown) 114 iu/l (unkn own) (unknown) (no date) (unknown) (unknown) 13.8 (units unknown) (unknown) (unknown) (no date) (unknown) (unknown) 140 mmol/l (unkn own) (unknown) (no date) (unknown) (unknown) 16 mg/dl (unkn own) (unknown) (no date) (unknown) (unknown) 2.0 mg/dl (unkn own) (unknown) (no date) (unknown) (unknown) 2.0 mmol/l (unkn own) (unknown) (no date) (unknown) (unknown) 21 mmol/l (unkn own) (unknown) (no date) (unknown) (unknown) 3.6 mmol/l (unkn own) (unknown) (no date) (unknown) (unknown) 54 iu/l (unkn own) (unknown) (no date) (unknown) (unknown) 8.1 g/dl (unkn own) (unknown) (no date) (unknown) (unknown) 85 u/l (unkn own) (unknown) (no date) (unknown) (unknown) 9.0 mg/dl (unkn own) (unknown) (no date) (unknown) (unknown) 95 mg/dl (unkn own) (unknown) (no date) (unknown) (unknown) 95 mg/dl (unkn own) Result panel 1040 (unknown) (no (unknown) (unknown) (no value) (units (unk nown) date) unknown) (unknown) (no (unknown) (unknown) 06/01/22 06/01/22 (units (unknown) date) 06/01/22 unknown) Range/Units (unknown) (no (unknown) (unknown) 06/01/22 11:20 (units (unknown) date) unknown) (unknown) (no (unknown) (unknown) 06/01/22 13:10 (units (unknown) date) unknown) (unknown) (no (unknown) (unknown) 06/01/22 (units (unkno wn) date) unknown) (unknown) (no (unknown) (unknown) 1. Left proximal (units (unknown) date) ureteral calculus unknown) associated with mild left hydronephrosis. (unknown) (no (unknown) (unknown) 11:13 (units (unkno wn) date) unknown) (unknown) (no (unknown) (unknown) 11:20 11:20 11:20 (units (unknown) date) unknown) (unknown) (no (unknown) (unknown) 1422 patient is (units (unknown) date) still sitting in unknown) the waiting room, I was reviewing his lab work (unknown) (no (unknown) (unknown) 16:52. (units (unkno wn) date) unknown) (unknown) (no (unknown) (unknown) 2. Multiple (units (un known) date) nonobstructing unknown) left renal calculi. (unknown) (no (unknown) (unknown) 3. Right adrenal (units (unknown) date) adenomyelolipoma. unknown) (unknown) (no (unknown) (unknown) 4. Normal (units (unkn own) date) appendix. unknown) (unknown) (no (unknown) (unknown) 40 mg PO DAILY (units (unknown) date) Qty: 60 0RF unknown) (unknown) (no (unknown) (unknown) 5. Hepatic (units (unk nown) date) steatosis. unknown) (unknown) (no (unknown) (unknown) 7218 (units (unkno wn) date) unknown) (unknown) (no (unknown) (unknown) ? (units (unkno wn) date) unknown) (unknown) (no (unknown) (unknown) ?automated (units (unk n) date) exposure control, unknown) adjustment of mA and/or kV according to patient (unknown) (no (unknown) (unknown) ABDOMEN: (units (unkno wn) date) unknown) (unknown) (no (unknown) (unknown) ALT 114 H (<50) (units (unknown) date) IU/L unknown) (unknown) (no (unknown) (unknown) AST 54 (17-59) (units (unknown) date) IU/L unknown) (unknown) (no (unknown) (unknown) Abdominal Nodes:? (units (unknown) date) No enlarged unknown) retroperitoneal or mesenteric lymph nodes.? (unknown) (no (unknown) (unknown) Adrenal Glands:? (units (unknown) date) No change in soft unknown) tissue density and fat density containing (unknown) (no (unknown) (unknown) Age/Sex: 36 / M (units (unknown) date) unknown) (unknown) (no (unknown) (unknown) Alkaline (units (unkno wn) date) Phosphatase 85 unknown) (38-126) U/L (unknown) (no (unknown) (unknown) Allergies (units (unkn own) date) unknown) (unknown) (no (unknown) (unknown) Allergy/AdvReac (units (unknown) date) Type Severity unknown) Reaction Status Date / Time (unknown) (no (unknown) (unknown) Approved by: (units (u nknown) date) Verónica Holcomb M.D. unknown) on 06/01/2022 at 13:55 ? (unknown) (no (unknown) (unknown) Asthma (units (unkno wn) date) unknown) (unknown) (no (unknown) (unknown) Axial sections (units (unknown) date) were acquired from unknown) the lung bases to the pubic symphysis.? (unknown) (no (unknown) (unknown) BUN 16 (9-20) (units ( unknown) date) mg/dL unknown) (unknown) (no (unknown) (unknown) BUN/Creatinine (units (unknown) date) Ratio 13.8 (6-22) unknown) (unknown) (no (unknown) (unknown) Baso # (Auto) 0 (units (unknown) date) (0-100) /uL unknown) (unknown) (no (unknown) (unknown) Baso % (Auto) 0.3 (units (unknown) date) (0-2) % unknown) (unknown) (no (unknown) (unknown) Bedside Urine (units ( unknown) date) Bilirubin - unknown) Negative (unknown) (no (unknown) (unknown) Bedside Urine (units ( unknown) date) Glucose Negative unknown) (unknown) (no (unknown) (unknown) Bedside Urine (units ( unknown) date) Ketone - Negative unknown) (unknown) (no (unknown) (unknown) Bedside Urine (units ( unknown) date) Leukocytes - unknown) Negative (unknown) (no (unknown) (unknown) Bedside Urine (units ( unknown) date) Nitrite - Negative unknown) (unknown) (no (unknown) (unknown) Bedside Urine (units ( unknown) date) Occult Blood - unknown) Negative (unknown) (no (unknown) (unknown) Bedside Urine (units ( unknown) date) Protein - Negative unknown) (unknown) (no (unknown) (unknown) Bedside Urine (units ( unknown) date) Urobilinogen - unknown) Negative (unknown) (no (unknown) (unknown) Bedside Urine pH (units (unknown) date) 6.5 unknown) (unknown) (no (unknown) (unknown) Biliary ducts:? (units (unknown) date) Unremarkable.? ? unknown) (unknown) (no (unknown) (unknown) Bladder:? Normal (units (unknown) date) wall thickness. No unknown) stones. ? ? (unknown) (no (unknown) (unknown) Blood Pressure (units (unknown) date) 133/92 H 06/01/22 unknown) 11:13 (unknown) (no (unknown) (unknown) Blood Pressure (units (unknown) date) 133/92 H unknown) (unknown) (no (unknown) (unknown) Bones:? (units (unkno wn) date) Unremarkable. unknown) (unknown) (no (unknown) (unknown) C-Reactive (units (unk nown) date) Protein 2.0 H unknown) (<1.0) mg/dL (unknown) (no (unknown) (unknown) CBC Auto Diff (units ( unknown) date) [Complete Blood unknown) Count AUTO DIFF] Stat (unknown) (no (unknown) (unknown) CMP (units (unkno wn) date) [Comprehensive unknown) Metabolic Panel] Stat (unknown) (no (unknown) (unknown) COMPARISON:? (units (u nknown) date) [facility], unknown) CT, CT KIDNEY URETER BLADDER (KUB), 05/17/2022, (unknown) (no (unknown) (unknown) CRP [C-Reactive (units (unknown) date) Protein Quant] unknown) Stat (unknown) (no (unknown) (unknown) CT kidney ureter (units (unknown) date) bladder (KUB) Stat unknown) (unknown) (no (unknown) (unknown) CT scan - (units (unkn own) date) abdomen/pelvis: unknown) (unknown) (no (unknown) (unknown) Calcium 9.0 (units (un known) date) (8.4-10.2) mg/dL unknown) (unknown) (no (unknown) (unknown) Carbon Dioxide 21 (units (unknown) date) L (22-32) mmol/L unknown) (unknown) (no (unknown) (unknown) Chief complaint: (units (unknown) date) Urogenital-Male unknown) (unknown) (no (unknown) (unknown) Chloride 104 (units (u nknown) date) (98-107) mmol/L unknown) (unknown) (no (unknown) (unknown) Clinical Decision (units (unknown) date) Rules/Scores unknown) evaluated: (unknown) (no (unknown) (unknown) Coronal and (units (un known) date) unknown) (unknown) (no (unknown) (unknown) Course of (units (unkn own) date) care/re-evaluation unknown) s: (unknown) (no (unknown) (unknown) Course (units (unkno wn) date) unknown) (unknown) (no (unknown) (unknown) Creatinine 1.16 (units (unknown) date) (0.66-1.25) mg/dL unknown) (unknown) (no (unknown) (unknown) : 1985 (units (unknown) date) Acct:[id number] unknown) (unknown) (no (unknown) (unknown) Date of Service: (units (unknown) date) 06/01/22 unknown) (unknown) (no (unknown) (unknown) Departure (units (unkn own) date) unknown) (unknown) (no (unknown) (unknown) Depression (units (unk nown) date) unknown) (unknown) (no (unknown) (unknown) Dictated by: (units (u nknown) date) Verónica Holcomb M.D. unknown) on 06/01/2022 at 13:53 ? ? (unknown) (no (unknown) (unknown) Differential (units (u nknown) date) diagnoses include, unknown) but are not limited to: . (unknown) (no (unknown) (unknown) Discharge Plan (units (unknown) date) unknown) (unknown) (no (unknown) (unknown) Discontinued (units (u nknown) date) Medications unknown) (unknown) (no (unknown) (unknown) Discussion: (units (un known) date) unknown) (unknown) (no (unknown) (unknown) ED Orders (units (unkn own) date) unknown) (unknown) (no (unknown) (unknown) ER Physician: (units ( unknown) date) AprilwNi unknown) [employer] (unknown) (no (unknown) (unknown) Emergency Report (units (unknown) date) unknown) (unknown) (no (unknown) (unknown) Eos # (Auto) 0 (units (unknown) date) (0-450) /uL unknown) (unknown) (no (unknown) (unknown) Eos % (Auto) 0.3 (units (unknown) date) L (2-4) % unknown) (unknown) (no (unknown) (unknown) Esterase (units (unkno wn) date) unknown) (unknown) (no (unknown) (unknown) Estimated GFR > (units (unknown) date) 60 (>60) mL/min unknown) (unknown) (no (unknown) (unknown) Exam (units (unkno wn) date) unknown) (unknown) (no (unknown) (unknown) FINDINGS:? (units (unk nown) date) unknown) (unknown) (no (unknown) (unknown) Family History (units (unknown) date) (Reviewed 05/30/22 unknown) @ 09:07 by Marshal Wahl MD) (unknown) (no (unknown) (unknown) Father Diabetes (units (unknown) date) mellitus unknown) (unknown) (no (unknown) (unknown) Gallbladder:? (units ( unknown) date) Unremarkable.? ? unknown) (unknown) (no (unknown) (unknown) General (units (unkno wn) date) unknown) (unknown) (no (unknown) (unknown) Glucose 95 (units (unk nown) date) (70-100) mg/dL unknown) (unknown) (no (unknown) (unknown) H/O vasectomy (units ( unknown) date) unknown) (unknown) (no (unknown) (unknown) HPI - Male (units (unk nown) date) Genitourinary unknown) (unknown) (no (unknown) (unknown) Hct 45.6 (41-53) (units (unknown) date) % unknown) (unknown) (no (unknown) (unknown) Healthy adult (units ( unknown) date) unknown) (unknown) (no (unknown) (unknown) Heart:? No (units (unk nown) date) significant unknown) findings. (unknown) (no (unknown) (unknown) Hgb 15.3 (units (unkno wn) date) (13.5-17.5) g/dL unknown) (unknown) (no (unknown) (unknown) History of back (units (unknown) date) surgery unknown) (unknown) (no (unknown) (unknown) History of kidney (units (unknown) date) stones unknown) (unknown) (no (unknown) (unknown) Hx of migraines (units (unknown) date) unknown) (unknown) (no (unknown) (unknown) Hydromorphone HCl (units (unknown) date) (Hydromorphone 1 unknown) Mg Inj) 1 mg IV NOW ONE (unknown) (no (unknown) (unknown) Hyperlipidemia (units (unknown) date) unknown) (unknown) (no (unknown) (unknown) Hypertension (units (u nknown) date) unknown) (unknown) (no (unknown) (unknown) I collaborated (units (unknown) date) with the ED unknown) attending physician for FRITZ level 2, 3, and some (unknown) (no (unknown) (unknown) I have reviewed (units (unknown) date) the patient's unknown) vital signs and nursing notes as well as prior (unknown) (no (unknown) (unknown) IMPRESSION:? (units (u nknown) date) unknown) (unknown) (no (unknown) (unknown) INDICATIONS:? (units ( unknown) date) left flank pain unknown) (unknown) (no (unknown) (unknown) Image quality:? (units (unknown) date) Excellent.? unknown) (unknown) (no (unknown) (unknown) Imaging Data (units (u nknown) date) unknown) (unknown) (no (unknown) (unknown) Independent (units (un known) date) discussions with: unknown) (unknown) (no (unknown) (unknown) Initial Vital (units ( unknown) date) Signs unknown) (unknown) (no (unknown) (unknown) Initial Vital (units ( unknown) date) Signs: unknown) (unknown) (no (unknown) (unknown) [facility] (units (unknown) date) [address] unknown) [place] [address] (unknown) (no (unknown) (unknown) Ketorolac (units (unkn own) date) Tromethamine unknown) (Ketorolac 30 Mg/Ml Vial) 30 mg IV NOW ONE (unknown) (no (unknown) (unknown) Kidney stones (units ( unknown) date) unknown) (unknown) (no (unknown) (unknown) Lab Data (units (unkno wn) date) unknown) (unknown) (no (unknown) (unknown) Lab Results (units (un known) date) unknown) (unknown) (no (unknown) (unknown) Lab test results (units (unknown) date) independently unknown) reviewed, pertinent findings: (unknown) (no (unknown) (unknown) Labs: (units (unkno wn) date) unknown) (unknown) (no (unknown) (unknown) Lactate (Lactic (units (unknown) date) Acid) Stat unknown) (unknown) (no (unknown) (unknown) Lactate 2.0 (units (un known) date) (0.7-2.1) mmol/L unknown) (unknown) (no (unknown) (unknown) Left renal stone (units (unknown) date) unknown) (unknown) (no (unknown) (unknown) Liver:? Liver (units ( unknown) date) demonstrates unknown) diffusely decreased density. (unknown) (no (unknown) (unknown) Lung bases:? (units (u nknown) date) Unremarkable.? ? unknown) (unknown) (no (unknown) (unknown) Lymph # (Auto) (units (unknown) date) 1300 (8001-7357) unknown) /uL (unknown) (no (unknown) (unknown) Lymph % (Auto) (units (unknown) date) 11.1 L (25-40) % unknown) (unknown) (no (unknown) (unknown) MCH 30.7 (26-34) (units (unknown) date) PG unknown) (unknown) (no (unknown) (unknown) MCHC 33.6 (30-36) (units (unknown) date) % unknown) (unknown) (no (unknown) (unknown) MCV 91.2 (80-100) (units (unknown) date) fL unknown) (unknown) (no (unknown) (unknown) MDM - Male (units (unk nown) date) Genitourinary unknown) (unknown) (no (unknown) (unknown) MDM Narrative (units ( unknown) date) unknown) (unknown) (no (unknown) (unknown) MIPS: This (units (unk nown) date) encounter doesn't unknown) have any diagnosis associated with MIPS criteria. (unknown) (no (unknown) (unknown) Magnesium 1.9 (units ( unknown) date) (1.6-2.3) mg/dL unknown) (unknown) (no (unknown) (unknown) Magnesium Stat (units (unknown) date) unknown) (unknown) (no (unknown) (unknown) Medical History (units (unknown) date) (Updated 06/01/22 unknown) @ 00:00 by ) (unknown) (no (unknown) (unknown) Medical decision (units (unknown) date) making narrative: unknown) (unknown) (no (unknown) (unknown) Medication (units (unk n) date) Instructions unknown) Recorded (unknown) (no (unknown) (unknown) Miscellaneous: No (units (unknown) date) inguinal hernias unknown) are seen. ? ? 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 (unknown) (no (unknown) (unknown) Neut # (Auto) (units ( unknown) date) 9600 H (6641-6028) unknown) /uL (unknown) (no (unknown) (unknown) Neut % (Auto) (units ( unknown) date) 79.4 H (50-75) % unknown) (unknown) (no (unknown) (unknown) No Action (units (unkn own) date) unknown) (unknown) (no (unknown) (unknown) Normal (units (unkno wn) date) unknown) (unknown) (no (unknown) (unknown) Ondansetron HCl (units (unknown) date) (Ondansetron 4 unknown) Mg/2 Ml Inj) 4 mg IV NOW PRN (unknown) (no (unknown) (unknown) Ordered: (units (unkno wn) date) unknown) (unknown) (no (unknown) (unknown) Orders (units (unkno wn) date) unknown) (unknown) (no (unknown) (unknown) Oxygen Delivery (units (unknown) date) Method 06/01/22 unknown) 11:13 (unknown) (no (unknown) (unknown) Oxygen Delivery (units (unknown) date) Method Room Air unknown) (unknown) (no (unknown) (unknown) PELVIS: (units (unkno wn) date) unknown) (unknown) (no (unknown) (unknown) PRN Reason: (units (un known) date) Nausea And unknown) Vomiting (unknown) (no (unknown) (unknown) PROCEDURE:? CT (units (unknown) date) KIDNEY URETER unknown) BLADDER (KUB) (unknown) (no (unknown) (unknown) Pancreas:? (units (unk nown) date) Unremarkable.? ? unknown) (unknown) (no (unknown) (unknown) Patient History (units (unknown) date) unknown) (unknown) (no (unknown) (unknown) Patient is (units (unk n) date) appropriate for unknown) outpatient management. (unknown) (no (unknown) (unknown) Patient's (units (unkn own) date) symptoms improved unknown) over duration of stay with above-stated therapies. (unknown) (no (unknown) (unknown) Patient: (units (unkno wn) date) Jaquan Rodríguez MR#: unknown) [id number] (unknown) (no (unknown) (unknown) Pelvic Nodes: (units ( unknown) date) Unremarkable. unknown) (unknown) (no (unknown) (unknown) Pelvic Organs:? (units (unknown) date) Unremarkable.? ? unknown) (unknown) (no (unknown) (unknown) Peritoneum:? No (units (unknown) date) abnormal unknown) intraperitoneal fluid.? No free air.? (unknown) (no (unknown) (unknown) Plt Count 223 (units ( unknown) date) (150-400) X103/uL unknown) (unknown) (no (unknown) (unknown) Potassium 3.6 (units ( unknown) date) (3.4-5.1) mmol/L unknown) (unknown) (no (unknown) (unknown) Prescriptions: (units (unknown) date) unknown) (unknown) (no (unknown) (unknown) Previous Rx's (units ( unknown) date) unknown) (unknown) (no (unknown) (unknown) Pulse Oximetry 98 (units (unknown) date) 06/01/22 11:13 unknown) (unknown) (no (unknown) (unknown) Pulse Oximetry 98 (units (unknown) date) unknown) (unknown) (no (unknown) (unknown) Pulse Rate 110 H (units (unknown) date) 06/01/22 11:13 unknown) (unknown) (no (unknown) (unknown) Pulse Rate 110 H (units (unknown) date) unknown) (unknown) (no (unknown) (unknown) Questions are (units ( unknown) date) addressed and unknown) there is agreement with the plan and for follow-up. (unknown) (no (unknown) (unknown) RBC 4.99 (units (unkno wn) date) (4.5-5.9) X106/uL unknown) (unknown) (no (unknown) (unknown) RDW 13.3 (units (unkno wn) date) (11.6-14.8) % unknown) (unknown) (no (unknown) (unknown) Radiologist's (units ( unknown) date) Impression: unknown) (unknown) (no (unknown) (unknown) Referrals: (units (unk nown) date) unknown) (unknown) (no (unknown) (unknown) Related Data (units (u nknown) date) unknown) (unknown) (no (unknown) (unknown) Respiratory Rate (units (unknown) date) 15 06/01/22 11:13 unknown) (unknown) (no (unknown) (unknown) Respiratory Rate (units (unknown) date) 15 unknown) (unknown) (no (unknown) (unknown) Result diagrams: (units (unknown) date) unknown) (unknown) (no (unknown) (unknown) Shared decision (units (unknown) date) making: unknown) (unknown) (no (unknown) (unknown) Signed By: (units (unk nown) date) unknown) (unknown) (no (unknown) (unknown) Sister Kidney (units ( unknown) date) stones unknown) (unknown) (no (unknown) (unknown) Smoking Status: (units (unknown) date) Never smoker unknown) (unknown) (no (unknown) (unknown) Social History (units (unknown) date) (Reviewed 05/30/22 unknown) @ 09:07 by Marshal Wahl MD) (unknown) (no (unknown) (unknown) Social (units (unkno wn) date) considerations unknown) that may affect disposition: (unknown) (no (unknown) (unknown) Sodium 140 (units (unk nown) date) (137-145) mmol/L unknown) (unknown) (no (unknown) (unknown) Sodium Chloride (units (unknown) date) (Normal Saline unknown) 0.9%) 1,000 mls @ 1,000 mls/hr IV BOLUS ONE (unknown) (no (unknown) (unknown) Source: patient (units (unknown) date) unknown) (unknown) (no (unknown) (unknown) Spleen:? (units (unkno wn) date) Unremarkable.? ? unknown) (unknown) (no (unknown) (unknown) Stated complaint: (units (unknown) date) per pt 'kidney unknown) stone lt side' (unknown) (no (unknown) (unknown) Stomach and (units (un known) date) Bowel:? Stomach, unknown) small bowel loops, and colon are unremarkable.? (unknown) (no (unknown) (unknown) Stop: 06/01/22 (units (unknown) date) 13:11 unknown) (unknown) (no (unknown) (unknown) Stop: 06/01/22 (units (unknown) date) 14:09 unknown) (unknown) (no (unknown) (unknown) Substance Use (units ( unknown) date) Type: does not use unknown) (unknown) (no (unknown) (unknown) Surgical History (units (unknown) date) (Reviewed 05/30/22 unknown) @ 09:07 by Marshal Wahl MD) (unknown) (no (unknown) (unknown) TECHNIQUE:? (units (un known) date) unknown) (unknown) (no (unknown) (unknown) Temperature 97.9 (units (unknown) date) F 06/01/22 11:13 unknown) (unknown) (no (unknown) (unknown) Temperature 97.9 (units (unknown) date) F unknown) (unknown) (no (unknown) (unknown) There is mild (units ( unknown) date) left and minimal unknown) right perinephric fat stranding.? No right (unknown) (no (unknown) (unknown) Time Seen by (units (u nknown) date) Provider: 06/01/22 unknown) 13:08 (unknown) (no (unknown) (unknown) Total Bilirubin (units (unknown) date) 0.8 (0.2-1.3) unknown) mg/dL (unknown) (no (unknown) (unknown) Total Protein 8.1 (units (unknown) date) (6.3-8.2) g/dL unknown) (unknown) (no (unknown) (unknown) UA Complete (units (un known) date) [Urinalysis and unknown) Microscopic] Stat (unknown) (no (unknown) (unknown) URINARY: (units (unkno wn) date) unknown) (unknown) (no (unknown) (unknown) Urine Dip (units (unkn own) date) unknown) (unknown) (no (unknown) (unknown) Urine Specific (units (unknown) date) [place] 1.010 unknown) (unknown) (no (unknown) (unknown) Ventral Wall: ? (units (unknown) date) No hernia.? unknown) (unknown) (no (unknown) (unknown) Vessels:? Aorta (units (unknown) date) and inferior vena unknown) cava are normal in size.? (unknown) (no (unknown) (unknown) Vital Signs - 8 (units (unknown) date) hr unknown) (unknown) (no (unknown) (unknown) Vital Signs (units (un known) date) unknown) (unknown) (no (unknown) (unknown) Vital signs: (units (u nknown) date) unknown) (unknown) (no (unknown) (unknown) WBC 12.1 H (units (unk nown) date) (4.5-11.0) X103/uL unknown) (unknown) (no (unknown) (unknown) Pinky Kahn, (units (unknown) date) PA-C [Primary Care unknown) Provider] (unknown) (no (unknown) (unknown) [Embedded Image (units (unknown) date) Not Available] unknown) (unknown) (no (unknown) (unknown) adrenal mass (units (u nknown) date) measuring 72 mm. unknown) (unknown) (no (unknown) (unknown) alcohol intake (units (unknown) date) frequency: 3 or unknown) more drinks per day (unknown) (no (unknown) (unknown) amoxicillin (units (un known) date) [AMOXICILLIN] unknown) Allergy Unknown Verified 06/01/22 11:13 (unknown) (no (unknown) (unknown) and CT that I (units ( unknown) date) order earlier. unknown) Patient's lab work is significant for leukocytosis (unknown) (no (unknown) (unknown) appendix. (units (unkn own) date) unknown) (unknown) (no (unknown) (unknown) inferior pole (units ( unknown) date) kidney.? There is unknown) mild left hydronephrosis.? There is a proximal (unknown) (no (unknown) (unknown) left (units (unkno wn) date) unknown) (unknown) (no (unknown) (unknown) level 4s as (units (un known) date) appropriate. unknown) (unknown) (no (unknown) (unknown) marital status: (units (unknown) date) unknown) (unknown) (no (unknown) (unknown) nephrolithiasis.? (units (unknown) date) There are several unknown) punctate nonobstructing calculi within the (unknown) (no (unknown) (unknown) number of (units (unkn own) date) children: 2 unknown) (unknown) (no (unknown) (unknown) of 12.1 and a (units ( unknown) date) left shift which unknown) is elevated since 05/17/2022, (unknown) (no (unknown) (unknown) omeprazole 20 mg (units (unknown) date) tablet,delayed 40 unknown) mg PO DAILY #60 tabs 05/17/22 (unknown) (no (unknown) (unknown) omeprazole 20 mg (units (unknown) date) tablet,delayed unknown) release (DR/EC) (unknown) (no (unknown) (unknown) past (units (unkno wn) date) unknown) (unknown) (no (unknown) (unknown) records if (units (unkn own) date) available And unknown) patient has not been here for similar complaints in the (unknown) (no (unknown) (unknown) release (units (unkno wn) date) unknown) (unknown) (no (unknown) (unknown) right (units (unkno wn) date) unknown) (unknown) (no (unknown) (unknown) sagittal (units (unkno wn) date) reformats were unknown) performed.? For radiation dose reduction, the following (unknown) (no (unknown) (unknown) size.? (units (unkno wn) date) unknown) (unknown) (no (unknown) (unknown) ureteral calculus (units (unknown) date) measuring 7 mm, unknown) and demonstrating [place]oun[place] units 754. (unknown) (no (unknown) (unknown) was used: (units (unkn own) date) unknown) Result panel 1041 (unknown) (no (unknown) (unknown) (no value) (units (unk nown) date) unknown) (unknown) (no (unknown) (unknown) 06/01/22 06/01/22 (units (unknown) date) 06/01/22 unknown) Range/Units (unknown) (no (unknown) (unknown) 06/01/22 11:20 (units (unknown) date) unknown) (unknown) (no (unknown) (unknown) 06/01/22 13:10 (units (unknown) date) unknown) (unknown) (no (unknown) (unknown) 06/01/22 (units (unkno wn) date) unknown) (unknown) (no (unknown) (unknown) 1. Left proximal (units (unknown) date) ureteral calculus unknown) associated with mild left hydronephrosis. (unknown) (no (unknown) (unknown) 11:13 (units (unkno wn) date) unknown) (unknown) (no (unknown) (unknown) 11:20 11:20 11:20 (units (unknown) date) unknown) (unknown) (no (unknown) (unknown) 1422 patient is (units (unknown) date) still sitting in unknown) the waiting room, I was reviewing his lab work (unknown) (no (unknown) (unknown) 16:52. (units (unkno wn) date) unknown) (unknown) (no (unknown) (unknown) 2. Multiple (units (un known) date) nonobstructing unknown) left renal calculi. (unknown) (no (unknown) (unknown) 3. Right adrenal (units (unknown) date) adenomyelolipoma. unknown) (unknown) (no (unknown) (unknown) 4. Normal (units (unkn own) date) appendix. unknown) (unknown) (no (unknown) (unknown) 40 mg PO DAILY (units (unknown) date) Qty: 60 0RF unknown) (unknown) (no (unknown) (unknown) 5. Hepatic (units (unk nown) date) steatosis. unknown) (unknown) (no (unknown) (unknown) 5498 (units (unkno wn) date) unknown) (unknown) (no (unknown) (unknown) ? (units (unkno wn) date) unknown) (unknown) (no (unknown) (unknown) ?automated (units (k n) date) exposure control, unknown) adjustment of mA and/or kV according to patient (unknown) (no (unknown) (unknown) ABDOMEN: (units (unkno wn) date) unknown) (unknown) (no (unknown) (unknown) ALT 114 H (<50) (units (unknown) date) IU/L unknown) (unknown) (no (unknown) (unknown) AST 54 (17-59) (units (unknown) date) IU/L unknown) (unknown) (no (unknown) (unknown) Abdominal Nodes:? (units (unknown) date) No enlarged unknown) retroperitoneal or mesenteric lymph nodes.? (unknown) (no (unknown) (unknown) Adrenal Glands:? (units (unknown) date) No change in soft unknown) tissue density and fat density containing (unknown) (no (unknown) (unknown) Age/Sex: 36 / M (units (unknown) date) unknown) (unknown) (no (unknown) (unknown) Alkaline (units (unkno wn) date) Phosphatase 85 unknown) (38-126) U/L (unknown) (no (unknown) (unknown) Allergies (units (unkn own) date) unknown) (unknown) (no (unknown) (unknown) Allergy/AdvReac (units (unknown) date) Type Severity unknown) Reaction Status Date / Time (unknown) (no (unknown) (unknown) Approved by: (units (u nknown) date) Verónica Holcomb M.D. unknown) on 06/01/2022 at 13:55 ? (unknown) (no (unknown) (unknown) Asthma (units (unkno wn) date) unknown) (unknown) (no (unknown) (unknown) Axial sections (units (unknown) date) were acquired from unknown) the lung bases to the pubic symphysis.? (unknown) (no (unknown) (unknown) BUN 16 (9-20) (units ( unknown) date) mg/dL unknown) (unknown) (no (unknown) (unknown) BUN/Creatinine (units (unknown) date) Ratio 13.8 (6-22) unknown) (unknown) (no (unknown) (unknown) Baso # (Auto) 0 (units (unknown) date) (0-100) /uL unknown) (unknown) (no (unknown) (unknown) Baso % (Auto) 0.3 (units (unknown) date) (0-2) % unknown) (unknown) (no (unknown) (unknown) Bedside Urine (units ( unknown) date) Bilirubin - unknown) Negative (unknown) (no (unknown) (unknown) Bedside Urine (units ( unknown) date) Glucose Negative unknown) (unknown) (no (unknown) (unknown) Bedside Urine (units ( unknown) date) Ketone - Negative unknown) (unknown) (no (unknown) (unknown) Bedside Urine (units ( unknown) date) Leukocytes - unknown) Negative (unknown) (no (unknown) (unknown) Bedside Urine (units ( unknown) date) Nitrite - Negative unknown) (unknown) (no (unknown) (unknown) Bedside Urine (units ( unknown) date) Occult Blood - unknown) Negative (unknown) (no (unknown) (unknown) Bedside Urine (units ( unknown) date) Protein - Negative unknown) (unknown) (no (unknown) (unknown) Bedside Urine (units ( unknown) date) Urobilinogen - unknown) Negative (unknown) (no (unknown) (unknown) Bedside Urine pH (units (unknown) date) 6.5 unknown) (unknown) (no (unknown) (unknown) Biliary ducts:? (units (unknown) date) Unremarkable.? ? unknown) (unknown) (no (unknown) (unknown) Bladder:? Normal (units (unknown) date) wall thickness. No unknown) stones. ? ? (unknown) (no (unknown) (unknown) Blood Pressure (units (unknown) date) 133/92 H 06/01/22 unknown) 11:13 (unknown) (no (unknown) (unknown) Blood Pressure (units (unknown) date) 133/92 H unknown) (unknown) (no (unknown) (unknown) Bones:? (units (unkno wn) date) Unremarkable. unknown) (unknown) (no (unknown) (unknown) C-Reactive (units (unk nown) date) Protein 2.0 H unknown) (<1.0) mg/dL (unknown) (no (unknown) (unknown) CBC Auto Diff (units ( unknown) date) [Complete Blood unknown) Count AUTO DIFF] Stat (unknown) (no (unknown) (unknown) CMP (units (unkno wn) date) [Comprehensive unknown) Metabolic Panel] Stat (unknown) (no (unknown) (unknown) COMPARISON:? (units (u nknown) date) [facility], unknown) CT, CT KIDNEY URETER BLADDER (KUB), 05/17/2022, (unknown) (no (unknown) (unknown) CRP [C-Reactive (units (unknown) date) Protein Quant] unknown) Stat (unknown) (no (unknown) (unknown) CT kidney ureter (units (unknown) date) bladder (KUB) Stat unknown) (unknown) (no (unknown) (unknown) CT scan - (units (unkn own) date) abdomen/pelvis: unknown) (unknown) (no (unknown) (unknown) Calcium 9.0 (units (un known) date) (8.4-10.2) mg/dL unknown) (unknown) (no (unknown) (unknown) Carbon Dioxide 21 (units (unknown) date) L (22-32) mmol/L unknown) (unknown) (no (unknown) (unknown) Chief complaint: (units (unknown) date) Urogenital-Male unknown) (unknown) (no (unknown) (unknown) Chloride 104 (units (u nknown) date) (98-107) mmol/L unknown) (unknown) (no (unknown) (unknown) Clinical Decision (units (unknown) date) Rules/Scores unknown) evaluated: (unknown) (no (unknown) (unknown) Coronal and (units (un known) date) unknown) (unknown) (no (unknown) (unknown) Course of (units (unkn own) date) care/re-evaluation unknown) s: (unknown) (no (unknown) (unknown) Course (units (unkno wn) date) unknown) (unknown) (no (unknown) (unknown) Creatinine 1.16 (units (unknown) date) (0.66-1.25) mg/dL unknown) (unknown) (no (unknown) (unknown) : 1985 (units (unknown) date) Acct:[id number] unknown) (unknown) (no (unknown) (unknown) Date of Service: (units (unknown) date) 06/01/22 unknown) (unknown) (no (unknown) (unknown) Departure (units (unkn own) date) unknown) (unknown) (no (unknown) (unknown) Depression (units (unk nown) date) unknown) (unknown) (no (unknown) (unknown) Dictated by: (units (u nknown) date) Verónica Holcomb M.D. unknown) on 06/01/2022 at 13:53 ? ? (unknown) (no (unknown) (unknown) Differential (units (u nknown) date) diagnoses include, unknown) but are not limited to: . (unknown) (no (unknown) (unknown) Discharge Plan (units (unknown) date) unknown) (unknown) (no (unknown) (unknown) Discontinued (units (u nknown) date) Medications unknown) (unknown) (no (unknown) (unknown) Discussion: (units (un known) date) unknown) (unknown) (no (unknown) (unknown) ED Orders (units (unkn own) date) unknown) (unknown) (no (unknown) (unknown) ER Physician: (units ( unknown) date) Ni Moran unknown) [employer] (unknown) (no (unknown) (unknown) Emergency Report (units (unknown) date) unknown) (unknown) (no (unknown) (unknown) Eos # (Auto) 0 (units (unknown) date) (0-450) /uL unknown) (unknown) (no (unknown) (unknown) Eos % (Auto) 0.3 (units (unknown) date) L (2-4) % unknown) (unknown) (no (unknown) (unknown) Esterase (units (unkno wn) date) unknown) (unknown) (no (unknown) (unknown) Estimated GFR > (units (unknown) date) 60 (>60) mL/min unknown) (unknown) (no (unknown) (unknown) Exam (units (unkno wn) date) unknown) (unknown) (no (unknown) (unknown) FINDINGS:? (units (unk nown) date) unknown) (unknown) (no (unknown) (unknown) Family History (units (unknown) date) (Reviewed 05/30/22 unknown) @ 09:07 by Marshal Wahl MD) (unknown) (no (unknown) (unknown) Father Diabetes (units (unknown) date) mellitus unknown) (unknown) (no (unknown) (unknown) Gallbladder:? (units ( unknown) date) Unremarkable.? ? unknown) (unknown) (no (unknown) (unknown) General (units (unkno wn) date) unknown) (unknown) (no (unknown) (unknown) Glucose 95 (units (unk n) date) (70-100) mg/dL unknown) (unknown) (no (unknown) (unknown) H/O vasectomy (units ( unknown) date) unknown) (unknown) (no (unknown) (unknown) HPI - Male (units (unk n) date) Genitourinary unknown) (unknown) (no (unknown) (unknown) Hct 45.6 (41-53) (units (unknown) date) % unknown) (unknown) (no (unknown) (unknown) Healthy adult (units ( unknown) date) unknown) (unknown) (no (unknown) (unknown) Heart:? No (units (unk n) date) significant unknown) findings. (unknown) (no (unknown) (unknown) Hgb 15.3 (units (unkno wn) date) (13.5-17.5) g/dL unknown) (unknown) (no (unknown) (unknown) History of back (units (unknown) date) surgery unknown) (unknown) (no (unknown) (unknown) History of kidney (units (unknown) date) stones unknown) (unknown) (no (unknown) (unknown) Hx of migraines (units (unknown) date) unknown) (unknown) (no (unknown) (unknown) Hydromorphone HCl (units (unknown) date) (Hydromorphone 1 unknown) Mg Inj) 1 mg IV NOW ONE (unknown) (no (unknown) (unknown) Hyperlipidemia (units (unknown) date) unknown) (unknown) (no (unknown) (unknown) Hypertension (units (u nknown) date) unknown) (unknown) (no (unknown) (unknown) I collaborated (units (unknown) date) with the ED unknown) attending physician for FRITZ level 2, 3, and some (unknown) (no (unknown) (unknown) I have reviewed (units (unknown) date) the patient's unknown) vital signs and nursing notes as well as prior (unknown) (no (unknown) (unknown) IMPRESSION:? (units (u nknown) date) unknown) (unknown) (no (unknown) (unknown) INDICATIONS:? (units ( unknown) date) left flank pain unknown) (unknown) (no (unknown) (unknown) Image quality:? (units (unknown) date) Excellent.? unknown) (unknown) (no (unknown) (unknown) Imaging Data (units (u nknown) date) unknown) (unknown) (no (unknown) (unknown) Independent (units (un known) date) discussions with: unknown) (unknown) (no (unknown) (unknown) Initial Vital (units ( unknown) date) Signs unknown) (unknown) (no (unknown) (unknown) Initial Vital (units ( unknown) date) Signs: unknown) (unknown) (no (unknown) (unknown) [facility] (units (unknown) date) [address] unknown) [place] [address] (unknown) (no (unknown) (unknown) Ketorolac (units (unkn own) date) Tromethamine unknown) (Ketorolac 30 Mg/Ml Vial) 30 mg IV NOW ONE (unknown) (no (unknown) (unknown) Kidney stones (units ( unknown) date) unknown) (unknown) (no (unknown) (unknown) Lab Data (units (unkno wn) date) unknown) (unknown) (no (unknown) (unknown) Lab Results (units (un known) date) unknown) (unknown) (no (unknown) (unknown) Lab test results (units (unknown) date) independently unknown) reviewed, pertinent findings: (unknown) (no (unknown) (unknown) Labs: (units (unkno wn) date) unknown) (unknown) (no (unknown) (unknown) Lactate (Lactic (units (unknown) date) Acid) Stat unknown) (unknown) (no (unknown) (unknown) Lactate 2.0 (units (un known) date) (0.7-2.1) mmol/L unknown) (unknown) (no (unknown) (unknown) Left renal stone (units (unknown) date) unknown) (unknown) (no (unknown) (unknown) Liver:? Liver (units ( unknown) date) demonstrates unknown) diffusely decreased density. (unknown) (no (unknown) (unknown) Lung bases:? (units (u nknown) date) Unremarkable.? ? unknown) (unknown) (no (unknown) (unknown) Lymph # (Auto) (units (unknown) date) 1300 (1566-7449) unknown) /uL (unknown) (no (unknown) (unknown) Lymph % (Auto) (units (unknown) date) 11.1 L (25-40) % unknown) (unknown) (no (unknown) (unknown) MCH 30.7 (26-34) (units (unknown) date) PG unknown) (unknown) (no (unknown) (unknown) MCHC 33.6 (30-36) (units (unknown) date) % unknown) (unknown) (no (unknown) (unknown) MCV 91.2 (80-100) (units (unknown) date) fL unknown) (unknown) (no (unknown) (unknown) MDM - Male (units (unk nown) date) Genitourinary unknown) (unknown) (no (unknown) (unknown) MDM Narrative (units ( unknown) date) unknown) (unknown) (no (unknown) (unknown) MIPS: This (units (unk nown) date) encounter doesn't unknown) have any diagnosis associated with MIPS criteria. (unknown) (no (unknown) (unknown) Magnesium 1.9 (units ( unknown) date) (1.6-2.3) mg/dL unknown) (unknown) (no (unknown) (unknown) Magnesium Stat (units (unknown) date) unknown) (unknown) (no (unknown) (unknown) Medical History (units (unknown) date) (Updated 06/01/22 unknown) @ 00:00 by ) (unknown) (no (unknown) (unknown) Medical decision (units (unknown) date) making narrative: unknown) (unknown) (no (unknown) (unknown) Medication (units (unk nown) date) Instructions unknown) Recorded (unknown) (no (unknown) (unknown) Miscellaneous: No (units (unknown) date) inguinal hernias unknown) are seen. ? ? 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 (unknown) (no (unknown) (unknown) Neut # (Auto) (units ( unknown) date) 9600 H (9537-3644) unknown) /uL (unknown) (no (unknown) (unknown) Neut % (Auto) (units ( unknown) date) 79.4 H (50-75) % unknown) (unknown) (no (unknown) (unknown) No Action (units (unkn own) date) unknown) (unknown) (no (unknown) (unknown) Normal (units (unkno wn) date) unknown) (unknown) (no (unknown) (unknown) Ondansetron HCl (units (unknown) date) (Ondansetron 4 unknown) Mg/2 Ml Inj) 4 mg IV NOW PRN (unknown) (no (unknown) (unknown) Ordered: (units (unkno wn) date) unknown) (unknown) (no (unknown) (unknown) Orders (units (unkno wn) date) unknown) (unknown) (no (unknown) (unknown) Oxygen Delivery (units (unknown) date) Method 06/01/22 unknown) 11:13 (unknown) (no (unknown) (unknown) Oxygen Delivery (units (unknown) date) Method Room Air unknown) (unknown) (no (unknown) (unknown) PELVIS: (units (unkno wn) date) unknown) (unknown) (no (unknown) (unknown) PRN Reason: (units (un known) date) Nausea And unknown) Vomiting (unknown) (no (unknown) (unknown) PROCEDURE:? CT (units (unknown) date) KIDNEY URETER unknown) BLADDER (KUB) (unknown) (no (unknown) (unknown) Pancreas:? (units (unk nown) date) Unremarkable.? ? unknown) (unknown) (no (unknown) (unknown) Patient History (units (unknown) date) unknown) (unknown) (no (unknown) (unknown) Patient is (units (unk nown) date) appropriate for unknown) outpatient management. (unknown) (no (unknown) (unknown) Patient's (units (unkn own) date) symptoms improved unknown) over duration of stay with above-stated therapies. (unknown) (no (unknown) (unknown) Patient: (units (unkno wn) date) Jaquan Rodríguez MR#: unknown) [id number] (unknown) (no (unknown) (unknown) Pelvic Nodes: (units ( unknown) date) Unremarkable. unknown) (unknown) (no (unknown) (unknown) Pelvic Organs:? (units (unknown) date) Unremarkable.? ? unknown) (unknown) (no (unknown) (unknown) Peritoneum:? No (units (unknown) date) abnormal unknown) intraperitoneal fluid.? No free air.? (unknown) (no (unknown) (unknown) Plt Count 223 (units ( unknown) date) (150-400) X103/uL unknown) (unknown) (no (unknown) (unknown) Potassium 3.6 (units ( unknown) date) (3.4-5.1) mmol/L unknown) (unknown) (no (unknown) (unknown) Prescriptions: (units (unknown) date) unknown) (unknown) (no (unknown) (unknown) Previous Rx's (units ( unknown) date) unknown) (unknown) (no (unknown) (unknown) Pulse Oximetry 98 (units (unknown) date) 06/01/22 11:13 unknown) (unknown) (no (unknown) (unknown) Pulse Oximetry 98 (units (unknown) date) unknown) (unknown) (no (unknown) (unknown) Pulse Rate 110 H (units (unknown) date) 06/01/22 11:13 unknown) (unknown) (no (unknown) (unknown) Pulse Rate 110 H (units (unknown) date) unknown) (unknown) (no (unknown) (unknown) Questions are (units ( unknown) date) addressed and unknown) there is agreement with the plan and for follow-up. (unknown) (no (unknown) (unknown) RBC 4.99 (units (unkno wn) date) (4.5-5.9) X106/uL unknown) (unknown) (no (unknown) (unknown) RDW 13.3 (units (unkno wn) date) (11.6-14.8) % unknown) (unknown) (no (unknown) (unknown) Radiologist's (units ( unknown) date) Impression: unknown) (unknown) (no (unknown) (unknown) Referrals: (units (unk nown) date) unknown) (unknown) (no (unknown) (unknown) Related Data (units (u nknown) date) unknown) (unknown) (no (unknown) (unknown) Respiratory Rate (units (unknown) date) 15 06/01/22 11:13 unknown) (unknown) (no (unknown) (unknown) Respiratory Rate (units (unknown) date) 15 unknown) (unknown) (no (unknown) (unknown) Result diagrams: (units (unknown) date) unknown) (unknown) (no (unknown) (unknown) Shared decision (units (unknown) date) making: unknown) (unknown) (no (unknown) (unknown) Signed By: (units (unk nown) date) unknown) (unknown) (no (unknown) (unknown) Sister Kidney (units ( unknown) date) stones unknown) (unknown) (no (unknown) (unknown) Smoking Status: (units (unknown) date) Never smoker unknown) (unknown) (no (unknown) (unknown) Social History (units (unknown) date) (Reviewed 05/30/22 unknown) @ 09:07 by Marshal Wahl MD) (unknown) (no (unknown) (unknown) Social (units (unkno wn) date) considerations unknown) that may affect disposition: (unknown) (no (unknown) (unknown) Sodium 140 (units (unk nown) date) (137-145) mmol/L unknown) (unknown) (no (unknown) (unknown) Sodium Chloride (units (unknown) date) (Normal Saline unknown) 0.9%) 1,000 mls @ 1,000 mls/hr IV BOLUS ONE (unknown) (no (unknown) (unknown) Source: patient (units (unknown) date) unknown) (unknown) (no (unknown) (unknown) Spleen:? (units (unkno wn) date) Unremarkable.? ? unknown) (unknown) (no (unknown) (unknown) Stated complaint: (units (unknown) date) per pt 'kidney unknown) stone lt side' (unknown) (no (unknown) (unknown) Stomach and (units (un known) date) Bowel:? Stomach, unknown) small bowel loops, and colon are unremarkable.? (unknown) (no (unknown) (unknown) Stop: 06/01/22 (units (unknown) date) 13:11 unknown) (unknown) (no (unknown) (unknown) Stop: 06/01/22 (units (unknown) date) 14:09 unknown) (unknown) (no (unknown) (unknown) Substance Use (units ( unknown) date) Type: does not use unknown) (unknown) (no (unknown) (unknown) Surgical History (units (unknown) date) (Reviewed 05/30/22 unknown) @ 09:07 by Marshal Wahl MD) (unknown) (no (unknown) (unknown) TECHNIQUE:? (units (un known) date) unknown) (unknown) (no (unknown) (unknown) Temperature 97.9 (units (unknown) date) F 06/01/22 11:13 unknown) (unknown) (no (unknown) (unknown) Temperature 97.9 (units (unknown) date) F unknown) (unknown) (no (unknown) (unknown) There is mild (units ( unknown) date) left and minimal unknown) right perinephric fat stranding.? No right (unknown) (no (unknown) (unknown) Time Seen by (units (u nknown) date) Provider: 06/01/22 unknown) 13:08 (unknown) (no (unknown) (unknown) Total Bilirubin (units (unknown) date) 0.8 (0.2-1.3) unknown) mg/dL (unknown) (no (unknown) (unknown) Total Protein 8.1 (units (unknown) date) (6.3-8.2) g/dL unknown) (unknown) (no (unknown) (unknown) UA Complete (units (un known) date) [Urinalysis and unknown) Microscopic] Stat (unknown) (no (unknown) (unknown) URINARY: (units (unkno wn) date) unknown) (unknown) (no (unknown) (unknown) Urine Dip (units (unkn own) date) unknown) (unknown) (no (unknown) (unknown) Urine Specific (units (unknown) date) [place] 1.010 unknown) (unknown) (no (unknown) (unknown) Ventral Wall: ? (units (unknown) date) No hernia.? unknown) (unknown) (no (unknown) (unknown) Vessels:? Aorta (units (unknown) date) and inferior vena unknown) cava are normal in size.? (unknown) (no (unknown) (unknown) Vital Signs - 8 (units (unknown) date) hr unknown) (unknown) (no (unknown) (unknown) Vital Signs (units (un known) date) unknown) (unknown) (no (unknown) (unknown) Vital signs: (units (u nknown) date) unknown) (unknown) (no (unknown) (unknown) WBC 12.1 H (units (unk nown) date) (4.5-11.0) X103/uL unknown) (unknown) (no (unknown) (unknown) Pinky Kahn, (units (unknown) date) PA-C [Primary Care unknown) Provider] (unknown) (no (unknown) (unknown) [Embedded Image (units (unknown) date) Not Available] unknown) (unknown) (no (unknown) (unknown) adrenal mass (units (u nknown) date) measuring 72 mm. unknown) (unknown) (no (unknown) (unknown) alcohol intake (units (unknown) date) frequency: 3 or unknown) more drinks per day (unknown) (no (unknown) (unknown) amoxicillin (units (un known) date) [AMOXICILLIN] unknown) Allergy Unknown Verified 06/01/22 11:13 (unknown) (no (unknown) (unknown) and CT that I (units ( unknown) date) order earlier. unknown) Patient's lab work is significant for leukocytosis (unknown) (no (unknown) (unknown) appendix. (units (unkn own) date) unknown) (unknown) (no (unknown) (unknown) inferior pole (units ( unknown) date) kidney.? There is unknown) mild left hydronephrosis.? There is a proximal (unknown) (no (unknown) (unknown) left (units (unkno wn) date) unknown) (unknown) (no (unknown) (unknown) level 4s as (units (un known) date) appropriate. unknown) (unknown) (no (unknown) (unknown) marital status: (units (unknown) date) unknown) (unknown) (no (unknown) (unknown) nephrolithiasis.? (units (unknown) date) There are several unknown) punctate nonobstructing calculi within the (unknown) (no (unknown) (unknown) number of (units (unkn own) date) children: 2 unknown) (unknown) (no (unknown) (unknown) of 12.1 and a (units ( unknown) date) left shift which unknown) is elevated since 05/17/2022, (unknown) (no (unknown) (unknown) omeprazole 20 mg (units (unknown) date) tablet,delayed 40 unknown) mg PO DAILY #60 tabs 05/17/22 (unknown) (no (unknown) (unknown) omeprazole 20 mg (units (unknown) date) tablet,delayed unknown) release (DR/EC) (unknown) (no (unknown) (unknown) past (units (unkno wn) date) unknown) (unknown) (no (unknown) (unknown) records if (units (unkn own) date) available And unknown) patient has not been here for similar complaints in the (unknown) (no (unknown) (unknown) release (units (unkno wn) date) unknown) (unknown) (no (unknown) (unknown) right (units (unkno wn) date) unknown) (unknown) (no (unknown) (unknown) sagittal (units (unkno wn) date) reformats were unknown) performed.? For radiation dose reduction, the following (unknown) (no (unknown) (unknown) size.? (units (unkno wn) date) unknown) (unknown) (no (unknown) (unknown) ureteral calculus (units (unknown) date) measuring 7 mm, unknown) and demonstrating Hounsfield units 754. (unknown) (no (unknown) (unknown) was used: (units (unkn own) date) unknown) Result panel [id number] (unknown) (no (unknown) (unknown) (no value) (units (unk nown) date) unknown) (unknown) (no (unknown) (unknown) *If you do not (units (unknown) date) have a primary unknown) care provider please contact [phone] to (unknown) (no (unknown) (unknown) *Please continue (units (unknown) date) to take your unknown) regular medications as directed. (unknown) (no (unknown) (unknown) *Please follow up (units (unknown) date) with your primary unknown) care provider in 2-3 days, call for an (unknown) (no (unknown) (unknown) *Return to (units (unk nown) date) Emergency unknown) Department if you should have any new, worsening, or (unknown) (no (unknown) (unknown) *What to do: (units (u nknown) date) unknown) (unknown) (no (unknown) (unknown) *You have been (units (unknown) date) diagnosed with a unknown) kidney stone in your left proximal ureter. This (unknown) (no (unknown) (unknown) 0.4 mg PO BEDTIME (units (unknown) date) Qty: 14 0RF unknown) (unknown) (no (unknown) (unknown) 06/01/22 06/01/22 (units (unknown) date) 06/01/22 unknown) Range/Units (unknown) (no (unknown) (unknown) 06/01/22 11:20 (units (unknown) date) unknown) (unknown) (no (unknown) (unknown) 06/01/22 13:10 (units (unknown) date) unknown) (unknown) (no (unknown) (unknown) 06/01/22 (units (unkno wn) date) unknown) (unknown) (no (unknown) (unknown) 1 tab PO Q8H PRN (units (unknown) date) (Reason: pain) unknown) Qty: 14 0RF (unknown) (no (unknown) (unknown) 1. Left proximal (units (unknown) date) ureteral calculus unknown) associated with mild left hydronephrosis. (unknown) (no (unknown) (unknown) 10 mg PO TID PRN (units (unknown) date) (Reason: pain) 5 unknown) Days Qty: 14 0RF (unknown) (no (unknown) (unknown) 11:13 (units (unkno wn) date) unknown) (unknown) (no (unknown) (unknown) 11:20 11:20 11:20 (units (unknown) date) unknown) (unknown) (no (unknown) (unknown) 1422 patient is (units (unknown) date) still sitting in unknown) the waiting room, I was reviewing his lab work (unknown) (no (unknown) (unknown) 16:52. (units (unkno wn) date) unknown) (unknown) (no (unknown) (unknown) 2. Multiple (units (un known) date) nonobstructing unknown) left renal calculi. (unknown) (no (unknown) (unknown) 3. Right adrenal (units (unknown) date) adenomyelolipoma. unknown) (unknown) (no (unknown) (unknown) 4 mg PO Q8H PRN (units (unknown) date) (Reason: nausea unknown) and vomiting) Qty: 10 0RF (unknown) (no (unknown) (unknown) 4. Normal (units (unkn own) date) appendix. unknown) (unknown) (no (unknown) (unknown) 40 mg PO DAILY (units (unknown) date) Qty: 60 0RF unknown) (unknown) (no (unknown) (unknown) 5. Hepatic (units (unk nown) date) steatosis. unknown) (unknown) (no (unknown) (unknown) 3108 (units (unkno wn) date) unknown) (unknown) (no (unknown) (unknown) ? (units (unkno wn) date) unknown) (unknown) (no (unknown) (unknown) ?automated (units (unk nown) date) exposure control, unknown) adjustment of mA and/or kV according to patient (unknown) (no (unknown) (unknown) ABDOMEN: (units (unkno wn) date) unknown) (unknown) (no (unknown) (unknown) ALT 114 H (<50) (units (unknown) date) IU/L unknown) (unknown) (no (unknown) (unknown) AST 54 (17-59) (units (unknown) date) IU/L unknown) (unknown) (no (unknown) (unknown) Abdominal Nodes:? (units (unknown) date) No enlarged unknown) retroperitoneal or mesenteric lymph nodes.? (unknown) (no (unknown) (unknown) Activity (units (unkno wn) date) Restrictions/Addit unknown) ional Instructions: (unknown) (no (unknown) (unknown) Adrenal Glands:? (units (unknown) date) No change in soft unknown) tissue density and fat density containing (unknown) (no (unknown) (unknown) Age/Sex: 36 / M (units (unknown) date) unknown) (unknown) (no (unknown) (unknown) Alkaline (units (unkno wn) date) Phosphatase 85 unknown) (38-126) U/L (unknown) (no (unknown) (unknown) Allergies (units (unkn own) date) unknown) (unknown) (no (unknown) (unknown) Allergy/AdvReac (units (unknown) date) Type Severity unknown) Reaction Status Date / Time (unknown) (no (unknown) (unknown) Approved by: (units (u nknown) date) Verónica Holcomb M.D. unknown) on 06/01/2022 at 13:55 ? (unknown) (no (unknown) (unknown) Asthma (units (unkno wn) date) unknown) (unknown) (no (unknown) (unknown) Axial sections (units (unknown) date) were acquired from unknown) the lung bases to the pubic symphysis.? (unknown) (no (unknown) (unknown) BUN 16 (9-20) (units ( unknown) date) mg/dL unknown) (unknown) (no (unknown) (unknown) BUN/Creatinine (units (unknown) date) Ratio 13.8 (6-22) unknown) (unknown) (no (unknown) (unknown) Baso # (Auto) 0 (units (unknown) date) (0-100) /uL unknown) (unknown) (no (unknown) (unknown) Baso % (Auto) 0.3 (units (unknown) date) (0-2) % unknown) (unknown) (no (unknown) (unknown) Bedside Urine (units ( unknown) date) Bilirubin - unknown) Negative (unknown) (no (unknown) (unknown) Bedside Urine (units ( unknown) date) Glucose Negative unknown) (unknown) (no (unknown) (unknown) Bedside Urine (units ( unknown) date) Ketone - Negative unknown) (unknown) (no (unknown) (unknown) Bedside Urine (units ( unknown) date) Leukocytes - unknown) Negative (unknown) (no (unknown) (unknown) Bedside Urine (units ( unknown) date) Nitrite - Negative unknown) (unknown) (no (unknown) (unknown) Bedside Urine (units ( unknown) date) Occult Blood - unknown) Negative (unknown) (no (unknown) (unknown) Bedside Urine (units ( unknown) date) Protein - Negative unknown) (unknown) (no (unknown) (unknown) Bedside Urine (units ( unknown) date) Urobilinogen - unknown) Negative (unknown) (no (unknown) (unknown) Bedside Urine pH (units (unknown) date) 6.5 unknown) (unknown) (no (unknown) (unknown) Biliary ducts:? (units (unknown) date) Unremarkable.? ? unknown) (unknown) (no (unknown) (unknown) Bladder:? Normal (units (unknown) date) wall thickness. No unknown) stones. ? ? (unknown) (no (unknown) (unknown) Blood Pressure (units (unknown) date) 133/92 H 06/01/22 unknown) 11:13 (unknown) (no (unknown) (unknown) Blood Pressure (units (unknown) date) 133/92 H unknown) (unknown) (no (unknown) (unknown) Bones:? (units (unkno wn) date) Unremarkable. unknown) (unknown) (no (unknown) (unknown) C-Reactive (units (unk nown) date) Protein 2.0 H unknown) (<1.0) mg/dL (unknown) (no (unknown) (unknown) CBC Auto Diff (units ( unknown) date) [Complete Blood unknown) Count AUTO DIFF] Stat (unknown) (no (unknown) (unknown) CMP (units (unkno wn) date) [Comprehensive unknown) Metabolic Panel] Stat (unknown) (no (unknown) (unknown) COMPARISON:? (units (u nknown) date) [facility], unknown) CT, CT KIDNEY URETER BLADDER (KUB), 05/17/2022, (unknown) (no (unknown) (unknown) CRP [C-Reactive (units (unknown) date) Protein Quant] unknown) Stat (unknown) (no (unknown) (unknown) CT kidney ureter (units (unknown) date) bladder (KUB) Stat unknown) (unknown) (no (unknown) (unknown) CT scan - (units (unkn own) date) abdomen/pelvis: unknown) (unknown) (no (unknown) (unknown) Calcium 9.0 (units (un known) date) (8.4-10.2) mg/dL unknown) (unknown) (no (unknown) (unknown) Calculus of (units (un known) date) proximal left unknown) ureter, Fatty liver (unknown) (no (unknown) (unknown) Carbon Dioxide 21 (units (unknown) date) L (22-32) mmol/L unknown) (unknown) (no (unknown) (unknown) Chief complaint: (units (unknown) date) Urogenital-Male unknown) (unknown) (no (unknown) (unknown) Chloride 104 (units (u nknown) date) (98-107) mmol/L unknown) (unknown) (no (unknown) (unknown) Clinical Decision (units (unknown) date) Rules/Scores unknown) evaluated: (unknown) (no (unknown) (unknown) Clinical (units (unkno wn) date) Impression: unknown) (unknown) (no (unknown) (unknown) Coronal and (units (un known) date) unknown) (unknown) (no (unknown) (unknown) Course of (units (unkn own) date) care/re-evaluation unknown) s: (unknown) (no (unknown) (unknown) Course (units (unkno wn) date) unknown) (unknown) (no (unknown) (unknown) Creatinine 1.16 (units (unknown) date) (0.66-1.25) mg/dL unknown) (unknown) (no (unknown) (unknown) : 1985 (units (unknown) date) Acct:[id number] unknown) (unknown) (no (unknown) (unknown) Date of Service: (units (unknown) date) 06/01/22 unknown) (unknown) (no (unknown) (unknown) Departure (units (unkn own) date) unknown) (unknown) (no (unknown) (unknown) Depression (units (unk nown) date) unknown) (unknown) (no (unknown) (unknown) Dictated by: (units (u nknown) date) Verónica Holcomb M.D. unknown) on 06/01/2022 at 13:53 ? ? (unknown) (no (unknown) (unknown) Differential (units (u nknown) date) diagnoses include, unknown) but are not limited to: . (unknown) (no (unknown) (unknown) Discharge Plan (units (unknown) date) unknown) (unknown) (no (unknown) (unknown) Discontinued (units (u nknown) date) Medications unknown) (unknown) (no (unknown) (unknown) Discussion: (units (un known) date) unknown) (unknown) (no (unknown) (unknown) ED Orders (units (unkn own) date) unknown) (unknown) (no (unknown) (unknown) ER Physician: (units ( unknown) date) Ni Moran unknown) [employer] (unknown) (no (unknown) (unknown) Emergency Report (units (unknown) date) unknown) (unknown) (no (unknown) (unknown) Eos # (Auto) 0 (units (unknown) date) (0-450) /uL unknown) (unknown) (no (unknown) (unknown) Eos % (Auto) 0.3 (units (unknown) date) L (2-4) % unknown) (unknown) (no (unknown) (unknown) Esterase (units (unkno wn) date) unknown) (unknown) (no (unknown) (unknown) Estimated GFR > (units (unknown) date) 60 (>60) mL/min unknown) (unknown) (no (unknown) (unknown) Exam (units (unkno wn) date) unknown) (unknown) (no (unknown) (unknown) FINDINGS:? (units (unk nown) date) unknown) (unknown) (no (unknown) (unknown) Family History (units (unknown) date) (Reviewed 05/30/22 unknown) @ 09:07 by Marshal Wahl MD) (unknown) (no (unknown) (unknown) Father Diabetes (units (unknown) date) mellitus unknown) (unknown) (no (unknown) (unknown) Gallbladder:? (units ( unknown) date) Unremarkable.? ? unknown) (unknown) (no (unknown) (unknown) General (units (unkno wn) date) unknown) (unknown) (no (unknown) (unknown) Glucose 95 (units (unk n) date) (70-100) mg/dL unknown) (unknown) (no (unknown) (unknown) H/O vasectomy (units ( unknown) date) unknown) (unknown) (no (unknown) (unknown) HPI - Male (units (unk n) date) Genitourinary unknown) (unknown) (no (unknown) (unknown) HPI Narrative: (units (unknown) date) unknown) (unknown) (no (unknown) (unknown) Hct 45.6 (41-53) (units (unknown) date) % unknown) (unknown) (no (unknown) (unknown) Healthy adult (units ( unknown) date) unknown) (unknown) (no (unknown) (unknown) Heart:? No (units (unk n) date) significant unknown) findings. (unknown) (no (unknown) (unknown) Hgb 15.3 (units (unkno wn) date) (13.5-17.5) g/dL unknown) (unknown) (no (unknown) (unknown) History of (units (unk nown) date) Present Illness unknown) (unknown) (no (unknown) (unknown) History of back (units (unknown) date) surgery unknown) (unknown) (no (unknown) (unknown) History of kidney (units (unknown) date) stones unknown) (unknown) (no (unknown) (unknown) Hx of migraines (units (unknown) date) unknown) (unknown) (no (unknown) (unknown) Hydromorphone HCl (units (unknown) date) (Hydromorphone 1 unknown) Mg Inj) 1 mg IV NOW ONE (unknown) (no (unknown) (unknown) Hyperlipidemia (units (unknown) date) unknown) (unknown) (no (unknown) (unknown) Hypertension (units (u nknown) date) unknown) (unknown) (no (unknown) (unknown) I collaborated (units (unknown) date) with the ED unknown) attending physician for FRITZ level 2, 3, and some (unknown) (no (unknown) (unknown) I have reviewed (units (unknown) date) the patient's unknown) vital signs and nursing notes as well as prior (unknown) (no (unknown) (unknown) IMPRESSION:? (units (u nknown) date) unknown) (unknown) (no (unknown) (unknown) INDICATIONS:? (units ( unknown) date) left flank pain unknown) (unknown) (no (unknown) (unknown) Image quality:? (units (unknown) date) Excellent.? unknown) (unknown) (no (unknown) (unknown) Imaging Data (units (u nknown) date) unknown) (unknown) (no (unknown) (unknown) Independent (units (un known) date) discussions with: unknown) (unknown) (no (unknown) (unknown) Initial Vital (units ( unknown) date) Signs unknown) (unknown) (no (unknown) (unknown) Initial Vital (units ( unknown) date) Signs: unknown) (unknown) (no (unknown) (unknown) Instructions: DI (units (unknown) date) for Kidney Stones unknown) (unknown) (no (unknown) (unknown) [facility] (units (unknown) date) [address] unknown) [place] [address] (unknown) (no (unknown) (unknown) Ketorolac (units (unkn own) date) Tromethamine unknown) (Ketorolac 30 Mg/Ml Vial) 30 mg IV NOW ONE (unknown) (no (unknown) (unknown) Arelis Parada, (units (unknown) date) [Physician] unknown) (unknown) (no (unknown) (unknown) Kidney stones (units ( unknown) date) unknown) (unknown) (no (unknown) (unknown) Lab Data (units (unkno wn) date) unknown) (unknown) (no (unknown) (unknown) Lab Results (units (un known) date) unknown) (unknown) (no (unknown) (unknown) Lab test results (units (unknown) date) independently unknown) reviewed, pertinent findings: (unknown) (no (unknown) (unknown) Labs: (units (unkno wn) date) unknown) (unknown) (no (unknown) (unknown) Lactate (Lactic (units (unknown) date) Acid) Stat unknown) (unknown) (no (unknown) (unknown) Lactate 2.0 (units (un known) date) (0.7-2.1) mmol/L unknown) (unknown) (no (unknown) (unknown) Left renal stone (units (unknown) date) unknown) (unknown) (no (unknown) (unknown) Liver:? Liver (units ( unknown) date) demonstrates unknown) diffusely decreased density. (unknown) (no (unknown) (unknown) Lung bases:? (units (u nknown) date) Unremarkable.? ? unknown) (unknown) (no (unknown) (unknown) Lymph # (Auto) (units (unknown) date) 1300 (7891-1296) unknown) /uL (unknown) (no (unknown) (unknown) Lymph % (Auto) (units (unknown) date) 11.1 L (25-40) % unknown) (unknown) (no (unknown) (unknown) MCH 30.7 (26-34) (units (unknown) date) PG unknown) (unknown) (no (unknown) (unknown) MCHC 33.6 (30-36) (units (unknown) date) % unknown) (unknown) (no (unknown) (unknown) MCV 91.2 (80-100) (units (unknown) date) fL unknown) (unknown) (no (unknown) (unknown) MDM - Male (units (unk nown) date) Genitourinary unknown) (unknown) (no (unknown) (unknown) MDM Narrative (units ( unknown) date) unknown) (unknown) (no (unknown) (unknown) MIPS: This (units (unk nown) date) encounter doesn't unknown) have any diagnosis associated with MIPS criteria. (unknown) (no (unknown) (unknown) Magnesium 1.9 (units ( unknown) date) (1.6-2.3) mg/dL unknown) (unknown) (no (unknown) (unknown) Magnesium Stat (units (unknown) date) unknown) (unknown) (no (unknown) (unknown) Medical History (units (unknown) date) (Updated 06/01/22 unknown) @ 15:18 by Ni Moran [facility]) (unknown) (no (unknown) (unknown) Medical decision (units (unknown) date) making narrative: unknown) (unknown) (no (unknown) (unknown) Medication (units (unk nown) date) Instructions unknown) Recorded (unknown) (no (unknown) (unknown) Miscellaneous: No (units (unknown) date) inguinal hernias unknown) are seen. ? ? 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 (unknown) (no (unknown) (unknown) Neut # (Auto) (units ( unknown) date) 9600 H (7129-6643) unknown) /uL (unknown) (no (unknown) (unknown) Neut % (Auto) (units ( unknown) date) 79.4 H (50-75) % unknown) (unknown) (no (unknown) (unknown) New (units (unkno wn) date) unknown) (unknown) (no (unknown) (unknown) No Action (units (unkn own) date) unknown) (unknown) (no (unknown) (unknown) Normal (units (unkno wn) date) unknown) (unknown) (no (unknown) (unknown) Ondansetron HCl (units (unknown) date) (Ondansetron 4 unknown) Mg/2 Ml Inj) 4 mg IV NOW PRN (unknown) (no (unknown) (unknown) Ordered: (units (unkno wn) date) unknown) (unknown) (no (unknown) (unknown) Orders (units (unkno wn) date) unknown) (unknown) (no (unknown) (unknown) Oxygen Delivery (units (unknown) date) Method 06/01/22 unknown) 11:13 (unknown) (no (unknown) (unknown) Oxygen Delivery (units (unknown) date) Method Room Air unknown) (unknown) (no (unknown) (unknown) PELVIS: (units (unkno wn) date) unknown) (unknown) (no (unknown) (unknown) PRN Reason: (units (un known) date) Nausea And unknown) Vomiting (unknown) (no (unknown) (unknown) PROCEDURE:? CT (units (unknown) date) KIDNEY URETER unknown) BLADDER (KUB) (unknown) (no (unknown) (unknown) Pancreas:? (units (unk nown) date) Unremarkable.? ? unknown) (unknown) (no (unknown) (unknown) Patient (units (unkno wn) date) Disposition: Home unknown) (unknown) (no (unknown) (unknown) Patient History (units (unknown) date) unknown) (unknown) (no (unknown) (unknown) Patient is (units (unk n) date) appropriate for unknown) outpatient management. (unknown) (no (unknown) (unknown) Patient's (units (unkn own) date) symptoms improved unknown) over duration of stay with above-stated therapies. (unknown) (no (unknown) (unknown) Patient: (units (unkno wn) date) Jaquan Rodríguez MR#: unknown) [id number] (unknown) (no (unknown) (unknown) Pelvic Nodes: (units ( unknown) date) Unremarkable. unknown) (unknown) (no (unknown) (unknown) Pelvic Organs:? (units (unknown) date) Unremarkable.? ? unknown) (unknown) (no (unknown) (unknown) Peritoneum:? No (units (unknown) date) abnormal unknown) intraperitoneal fluid.? No free air.? (unknown) (no (unknown) (unknown) Plt Count 223 (units ( unknown) date) (150-400) X103/uL unknown) (unknown) (no (unknown) (unknown) Potassium 3.6 (units ( unknown) date) (3.4-5.1) mmol/L unknown) (unknown) (no (unknown) (unknown) Prescriptions: (units (unknown) date) unknown) (unknown) (no (unknown) (unknown) Previous Rx's (units ( unknown) date) unknown) (unknown) (no (unknown) (unknown) Pulse Oximetry 98 (units (unknown) date) 06/01/22 11:13 unknown) (unknown) (no (unknown) (unknown) Pulse Oximetry 98 (units (unknown) date) unknown) (unknown) (no (unknown) (unknown) Pulse Rate 110 H (units (unknown) date) 06/01/22 11:13 unknown) (unknown) (no (unknown) (unknown) Pulse Rate 110 H (units (unknown) date) unknown) (unknown) (no (unknown) (unknown) Questions are (units ( unknown) date) addressed and unknown) there is agreement with the plan and for follow-up. (unknown) (no (unknown) (unknown) RBC 4.99 (units (unkno wn) date) (4.5-5.9) X106/uL unknown) (unknown) (no (unknown) (unknown) RDW 13.3 (units (unkno wn) date) (11.6-14.8) % unknown) (unknown) (no (unknown) (unknown) Radiologist's (units ( unknown) date) Impression: unknown) (unknown) (no (unknown) (unknown) Referrals: (units (unk nown) date) unknown) (unknown) (no (unknown) (unknown) Related Data (units (u nknown) date) unknown) (unknown) (no (unknown) (unknown) Respiratory Rate (units (unknown) date) 15 06/01/22 11:13 unknown) (unknown) (no (unknown) (unknown) Respiratory Rate (units (unknown) date) 15 unknown) (unknown) (no (unknown) (unknown) Result diagrams: (units (unknown) date) unknown) (unknown) (no (unknown) (unknown) Marshal aWhl MD (units (unknown) date) [Physician] unknown) (unknown) (no (unknown) (unknown) Shared decision (units (unknown) date) making: unknown) (unknown) (no (unknown) (unknown) Signed By: (units (unk nown) date) unknown) (unknown) (no (unknown) (unknown) Sister Kidney (units ( unknown) date) stones unknown) (unknown) (no (unknown) (unknown) Smoking Status: (units (unknown) date) Never smoker unknown) (unknown) (no (unknown) (unknown) Social History (units (unknown) date) (Reviewed 05/30/22 unknown) @ 09:07 by Marshal Wahl MD) (unknown) (no (unknown) (unknown) Social (units (unkno wn) date) considerations unknown) that may affect disposition: (unknown) (no (unknown) (unknown) Sodium 140 (units (unk nown) date) (137-145) mmol/L unknown) (unknown) (no (unknown) (unknown) Sodium Chloride (units (unknown) date) (Normal Saline unknown) 0.9%) 1,000 mls @ 1,000 mls/hr IV BOLUS ONE (unknown) (no (unknown) (unknown) Source: patient (units (unknown) date) unknown) (unknown) (no (unknown) (unknown) Spleen:? (units (unkno wn) date) Unremarkable.? ? unknown) (unknown) (no (unknown) (unknown) Stand Alone (units (un known) date) Forms: Patient unknown) Portal/API (unknown) (no (unknown) (unknown) Stated complaint: (units (unknown) date) per pt 'kidney unknown) stone lt side' (unknown) (no (unknown) (unknown) Stomach and (units (un known) date) Bowel:? Stomach, unknown) small bowel loops, and colon are unremarkable.? (unknown) (no (unknown) (unknown) Stop: 06/01/22 (units (unknown) date) 13:11 unknown) (unknown) (no (unknown) (unknown) Stop: 06/01/22 (units (unknown) date) 14:09 unknown) (unknown) (no (unknown) (unknown) Stop: 06/01/22 (units (unknown) date) 14:35 unknown) (unknown) (no (unknown) (unknown) Substance Use (units ( unknown) date) Type: does not use unknown) (unknown) (no (unknown) (unknown) Surgical History (units (unknown) date) (Reviewed 05/30/22 unknown) @ 09:07 by Marshal Wahl MD) (unknown) (no (unknown) (unknown) TECHNIQUE:? (units (un known) date) unknown) (unknown) (no (unknown) (unknown) Tamsulosin HCl (units (unknown) date) (Tamsulosin 0.4 Mg unknown) Capsule) 0.4 mg PO NOW ONE (unknown) (no (unknown) (unknown) Temperature 97.9 (units (unknown) date) F 06/01/22 11:13 unknown) (unknown) (no (unknown) (unknown) Temperature 97.9 (units (unknown) date) F unknown) (unknown) (no (unknown) (unknown) There is mild (units ( unknown) date) left and minimal unknown) right perinephric fat stranding.? No right (unknown) (no (unknown) (unknown) This is a (units (unkn own) date) 36-year-old male unknown) who returns to the emergency department for ongoing (unknown) (no (unknown) (unknown) Time Seen by (units (u nknown) date) Provider: 06/01/22 unknown) 13:08 (unknown) (no (unknown) (unknown) Total Bilirubin (units (unknown) date) 0.8 (0.2-1.3) unknown) mg/dL (unknown) (no (unknown) (unknown) Total Protein 8.1 (units (unknown) date) (6.3-8.2) g/dL unknown) (unknown) (no (unknown) (unknown) UA Complete (units (un known) date) [Urinalysis and unknown) Microscopic] Stat (unknown) (no (unknown) (unknown) URINARY: (units (unkno wn) date) unknown) (unknown) (no (unknown) (unknown) Urine Dip (units (unkn own) date) unknown) (unknown) (no (unknown) (unknown) Urine Specific (units (unknown) date) [place] 1.010 unknown) (unknown) (no (unknown) (unknown) Urology just (units (u nknown) date) recently for his unknown) left-sided kidney stones (unknown) (no (unknown) (unknown) Ventral Wall: ? (units (unknown) date) No hernia.? unknown) (unknown) (no (unknown) (unknown) Vessels:? Aorta (units (unknown) date) and inferior vena unknown) cava are normal in size.? (unknown) (no (unknown) (unknown) Vital Signs - 8 (units (unknown) date) hr unknown) (unknown) (no (unknown) (unknown) Vital Signs (units (un known) date) unknown) (unknown) (no (unknown) (unknown) Vital signs: (units (u nknown) date) unknown) (unknown) (no (unknown) (unknown) WBC 12.1 H (units (unk nown) date) (4.5-11.0) X103/uL unknown) (unknown) (no (unknown) (unknown) Pinky Kahn, (units (unknown) date) PA-C [Primary Care unknown) Provider] (unknown) (no (unknown) (unknown) [ ] New (units (unkno wn) date) medication written unknown) as a paper prescription (unknown) (no (unknown) (unknown) [ ] No new (units (unk nown) date) medications given unknown) (unknown) (no (unknown) (unknown) [Embedded Image (units (unknown) date) Not Available] unknown) (unknown) (no (unknown) (unknown) [x ] New (units (unkno wn) date) medication unknown) prescriptions sent to your pharmacy: [[facility] ] (unknown) (no (unknown) (unknown) adrenal mass (units (u nknown) date) measuring 72 mm. unknown) (unknown) (no (unknown) (unknown) alcohol intake (units (unknown) date) frequency: 3 or unknown) more drinks per day (unknown) (no (unknown) (unknown) amoxicillin (units (un known) date) [AMOXICILLIN] unknown) Allergy Unknown Verified 06/01/22 11:13 (unknown) (no (unknown) (unknown) and CT that I (units ( unknown) date) order earlier. unknown) Patient's lab work is significant for leukocytosis (unknown) (no (unknown) (unknown) appendix. (units (unkn own) date) unknown) (unknown) (no (unknown) (unknown) appointment. Let (units (unknown) date) them know you were unknown) seen in the Emergency Department and that we (unknown) (no (unknown) (unknown) asked that you be (units (unknown) date) seen for unknown) follow-up. We will electronically transmit a record (unknown) (no (unknown) (unknown) bottom of the (units ( unknown) date) left kidney for unknown) you to follow-up with him about. Please stay (unknown) (no (unknown) (unknown) concerning (units (unk nown) date) symptoms, such as unknown) [fever greater than 101F, chills, worsening pain, (unknown) (no (unknown) (unknown) establish care (units (unknown) date) with one of the unknown) [facility] primary care providers. (unknown) (no (unknown) (unknown) have sent you (units ( unknown) date) pain medication, unknown) nausea medication, anti-inflammatorie s to your (unknown) (no (unknown) (unknown) hydrated, I hope (units (unknown) date) you feel better unknown) soon, I am sorry for the long wait today, I (unknown) (no (unknown) (unknown) inferior pole (units ( unknown) date) kidney.? There is unknown) mild left hydronephrosis.? There is a proximal (unknown) (no (unknown) (unknown) is measuring 7 (units (unknown) date) mm, please unknown) follow-up with Dr. Wahl or Dr. Parada from Urology (unknown) (no (unknown) (unknown) ketorolac 10 mg (units (unknown) date) tablet 10 mg PO unknown) TID PRN pain 5 days #14 06/01/22 (unknown) (no (unknown) (unknown) ketorolac 10 mg (units (unknown) date) tablet unknown) (unknown) (no (unknown) (unknown) left (units (unkno wn) date) unknown) (unknown) (no (unknown) (unknown) left-sided flank (units (unknown) date) pain, he thinks it unknown) is a kidney stone, he saw Dr. Wahl from (unknown) (no (unknown) (unknown) level 4s as (units (un known) date) appropriate. unknown) (unknown) (no (unknown) (unknown) marital status: (units (unknown) date) unknown) (unknown) (no (unknown) (unknown) mg tablet (units (unkn own) date) (Percocet) unknown) (unknown) (no (unknown) (unknown) nephrolithiasis.? (units (unknown) date) There are several unknown) punctate nonobstructing calculi within the (unknown) (no (unknown) (unknown) next week. Take (units (unknown) date) Toradol every 8 unknown) hours with food and water for your pain, okay (unknown) (no (unknown) (unknown) number of (units (unkn own) date) children: 2 unknown) (unknown) (no (unknown) (unknown) of 12.1 and a (units ( unknown) date) left shift which unknown) is elevated since 05/17/2022, (unknown) (no (unknown) (unknown) of today's note (units (unknown) date) if your PCP is in unknown) our system (unknown) (no (unknown) (unknown) omeprazole 20 mg (units (unknown) date) tablet,delayed 40 unknown) mg PO DAILY #60 tabs 05/17/22 (unknown) (no (unknown) (unknown) omeprazole 20 mg (units (unknown) date) tablet,delayed unknown) release (DR/EC) (unknown) (no (unknown) (unknown) ondansetron 4 mg (units (unknown) date) disintegrating 4 unknown) mg PO Q8H PRN nausea and 06/01/22 (unknown) (no (unknown) (unknown) ondansetron 4 mg (units (unknown) date) tablet,disintegrat unknown) ing (unknown) (no (unknown) (unknown) oxycodone-acetami (units (unknown) date) nophen 5 mg-325 1 unknown) tab PO Q8H PRN pain #14 tabs 06/01/22 (unknown) (no (unknown) (unknown) oxycodone-acetami (units (unknown) date) nophen [Percocet] unknown) 5-325 mg tablet (unknown) (no (unknown) (unknown) past (units (unkno wn) date) unknown) (unknown) (no (unknown) (unknown) persistent (units (unk nown) date) vomiting or other unknown) bothersome symptoms]. (unknown) (no (unknown) (unknown) pharmacy. (units (unkn own) date) unknown) (unknown) (no (unknown) (unknown) records if (units (unkn own) date) available And unknown) patient has not been here for similar complaints in the (unknown) (no (unknown) (unknown) release (units (unkno wn) date) unknown) (unknown) (no (unknown) (unknown) right (units (unkno wn) date) unknown) (unknown) (no (unknown) (unknown) sagittal (units (unkno wn) date) reformats were unknown) performed.? For radiation dose reduction, the following (unknown) (no (unknown) (unknown) size.? (units (unkno wn) date) unknown) (unknown) (no (unknown) (unknown) tablet vomiting (units (unknown) date) #10 tabs unknown) (unknown) (no (unknown) (unknown) tabs (units (unkno wn) date) unknown) (unknown) (no (unknown) (unknown) tamsulosin 0.4 mg (units (unknown) date) capsule (Flomax) unknown) 0.4 mg PO BEDTIME #14 caps 06/01/22 (unknown) (no (unknown) (unknown) tamsulosin (units (unk nown) date) [Flomax] 0.4 mg unknown) capsule (unknown) (no (unknown) (unknown) to take a pain (units (unknown) date) pill with this. unknown) Please take Flomax each night, strain your urine (unknown) (no (unknown) (unknown) until you see a (units (unknown) date) stone pass, there unknown) are other small nonobstructive stones in the (unknown) (no (unknown) (unknown) ureteral calculus (units (unknown) date) measuring 7 mm, unknown) and demonstrating Hounsfield units 754. (unknown) (no (unknown) (unknown) was used: (units (unkn own) date) unknown) Result panel 1043 (unknown) (no (unknown) (unknown) (no value) (units (unk nown) date) unknown) (unknown) (no (unknown) (unknown) <Electronically (units (unknown) date) signed by Ni whitney) [employer]arn[employer]> (unknown) (no (unknown) (unknown) *If you do not (units (unknown) date) have a primary unknown) care provider please contact [phone] to (unknown) (no (unknown) (unknown) *Please continue (units (unknown) date) to take your unknown) regular medications as directed. (unknown) (no (unknown) (unknown) *Please follow up (units (unknown) date) with your primary unknown) care provider in 2-3 days, call for an (unknown) (no (unknown) (unknown) *Return to (units (unk nown) date) Emergency unknown) Department if you should have any new, worsening, or (unknown) (no (unknown) (unknown) *What to do: (units (u nknown) date) unknown) (unknown) (no (unknown) (unknown) *You have been (units (unknown) date) diagnosed with a unknown) kidney stone in your left proximal ureter. This (unknown) (no (unknown) (unknown) 0.4 mg PO BEDTIME (units (unknown) date) Qty: 14 0RF unknown) (unknown) (no (unknown) (unknown) 05/17/2022 of run (units (unknown) date) out. unknown) (unknown) (no (unknown) (unknown) 06/01/22 06/01/22 (units (unknown) date) 06/01/22 unknown) Range/Units (unknown) (no (unknown) (unknown) 06/01/22 11:20 (units (unknown) date) unknown) (unknown) (no (unknown) (unknown) 06/01/22 13:10 (units (unknown) date) unknown) (unknown) (no (unknown) (unknown) 06/01/22 1535 (units ( unknown) date) unknown) (unknown) (no (unknown) (unknown) 06/01/22 (units (unkno wn) date) unknown) (unknown) (no (unknown) (unknown) 1 tab PO Q8H PRN (units (unknown) date) (Reason: pain) unknown) Qty: 14 0RF (unknown) (no (unknown) (unknown) 1. Left proximal (units (unknown) date) ureteral calculus unknown) associated with mild left hydronephrosis. (unknown) (no (unknown) (unknown) 10 mg PO TID PRN (units (unknown) date) (Reason: pain) 5 unknown) Days Qty: 14 0RF (unknown) (no (unknown) (unknown) 11:13 (units (unkno wn) date) unknown) (unknown) (no (unknown) (unknown) 11:20 11:20 11:20 (units (unknown) date) unknown) (unknown) (no (unknown) (unknown) 1422 patient is (units (unknown) date) still sitting in unknown) the waiting room, I was reviewing his lab work (unknown) (no (unknown) (unknown) 16:52. (units (unkno wn) date) unknown) (unknown) (no (unknown) (unknown) 2. Multiple (units (un known) date) nonobstructing unknown) left renal calculi. (unknown) (no (unknown) (unknown) 2.0. Patient (units (u nknown) date) never made it back unknown) to a room, did not receive any of the (unknown) (no (unknown) (unknown) 3. Right adrenal (units (unknown) date) adenomyelolipoma. unknown) (unknown) (no (unknown) (unknown) 4 mg PO Q8H PRN (units (unknown) date) (Reason: nausea unknown) and vomiting) Qty: 10 0RF (unknown) (no (unknown) (unknown) 4. Normal (units (unkn own) date) appendix. unknown) (unknown) (no (unknown) (unknown) 40 mg PO DAILY (units (unknown) date) Qty: 60 0RF unknown) (unknown) (no (unknown) (unknown) 5. Hepatic (units (unk nown) date) steatosis. unknown) (unknown) (no (unknown) (unknown) 8378 (units (unkno wn) date) unknown) (unknown) (no (unknown) (unknown) ? (units (unkno wn) date) unknown) (unknown) (no (unknown) (unknown) ?automated (units (unk nown) date) exposure control, unknown) adjustment of mA and/or kV according to patient (unknown) (no (unknown) (unknown) ABDOMEN: (units (unkno wn) date) unknown) (unknown) (no (unknown) (unknown) ALT 114 H (<50) (units (unknown) date) IU/L unknown) (unknown) (no (unknown) (unknown) AST 54 (17-59) (units (unknown) date) IU/L unknown) (unknown) (no (unknown) (unknown) Abdominal Nodes:? (units (unknown) date) No enlarged unknown) retroperitoneal or mesenteric lymph nodes.? (unknown) (no (unknown) (unknown) Activity (units (unkno wn) date) Restrictions/Addit unknown) ional Instructions: (unknown) (no (unknown) (unknown) Adrenal Glands:? (units (unknown) date) No change in soft unknown) tissue density and fat density containing (unknown) (no (unknown) (unknown) Age/Sex: 36 / M (units (unknown) date) unknown) (unknown) (no (unknown) (unknown) Alkaline (units (unkno wn) date) Phosphatase 85 unknown) (38-126) U/L (unknown) (no (unknown) (unknown) Allergies (units (unkn own) date) unknown) (unknown) (no (unknown) (unknown) Allergy/AdvReac (units (unknown) date) Type Severity unknown) Reaction Status Date / Time (unknown) (no (unknown) (unknown) Approved by: (units (u nknown) date) Verónica Holcomb M.D. unknown) on 06/01/2022 at 13:55 ? (unknown) (no (unknown) (unknown) Asthma (units (unkno wn) date) unknown) (unknown) (no (unknown) (unknown) Axial sections (units (unknown) date) were acquired from unknown) the lung bases to the pubic symphysis.? (unknown) (no (unknown) (unknown) BUN 16 (9-20) (units ( unknown) date) mg/dL unknown) (unknown) (no (unknown) (unknown) BUN/Creatinine (units (unknown) date) Ratio 13.8 (6-22) unknown) (unknown) (no (unknown) (unknown) Baso # (Auto) 0 (units (unknown) date) (0-100) /uL unknown) (unknown) (no (unknown) (unknown) Baso % (Auto) 0.3 (units (unknown) date) (0-2) % unknown) (unknown) (no (unknown) (unknown) Bedside Urine (units ( unknown) date) Bilirubin - unknown) Negative (unknown) (no (unknown) (unknown) Bedside Urine (units ( unknown) date) Glucose Negative unknown) (unknown) (no (unknown) (unknown) Bedside Urine (units ( unknown) date) Ketone - Negative unknown) (unknown) (no (unknown) (unknown) Bedside Urine (units ( unknown) date) Leukocytes - unknown) Negative (unknown) (no (unknown) (unknown) Bedside Urine (units ( unknown) date) Nitrite - Negative unknown) (unknown) (no (unknown) (unknown) Bedside Urine (units ( unknown) date) Occult Blood - unknown) Negative (unknown) (no (unknown) (unknown) Bedside Urine (units ( unknown) date) Protein - Negative unknown) (unknown) (no (unknown) (unknown) Bedside Urine (units ( unknown) date) Urobilinogen - unknown) Negative (unknown) (no (unknown) (unknown) Bedside Urine pH (units (unknown) date) 6.5 unknown) (unknown) (no (unknown) (unknown) Biliary ducts:? (units (unknown) date) Unremarkable.? ? unknown) (unknown) (no (unknown) (unknown) Bladder:? Normal (units (unknown) date) wall thickness. No unknown) stones. ? ? (unknown) (no (unknown) (unknown) Blood Pressure (units (unknown) date) 133/92 H 06/01/22 unknown) 11:13 (unknown) (no (unknown) (unknown) Blood Pressure (units (unknown) date) 133/92 H unknown) (unknown) (no (unknown) (unknown) Bones:? (units (unkno wn) date) Unremarkable. unknown) (unknown) (no (unknown) (unknown) C-Reactive (units (unk nown) date) Protein 2.0 H unknown) (<1.0) mg/dL (unknown) (no (unknown) (unknown) CBC Auto Diff (units ( unknown) date) [Complete Blood unknown) Count AUTO DIFF] Stat (unknown) (no (unknown) (unknown) CMP (units (unkno wn) date) [Comprehensive unknown) Metabolic Panel] Stat (unknown) (no (unknown) (unknown) COMPARISON:? (units (u nknown) date) [facility], unknown) CT, CT KIDNEY URETER BLADDER (KUB), 05/17/2022, (unknown) (no (unknown) (unknown) CRP [C-Reactive (units (unknown) date) Protein Quant] unknown) Stat (unknown) (no (unknown) (unknown) CT kidney ureter (units (unknown) date) bladder (KUB) Stat unknown) (unknown) (no (unknown) (unknown) CT scan - (units (unkn own) date) abdomen/pelvis: unknown) (unknown) (no (unknown) (unknown) Calcium 9.0 (units (un known) date) (8.4-10.2) mg/dL unknown) (unknown) (no (unknown) (unknown) Calculus of (units (un known) date) proximal left unknown) ureter, Fatty liver (unknown) (no (unknown) (unknown) Carbon Dioxide 21 (units (unknown) date) L (22-32) mmol/L unknown) (unknown) (no (unknown) (unknown) Cardiovascular: (units (unknown) date) regular rate and unknown) rhythm, no peripheral edema, warm extremities (unknown) (no (unknown) (unknown) Chief complaint: (units (unknown) date) Urogenital-Male unknown) (unknown) (no (unknown) (unknown) Chloride 104 (units (u nknown) date) (98-107) mmol/L unknown) (unknown) (no (unknown) (unknown) Clinical (units (unkno wn) date) Impression: unknown) (unknown) (no (unknown) (unknown) Coronal and (units (un known) date) unknown) (unknown) (no (unknown) (unknown) Course of (units (unkn own) date) care/re-evaluation unknown) s: (unknown) (no (unknown) (unknown) Course (units (unkno wn) date) unknown) (unknown) (no (unknown) (unknown) Creatinine 1.16 (units (unknown) date) (0.66-1.25) mg/dL unknown) (unknown) (no (unknown) (unknown) : 1985 (units (unknown) date) Acct:[id number] unknown) (unknown) (no (unknown) (unknown) Date of Service: (units (unknown) date) 06/01/22 unknown) (unknown) (no (unknown) (unknown) Departure (units (unkn own) date) unknown) (unknown) (no (unknown) (unknown) Depression (units (unk nown) date) unknown) (unknown) (no (unknown) (unknown) Dictated by: (units (u nknown) date) Verónica Holcomb M.D. unknown) on 06/01/2022 at 13:53 ? ? (unknown) (no (unknown) (unknown) Differential (units (u nknown) date) diagnoses include, unknown) but are not limited to: Obstructive uropathy, (unknown) (no (unknown) (unknown) Discharge Plan (units (unknown) date) unknown) (unknown) (no (unknown) (unknown) Discontinued (units (u nknown) date) Medications unknown) (unknown) (no (unknown) (unknown) Dr. Wahl on (units (un known) date) Sunday, he states unknown) he has a scheduled follow-up appointment, he will (unknown) (no (unknown) (unknown) ED Orders (units (unkn own) date) unknown) (unknown) (no (unknown) (unknown) ER Physician: (units ( unknown) date) AprilwNi unknown) [employer] (unknown) (no (unknown) (unknown) Emergency Report (units (unknown) date) unknown) (unknown) (no (unknown) (unknown) Eos # (Auto) 0 (units (unknown) date) (0-450) /uL unknown) (unknown) (no (unknown) (unknown) Eos % (Auto) 0.3 (units (unknown) date) L (2-4) % unknown) (unknown) (no (unknown) (unknown) Esterase (units (unkno wn) date) unknown) (unknown) (no (unknown) (unknown) Estimated GFR > (units (unknown) date) 60 (>60) mL/min unknown) (unknown) (no (unknown) (unknown) Exam Narrative: (units (unknown) date) unknown) (unknown) (no (unknown) (unknown) Exam (units (unkno wn) date) unknown) (unknown) (no (unknown) (unknown) FINDINGS:? (units (unk nown) date) unknown) (unknown) (no (unknown) (unknown) Family History (units (unknown) date) (Reviewed 06/01/22 unknown) @ 15:30 by Ni Moran [facility]) (unknown) (no (unknown) (unknown) Father Diabetes (units (unknown) date) mellitus unknown) (unknown) (no (unknown) (unknown) GI: abdomen soft, (units (unknown) date) nontender to unknown) palpation, nondistended, without masses, rebound (unknown) (no (unknown) (unknown) Gallbladder:? (units ( unknown) date) Unremarkable.? ? unknown) (unknown) (no (unknown) (unknown) General (units (unkno wn) date) unknown) (unknown) (no (unknown) (unknown) General: (units (o wn) date) cooperative, unknown) comfortable, in no acute distress, well groomed, common (unknown) (no (unknown) (unknown) Glucose 95 (units (unk n) date) (70-100) mg/dL unknown) (unknown) (no (unknown) (unknown) H/O vasectomy (units ( unknown) date) unknown) (unknown) (no (unknown) (unknown) HEENT: (units (o wn) date) symmetrical facial unknown) expressions, moist mucous membranes (unknown) (no (unknown) (unknown) HPI - Male (units (unk n) date) Genitourinary unknown) (unknown) (no (unknown) (unknown) HPI Narrative: (units (unknown) date) unknown) (unknown) (no (unknown) (unknown) Hct 45.6 (41-53) (units (unknown) date) % unknown) (unknown) (no (unknown) (unknown) Healthy adult (units ( unknown) date) unknown) (unknown) (no (unknown) (unknown) Heart:? No (units (unk n) date) significant unknown) findings. (unknown) (no (unknown) (unknown) Hgb 15.3 (units (o wn) date) (13.5-17.5) g/dL unknown) (unknown) (no (unknown) (unknown) History of (units (unk n) date) Present Illness unknown) (unknown) (no (unknown) (unknown) History of back (units (unknown) date) surgery unknown) (unknown) (no (unknown) (unknown) History of kidney (units (unknown) date) stones unknown) (unknown) (no (unknown) (unknown) Hx of migraines (units (unknown) date) unknown) (unknown) (no (unknown) (unknown) Hydromorphone HCl (units (unknown) date) (Hydromorphone 1 unknown) Mg Inj) 1 mg IV NOW ONE (unknown) (no (unknown) (unknown) Hyperlipidemia (units (unknown) date) unknown) (unknown) (no (unknown) (unknown) Hypertension (units (u nknown) date) unknown) (unknown) (no (unknown) (unknown) I collaborated (units (unknown) date) with the ED unknown) attending physician for FRITZ level 2, 3, and some (unknown) (no (unknown) (unknown) I have reviewed (units (unknown) date) the patient's unknown) vital signs and nursing notes as well as prior (unknown) (no (unknown) (unknown) IMPRESSION:? (units (u nknown) date) unknown) (unknown) (no (unknown) (unknown) INDICATIONS:? (units ( unknown) date) left flank pain unknown) (unknown) (no (unknown) (unknown) Image quality:? (units (unknown) date) Excellent.? unknown) (unknown) (no (unknown) (unknown) Imaging Data (units (u nknown) date) unknown) (unknown) (no (unknown) (unknown) Initial Vital (units ( unknown) date) Signs unknown) (unknown) (no (unknown) (unknown) Initial Vital (units ( unknown) date) Signs: unknown) (unknown) (no (unknown) (unknown) Instructions: DI (units (unknown) date) for Kidney Stones unknown) (unknown) (no (unknown) (unknown) [facility] (units (unknown) date) [address] unknown) [place] [address] (unknown) (no (unknown) (unknown) Ketorolac (units (unkn own) date) Tromethamine unknown) (Ketorolac 30 Mg/Ml Vial) 30 mg IV NOW ONE (unknown) (no (unknown) (unknown) Kidney stones (units ( unknown) date) unknown) (unknown) (no (unknown) (unknown) Lab Data (units (unkno wn) date) unknown) (unknown) (no (unknown) (unknown) Lab Results (units (un known) date) unknown) (unknown) (no (unknown) (unknown) Lab test results (units (unknown) date) independently unknown) reviewed, pertinent findings: (unknown) (no (unknown) (unknown) Labs: (units (unkno wn) date) unknown) (unknown) (no (unknown) (unknown) Lactate (Lactic (units (unknown) date) Acid) Stat unknown) (unknown) (no (unknown) (unknown) Lactate 2.0 (units (un known) date) (0.7-2.1) mmol/L unknown) (unknown) (no (unknown) (unknown) Left renal stone (units (unknown) date) unknown) (unknown) (no (unknown) (unknown) Liver:? Liver (units ( unknown) date) demonstrates unknown) diffusely decreased density. (unknown) (no (unknown) (unknown) Lung bases:? (units (u nknown) date) Unremarkable.? ? unknown) (unknown) (no (unknown) (unknown) Lymph # (Auto) (units (unknown) date) 1300 ([id number]) unknown) /uL (unknown) (no (unknown) (unknown) Lymph % (Auto) (units (unknown) date) 11.1 L (25-40) % unknown) (unknown) (no (unknown) (unknown) MCH 30.7 (26-34) (units (unknown) date) PG unknown) (unknown) (no (unknown) (unknown) MCHC 33.6 (30-36) (units (unknown) date) % unknown) (unknown) (no (unknown) (unknown) MCV 91.2 (80-100) (units (unknown) date) fL unknown) (unknown) (no (unknown) (unknown) MDM - Male (units (unk nown) date) Genitourinary unknown) (unknown) (no (unknown) (unknown) MDM Narrative (units ( unknown) date) unknown) (unknown) (no (unknown) (unknown) MIPS: This (units (unk nown) date) encounter doesn't unknown) have any diagnosis associated with MIPS criteria. (unknown) (no (unknown) (unknown) MSK: moves all (units (unknown) date) extremities, unknown) neurovascularly intact, no weakness, normal tone (unknown) (no (unknown) (unknown) Magnesium 1.9 (units ( unknown) date) (1.6-2.3) mg/dL unknown) (unknown) (no (unknown) (unknown) Magnesium Stat (units (unknown) date) unknown) (unknown) (no (unknown) (unknown) Medical History (units (unknown) date) (Reviewed 06/01/22 unknown) @ 15:30 by Ni Moran, [facility]) (unknown) (no (unknown) (unknown) Medical decision (units (unknown) date) making narrative: unknown) (unknown) (no (unknown) (unknown) Medication (units (unk nown) date) Instructions unknown) Recorded (unknown) (no (unknown) (unknown) Miscellaneous: No (units (unknown) date) inguinal hernias unknown) are seen. ? ? 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 (unknown) (no (unknown) (unknown) Narrative (units (unkn own) date) unknown) (unknown) (no (unknown) (unknown) Neuro: normal (units ( unknown) date) speech and unknown) cognition, A+O x3, ambulatory, clear speech (unknown) (no (unknown) (unknown) Neut # (Auto) (units ( unknown) date) 9600 H (1626-4567) unknown) /uL (unknown) (no (unknown) (unknown) Neut % (Auto) (units ( unknown) date) 79.4 H (50-75) % unknown) (unknown) (no (unknown) (unknown) New (units (unkno wn) date) unknown) (unknown) (no (unknown) (unknown) No Action (units (unkn own) date) unknown) (unknown) (no (unknown) (unknown) Normal (units (unkno wn) date) unknown) (unknown) (no (unknown) (unknown) Ondansetron HCl (units (unknown) date) (Ondansetron 4 unknown) Mg/2 Ml Inj) 4 mg IV NOW PRN (unknown) (no (unknown) (unknown) Ordered: (units (unkno wn) date) unknown) (unknown) (no (unknown) (unknown) Orders (units (unkno wn) date) unknown) (unknown) (no (unknown) (unknown) Oxygen Delivery (units (unknown) date) Method 06/01/22 unknown) 11:13 (unknown) (no (unknown) (unknown) Oxygen Delivery (units (unknown) date) Method Room Air unknown) (unknown) (no (unknown) (unknown) PELVIS: (units (unkno wn) date) unknown) (unknown) (no (unknown) (unknown) PRN Reason: (units (un known) date) Nausea And unknown) Vomiting (unknown) (no (unknown) (unknown) PROCEDURE:? CT (units (unknown) date) KIDNEY URETER unknown) BLADDER (KUB) (unknown) (no (unknown) (unknown) Pancreas:? (units (unk nown) date) Unremarkable.? ? unknown) (unknown) (no (unknown) (unknown) Patient (units (unkno wn) date) Disposition: Home unknown) (unknown) (no (unknown) (unknown) Patient History (units (unknown) date) unknown) (unknown) (no (unknown) (unknown) Patient is (units (unk nown) date) appropriate for unknown) outpatient management. (unknown) (no (unknown) (unknown) Patient's IV was (units (unknown) date) removed by myself, unknown) he was discharged from the waiting room, (unknown) (no (unknown) (unknown) Patient: (units (unkno wn) date) Jaquan Rodríguez MR#: unknown) [id number] (unknown) (no (unknown) (unknown) Pelvic Nodes: (units ( unknown) date) Unremarkable. unknown) (unknown) (no (unknown) (unknown) Pelvic Organs:? (units (unknown) date) Unremarkable.? ? unknown) (unknown) (no (unknown) (unknown) Peritoneum:? No (units (unknown) date) abnormal unknown) intraperitoneal fluid.? No free air.? (unknown) (no (unknown) (unknown) Plt Count 223 (units ( unknown) date) (150-400) X103/uL unknown) (unknown) (no (unknown) (unknown) Potassium 3.6 (units ( unknown) date) (3.4-5.1) mmol/L unknown) (unknown) (no (unknown) (unknown) Prescriptions: (units (unknown) date) unknown) (unknown) (no (unknown) (unknown) Previous Rx's (units ( unknown) date) unknown) (unknown) (no (unknown) (unknown) Psych: mental (units ( unknown) date) status is grossly unknown) normal, congruent mood, normal affect, pleasant (unknown) (no (unknown) (unknown) Pulse Oximetry 98 (units (unknown) date) 06/01/22 11:13 unknown) (unknown) (no (unknown) (unknown) Pulse Oximetry 98 (units (unknown) date) unknown) (unknown) (no (unknown) (unknown) Pulse Rate 110 H (units (unknown) date) 06/01/22 11:13 unknown) (unknown) (no (unknown) (unknown) Pulse Rate 110 H (units (unknown) date) unknown) (unknown) (no (unknown) (unknown) Questions are (units ( unknown) date) addressed and unknown) there is agreement with the plan and for follow-up. (unknown) (no (unknown) (unknown) RBC 4.99 (units (unkno wn) date) (4.5-5.9) X106/uL unknown) (unknown) (no (unknown) (unknown) RDW 13.3 (units (unkno wn) date) (11.6-14.8) % unknown) (unknown) (no (unknown) (unknown) ROS Unobtainable: (units (unknown) date) All systems unknown) reviewed + are unremarkable except as noted in HPI (unknown) (no (unknown) (unknown) Radiologist's (units ( unknown) date) Impression: unknown) (unknown) (no (unknown) (unknown) Referrals: (units (unk nown) date) unknown) (unknown) (no (unknown) (unknown) Related Data (units (u nknown) date) unknown) (unknown) (no (unknown) (unknown) Respiratory Rate (units (unknown) date) 15 06/01/22 11:13 unknown) (unknown) (no (unknown) (unknown) Respiratory Rate (units (unknown) date) 15 unknown) (unknown) (no (unknown) (unknown) Respiratory: (units (u nknown) date) normal effort, unknown) able to speak in complete sentences, without (unknown) (no (unknown) (unknown) Result diagrams: (units (unknown) date) unknown) (unknown) (no (unknown) (unknown) Review of Systems (units (unknown) date) unknown) (unknown) (no (unknown) (unknown) Reviewed vitals (units (unknown) date) signs and nursing unknown) notes. (unknown) (no (unknown) (unknown) Marshal Wahl MD (units (unknown) date) [Physician] unknown) (unknown) (no (unknown) (unknown) Signed By: (units (unk nown) date) unknown) (unknown) (no (unknown) (unknown) Sister Kidney (units ( unknown) date) stones unknown) (unknown) (no (unknown) (unknown) Skin: brisk (units (un known) date) capillary refill, unknown) without pallor or erythema (unknown) (no (unknown) (unknown) Smoking Status: (units (unknown) date) Never smoker unknown) (unknown) (no (unknown) (unknown) Social History (units (unknown) date) (Reviewed 06/01/22 unknown) @ 15:30 by MARY Morrow) (unknown) (no (unknown) (unknown) Sodium 140 (units (unk nown) date) (137-145) mmol/L unknown) (unknown) (no (unknown) (unknown) Sodium Chloride (units (unknown) date) (Normal Saline unknown) 0.9%) 1,000 mls @ 1,000 mls/hr IV BOLUS ONE (unknown) (no (unknown) (unknown) Source: patient (units (unknown) date) unknown) (unknown) (no (unknown) (unknown) Spleen:? (units (unkno wn) date) Unremarkable.? ? unknown) (unknown) (no (unknown) (unknown) Stand Alone (units (un known) date) Forms: Patient unknown) Portal/API (unknown) (no (unknown) (unknown) Stated complaint: (units (unknown) date) per pt 'kidney unknown) stone lt side' (unknown) (no (unknown) (unknown) Stomach and (units (un known) date) Bowel:? Stomach, unknown) small bowel loops, and colon are unremarkable.? (unknown) (no (unknown) (unknown) Stop: 06/01/22 (units (unknown) date) 13:11 unknown) (unknown) (no (unknown) (unknown) Stop: 06/01/22 (units (unknown) date) 14:09 unknown) (unknown) (no (unknown) (unknown) Stop: 06/01/22 (units (unknown) date) 14:35 unknown) (unknown) (no (unknown) (unknown) Substance Use (units ( unknown) date) Type: does not use unknown) (unknown) (no (unknown) (unknown) Surgical History (units (unknown) date) (Reviewed 06/01/22 unknown) @ 15:30 by Ni Moran [facility]) (unknown) (no (unknown) (unknown) TECHNIQUE:? (units (un known) date) unknown) (unknown) (no (unknown) (unknown) Tamsulosin HCl (units (unknown) date) (Tamsulosin 0.4 Mg unknown) Capsule) 0.4 mg PO NOW ONE (unknown) (no (unknown) (unknown) Temperature 97.9 (units (unknown) date) F 06/01/22 11:13 unknown) (unknown) (no (unknown) (unknown) Temperature 97.9 (units (unknown) date) F unknown) (unknown) (no (unknown) (unknown) There is mild (units ( unknown) date) left and minimal unknown) right perinephric fat stranding.? No right (unknown) (no (unknown) (unknown) This is a (units (unkn own) date) 36-year-old male unknown) who returns to the emergency department for ongoing (unknown) (no (unknown) (unknown) Time Seen by (units (u nknown) date) Provider: 06/01/22 unknown) 13:08 (unknown) (no (unknown) (unknown) Total Bilirubin (units (unknown) date) 0.8 (0.2-1.3) unknown) mg/dL (unknown) (no (unknown) (unknown) Total Protein 8.1 (units (unknown) date) (6.3-8.2) g/dL unknown) (unknown) (no (unknown) (unknown) UA Complete (units (un known) date) [Urinalysis and unknown) Microscopic] Stat (unknown) (no (unknown) (unknown) URINARY: (units (unkno wn) date) unknown) (unknown) (no (unknown) (unknown) Urine Dip (units (unkn own) date) unknown) (unknown) (no (unknown) (unknown) Urine Specific (units (unknown) date) [place] 1.010 unknown) (unknown) (no (unknown) (unknown) Urology just (units (u nknown) date) recently for his unknown) left-sided kidney stones but did not have any (unknown) (no (unknown) (unknown) Ventral Wall: ? (units (unknown) date) No hernia.? unknown) (unknown) (no (unknown) (unknown) Vessels:? Aorta (units (unknown) date) and inferior vena unknown) cava are normal in size.? (unknown) (no (unknown) (unknown) Vital Signs - 8 (units (unknown) date) hr unknown) (unknown) (no (unknown) (unknown) Vital Signs (units (un known) date) unknown) (unknown) (no (unknown) (unknown) Vital signs: (units (u nknown) date) unknown) (unknown) (no (unknown) (unknown) WBC 12.1 H (units (unk nown) date) (4.5-11.0) X103/uL unknown) (unknown) (no (unknown) (unknown) Pinky Kahn, (units (unknown) date) DEONNA [Primary Care unknown) Provider] (unknown) (no (unknown) (unknown) [ ] New (units (unkno wn) date) medication written unknown) as a paper prescription (unknown) (no (unknown) (unknown) [ ] No new (units (unk nown) date) medications given unknown) (unknown) (no (unknown) (unknown) [Embedded Image (units (unknown) date) Not Available] unknown) (unknown) (no (unknown) (unknown) [x ] New (units (unkno wn) date) medication unknown) prescriptions sent to your pharmacy: [[place] ] (unknown) (no (unknown) (unknown) adenoma as before (units (unknown) date) with hepatic unknown) steatosis. Proximal left ureteral calculus (unknown) (no (unknown) (unknown) adrenal mass (units (u nknown) date) measuring 72 mm. unknown) (unknown) (no (unknown) (unknown) alcohol intake (units (unknown) date) frequency: 3 or unknown) more drinks per day (unknown) (no (unknown) (unknown) amoxicillin (units (un known) date) [AMOXICILLIN] unknown) Allergy Unknown Verified 06/01/22 11:13 (unknown) (no (unknown) (unknown) and CT that I (units ( unknown) date) order earlier. unknown) Patient's lab work is significant for leukocytosis (unknown) (no (unknown) (unknown) and below (units (unkn own) date) unknown) (unknown) (no (unknown) (unknown) and cooperative (units (unknown) date) unknown) (unknown) (no (unknown) (unknown) and his (units (unkno wn) date) respiratory panel unknown) was negative, CT of the time had nonobstructing left (unknown) (no (unknown) (unknown) and was seen for (units (unknown) date) this in the unknown) emergency department on 05/17/2022, I was his (unknown) (no (unknown) (unknown) appendix. (units (unkn own) date) unknown) (unknown) (no (unknown) (unknown) appointment. Let (units (unknown) date) them know you were unknown) seen in the Emergency Department and that we (unknown) (no (unknown) (unknown) asked that you be (units (unknown) date) seen for unknown) follow-up. We will electronically transmit a record (unknown) (no (unknown) (unknown) bottom of the (units ( unknown) date) left kidney for unknown) you to follow-up with him about. Please stay (unknown) (no (unknown) (unknown) concerning (units (unk nown) date) symptoms, such as unknown) [fever greater than 101F, chills, worsening pain, (unknown) (no (unknown) (unknown) cooperative, (units (u nknown) date) expresses unknown) significant left-sided flank pain (unknown) (no (unknown) (unknown) cystitis, (units (unkn own) date) pyelonephritis unknown) (unknown) (no (unknown) (unknown) establish care (units (unknown) date) with one of the unknown) [facility] primary care providers. (unknown) (no (unknown) (unknown) for pain and (units (u nknown) date) Zofran for nausea. unknown) Encouraged him to stay hydrated, follow-up with (unknown) (no (unknown) (unknown) had chills, (units (un known) date) worsening pain, unknown) nausea and his medications from when he was seen on (unknown) (no (unknown) (unknown) have sent you (units ( unknown) date) pain medication, unknown) nausea medication, anti-inflammatorie s to your (unknown) (no (unknown) (unknown) hydrated, I hope (units (unknown) date) you feel better unknown) soon, I am sorry for the long wait today, I (unknown) (no (unknown) (unknown) hydronephrosis (units (unknown) date) unknown) (unknown) (no (unknown) (unknown) inferior pole (units ( unknown) date) kidney.? There is unknown) mild left hydronephrosis.? There is a proximal (unknown) (no (unknown) (unknown) is measuring 7 (units (unknown) date) mm, please unknown) follow-up with Dr. Wahl or Dr. Parada from Urology (unknown) (no (unknown) (unknown) ketorolac 10 mg (units (unknown) date) tablet 10 mg PO unknown) TID PRN pain 5 days #14 06/01/22 (unknown) (no (unknown) (unknown) ketorolac 10 mg (units (unknown) date) tablet unknown) (unknown) (no (unknown) (unknown) left (units (unkno wn) date) unknown) (unknown) (no (unknown) (unknown) left-sided flank (units (unknown) date) pain, he thinks it unknown) is a kidney stone, he saw Dr. Wahl from (unknown) (no (unknown) (unknown) level 4s as (units (un known) date) appropriate. unknown) (unknown) (no (unknown) (unknown) marital status: (units (unknown) date) unknown) (unknown) (no (unknown) (unknown) measures 7 mm. (units (unknown) date) Patient was unknown) prescribed tamsulosin, PO Toradol, Zofran, Percocet (unknown) (no (unknown) (unknown) medications (units (un known) date) ordered, unknown) additional lab work or or IV fluid. Patient is already a (unknown) (no (unknown) (unknown) mg tablet (units (unkn own) date) (Percocet) unknown) (unknown) (no (unknown) (unknown) mild (units (unkno wn) date) hydronephrosis. unknown) Multiple nonobstructing left calculi, right adrenal (unknown) (no (unknown) (unknown) nephrolithiasis, (units (unknown) date) acute viral unknown) illness, appendicitis, pancreatitis, acute (unknown) (no (unknown) (unknown) nephrolithiasis.? (units (unknown) date) There are several unknown) punctate nonobstructing calculi within the (unknown) (no (unknown) (unknown) next week. Take (units (unknown) date) Toradol every 8 unknown) hours with food and water for your pain, okay (unknown) (no (unknown) (unknown) number of (units (unkn own) date) children: 2 unknown) (unknown) (no (unknown) (unknown) of 12.1 and a (units ( unknown) date) left shift which unknown) is elevated since 05/17/2022, elevated CRP at (unknown) (no (unknown) (unknown) of today's note (units (unknown) date) if your PCP is in unknown) our system (unknown) (no (unknown) (unknown) omeprazole 20 mg (units (unknown) date) tablet,delayed 40 unknown) mg PO DAILY #60 tabs 01/04/23 (unknown) (no (unknown) (unknown) omeprazole 20 mg (units (unknown) date) tablet,delayed unknown) release (/EC) (unknown) (no (unknown) (unknown) ondansetron 4 mg (units (unknown) date) disintegrating 4 unknown) mg PO Q8H PRN nausea and 06/01/22 (unknown) (no (unknown) (unknown) ondansetron 4 mg (units (unknown) date) tablet,disintegrat unknown) ing (unknown) (no (unknown) (unknown) oxycodone-acetami (units (unknown) date) nophen 5 mg-325 1 unknown) tab PO Q8H PRN pain #14 tabs 06/01/22 (unknown) (no (unknown) (unknown) oxycodone-acetami (units (unknown) date) nophen [Percocet] unknown) 5-325 mg tablet (unknown) (no (unknown) (unknown) past (units (unkno wn) date) unknown) (unknown) (no (unknown) (unknown) patient of (units (unknown) date) Vish, has been unknown) seen for his left kidney stones in the past (unknown) (no (unknown) (unknown) persistent (units (unk nown) date) vomiting or other unknown) bothersome symptoms]. (unknown) (no (unknown) (unknown) pharmacy. (units (unkn own) date) unknown) (unknown) (no (unknown) (unknown) provider. He did (units (unknown) date) not have abnormal unknown) lab work at that time, urine was negative (unknown) (no (unknown) (unknown) records if (units (unkn own) date) available And unknown) patient has not been here for similar complaints in the (unknown) (no (unknown) (unknown) region, he has (units (unknown) date) been seen for unknown) kidney stones in the past. He had epigastric pain (unknown) (no (unknown) (unknown) region, he has (units (unknown) date) been seen for unknown) kidney stones in the past. (unknown) (no (unknown) (unknown) release (units (unkno wn) date) unknown) (unknown) (no (unknown) (unknown) right (units (unkno wn) date) unknown) (unknown) (no (unknown) (unknown) sagittal (units (unkno wn) date) reformats were unknown) performed.? For radiation dose reduction, the following (unknown) (no (unknown) (unknown) severe pain like (units (unknown) date) this. He states it unknown) is the worst pain that he is had in this (unknown) (no (unknown) (unknown) shared decision (units (unknown) date) making and plan of unknown) care was agreed upon and patient has follow (unknown) (no (unknown) (unknown) sided kidney (units (u nknown) date) stones without unknown) hydronephrosis. He denies fever but states he is (unknown) (no (unknown) (unknown) size.? (units (unkno wn) date) unknown) (unknown) (no (unknown) (unknown) strain his urine (units (unknown) date) and if he does not unknown) pass the stone, or has worsening pain he (unknown) (no (unknown) (unknown) tablet vomiting (units (unknown) date) #10 tabs unknown) (unknown) (no (unknown) (unknown) tabs (units (unkno wn) date) unknown) (unknown) (no (unknown) (unknown) tamsulosin 0.4 mg (units (unknown) date) capsule (Flomax) unknown) 0.4 mg PO BEDTIME #14 caps 06/01/22 (unknown) (no (unknown) (unknown) tamsulosin (units (unk nown) date) [Flomax] 0.4 mg unknown) capsule (unknown) (no (unknown) (unknown) tenderness or (units ( unknown) date) exquisite unknown) tenderness with exam. Left CVA tenderness (unknown) (no (unknown) (unknown) to his CRP, CT (units ( unknown) date) imaging shows left unknown) proximal ureteral calculi associated with left (unknown) (no (unknown) (unknown) to take a pain (units (unknown) date) pill with this. unknown) Please take Flomax each night, strain your urine (unknown) (no (unknown) (unknown) until you see a (units (unknown) date) stone pass, there unknown) are other small nonobstructive stones in the (unknown) (no (unknown) (unknown) up care. (units (unkno wn) date) unknown) (unknown) (no (unknown) (unknown) ureteral calculus (units (unknown) date) measuring 7 mm, unknown) and demonstrating [place] units 754. (unknown) (no (unknown) (unknown) was used: (units (unkn own) date) unknown) (unknown) (no (unknown) (unknown) wheezing, (units (unkn own) date) stridor, or unknown) abnormal breath sounds. No retractions or tachypnea. (unknown) (no (unknown) (unknown) will follow-up (units (unknown) date) with Dr. Wahl unknown) sooner or come back to the emergency department. (unknown) (no (unknown) (unknown) without (units (unkno wn) date) obstruction. Today unknown) he has an elevated WBC with a left shift, elevation Result panel 1044 (unknown) (no date) (unknown) (unknown) > 60 ml/min (unkn own) (unknown) (no date) (unknown) (unknown) > 60 ml/min (unkn own) (unknown) (no date) (unknown) (unknown) 0.8 mg/dl (unkn own) (unknown) (no date) (unknown) (unknown) 1.16 mg/dl (unkn own) (unknown) (no date) (unknown) (unknown) 1.5 (units unknown) (unknown) (unknown) (no date) (unknown) (unknown) 1.9 mg/dl (unkn own) (unknown) (no date) (unknown) (unknown) 104 mmol/l (unkn own) (unknown) (no date) (unknown) (unknown) 114 iu/l (unkn own) (unknown) (no date) (unknown) (unknown) 13.8 (units unknown) (unknown) (unknown) (no date) (unknown) (unknown) 140 mmol/l (unkn own) (unknown) (no date) (unknown) (unknown) 16 mg/dl (unkn own) (unknown) (no date) (unknown) (unknown) 2.0 mg/dl (unkn own) (unknown) (no date) (unknown) (unknown) 21 mmol/l (unkn own) (unknown) (no date) (unknown) (unknown) 3.2 g/dl (unkn own) (unknown) (no date) (unknown) (unknown) 3.6 mmol/l (unkn own) (unknown) (no date) (unknown) (unknown) 4.9 g/dl (unkn own) (unknown) (no date) (unknown) (unknown) 54 iu/l (unkn own) (unknown) (no date) (unknown) (unknown) 8.1 g/dl (unkn own) (unknown) (no date) (unknown) (unknown) 85 u/l (unkn own) (unknown) (no date) (unknown) (unknown) 9.0 mg/dl (unkn own) (unknown) (no date) (unknown) (unknown) 95 mg/dl (unkn own) (unknown) (no date) (unknown) (unknown) 95 mg/dl (unkn own) Result panel [id number] (unknown) (no (unknown) (unknown) (no value) (units (unk nown) date) unknown) (unknown) (no (unknown) (unknown) <Electronically (units (unknown) date) signed by Viry Palacios D.O.> (unknown) (no (unknown) (unknown) <Electronically (units (unknown) date) signed by Ni Moran> (unknown) (no (unknown) (unknown) <Viry Palacios (units (unknown) date) - Last Filed: unknown) 06/05/22 07:10> (unknown) (no (unknown) (unknown) <Ni Moran (units (unknown) date) [facility] - Last Filed: unknown) 06/01/22 15:35> (unknown) (no (unknown) (unknown) *If you do not (units (unknown) date) have a primary unknown) care provider please contact [phone] to (unknown) (no (unknown) (unknown) *Please continue (units (unknown) date) to take your unknown) regular medications as directed. (unknown) (no (unknown) (unknown) *Please follow up (units (unknown) date) with your primary unknown) care provider in 2-3 days, call for an (unknown) (no (unknown) (unknown) *Return to (units (unk nown) date) Emergency unknown) Department if you should have any new, worsening, or (unknown) (no (unknown) (unknown) *What to do: (units (u nknown) date) unknown) (unknown) (no (unknown) (unknown) *You have been (units (unknown) date) diagnosed with a unknown) kidney stone in your left proximal ureter. This (unknown) (no (unknown) (unknown) 0.4 mg PO BEDTIME (units (unknown) date) Qty: 14 0RF unknown) (unknown) (no (unknown) (unknown) 05/17/2022 of run (units (unknown) date) out. unknown) (unknown) (no (unknown) (unknown) 06/01/22 06/01/22 (units (unknown) date) 06/01/22 unknown) Range/Units (unknown) (no (unknown) (unknown) 06/01/22 11:20 (units (unknown) date) unknown) (unknown) (no (unknown) (unknown) 06/01/22 1535 (units ( unknown) date) unknown) (unknown) (no (unknown) (unknown) 06/01/22 (units (unkno wn) date) unknown) (unknown) (no (unknown) (unknown) 06/05/22 0710 (units ( unknown) date) unknown) (unknown) (no (unknown) (unknown) 1 tab PO Q8H PRN (units (unknown) date) (Reason: pain) unknown) Qty: 14 0RF (unknown) (no (unknown) (unknown) 1. Left proximal (units (unknown) date) ureteral calculus unknown) associated with mild left hydronephrosis. (unknown) (no (unknown) (unknown) 10 mg PO TID PRN (units (unknown) date) (Reason: pain) 5 unknown) Days Qty: 14 0RF (unknown) (no (unknown) (unknown) 11:13 (units (unkno wn) date) unknown) (unknown) (no (unknown) (unknown) 11:20 11:20 11:20 (units (unknown) date) unknown) (unknown) (no (unknown) (unknown) 1422 patient is (units (unknown) date) still sitting in unknown) the waiting room, I was reviewing his lab work (unknown) (no (unknown) (unknown) 16:52. (units (unkno wn) date) unknown) (unknown) (no (unknown) (unknown) 2. Multiple (units (un known) date) nonobstructing unknown) left renal calculi. (unknown) (no (unknown) (unknown) 2.0. Patient (units (u nknown) date) never made it back unknown) to a room, did not receive any of the (unknown) (no (unknown) (unknown) 3. Right adrenal (units (unknown) date) adenomyelolipoma. unknown) (unknown) (no (unknown) (unknown) 4 mg PO Q8H PRN (units (unknown) date) (Reason: nausea unknown) and vomiting) Qty: 10 0RF (unknown) (no (unknown) (unknown) 4. Normal (units (unkn own) date) appendix. unknown) (unknown) (no (unknown) (unknown) 40 mg PO DAILY (units (unknown) date) Qty: 60 0RF unknown) (unknown) (no (unknown) (unknown) 5. Hepatic (units (unk nown) date) steatosis. unknown) (unknown) (no (unknown) (unknown) 5498 (units (unkno wn) date) unknown) (unknown) (no (unknown) (unknown) ? (units (unkno wn) date) unknown) (unknown) (no (unknown) (unknown) ?automated (units (unk nown) date) exposure control, unknown) adjustment of mA and/or kV according to patient (unknown) (no (unknown) (unknown) ABDOMEN: (units (unkno wn) date) unknown) (unknown) (no (unknown) (unknown) ALT 114 H (<50) (units (unknown) date) IU/L unknown) (unknown) (no (unknown) (unknown) AST 54 (17-59) (units (unknown) date) IU/L unknown) (unknown) (no (unknown) (unknown) Abdominal Nodes:? (units (unknown) date) No enlarged unknown) retroperitoneal or mesenteric lymph nodes.? (unknown) (no (unknown) (unknown) Activity (units (unkno wn) date) Restrictions/Addit unknown) ional Instructions: (unknown) (no (unknown) (unknown) Adrenal Glands:? (units (unknown) date) No change in soft unknown) tissue density and fat density containing (unknown) (no (unknown) (unknown) Age/Sex: 36 / M (units (unknown) date) unknown) (unknown) (no (unknown) (unknown) Albumin 4.9 (units (un known) date) (3.5-5.0) g/dL unknown) (unknown) (no (unknown) (unknown) Albumin/Globulin (units (unknown) date) Ratio 1.5 unknown) (1.0-2.8) (unknown) (no (unknown) (unknown) Alkaline (units (unkno wn) date) Phosphatase 85 unknown) (38-126) U/L (unknown) (no (unknown) (unknown) Allergies (units (unkn own) date) unknown) (unknown) (no (unknown) (unknown) Allergy/AdvReac (units (unknown) date) Type Severity unknown) Reaction Status Date / Time (unknown) (no (unknown) (unknown) Approved by: (units (u nknown) date) Verónica Holcomb M.D. unknown) on 06/01/2022 at 13:55 ? (unknown) (no (unknown) (unknown) Asthma (units (unkno wn) date) unknown) (unknown) (no (unknown) (unknown) Axial sections (units (unknown) date) were acquired from unknown) the lung bases to the pubic symphysis.? (unknown) (no (unknown) (unknown) BUN 16 (9-20) (units ( unknown) date) mg/dL unknown) (unknown) (no (unknown) (unknown) BUN/Creatinine (units (unknown) date) Ratio 13.8 (6-22) unknown) (unknown) (no (unknown) (unknown) Baso # (Auto) 0 (units (unknown) date) (0-100) /uL unknown) (unknown) (no (unknown) (unknown) Baso % (Auto) 0.3 (units (unknown) date) (0-2) % unknown) (unknown) (no (unknown) (unknown) Bedside Urine (units ( unknown) date) Bilirubin - unknown) Negative (unknown) (no (unknown) (unknown) Bedside Urine (units ( unknown) date) Glucose Negative unknown) (unknown) (no (unknown) (unknown) Bedside Urine (units ( unknown) date) Ketone - Negative unknown) (unknown) (no (unknown) (unknown) Bedside Urine (units ( unknown) date) Leukocytes - unknown) Negative (unknown) (no (unknown) (unknown) Bedside Urine (units ( unknown) date) Nitrite - Negative unknown) (unknown) (no (unknown) (unknown) Bedside Urine (units ( unknown) date) Occult Blood - unknown) Negative (unknown) (no (unknown) (unknown) Bedside Urine (units ( unknown) date) Protein - Negative unknown) (unknown) (no (unknown) (unknown) Bedside Urine (units ( unknown) date) Urobilinogen - unknown) Negative (unknown) (no (unknown) (unknown) Bedside Urine pH (units (unknown) date) 6.5 unknown) (unknown) (no (unknown) (unknown) Biliary ducts:? (units (unknown) date) Unremarkable.? ? unknown) (unknown) (no (unknown) (unknown) Bladder:? Normal (units (unknown) date) wall thickness. No unknown) stones. ? ? (unknown) (no (unknown) (unknown) Blood Pressure (units (unknown) date) 133/92 H 06/01/22 unknown) 11:13 (unknown) (no (unknown) (unknown) Blood Pressure (units (unknown) date) 133/92 H unknown) (unknown) (no (unknown) (unknown) Bones:? (units (unkno wn) date) Unremarkable. unknown) (unknown) (no (unknown) (unknown) C-Reactive (units (unk nown) date) Protein 2.0 H unknown) (<1.0) mg/dL (unknown) (no (unknown) (unknown) COMPARISON:? (units (u nknown) date) [facility], unknown) CT, CT KIDNEY URETER BLADDER (KUB), 05/17/2022, (unknown) (no (unknown) (unknown) CT scan - (units (unkn own) date) abdomen/pelvis: unknown) (unknown) (no (unknown) (unknown) Calcium 9.0 (units (un known) date) (8.4-10.2) mg/dL unknown) (unknown) (no (unknown) (unknown) Calculus of (units (un known) date) proximal left unknown) ureter, Fatty liver (unknown) (no (unknown) (unknown) Carbon Dioxide 21 (units (unknown) date) L (22-32) mmol/L unknown) (unknown) (no (unknown) (unknown) Cardiovascular: (units (unknown) date) regular rate and unknown) rhythm, no peripheral edema, warm extremities (unknown) (no (unknown) (unknown) Chief complaint: (units (unknown) date) Urogenital-Male unknown) (unknown) (no (unknown) (unknown) Chloride 104 (units (u nknown) date) (98-107) mmol/L unknown) (unknown) (no (unknown) (unknown) Clinical (units (unkno wn) date) Impression: unknown) (unknown) (no (unknown) (unknown) Coronal and (units (un known) date) unknown) (unknown) (no (unknown) (unknown) Cosign (units (unkno wn) date) unknown) (unknown) (no (unknown) (unknown) Course of (units (unkn own) date) care/re-evaluation unknown) s: (unknown) (no (unknown) (unknown) Course (units (unkno wn) date) unknown) (unknown) (no (unknown) (unknown) Creatinine 1.16 (units (unknown) date) (0.66-1.25) mg/dL unknown) (unknown) (no (unknown) (unknown) : 1985 (units (unknown) date) Acct:[id number] unknown) (unknown) (no (unknown) (unknown) Date of Service: (units (unknown) date) 06/01/22 unknown) (unknown) (no (unknown) (unknown) Departure (units (unkn own) date) unknown) (unknown) (no (unknown) (unknown) Depression (units (unk nown) date) unknown) (unknown) (no (unknown) (unknown) Dictated by: (units (u nknown) date) Verónica Holcomb M.D. unknown) on 06/01/2022 at 13:53 ? ? (unknown) (no (unknown) (unknown) Differential (units (u nknown) date) diagnoses include, unknown) but are not limited to: Obstructive uropathy, (unknown) (no (unknown) (unknown) Discharge Plan (units (unknown) date) unknown) (unknown) (no (unknown) (unknown) Discontinued (units (u nknown) date) Medications unknown) (unknown) (no (unknown) (unknown) Dr. Wahl on (units (un known) date) Sunday, he states unknown) he has a scheduled follow-up appointment, he will (unknown) (no (unknown) (unknown) ED Attending (units (u nknown) date) Cosignature unknown) Attestation: (unknown) (no (unknown) (unknown) ER Physician: (units ( unknown) date) Ni Moran unknown) [employer] (unknown) (no (unknown) (unknown) Emergency Report (units (unknown) date) unknown) (unknown) (no (unknown) (unknown) Eos # (Auto) 0 (units (unknown) date) (0-450) /uL unknown) (unknown) (no (unknown) (unknown) Eos % (Auto) 0.3 (units (unknown) date) L (2-4) % unknown) (unknown) (no (unknown) (unknown) Esterase (units (unkno wn) date) unknown) (unknown) (no (unknown) (unknown) Estimated GFR > (units (unknown) date) 60 (>60) mL/min unknown) (unknown) (no (unknown) (unknown) Exam Narrative: (units (unknown) date) unknown) (unknown) (no (unknown) (unknown) Exam (units (unkno wn) date) unknown) (unknown) (no (unknown) (unknown) FINDINGS:? (units (unk nown) date) unknown) (unknown) (no (unknown) (unknown) Family History (units (unknown) date) (Reviewed 06/01/22 unknown) @ 15:30 by MARY Morrow) (unknown) (no (unknown) (unknown) Father Diabetes (units (unknown) date) mellitus unknown) (unknown) (no (unknown) (unknown) GI: abdomen soft, (units (unknown) date) nontender to unknown) palpation, nondistended, without masses, rebound (unknown) (no (unknown) (unknown) Gallbladder:? (units ( unknown) date) Unremarkable.? ? unknown) (unknown) (no (unknown) (unknown) General (units (unkno wn) date) unknown) (unknown) (no (unknown) (unknown) General: (units (o wn) date) cooperative, unknown) comfortable, in no acute distress, well groomed, common (unknown) (no (unknown) (unknown) Globulin 3.2 (units (u nknown) date) (1.7-4.1) g/dL unknown) (unknown) (no (unknown) (unknown) Glucose 95 (units (unk n) date) (70-100) mg/dL unknown) (unknown) (no (unknown) (unknown) H/O vasectomy (units ( unknown) date) unknown) (unknown) (no (unknown) (unknown) HEENT: (units (o wn) date) symmetrical facial unknown) expressions, moist mucous membranes (unknown) (no (unknown) (unknown) HPI - Male (units (n) date) Genitourinary unknown) (unknown) (no (unknown) (unknown) HPI Narrative: (units (unknown) date) unknown) (unknown) (no (unknown) (unknown) Hct 45.6 (41-53) (units (unknown) date) % unknown) (unknown) (no (unknown) (unknown) Healthy adult (units ( unknown) date) unknown) (unknown) (no (unknown) (unknown) Heart:? No (units (unk ) date) significant unknown) findings. (unknown) (no (unknown) (unknown) Hgb 15.3 (units (o wn) date) (13.5-17.5) g/dL unknown) (unknown) (no (unknown) (unknown) History of (units (unk n) date) Present Illness unknown) (unknown) (no (unknown) (unknown) History of back (units (unknown) date) surgery unknown) (unknown) (no (unknown) (unknown) History of kidney (units (unknown) date) stones unknown) (unknown) (no (unknown) (unknown) Hx of migraines (units (unknown) date) unknown) (unknown) (no (unknown) (unknown) Hydromorphone HCl (units (unknown) date) (Hydromorphone 1 unknown) Mg Inj) 1 mg IV NOW ONE (unknown) (no (unknown) (unknown) Hyperlipidemia (units (unknown) date) unknown) (unknown) (no (unknown) (unknown) Hypertension (units (u nknown) date) unknown) (unknown) (no (unknown) (unknown) I collaborated (units (unknown) date) with the ED unknown) attending physician for FRITZ level 2, 3, and some (unknown) (no (unknown) (unknown) I have reviewed (units (unknown) date) the patient's unknown) vital signs and nursing notes as well as prior (unknown) (no (unknown) (unknown) I was immediately (units (unknown) date) available in the unknown) department for consultation. Documentation (unknown) (no (unknown) (unknown) IMPRESSION:? (units (u nknown) date) unknown) (unknown) (no (unknown) (unknown) INDICATIONS:? (units ( unknown) date) left flank pain unknown) (unknown) (no (unknown) (unknown) Image quality:? (units (unknown) date) Excellent.? unknown) (unknown) (no (unknown) (unknown) Imaging Data (units (u nknown) date) unknown) (unknown) (no (unknown) (unknown) Initial Vital (units ( unknown) date) Signs unknown) (unknown) (no (unknown) (unknown) Initial Vital (units ( unknown) date) Signs: unknown) (unknown) (no (unknown) (unknown) Instructions: DI (units (unknown) date) for Kidney Stones unknown) (unknown) (no (unknown) (unknown) [facility] (units (unknown) date) [address] [place] [address] unknown) [place] [address] (unknown) (no (unknown) (unknown) Ketorolac (units (unkn own) date) Tromethamine unknown) (Ketorolac 30 Mg/Ml Vial) 30 mg IV NOW ONE (unknown) (no (unknown) (unknown) Kidney stones (units ( unknown) date) unknown) (unknown) (no (unknown) (unknown) Lab Data (units (unkno wn) date) unknown) (unknown) (no (unknown) (unknown) Lab Results (units (un known) date) unknown) (unknown) (no (unknown) (unknown) Lab test results (units (unknown) date) independently unknown) reviewed, pertinent findings: (unknown) (no (unknown) (unknown) Labs: (units (unkno wn) date) unknown) (unknown) (no (unknown) (unknown) Lactate 2.0 (units (un known) date) (0.7-2.1) mmol/L unknown) (unknown) (no (unknown) (unknown) Left renal stone (units (unknown) date) unknown) (unknown) (no (unknown) (unknown) Liver:? Liver (units ( unknown) date) demonstrates unknown) diffusely decreased density. (unknown) (no (unknown) (unknown) Lung bases:? (units (u nknown) date) Unremarkable.? ? unknown) (unknown) (no (unknown) (unknown) Lymph # (Auto) (units (unknown) date) 1300 (3465-1344) unknown) /uL (unknown) (no (unknown) (unknown) Lymph % (Auto) (units (unknown) date) 11.1 L (25-40) % unknown) (unknown) (no (unknown) (unknown) MCH 30.7 (26-34) (units (unknown) date) PG unknown) (unknown) (no (unknown) (unknown) MCHC 33.6 (30-36) (units (unknown) date) % unknown) (unknown) (no (unknown) (unknown) MCV 91.2 (80-100) (units (unknown) date) fL unknown) (unknown) (no (unknown) (unknown) MDM - Male (units (unk nown) date) Genitourinary unknown) (unknown) (no (unknown) (unknown) MDM Narrative (units ( unknown) date) unknown) (unknown) (no (unknown) (unknown) MIPS: This (units (unk nown) date) encounter doesn't unknown) have any diagnosis associated with MIPS criteria. (unknown) (no (unknown) (unknown) MSK: moves all (units (unknown) date) extremities, unknown) neurovascularly intact, no weakness, normal tone (unknown) (no (unknown) (unknown) Magnesium 1.9 (units ( unknown) date) (1.6-2.3) mg/dL unknown) (unknown) (no (unknown) (unknown) Medical History (units (unknown) date) (Reviewed 06/01/22 unknown) @ 15:30 by Ni Moran, [facility]) (unknown) (no (unknown) (unknown) Medical decision (units (unknown) date) making narrative: unknown) (unknown) (no (unknown) (unknown) Medication (units (unk nown) date) Instructions unknown) Recorded (unknown) (no (unknown) (unknown) Miscellaneous: No (units (unknown) date) inguinal hernias unknown) are seen. ? ? 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 (unknown) (no (unknown) (unknown) Narrative (units (unkn own) date) unknown) (unknown) (no (unknown) (unknown) Neuro: normal (units ( unknown) date) speech and unknown) cognition, A+O x3, ambulatory, clear speech (unknown) (no (unknown) (unknown) Neut # (Auto) (units ( unknown) date) 9600 H (5033-0241) unknown) /uL (unknown) (no (unknown) (unknown) Neut % (Auto) (units ( unknown) date) 79.4 H (50-75) % unknown) (unknown) (no (unknown) (unknown) New (units (unkno wn) date) unknown) (unknown) (no (unknown) (unknown) No Action (units (unkn own) date) unknown) (unknown) (no (unknown) (unknown) Normal (units (unkno wn) date) unknown) (unknown) (no (unknown) (unknown) Ondansetron HCl (units (unknown) date) (Ondansetron 4 unknown) Mg/2 Ml Inj) 4 mg IV NOW PRN (unknown) (no (unknown) (unknown) Ordered: (units (unkno wn) date) unknown) (unknown) (no (unknown) (unknown) Orders (units (unkno wn) date) unknown) (unknown) (no (unknown) (unknown) Oxygen Delivery (units (unknown) date) Method 06/01/22 unknown) 11:13 (unknown) (no (unknown) (unknown) Oxygen Delivery (units (unknown) date) Method Room Air unknown) (unknown) (no (unknown) (unknown) PELVIS: (units (o wn) date) unknown) (unknown) (no (unknown) (unknown) PRN Reason: (units (un known) date) Nausea And unknown) Vomiting (unknown) (no (unknown) (unknown) PROCEDURE:? CT (units (unknown) date) KIDNEY URETER unknown) BLADDER (KUB) (unknown) (no (unknown) (unknown) Pancreas:? (units (unk n) date) Unremarkable.? ? unknown) (unknown) (no (unknown) (unknown) Patient (units (o wn) date) Disposition: Home unknown) (unknown) (no (unknown) (unknown) Patient History (units (unknown) date) unknown) (unknown) (no (unknown) (unknown) Patient is (units (unk n) date) appropriate for unknown) outpatient management. (unknown) (no (unknown) (unknown) Patient's IV was (units (unknown) date) removed by myself, unknown) he was discharged from the waiting room, (unknown) (no (unknown) (unknown) Patient: (units (unkno wn) date) Jaquan Rodríguez MR#: unknown) [id number] (unknown) (no (unknown) (unknown) Pelvic Nodes: (units ( unknown) date) Unremarkable. unknown) (unknown) (no (unknown) (unknown) Pelvic Organs:? (units (unknown) date) Unremarkable.? ? unknown) (unknown) (no (unknown) (unknown) Peritoneum:? No (units (unknown) date) abnormal unknown) intraperitoneal fluid.? No free air.? (unknown) (no (unknown) (unknown) Plt Count 223 (units ( unknown) date) (150-400) X103/uL unknown) (unknown) (no (unknown) (unknown) Potassium 3.6 (units ( unknown) date) (3.4-5.1) mmol/L unknown) (unknown) (no (unknown) (unknown) Prescriptions: (units (unknown) date) unknown) (unknown) (no (unknown) (unknown) Previous Rx's (units ( unknown) date) unknown) (unknown) (no (unknown) (unknown) Psych: mental (units ( unknown) date) status is grossly unknown) normal, congruent mood, normal affect, pleasant (unknown) (no (unknown) (unknown) Pulse Oximetry 98 (units (unknown) date) 06/01/22 11:13 unknown) (unknown) (no (unknown) (unknown) Pulse Oximetry 98 (units (unknown) date) unknown) (unknown) (no (unknown) (unknown) Pulse Rate 110 H (units (unknown) date) 06/01/22 11:13 unknown) (unknown) (no (unknown) (unknown) Pulse Rate 110 H (units (unknown) date) unknown) (unknown) (no (unknown) (unknown) Questions are (units ( unknown) date) addressed and unknown) there is agreement with the plan and for follow-up. (unknown) (no (unknown) (unknown) RBC 4.99 (units (unkno wn) date) (4.5-5.9) X106/uL unknown) (unknown) (no (unknown) (unknown) RDW 13.3 (units (unkno wn) date) (11.6-14.8) % unknown) (unknown) (no (unknown) (unknown) ROS Unobtainable: (units (unknown) date) All systems unknown) reviewed + are unremarkable except as noted in HPI (unknown) (no (unknown) (unknown) Radiologist's (units ( unknown) date) Impression: unknown) (unknown) (no (unknown) (unknown) Referrals: (units (unk nown) date) unknown) (unknown) (no (unknown) (unknown) Related Data (units (u nknown) date) unknown) (unknown) (no (unknown) (unknown) Respiratory Rate (units (unknown) date) 15 06/01/22 11:13 unknown) (unknown) (no (unknown) (unknown) Respiratory Rate (units (unknown) date) 15 unknown) (unknown) (no (unknown) (unknown) Respiratory: (units (u nknown) date) normal effort, unknown) able to speak in complete sentences, without (unknown) (no (unknown) (unknown) Result diagrams: (units (unknown) date) unknown) (unknown) (no (unknown) (unknown) Review of Systems (units (unknown) date) unknown) (unknown) (no (unknown) (unknown) Reviewed vitals (units (unknown) date) signs and nursing unknown) notes. (unknown) (no (unknown) (unknown) Marshal Wahl MD (units (unknown) date) [Physician] unknown) (unknown) (no (unknown) (unknown) Signed By: (units (unk nown) date) unknown) (unknown) (no (unknown) (unknown) Sister Kidney (units ( unknown) date) stones unknown) (unknown) (no (unknown) (unknown) Skin: brisk (units (un known) date) capillary refill, unknown) without pallor or erythema (unknown) (no (unknown) (unknown) Smoking Status: (units (unknown) date) Never smoker unknown) (unknown) (no (unknown) (unknown) Social History (units (unknown) date) (Reviewed 06/01/22 unknown) @ 15:30 by Ni Moran [facility]) (unknown) (no (unknown) (unknown) Sodium 140 (units (unk nown) date) (137-145) mmol/L unknown) (unknown) (no (unknown) (unknown) Sodium Chloride (units (unknown) date) (Normal Saline unknown) 0.9%) 1,000 mls @ 1,000 mls/hr IV BOLUS ONE (unknown) (no (unknown) (unknown) Source: patient (units (unknown) date) unknown) (unknown) (no (unknown) (unknown) Spleen:? (units (unkno wn) date) Unremarkable.? ? unknown) (unknown) (no (unknown) (unknown) Stand Alone (units (un known) date) Forms: Patient unknown) Portal/API (unknown) (no (unknown) (unknown) Stated complaint: (units (unknown) date) per pt 'kidney unknown) stone lt side' (unknown) (no (unknown) (unknown) Stomach and (units (un known) date) Bowel:? Stomach, unknown) small bowel loops, and colon are unremarkable.? (unknown) (no (unknown) (unknown) Stop: 06/01/22 (units (unknown) date) 13:11 unknown) (unknown) (no (unknown) (unknown) Stop: 06/01/22 (units (unknown) date) 14:09 unknown) (unknown) (no (unknown) (unknown) Stop: 06/01/22 (units (unknown) date) 14:35 unknown) (unknown) (no (unknown) (unknown) Substance Use (units ( unknown) date) Type: does not use unknown) (unknown) (no (unknown) (unknown) Surgical History (units (unknown) date) (Reviewed 06/01/22 unknown) @ 15:30 by Ni Moran [facility]) (unknown) (no (unknown) (unknown) TECHNIQUE:? (units (un known) date) unknown) (unknown) (no (unknown) (unknown) Tamsulosin HCl (units (unknown) date) (Tamsulosin 0.4 Mg unknown) Capsule) 0.4 mg PO NOW ONE (unknown) (no (unknown) (unknown) Temperature 97.9 (units (unknown) date) F 06/01/22 11:13 unknown) (unknown) (no (unknown) (unknown) Temperature 97.9 (units (unknown) date) F unknown) (unknown) (no (unknown) (unknown) There is mild (units ( unknown) date) left and minimal unknown) right perinephric fat stranding.? No right (unknown) (no (unknown) (unknown) This is a (units (unkn own) date) 36-year-old male unknown) who returns to the emergency department for ongoing (unknown) (no (unknown) (unknown) Time Seen by (units (u nknown) date) Provider: 06/01/22 unknown) 13:08 (unknown) (no (unknown) (unknown) Total Bilirubin (units (unknown) date) 0.8 (0.2-1.3) unknown) mg/dL (unknown) (no (unknown) (unknown) Total Protein 8.1 (units (unknown) date) (6.3-8.2) g/dL unknown) (unknown) (no (unknown) (unknown) URINARY: (units (unkno wn) date) unknown) (unknown) (no (unknown) (unknown) Urine Dip (units (unkn own) date) unknown) (unknown) (no (unknown) (unknown) Urine Specific (units (unknown) date) [place] 1.010 unknown) (unknown) (no (unknown) (unknown) Urology just (units (u nknown) date) recently for his unknown) left-sided kidney stones but did not have any (unknown) (no (unknown) (unknown) Ventral Wall: ? (units (unknown) date) No hernia.? unknown) (unknown) (no (unknown) (unknown) Vessels:? Aorta (units (unknown) date) and inferior vena unknown) cava are normal in size.? (unknown) (no (unknown) (unknown) Vital Signs - 8 (units (unknown) date) hr unknown) (unknown) (no (unknown) (unknown) Vital Signs (units (un known) date) unknown) (unknown) (no (unknown) (unknown) Vital signs: (units (u nknown) date) unknown) (unknown) (no (unknown) (unknown) WBC 12.1 H (units (unk nown) date) (4.5-11.0) X103/uL unknown) (unknown) (no (unknown) (unknown) Pinky Kahn, (units (unknown) date) DEONNA [Primary Care unknown) Provider] (unknown) (no (unknown) (unknown) [ ] New (units (unkno wn) date) medication written unknown) as a paper prescription (unknown) (no (unknown) (unknown) [ ] No new (units (unk nown) date) medications given unknown) (unknown) (no (unknown) (unknown) [Embedded Image (units (unknown) date) Not Available] unknown) (unknown) (no (unknown) (unknown) [x ] New (units (unkno wn) date) medication unknown) prescriptions sent to your pharmacy: [[facility] ] (unknown) (no (unknown) (unknown) adenoma as before (units (unknown) date) with hepatic unknown) steatosis. Proximal left ureteral calculus (unknown) (no (unknown) (unknown) adrenal mass (units (u nknown) date) measuring 72 mm. unknown) (unknown) (no (unknown) (unknown) alcohol intake (units (unknown) date) frequency: 3 or unknown) more drinks per day (unknown) (no (unknown) (unknown) amoxicillin (units (un known) date) [AMOXICILLIN] unknown) Allergy Unknown Verified 06/01/22 11:13 (unknown) (no (unknown) (unknown) and CT that I (units ( unknown) date) order earlier. unknown) Patient's lab work is significant for leukocytosis (unknown) (no (unknown) (unknown) and below (units (unkn own) date) unknown) (unknown) (no (unknown) (unknown) and cooperative (units (unknown) date) unknown) (unknown) (no (unknown) (unknown) and his (units (unkno wn) date) respiratory panel unknown) was negative, CT of the time had nonobstructing left (unknown) (no (unknown) (unknown) and was seen for (units (unknown) date) this in the unknown) emergency department on 05/17/2022, I was his (unknown) (no (unknown) (unknown) appendix. (units (unkn own) date) unknown) (unknown) (no (unknown) (unknown) appointment. Let (units (unknown) date) them know you were unknown) seen in the Emergency Department and that we (unknown) (no (unknown) (unknown) asked that you be (units (unknown) date) seen for unknown) follow-up. We will electronically transmit a record (unknown) (no (unknown) (unknown) bottom of the (units ( unknown) date) left kidney for unknown) you to follow-up with him about. Please stay (unknown) (no (unknown) (unknown) concerning (units (unk nown) date) symptoms, such as unknown) [fever greater than 101F, chills, worsening pain, (unknown) (no (unknown) (unknown) cooperative, (units (u nknown) date) expresses unknown) significant left-sided flank pain (unknown) (no (unknown) (unknown) cystitis, (units (unkn own) date) pyelonephritis unknown) (unknown) (no (unknown) (unknown) establish care (units (unknown) date) with [facility] the [facility]. (unknown) (no (unknown) (unknown) for pain and (units (u nknown) date) Zofran for nausea. unknown) Encouraged him to stay hydrated, follow-up with (unknown) (no (unknown) (unknown) had chills, (units (un known) date) worsening pain, unknown) nausea and his medications from when he was seen on (unknown) (no (unknown) (unknown) has been (units (unkno wn) date) reviewed. unknown) (unknown) (no (unknown) (unknown) have sent you (units ( unknown) date) pain medication, unknown) nausea medication, anti-inflammatorie s to your (unknown) (no (unknown) (unknown) hydrated, I hope (units (unknown) date) you feel better unknown) soon, I am sorry for the long wait today, I (unknown) (no (unknown) (unknown) hydronephrosis (units (unknown) date) unknown) (unknown) (no (unknown) (unknown) inferior pole (units ( unknown) date) kidney.? There is unknown) mild left hydronephrosis.? There is a proximal (unknown) (no (unknown) (unknown) is measuring 7 (units (unknown) date) mm, please unknown) follow-up with Dr. Wahl or Dr. Parada from Urology (unknown) (no (unknown) (unknown) ketorolac 10 mg (units (unknown) date) tablet 10 mg PO unknown) TID PRN pain 5 days #14 06/01/22 (unknown) (no (unknown) (unknown) ketorolac 10 mg (units (unknown) date) tablet unknown) (unknown) (no (unknown) (unknown) left (units (unkno wn) date) unknown) (unknown) (no (unknown) (unknown) left-sided flank (units (unknown) date) pain, he thinks it unknown) is a kidney stone, he saw Dr. Wahl from (unknown) (no (unknown) (unknown) level 4s as (units (un known) date) appropriate. unknown) (unknown) (no (unknown) (unknown) marital status: (units (unknown) date) unknown) (unknown) (no (unknown) (unknown) measures 7 mm. (units (unknown) date) Patient was unknown) prescribed tamsulosin, PO Toradol, Zofran, Percocet (unknown) (no (unknown) (unknown) medications (units (un known) date) ordered, unknown) additional lab work or or IV fluid. Patient is already a (unknown) (no (unknown) (unknown) mg tablet (units (unkn own) date) (Percocet) unknown) (unknown) (no (unknown) (unknown) mild (units (unkno wn) date) hydronephrosis. unknown) Multiple nonobstructing left calculi, right adrenal (unknown) (no (unknown) (unknown) nephrolithiasis, (units (unknown) date) acute viral unknown) illness, appendicitis, pancreatitis, acute (unknown) (no (unknown) (unknown) nephrolithiasis.? (units (unknown) date) There are several unknown) punctate nonobstructing calculi within the (unknown) (no (unknown) (unknown) next week. Take (units (unknown) date) Toradol every 8 unknown) hours with food and water for your pain, okay (unknown) (no (unknown) (unknown) number of (units (unkn own) date) children: 2 unknown) (unknown) (no (unknown) (unknown) of 12.1 and a (units ( unknown) date) left shift which unknown) is elevated since 05/17/2022, elevated CRP at (unknown) (no (unknown) (unknown) of today's note (units (unknown) date) if your PCP is in unknown) our system (unknown) (no (unknown) (unknown) omeprazole 20 mg (units (unknown) date) tablet,delayed 40 unknown) mg PO DAILY #60 tabs 05/17/22 (unknown) (no (unknown) (unknown) omeprazole 20 mg (units (unknown) date) tablet,delayed unknown) release (DR/EC) (unknown) (no (unknown) (unknown) ondansetron 4 mg (units (unknown) date) disintegrating 4 unknown) mg PO Q8H PRN nausea and 06/01/22 (unknown) (no (unknown) (unknown) ondansetron 4 mg (units (unknown) date) tablet,disintegrat unknown) ing (unknown) (no (unknown) (unknown) oxycodone-acetami (units (unknown) date) nophen 5 mg-325 1 unknown) tab PO Q8H PRN pain #14 tabs 06/01/22 (unknown) (no (unknown) (unknown) oxycodone-acetami (units (unknown) date) nophen [Percocet] unknown) 5-325 mg tablet (unknown) (no (unknown) (unknown) past (units (unkno wn) date) unknown) (unknown) (no (unknown) (unknown) patient of (units (unknown) date) Vish, has been unknown) seen for his left kidney stones in the past (unknown) (no (unknown) (unknown) persistent (units (unk nown) date) vomiting or other unknown) bothersome symptoms]. (unknown) (no (unknown) (unknown) pharmacy. (units (unkn own) date) unknown) (unknown) (no (unknown) (unknown) provider. He did (units (unknown) date) not have abnormal unknown) lab work at that time, urine was negative (unknown) (no (unknown) (unknown) records if (units (unkn own) date) available And unknown) patient has not been here for similar complaints in the (unknown) (no (unknown) (unknown) region, he has (units (unknown) date) been seen for unknown) kidney stones in the past. He had epigastric pain (unknown) (no (unknown) (unknown) region, he has (units (unknown) date) been seen for unknown) kidney stones in the past. (unknown) (no (unknown) (unknown) release (units (unkno wn) date) unknown) (unknown) (no (unknown) (unknown) right (units (unkno wn) date) unknown) (unknown) (no (unknown) (unknown) sagittal (units (unkno wn) date) reformats were unknown) performed.? For radiation dose reduction, the following (unknown) (no (unknown) (unknown) severe pain like (units (unknown) date) this. He states it unknown) is the worst pain that he is had in this (unknown) (no (unknown) (unknown) shared decision (units (unknown) date) making and plan of unknown) care was agreed upon and patient has follow (unknown) (no (unknown) (unknown) sided kidney (units (u nknown) date) stones without unknown) hydronephrosis. He denies fever but states he is (unknown) (no (unknown) (unknown) size.? (units (unkno wn) date) unknown) (unknown) (no (unknown) (unknown) strain his urine (units (unknown) date) and if he does not unknown) pass the stone, or has worsening pain he (unknown) (no (unknown) (unknown) tablet vomiting (units (unknown) date) #10 tabs unknown) (unknown) (no (unknown) (unknown) tabs (units (unkno wn) date) unknown) (unknown) (no (unknown) (unknown) tamsulosin 0.4 mg (units (unknown) date) capsule (Flomax) unknown) 0.4 mg PO BEDTIME #14 caps 06/01/22 (unknown) (no (unknown) (unknown) tamsulosin (units (unk nown) date) [Flomax] 0.4 mg unknown) capsule (unknown) (no (unknown) (unknown) tenderness or (units ( unknown) date) exquisite unknown) tenderness with exam. Left CVA tenderness (unknown) (no (unknown) (unknown) to his CRP, CT (units ( unknown) date) imaging shows left unknown) proximal ureteral calculi associated with left (unknown) (no (unknown) (unknown) to take a pain (units (unknown) date) pill with this. unknown) Please take Flomax each night, strain your urine (unknown) (no (unknown) (unknown) until you see a (units (unknown) date) stone pass, there unknown) are other small nonobstructive stones in the (unknown) (no (unknown) (unknown) up care. (units (unkno wn) date) unknown) (unknown) (no (unknown) (unknown) ureteral calculus (units (unknown) date) measuring 7 mm, unknown) and demonstrating [place] units 754. (unknown) (no (unknown) (unknown) was used: (units (unkn own) date) unknown) (unknown) (no (unknown) (unknown) wheezing, (units (unkn own) date) stridor, or unknown) abnormal breath sounds. No retractions or tachypnea. (unknown) (no (unknown) (unknown) will follow-up (units (unknown) date) with Dr. Wahl unknown) sooner or come back to the emergency department. (unknown) (no (unknown) (unknown) without (units (unkno wn) date) obstruction. Today unknown) he has an elevated WBC with a left shift, elevation Result panel 1046 (unknown) (no date) (unknown) (unknown) (no value) (units 191 39-5 unknown) (unknown) (no date) (unknown) (unknown) (no value) (units 226 33-2 unknown) (unknown) (no date) (unknown) (unknown) (no value) (units 226 34-0 unknown) (unknown) (no date) (unknown) (unknown) (no value) (units 226 35-7 unknown) (unknown) (no date) (unknown) (unknown) (no value) (units 226 37-3 unknown) (unknown) (no date) (unknown) (unknown) (no value) (units 495 60-6 unknown) (unknown) (no date) (unknown) (unknown) (no value) (units 527 97-8 unknown) (unknown) (no date) (unknown) (unknown) (no value) (units (un known) unknown) (unknown) (no date) (unknown) (unknown) (no value) (units (un known) unknown) (unknown) (no date) (unknown) (unknown) (no value) (units (un known) unknown) (unknown) (no date) (unknown) (unknown) (no value) (units (un known) unknown) (unknown) (no date) (unknown) (unknown) (no value) (units (un known) unknown) (unknown) (no date) (unknown) (unknown) (no value) (units (un known) unknown) (unknown) (no date) (unknown) (unknown) (no value) (units (un known) unknown) Result panel 1047 (unknown) (no (unknown) (unknown) (no value) (units (unk nown) date) unknown) (unknown) (no (unknown) (unknown) 06/06/22 (units (unkno wn) date) unknown) (unknown) (no (unknown) (unknown) 36 Y/O M (units (unkno wn) date) presents to unknown) clinic for Preop and preop covid test. (unknown) (no (unknown) (unknown) 5498 (units (unkno wn) date) unknown) (unknown) (no (unknown) (unknown) Age/Sex: 36 / M (units (unknown) date) Date of Service: unknown) (unknown) (no (unknown) (unknown) Allergies (units (unkn own) date) unknown) (unknown) (no (unknown) (unknown) [place], [place] (units ( unknown) date) [address] unknown) (unknown) (no (unknown) (unknown) Asthma (units (unkno wn) date) unknown) (unknown) (no (unknown) (unknown) Attending Dr: (units ( unknown) date) Arelis Parada unknown) (unknown) (no (unknown) (unknown) : 1985 (units (unknown) date) Acct:[id number] unknown) (unknown) (no (unknown) (unknown) Depression (units (unk nown) date) unknown) (unknown) (no (unknown) (unknown) Dept at (units (unkno wn) date) . unknown) (unknown) (no (unknown) (unknown) Documented By: (units (unknown) date) Arelis Parada unknown) 06/06/22 1318 (unknown) (no (unknown) (unknown) Draft (units (unkno wn) date) unknown) (unknown) (no (unknown) (unknown) Family History (units (unknown) date) (Reviewed unknown) 06/01/22 @ 15:30 by Ni Moran [facility]) (unknown) (no (unknown) (unknown) Father Diabetes (units (unknown) date) mellitus unknown) (unknown) (no (unknown) (unknown) H/O vasectomy (units ( unknown) date) unknown) (unknown) (no (unknown) (unknown) Healthy adult (units ( unknown) date) unknown) (unknown) (no (unknown) (unknown) History of back (units (unknown) date) surgery unknown) (unknown) (no (unknown) (unknown) History of (units (unk nown) date) kidney stones unknown) (unknown) (no (unknown) (unknown) Hx of migraines (units (unknown) date) unknown) (unknown) (no (unknown) (unknown) Hyperlipidemia (units (unknown) date) unknown) (unknown) (no (unknown) (unknown) Hypertension (units (u nknown) date) unknown) (unknown) (no (unknown) (unknown) Intake Note: (units (u nknown) date) unknown) (unknown) (no (unknown) (unknown) Intake performed (units (unknown) date) by: unknown) Em Sr (unknown) (no (unknown) (unknown) Intake (units (unkno wn) date) unknown) (unknown) (no (unknown) (unknown) Intake- Clincial (units (unknown) date) Staff unknown) (unknown) (no (unknown) (unknown) [facility] (units (unknown) date) unknown) (unknown) (no (unknown) (unknown) Kidney stones (units ( unknown) date) unknown) (unknown) (no (unknown) (unknown) Left renal stone (units (unknown) date) unknown) (unknown) (no (unknown) (unknown) Loc: [facility] (units (unkno wn) date) unknown) (unknown) (no (unknown) (unknown) Medical History (units (unknown) date) (Reviewed unknown) 06/01/22 @ 15:30 by MARY Morrow) (unknown) (no (unknown) (unknown) Mother Cancer (units ( unknown) date) unknown) (unknown) (no (unknown) (unknown) 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 (unknown) (no (unknown) (unknown) PFSH (units (unkno wn) date) unknown) (unknown) (no (unknown) (unknown) Patient: (units (unkno wn) date) Jaquan Rodríguez Valentina MR#: unknown) [id number] (unknown) (no (unknown) (unknown) Reason For Visit (units (unknown) date) unknown) (unknown) (no (unknown) (unknown) Signed By: (units (unk nown) date) unknown) (unknown) (no (unknown) (unknown) Sister Kidney (units ( unknown) date) stones unknown) (unknown) (no (unknown) (unknown) Smoking Status: (units (unknown) date) Never smoker unknown) (unknown) (no (unknown) (unknown) Social History (units (unknown) date) (Reviewed unknown) 06/01/22 @ 15:30 by MARY Morrow) (unknown) (no (unknown) (unknown) Surgical History (units (unknown) date) (Reviewed unknown) 06/01/22 @ 15:30 by MARY Morrow) (unknown) (no (unknown) (unknown) This note may (units ( unknown) date) have been all or unknown) partially generated using voice recognition (unknown) (no (unknown) (unknown) Tobacco Status (units (unknown) date) unknown) (unknown) (no (unknown) (unknown) Urology Office (units (unknown) date) Visit unknown) (unknown) (no (unknown) (unknown) Visit Reasons: (units (unknown) date) Pre-Op/COVID Test unknown) (unknown) (no (unknown) (unknown) amoxicillin (units (un known) date) [AMOXICILLIN] unknown) Allergy (Unknown, Verified 06/01/22 11:13) (unknown) (no (unknown) (unknown) have occurred. (units (unknown) date) If there are any unknown) questions, please contact the Medical Records (unknown) (no (unknown) (unknown) marital status: (units (unknown) date) unknown) (unknown) (no (unknown) (unknown) may occur. (units (unk nown) date) Occasional unknown) wrong-word or 'sound-alike' substitutions may have (unknown) (no (unknown) (unknown) number of (units (unkn own) date) children: 2 unknown) (unknown) (no (unknown) (unknown) occurred due to (units (unknown) date) the inherent unknown) limitations of voice recognition software. Please (unknown) (no (unknown) (unknown) read the note (units ( unknown) date) carefully and unknown) recognize, using context, where these substitutions (unknown) (no (unknown) (unknown) software. (units (unkn own) date) Although every unknown) effort is made to edit content, global account manager errors Result panel 1048 (unknown) (no (unknown) (unknown) (no value) (units (unk nown) date) unknown) (unknown) (no (unknown) (unknown) 06/06/22 (units (unkno wn) date) unknown) (unknown) (no (unknown) (unknown) 36 Y/O M (units (unkno wn) date) presents to unknown) clinic for Preop and preop covid test. (unknown) (no (unknown) (unknown) 5498 (units (unkno wn) date) unknown) (unknown) (no (unknown) (unknown) Age/Sex: 36 / M (units (unknown) date) Date of Service: unknown) (unknown) (no (unknown) (unknown) Allergies (units (unkn own) date) unknown) (unknown) (no (unknown) (unknown) [place], [place] (units ( unknown) date) [address] unknown) (unknown) (no (unknown) (unknown) Assessment + (units (u nknown) date) Plan unknown) (unknown) (no (unknown) (unknown) Asthma (units (unkno wn) date) unknown) (unknown) (no (unknown) (unknown) Attending Dr: (units ( unknown) date) Arelis Parada unknown) (unknown) (no (unknown) (unknown) COVID19 -Nasal (units (unknown) date) RAPID/Pre-Proc unknown) Today [id number] - Contact with and (suspected) (unknown) (no (unknown) (unknown) : 1985 (units (unknown) date) Acct:[id number] unknown) (unknown) (no (unknown) (unknown) Depression (units (unk nown) date) unknown) (unknown) (no (unknown) (unknown) Dept at (units (unkno wn) date) . unknown) (unknown) (no (unknown) (unknown) Documented By: (units (unknown) date) Arelis Parada unknown) 06/06/22 1318 (unknown) (no (unknown) (unknown) Draft (units (unkno wn) date) unknown) (unknown) (no (unknown) (unknown) Family History (units (unknown) date) (Reviewed unknown) 06/01/22 @ 15:30 by Ni Moran [facility]) (unknown) (no (unknown) (unknown) Father Diabetes (units (unknown) date) mellitus unknown) (unknown) (no (unknown) (unknown) H/O vasectomy (units ( unknown) date) unknown) (unknown) (no (unknown) (unknown) Healthy adult (units ( unknown) date) unknown) (unknown) (no (unknown) (unknown) History of back (units (unknown) date) surgery unknown) (unknown) (no (unknown) (unknown) History of (units (unk nown) date) kidney stones unknown) (unknown) (no (unknown) (unknown) Hx of migraines (units (unknown) date) unknown) (unknown) (no (unknown) (unknown) Hyperlipidemia (units (unknown) date) unknown) (unknown) (no (unknown) (unknown) Hypertension (units (u nknown) date) unknown) (unknown) (no (unknown) (unknown) Intake Note: (units (u nknown) date) unknown) (unknown) (no (unknown) (unknown) Intake performed (units (unknown) date) by: unknown) Em Sr (unknown) (no (unknown) (unknown) Intake (units (unkno wn) date) unknown) (unknown) (no (unknown) (unknown) Intake- Clincial (units (unknown) date) Staff unknown) (unknown) (no (unknown) (unknown) [facility] (units (unknown) date) unknown) (unknown) (no (unknown) (unknown) Kidney stones (units ( unknown) date) unknown) (unknown) (no (unknown) (unknown) Left renal stone (units (unknown) date) unknown) (unknown) (no (unknown) (unknown) Loc: [facility] (units (unkno wn) date) unknown) (unknown) (no (unknown) (unknown) Medical History (units (unknown) date) (Reviewed unknown) 06/01/22 @ 15:30 by MARY Morrow) (unknown) (no (unknown) (unknown) Mother Cancer (units ( unknown) date) unknown) (unknown) (no (unknown) (unknown) 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 (unknown) (no (unknown) (unknown) Orders (units (unkno wn) date) unknown) (unknown) (no (unknown) (unknown) Orders: (units (unkno wn) date) unknown) (unknown) (no (unknown) (unknown) PFSH (units (unkno wn) date) unknown) (unknown) (no (unknown) (unknown) POC Urine Dip (units ( unknown) date) Today N20.0 - unknown) Calculus of kidney, N20.1 - Calculus of ureter, (unknown) (no (unknown) (unknown) Patient: (units (unkno wn) date) Jaquan Rodríguez MR#: unknown) [id number] (unknown) (no (unknown) (unknown) Reason For Visit (units (unknown) date) unknown) (unknown) (no (unknown) (unknown) Signed By: (units (unk nown) date) unknown) (unknown) (no (unknown) (unknown) Sister Kidney (units ( unknown) date) stones unknown) (unknown) (no (unknown) (unknown) Smoking Status: (units (unknown) date) Never smoker unknown) (unknown) (no (unknown) (unknown) Social History (units (unknown) date) (Reviewed unknown) 06/01/22 @ 15:30 by MARY Morrow) (unknown) (no (unknown) (unknown) Surgical History (units (unknown) date) (Reviewed unknown) 06/01/22 @ 15:30 by MARY Morrow) (unknown) (no (unknown) (unknown) This note may (units ( unknown) date) have been all or unknown) partially generated using voice recognition (unknown) (no (unknown) (unknown) Tobacco Status (units (unknown) date) unknown) (unknown) (no (unknown) (unknown) Urology Office (units (unknown) date) Visit unknown) (unknown) (no (unknown) (unknown) Visit Reasons: (units (unknown) date) Pre-Op/COVID Test unknown) (unknown) (no (unknown) (unknown) Z87.442 - (units (unkn own) date) Personal history unknown) of urinary calculi (unknown) (no (unknown) (unknown) amoxicillin (units (un known) date) [AMOXICILLIN] unknown) Allergy (Unknown, Verified 06/01/22 11:13) (unknown) (no (unknown) (unknown) exposure to (units (un known) date) COVID-19 unknown) (unknown) (no (unknown) (unknown) have occurred. (units (unknown) date) If there are any unknown) questions, please contact the Medical Records (unknown) (no (unknown) (unknown) marital status: (units (unknown) date) unknown) (unknown) (no (unknown) (unknown) may occur. (units (unk nown) date) Occasional unknown) wrong-word or 'sound-alike' substitutions may have (unknown) (no (unknown) (unknown) number of (units (unkn own) date) children: 2 unknown) (unknown) (no (unknown) (unknown) occurred due to (units (unknown) date) the inherent unknown) limitations of voice recognition software. Please (unknown) (no (unknown) (unknown) read the note (units ( unknown) date) carefully and unknown) recognize, using context, where these substitutions (unknown) (no (unknown) (unknown) software. (units (unkn own) date) Although every unknown) effort is made to edit content, global account manager errors Result panel 1049 (unknown) (no (unknown) (unknown) (no value) (units (unk nown) date) unknown) (unknown) (no (unknown) (unknown) 06/06/22 (units (unkno wn) date) unknown) (unknown) (no (unknown) (unknown) 13:40 (units (unkno wn) date) unknown) (unknown) (no (unknown) (unknown) 36 Y/O M (units (unkno wn) date) presents to unknown) clinic for Preop and preop covid test. (unknown) (no (unknown) (unknown) 5498 (units (unkno wn) date) unknown) (unknown) (no (unknown) (unknown) Age/Sex: 36 / M (units (unknown) date) Date of Service: unknown) (unknown) (no (unknown) (unknown) Allergies (units (unkn own) date) unknown) (unknown) (no (unknown) (unknown) [place], [place] (units ( unknown) date) [id number] unknown) (unknown) (no (unknown) (unknown) Assessment + (units (u nknown) date) Plan unknown) (unknown) (no (unknown) (unknown) Asthma (units (unkno wn) date) unknown) (unknown) (no (unknown) (unknown) Attending Dr: (units ( unknown) date) Arelis Parada unknown) (unknown) (no (unknown) (unknown) BP 125/86 (units (unkn own) date) unknown) (unknown) (no (unknown) (unknown) Blood Pressure (units (unknown) date) Location Lt unknown) brachial (unknown) (no (unknown) (unknown) COVID19 -Nasal (units (unknown) date) RAPID/Pre-Proc unknown) Today Z20.822 - Contact with and (suspected) (unknown) (no (unknown) (unknown) Confirmed (units (unkn own) date) 06/06/22] unknown) (unknown) (no (unknown) (unknown) : 1985 (units (unknown) date) Acct:[id number] unknown) (unknown) (no (unknown) (unknown) Depression (units (unk nown) date) unknown) (unknown) (no (unknown) (unknown) Dept at (units (unkno wn) date) . unknown) (unknown) (no (unknown) (unknown) Documented By: (units (unknown) date) Arelis Parada unknownLamberto LINARES 06/06/22 1318 (unknown) (no (unknown) (unknown) Draft (units (unkno wn) date) unknown) (unknown) (no (unknown) (unknown) Family History (units (unknown) date) (Reviewed unknown) 06/01/22 @ 15:30 by Ni Moran [facility]) (unknown) (no (unknown) (unknown) Father Diabetes (units (unknown) date) mellitus unknown) (unknown) (no (unknown) (unknown) H/O vasectomy (units ( unknown) date) unknown) (unknown) (no (unknown) (unknown) Healthy adult (units ( unknown) date) unknown) (unknown) (no (unknown) (unknown) History of back (units (unknown) date) surgery unknown) (unknown) (no (unknown) (unknown) History of (units (unk nown) date) kidney stones unknown) (unknown) (no (unknown) (unknown) Hx of migraines (units (unknown) date) unknown) (unknown) (no (unknown) (unknown) Hyperlipidemia (units (unknown) date) unknown) (unknown) (no (unknown) (unknown) Hypertension (units (u nknown) date) unknown) (unknown) (no (unknown) (unknown) Intake Note: (units (u nknown) date) unknown) (unknown) (no (unknown) (unknown) Intake performed (units (unknown) date) by: unknown) Em Sr (unknown) (no (unknown) (unknown) Intake (units (unkno wn) date) unknown) (unknown) (no (unknown) (unknown) Intake- Clincial (units (unknown) date) Staff unknown) (unknown) (no (unknown) (unknown) [facility] (units (unknown) date) unknown) (unknown) (no (unknown) (unknown) Kidney stones (units ( unknown) date) unknown) (unknown) (no (unknown) (unknown) Left renal stone (units (unknown) date) unknown) (unknown) (no (unknown) (unknown) Loc: [facility] (units (unkno wn) date) unknown) (unknown) (no (unknown) (unknown) Medical History (units (unknown) date) (Reviewed unknown) 06/01/22 @ 15:30 by Ni Moran [facility]) (unknown) (no (unknown) (unknown) Medications (units (un known) date) unknown) (unknown) (no (unknown) (unknown) Mother Cancer (units ( unknown) date) unknown) (unknown) (no (unknown) (unknown) 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 (unknown) (no (unknown) (unknown) Orders (units (unkno wn) date) unknown) (unknown) (no (unknown) (unknown) Orders: (units (unkno wn) date) unknown) (unknown) (no (unknown) (unknown) Oxygen Delivery (units (unknown) date) Method room air unknown) (unknown) (no (unknown) (unknown) PFSH (units (unkno wn) date) unknown) (unknown) (no (unknown) (unknown) POC Urine Dip (units ( unknown) date) Today N20.0 - unknown) Calculus of kidney, N20.1 - Calculus of ureter, (unknown) (no (unknown) (unknown) Patient: (units (unkno wn) date) Jaquan Rodríguez MR#: unknown) [id number] (unknown) (no (unknown) (unknown) Position Sitting (units (unknown) date) unknown) (unknown) (no (unknown) (unknown) Pulse 81 (units (unkno wn) date) unknown) (unknown) (no (unknown) (unknown) Pulse Oximetry (units (unknown) date) (%) 98 unknown) (unknown) (no (unknown) (unknown) Pulse Source (units (u nknown) date) Monitor unknown) (unknown) (no (unknown) (unknown) Reason For Visit (units (unknown) date) unknown) (unknown) (no (unknown) (unknown) Respiration 18 (units (unknown) date) unknown) (unknown) (no (unknown) (unknown) Signed By: (units (unk nown) date) unknown) (unknown) (no (unknown) (unknown) Sister Kidney (units ( unknown) date) stones unknown) (unknown) (no (unknown) (unknown) Smoking Status: (units (unknown) date) Never smoker unknown) (unknown) (no (unknown) (unknown) Social History (units (unknown) date) (Reviewed unknown) 06/01/22 @ 15:30 by MARY Morrow) (unknown) (no (unknown) (unknown) Surgical History (units (unknown) date) (Reviewed unknown) 06/01/22 @ 15:30 by MARY Morrow) (unknown) (no (unknown) (unknown) This note may (units ( unknown) date) have been all or unknown) partially generated using voice recognition (unknown) (no (unknown) (unknown) Tobacco Status (units (unknown) date) unknown) (unknown) (no (unknown) (unknown) Urology Office (units (unknown) date) Visit unknown) (unknown) (no (unknown) (unknown) Visit Reasons: (units (unknown) date) Pre-Op/COVID Test unknown) (unknown) (no (unknown) (unknown) Vitals (units (unkno wn) date) unknown) (unknown) (no (unknown) (unknown) Z87.442 - (units (unkn own) date) Personal history unknown) of urinary calculi (unknown) (no (unknown) (unknown) amoxicillin (units (un known) date) [AMOXICILLIN] unknown) Allergy (Unknown, Verified 06/06/22 13:39) (unknown) (no (unknown) (unknown) exposure to (units (un known) date) COVID-19 unknown) (unknown) (no (unknown) (unknown) have occurred. (units (unknown) date) If there are any unknown) questions, please contact the Medical Records (unknown) (no (unknown) (unknown) marital status: (units (unknown) date) unknown) (unknown) (no (unknown) (unknown) may occur. (units (unk nown) date) Occasional unknown) wrong-word or 'sound-alike' substitutions may have (unknown) (no (unknown) (unknown) number of (units (unkn own) date) children: 2 unknown) (unknown) (no (unknown) (unknown) occurred due to (units (unknown) date) the inherent unknown) limitations of voice recognition software. Please (unknown) (no (unknown) (unknown) omeprazole 20 mg (units (unknown) date) tablet,delayed unknown) release 40 mg PO DAILY #60 tabs 05/17/22 [Rx (unknown) (no (unknown) (unknown) ondansetron 4 mg (units (unknown) date) disintegrating unknown) tablet 4 mg PO Q8H PRN nausea and vomiting #10 (unknown) (no (unknown) (unknown) oxycodone-acetam (units (unknown) date) inophen 5 mg-325 unknown) mg tablet (Percocet) 1 tab PO Q8H PRN pain #14 (unknown) (no (unknown) (unknown) paroxetine HCl 20 (units (unknown) date) mg tablet 20 mg unknown) PO DAILY 06/06/22 [History Confirmed 06/06/22] (unknown) (no (unknown) (unknown) read the note (units ( unknown) date) carefully and unknown) recognize, using context, where these substitutions (unknown) (no (unknown) (unknown) software. (units (unkn own) date) Although every unknown) effort is made to edit content, global account manager errors (unknown) (no (unknown) (unknown) tabs 06/01/22 (units ( unknown) date) [Rx Confirmed unknown) 06/06/22] (unknown) (no (unknown) (unknown) tabs 06/05/22 (units ( unknown) date) [Rx Confirmed unknown) 06/06/22] (unknown) (no (unknown) (unknown) tamsulosin 0.4 (units (unknown) date) mg capsule unknown) (Flomax) 0.4 mg PO BEDTIME #14 caps 06/01/22 [Rx Result panel 1050 (unknown) (no (unknown) (unknown) (no value) (units (unk nown) date) unknown) (unknown) (no (unknown) (unknown) / (units (unkno wn) date) unknown) (unknown) (no (unknown) (unknown) 06/06/22 (units (unkno wn) date) unknown) (unknown) (no (unknown) (unknown) 13:40 (units (unkno wn) date) unknown) (unknown) (no (unknown) (unknown) 13:56 (units (unkno wn) date) unknown) (unknown) (no (unknown) (unknown) 23 (units (unkno wn) date) unknown) (unknown) (no (unknown) (unknown) 36 Y/O M (units (unkno wn) date) presents to unknown) clinic for Preop and preop covid test. (unknown) (no (unknown) (unknown) 5498 (units (unkno wn) date) unknown) (unknown) (no (unknown) (unknown) :56 (units (unkno wn) date) unknown) (unknown) (no (unknown) (unknown) Age/Sex: 36 / M (units (unknown) date) Date of Service: unknown) (unknown) (no (unknown) (unknown) Allergies (units (unkn own) date) unknown) (unknown) (no (unknown) (unknown) NAVEEN Priest (units ( unknown) date) [id number] unknown) (unknown) (no (unknown) (unknown) Assessment + (units (u nknown) date) Plan unknown) (unknown) (no (unknown) (unknown) Asthma (units (unkno wn) date) unknown) (unknown) (no (unknown) (unknown) Attending Dr: (units ( unknown) date) Arelis Parada unknown) (unknown) (no (unknown) (unknown) BP 125/86 (units (unkn own) date) unknown) (unknown) (no (unknown) (unknown) Blood Pressure (units (unknown) date) Location Lt unknown) brachial (unknown) (no (unknown) (unknown) COVID19 -Nasal (units (unknown) date) RAPID/Pre-Proc unknown) Today Z20.822 - Contact with and (suspected) (unknown) (no (unknown) (unknown) Confirmed (units (unkn own) date) 06/06/22] unknown) (unknown) (no (unknown) (unknown) : 1985 (units (unknown) date) Acct:[id number] unknown) (unknown) (no (unknown) (unknown) Depression (units (unk nown) date) unknown) (unknown) (no (unknown) (unknown) Dept at (units (unkno wn) date) . unknown) (unknown) (no (unknown) (unknown) Documented By: (units (unknown) date) Arelis Parada unknown) 06/06/22 1318 (unknown) (no (unknown) (unknown) Draft (units (unkno wn) date) unknown) (unknown) (no (unknown) (unknown) Family History (units (unknown) date) (Reviewed unknown) 06/01/22 @ 15:30 by Ni Moran [facility]) (unknown) (no (unknown) (unknown) Father Diabetes (units (unknown) date) mellitus unknown) (unknown) (no (unknown) (unknown) H/O vasectomy (units ( unknown) date) unknown) (unknown) (no (unknown) (unknown) Healthy adult (units ( unknown) date) unknown) (unknown) (no (unknown) (unknown) History of back (units (unknown) date) surgery unknown) (unknown) (no (unknown) (unknown) History of (units (unk nown) date) kidney stones unknown) (unknown) (no (unknown) (unknown) Hx of migraines (units (unknown) date) unknown) (unknown) (no (unknown) (unknown) Hyperlipidemia (units (unknown) date) unknown) (unknown) (no (unknown) (unknown) Hypertension (units (u nknown) date) unknown) (unknown) (no (unknown) (unknown) Intake Note: (units (u nknown) date) unknown) (unknown) (no (unknown) (unknown) Intake performed (units (unknown) date) by: unknown) Em Sr (unknown) (no (unknown) (unknown) Intake (units (unkno wn) date) unknown) (unknown) (no (unknown) (unknown) Intake- Clincial (units (unknown) date) Staff unknown) (unknown) (no (unknown) (unknown) [facility] (units (unknown) date) unknown) (unknown) (no (unknown) (unknown) Kidney stones (units ( unknown) date) unknown) (unknown) (no (unknown) (unknown) Left renal stone (units (unknown) date) unknown) (unknown) (no (unknown) (unknown) Loc: [facility] (units (unkno wn) date) unknown) (unknown) (no (unknown) (unknown) Medical History (units (unknown) date) (Reviewed unknown) 06/01/22 @ 15:30 by Ni Moran [facility]) (unknown) (no (unknown) (unknown) Medications (units (un known) date) unknown) (unknown) (no (unknown) (unknown) Mother Cancer (units ( unknown) date) unknown) (unknown) (no (unknown) (unknown) 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 (unknown) (no (unknown) (unknown) Orders (units (unkno wn) date) unknown) (unknown) (no (unknown) (unknown) Orders: (units (unkno wn) date) unknown) (unknown) (no (unknown) (unknown) Oxygen Delivery (units (unknown) date) Method room air unknown) (unknown) (no (unknown) (unknown) PFSH (units (unkno wn) date) unknown) (unknown) (no (unknown) (unknown) POC Urine Dip (units ( unknown) date) Today N20.0 - unknown) Calculus of kidney, N20.1 - Calculus of ureter, (unknown) (no (unknown) (unknown) Patient: (units (unkno wn) date) Jaquan Rodríguez MR#: unknown) [id number] (unknown) (no (unknown) (unknown) Position Sitting (units (unknown) date) unknown) (unknown) (no (unknown) (unknown) Pulse 81 (units (unkno wn) date) unknown) (unknown) (no (unknown) (unknown) Pulse Oximetry (units (unknown) date) (%) 98 unknown) (unknown) (no (unknown) (unknown) Pulse Source (units (u nknown) date) Monitor unknown) (unknown) (no (unknown) (unknown) Reason For Visit (units (unknown) date) unknown) (unknown) (no (unknown) (unknown) Respiration 18 (units (unknown) date) unknown) (unknown) (no (unknown) (unknown) Results (units (unkno wn) date) unknown) (unknown) (no (unknown) (unknown) Signed By: (units (unk nown) date) unknown) (unknown) (no (unknown) (unknown) Sister Kidney (units ( unknown) date) stones unknown) (unknown) (no (unknown) (unknown) Smoking Status: (units (unknown) date) Never smoker unknown) (unknown) (no (unknown) (unknown) Social History (units (unknown) date) (Reviewed unknown) 06/01/22 @ 15:30 by MARY Morrow) (unknown) (no (unknown) (unknown) Surgical History (units (unknown) date) (Reviewed unknown) 06/01/22 @ 15:30 by MARY Morrow) (unknown) (no (unknown) (unknown) This note may (units ( unknown) date) have been all or unknown) partially generated using voice recognition (unknown) (no (unknown) (unknown) Tobacco Status (units (unknown) date) unknown) (unknown) (no (unknown) (unknown) Urine Appearance (units (unknown) date) Clear Last Edit unknown) by Em Sr RN on 06/06/22 13:56 (unknown) (no (unknown) (unknown) Urine Bilirubin (units (unknown) date) Negative Last unknown) Edit by Em Sr RN on 06/06/22 13:56 (unknown) (no (unknown) (unknown) Urine Blood 1+ (units (unknown) date) 25 Ryan/uL Last unknown) Edit by Em Sr RN on 06/06/22 13:56 (unknown) (no (unknown) (unknown) Urine Color (units (un known) date) Gabby Last Edit unknown) by Em Sr RN on 06/06/22 13:56 (unknown) (no (unknown) (unknown) Urine Dipstick (units (unknown) date) unknown) (unknown) (no (unknown) (unknown) Urine Glucose (units ( unknown) date) Negative mg/dL unknown) Last Edit by Em Sr RN on 06/06/22 13 (unknown) (no (unknown) (unknown) Urine Ketones (units ( unknown) date) Negative Last unknown) Edit by Em Sr RN on 06/06/22 13:56 (unknown) (no (unknown) (unknown) Urine Leukocyte (units (unknown) date) Esterase Negative unknown) Last Edit by Em Sr RN on 06/06 (unknown) (no (unknown) (unknown) Urine Nitrate (units ( unknown) date) Negative Last unknown) Edit by Em Sr RN on 06/06/22 13:56 (unknown) (no (unknown) (unknown) Urine Protein (units ( unknown) date) Negative Last unknown) Edit by Em Sr RN on 06/06/22 13:56 (unknown) (no (unknown) (unknown) Urine Specific (units (unknown) date) [place] 1.020 unknown) Last Edit by Em Sr RN on 06/06/22 (unknown) (no (unknown) (unknown) Urine (units (unkno wn) date) Urobilinogen - unknown) 0.2 mg/dL Last Edit by Em Sr RN on (unknown) (no (unknown) (unknown) Urine pH 6.0 (units (u nknown) date) Last Edit by unknown) Em Sr RN on 06/06/22 13:56 (unknown) (no (unknown) (unknown) Urology Office (units (unknown) date) Visit unknown) (unknown) (no (unknown) (unknown) Visit Reasons: (units (unknown) date) Pre-Op/COVID Test unknown) (unknown) (no (unknown) (unknown) Vitals (units (unkno wn) date) unknown) (unknown) (no (unknown) (unknown) Z87.442 - (units (unkn own) date) Personal history unknown) of urinary calculi (unknown) (no (unknown) (unknown) amoxicillin (units (un known) date) [AMOXICILLIN] unknown) Allergy (Unknown, Verified 06/06/22 13:39) (unknown) (no (unknown) (unknown) exposure to (units (un known) date) COVID-19 unknown) (unknown) (no (unknown) (unknown) have occurred. (units (unknown) date) If there are any unknown) questions, please contact the Medical Records (unknown) (no (unknown) (unknown) marital status: (units (unknown) date) unknown) (unknown) (no (unknown) (unknown) may occur. (units (unk nown) date) Occasional unknown) wrong-word or 'sound-alike' substitutions may have (unknown) (no (unknown) (unknown) number of (units (unkn own) date) children: 2 unknown) (unknown) (no (unknown) (unknown) occurred due to (units (unknown) date) the inherent unknown) limitations of voice recognition software. Please (unknown) (no (unknown) (unknown) omeprazole 20 mg (units (unknown) date) tablet,delayed unknown) release 40 mg PO DAILY #60 tabs 05/17/22 [Rx (unknown) (no (unknown) (unknown) ondansetron 4 mg (units (unknown) date) disintegrating unknown) tablet 4 mg PO Q8H PRN nausea and vomiting #10 (unknown) (no (unknown) (unknown) oxycodone-acetam (units (unknown) date) inophen 5 mg-325 unknown) mg tablet (Percocet) 1 tab PO Q8H PRN pain #14 (unknown) (no (unknown) (unknown) paroxetine HCl 20 (units (unknown) date) mg tablet 20 mg unknown) PO DAILY 06/06/22 [History Confirmed 06/06/22] (unknown) (no (unknown) (unknown) read the note (units ( unknown) date) carefully and unknown) recognize, using context, where these substitutions (unknown) (no (unknown) (unknown) software. (units (unkn own) date) Although every unknown) effort is made to edit content, global account manager errors (unknown) (no (unknown) (unknown) tabs 06/01/22 (units ( unknown) date) [Rx Confirmed unknown) 06/06/22] (unknown) (no (unknown) (unknown) tabs 06/05/22 (units ( unknown) date) [Rx Confirmed unknown) 06/06/22] (unknown) (no (unknown) (unknown) tamsulosin 0.4 (units (unknown) date) mg capsule unknown) (Flomax) 0.4 mg PO BEDTIME #14 caps 06/01/22 [Rx Result panel 1051 (unknown) (no date) (unknown) (unknown) Negative (units (unkn own) unknown) (unknown) (no date) (unknown) (unknown) Negative (units (unkn own) unknown) Result panel 1052 (unknown) (no (unknown) (unknown) (no value) (units (unk nown) date) unknown) (unknown) (no (unknown) (unknown) (units (unkno wn) date) unknown) (unknown) (no (unknown) (unknown) 06/06/22 (units (unkno wn) date) unknown) (unknown) (no (unknown) (unknown) 13:40 (units (unkno wn) date) unknown) (unknown) (no (unknown) (unknown) 13:56 (units (unkno wn) date) unknown) (unknown) (no (unknown) (unknown) 23 (units (unkno wn) date) unknown) (unknown) (no (unknown) (unknown) 36 Y/O M (units (unkno wn) date) presents to unknown) clinic for Preop and preop covid test. (unknown) (no (unknown) (unknown) 5498 (units (unkno wn) date) unknown) (unknown) (no (unknown) (unknown) :56 (units (unkno wn) date) unknown) (unknown) (no (unknown) (unknown) Age/Sex: 36 / M (units (unknown) date) Date of Service: unknown) (unknown) (no (unknown) (unknown) Allergies (units (unkn own) date) unknown) (unknown) (no (unknown) (unknown) [place], [place] (units ( unknown) date) [id number] unknown) (unknown) (no (unknown) (unknown) Assessment + (units (u nknown) date) Plan unknown) (unknown) (no (unknown) (unknown) Asthma (units (unkno wn) date) unknown) (unknown) (no (unknown) (unknown) Attending Dr: (units ( unknown) date) Arelis Parada unknown) (unknown) (no (unknown) (unknown) BP 125/86 (units (unkn own) date) unknown) (unknown) (no (unknown) (unknown) Blood Pressure (units (unknown) date) Location Lt unknown) brachial (unknown) (no (unknown) (unknown) COVID19 -Nasal (units (unknown) date) RAPID/Pre-Proc unknown) Today Z20.822 - Contact with and (suspected) (unknown) (no (unknown) (unknown) Chief Complaint (units (unknown) date) unknown) (unknown) (no (unknown) (unknown) Chief Complaint: (units (unknown) date) Left ureteral unknown) stone (unknown) (no (unknown) (unknown) Confirmed (units (unkn own) date) 06/06/22] unknown) (unknown) (no (unknown) (unknown) : 1985 (units (unknown) date) Acct:[id number] unknown) (unknown) (no (unknown) (unknown) Depression (units (unk nown) date) unknown) (unknown) (no (unknown) (unknown) Dept at (units (unkno wn) date) . unknown) (unknown) (no (unknown) (unknown) Documented By: (units (unknown) date) Arelis Parada unknownLamberto LINARES 06/06/22 1318 (unknown) (no (unknown) (unknown) Draft (units (unkno wn) date) unknown) (unknown) (no (unknown) (unknown) Family History (units (unknown) date) (Reviewed unknown) 06/01/22 @ 15:30 by Ni Moran [facility]) (unknown) (no (unknown) (unknown) Father Diabetes (units (unknown) date) mellitus unknown) (unknown) (no (unknown) (unknown) H/O vasectomy (units ( unknown) date) unknown) (unknown) (no (unknown) (unknown) HPI (units (unkno wn) date) unknown) (unknown) (no (unknown) (unknown) Healthy adult (units ( unknown) date) unknown) (unknown) (no (unknown) (unknown) History of back (units (unknown) date) surgery unknown) (unknown) (no (unknown) (unknown) History of (units (unk nown) date) kidney stones unknown) (unknown) (no (unknown) (unknown) Hx of migraines (units (unknown) date) unknown) (unknown) (no (unknown) (unknown) Hyperlipidemia (units (unknown) date) unknown) (unknown) (no (unknown) (unknown) Hypertension (units (u nknown) date) unknown) (unknown) (no (unknown) (unknown) Intake Note: (units (u nknown) date) unknown) (unknown) (no (unknown) (unknown) Intake performed (units (unknown) date) by: unknown) Em Sr (unknown) (no (unknown) (unknown) Intake (units (unkno wn) date) unknown) (unknown) (no (unknown) (unknown) Intake- Clincial (units (unknown) date) Staff unknown) (unknown) (no (unknown) (unknown) [facility] (units (unknown) date) unknown) (unknown) (no (unknown) (unknown) Kidney stones (units ( unknown) date) unknown) (unknown) (no (unknown) (unknown) Left renal stone (units (unknown) date) unknown) (unknown) (no (unknown) (unknown) Loc: [facility] (units (unkno wn) date) unknown) (unknown) (no (unknown) (unknown) Medical History (units (unknown) date) (Reviewed unknown) 06/01/22 @ 15:30 by MARY Morrow) (unknown) (no (unknown) (unknown) Medications (units (un known) date) unknown) (unknown) (no (unknown) (unknown) Mother Cancer (units ( unknown) date) unknown) (unknown) (no (unknown) (unknown) 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 (unknown) (no (unknown) (unknown) Orders (units (unkno wn) date) unknown) (unknown) (no (unknown) (unknown) Orders: (units (unkno wn) date) unknown) (unknown) (no (unknown) (unknown) Oxygen Delivery (units (unknown) date) Method room air unknown) (unknown) (no (unknown) (unknown) PFSH (units (unkno wn) date) unknown) (unknown) (no (unknown) (unknown) POC Urine Dip (units ( unknown) date) Today N20.0 - unknown) Calculus of kidney, N20.1 - Calculus of ureter, (unknown) (no (unknown) (unknown) Patient: (units (unkno wn) date) Jaquan Rodríguez MR#: unknown) [id number] (unknown) (no (unknown) (unknown) Position Sitting (units (unknown) date) unknown) (unknown) (no (unknown) (unknown) Pulse 81 (units (unkno wn) date) unknown) (unknown) (no (unknown) (unknown) Pulse Oximetry (units (unknown) date) (%) 98 unknown) (unknown) (no (unknown) (unknown) Pulse Source (units (u nknown) date) Monitor unknown) (unknown) (no (unknown) (unknown) Reason For Visit (units (unknown) date) unknown) (unknown) (no (unknown) (unknown) Respiration 18 (units (unknown) date) unknown) (unknown) (no (unknown) (unknown) Results (units (unkno wn) date) unknown) (unknown) (no (unknown) (unknown) Signed By: (units (unk nown) date) unknown) (unknown) (no (unknown) (unknown) Sister Kidney (units ( unknown) date) stones unknown) (unknown) (no (unknown) (unknown) Smoking Status: (units (unknown) date) Never smoker unknown) (unknown) (no (unknown) (unknown) Social History (units (unknown) date) (Reviewed unknown) 06/01/22 @ 15:30 by MARY Morrow) (unknown) (no (unknown) (unknown) Surgical History (units (unknown) date) (Reviewed unknown) 06/01/22 @ 15:30 by MARY Morrow) (unknown) (no (unknown) (unknown) This note may (units ( unknown) date) have been all or unknown) partially generated using voice recognition (unknown) (no (unknown) (unknown) Tobacco Status (units (unknown) date) unknown) (unknown) (no (unknown) (unknown) Urine Appearance (units (unknown) date) Clear Last Edit unknown) by Em Sr RN on 06/06/22 13:56 (unknown) (no (unknown) (unknown) Urine Bilirubin (units (unknown) date) Negative Last unknown) Edit by Em Sr RN on 06/06/22 13:56 (unknown) (no (unknown) (unknown) Urine Blood 1+ (units (unknown) date) 25 Ryan/uL Last unknown) Edit by Em Sr RN on 06/06/22 13:56 (unknown) (no (unknown) (unknown) Urine Color (units (un known) date) Gabby Last Edit unknown) by Em Sr RN on 06/06/22 13:56 (unknown) (no (unknown) (unknown) Urine Dipstick (units (unknown) date) unknown) (unknown) (no (unknown) (unknown) Urine Glucose (units ( unknown) date) Negative mg/dL unknown) Last Edit by Em Sr RN on 06/06/22 13 (unknown) (no (unknown) (unknown) Urine Ketones (units ( unknown) date) Negative Last unknown) Edit by Em Sr RN on 06/06/22 13:56 (unknown) (no (unknown) (unknown) Urine Leukocyte (units (unknown) date) Esterase Negative unknown) Last Edit by mE Sr RN on 06/06 (unknown) (no (unknown) (unknown) Urine Nitrate (units ( unknown) date) Negative Last unknown) Edit by Em Sr RN on 06/06/22 13:56 (unknown) (no (unknown) (unknown) Urine Protein (units ( unknown) date) Negative Last unknown) Edit by Em Sr RN on 06/06/22 13:56 (unknown) (no (unknown) (unknown) Urine Specific (units (unknown) date) [place] 1.020 unknown) Last Edit by Em Sr RN on 01/24/23 (unknown) (no (unknown) (unknown) Urine (units (unkno wn) date) Urobilinogen - unknown) 0.2 mg/dL Last Edit by Em rS RN on (unknown) (no (unknown) (unknown) Urine pH 6.0 (units (u nknown) date) Last Edit by unknown) Em Sr RN on 06/06/22 13:56 (unknown) (no (unknown) (unknown) Urology Office (units (unknown) date) Visit unknown) (unknown) (no (unknown) (unknown) Visit Reasons: (units (unknown) date) Pre-Op/COVID Test unknown) (unknown) (no (unknown) (unknown) Vitals (units (unkno wn) date) unknown) (unknown) (no (unknown) (unknown) Z87.442 - (units (unkn own) date) Personal history unknown) of urinary calculi (unknown) (no (unknown) (unknown) amoxicillin (units (un known) date) [AMOXICILLIN] unknown) Allergy (Unknown, Verified 06/06/22 13:39) (unknown) (no (unknown) (unknown) exposure to (units (un known) date) COVID-19 unknown) (unknown) (no (unknown) (unknown) have occurred. (units (unknown) date) If there are any unknown) questions, please contact the Medical Records (unknown) (no (unknown) (unknown) marital status: (units (unknown) date) unknown) (unknown) (no (unknown) (unknown) may occur. (units (unk nown) date) Occasional unknown) wrong-word or 'sound-alike' substitutions may have (unknown) (no (unknown) (unknown) number of (units (unkn own) date) children: 2 unknown) (unknown) (no (unknown) (unknown) occurred due to (units (unknown) date) the inherent unknown) limitations of voice recognition software. Please (unknown) (no (unknown) (unknown) omeprazole 20 mg (units (unknown) date) tablet,delayed unknown) release 40 mg PO DAILY #60 tabs 05/17/22 [Rx (unknown) (no (unknown) (unknown) ondansetron 4 mg (units (unknown) date) disintegrating unknown) tablet 4 mg PO Q8H PRN nausea and vomiting #10 (unknown) (no (unknown) (unknown) oxycodone-acetam (units (unknown) date) inophen 5 mg-325 unknown) mg tablet (Percocet) 1 tab PO Q8H PRN pain #14 (unknown) (no (unknown) (unknown) paroxetine HCl 20 (units (unknown) date) mg tablet 20 mg unknown) PO DAILY 06/06/22 [History Confirmed 06/06/22] (unknown) (no (unknown) (unknown) read the note (units ( unknown) date) carefully and unknown) recognize, using context, where these substitutions (unknown) (no (unknown) (unknown) software. (units (unkn own) date) Although every unknown) effort is made to edit content, global account manager errors (unknown) (no (unknown) (unknown) tabs 06/01/22 (units ( unknown) date) [Rx Confirmed unknown) 06/06/22] (unknown) (no (unknown) (unknown) tabs 06/05/22 (units ( unknown) date) [Rx Confirmed unknown) 06/06/22] (unknown) (no (unknown) (unknown) tamsulosin 0.4 (units (unknown) date) mg capsule unknown) (Flomax) 0.4 mg PO BEDTIME #14 caps 06/01/22 [Rx Result panel 1053 (unknown) (no (unknown) (unknown) (no value) (units (unk nown) date) unknown) (unknown) (no (unknown) (unknown) (units (unkno wn) date) unknown) (unknown) (no (unknown) (unknown) 06/06/22 (units (unkno wn) date) unknown) (unknown) (no (unknown) (unknown) 03/19/2022. The (units (unknown) date) patient presented unknown) to [facility] ED on 03/23/2022, with (unknown) (no (unknown) (unknown) 13:40 (units (unkno wn) date) unknown) (unknown) (no (unknown) (unknown) 13:56 (units (unkno wn) date) unknown) (unknown) (no (unknown) (unknown) 23 (units (unkno wn) date) unknown) (unknown) (no (unknown) (unknown) 36 Y/O M (units (unkno wn) date) presents to unknown) clinic for Preop and preop covid test. (unknown) (no (unknown) (unknown) 5498 (units (unkno wn) date) unknown) (unknown) (no (unknown) (unknown) :56 (units (unkno wn) date) unknown) (unknown) (no (unknown) (unknown) Age/Sex: 36 / M (units (unknown) date) Date of Service: unknown) (unknown) (no (unknown) (unknown) Allergies (units (unkn own) date) unknown) (unknown) (no (unknown) (unknown) [place], [place] (units ( unknown) date) [id number] unknown) (unknown) (no (unknown) (unknown) Assessment + (units (u nknown) date) Plan unknown) (unknown) (no (unknown) (unknown) Asthma (units (unkno wn) date) unknown) (unknown) (no (unknown) (unknown) Attending Dr: (units ( unknown) date) Arelis Bedollawitch unknown) (unknown) (no (unknown) (unknown) BP 125/86 (units (unkn own) date) unknown) (unknown) (no (unknown) (unknown) Blood Pressure (units (unknown) date) Location Lt unknown) brachial (unknown) (no (unknown) (unknown) COVID19 -Nasal (units (unknown) date) RAPID/Pre-Proc unknown) Today Z20.822 - Contact with and (suspected) (unknown) (no (unknown) (unknown) Chief Complaint (units (unknown) date) unknown) (unknown) (no (unknown) (unknown) Chief Complaint: (units (unknown) date) Left ureteral unknown) stone (unknown) (no (unknown) (unknown) Confirmed (units (unkn own) date) 06/06/22] unknown) (unknown) (no (unknown) (unknown) : 1985 (units (unknown) date) Acct:[id number] unknown) (unknown) (no (unknown) (unknown) Depression (units (unk nown) date) unknown) (unknown) (no (unknown) (unknown) Dept at (units (unkno wn) date) . unknown) (unknown) (no (unknown) (unknown) Details: (units (unkno wn) date) unknown) (unknown) (no (unknown) (unknown) Documented By: (units (unknown) date) Arelis Parada unknown) 06/06/22 1318 (unknown) (no (unknown) (unknown) Draft (units (unkno wn) date) unknown) (unknown) (no (unknown) (unknown) Family History (units (unknown) date) (Reviewed unknown) 06/01/22 @ 15:30 by Ni Moran [facility]) (unknown) (no (unknown) (unknown) Father Diabetes (units (unknown) date) mellitus unknown) (unknown) (no (unknown) (unknown) H/O vasectomy (units ( unknown) date) unknown) (unknown) (no (unknown) (unknown) HPI (units (unkno wn) date) unknown) (unknown) (no (unknown) (unknown) He was seen on (units (unknown) date) 05/30/2021, by unknown) Dr. Wahl (unknown) (no (unknown) (unknown) Healthy adult (units ( unknown) date) unknown) (unknown) (no (unknown) (unknown) History of back (units (unknown) date) surgery unknown) (unknown) (no (unknown) (unknown) History of (units (unk nown) date) kidney stones unknown) (unknown) (no (unknown) (unknown) Hx of migraines (units (unknown) date) unknown) (unknown) (no (unknown) (unknown) Hyperlipidemia (units (unknown) date) unknown) (unknown) (no (unknown) (unknown) Hypertension (units (u nknown) date) unknown) (unknown) (no (unknown) (unknown) Intake Note: (units (u nknown) date) unknown) (unknown) (no (unknown) (unknown) Intake performed (units (unknown) date) by: unknown) Em Sr (unknown) (no (unknown) (unknown) Intake (units (unkno wn) date) unknown) (unknown) (no (unknown) (unknown) Intake- Clincial (units (unknown) date) Staff unknown) (unknown) (no (unknown) (unknown) [facility] (units (unknown) date) unknown) (unknown) (no (unknown) (unknown) Jaquan is a (units (unkno wn) date) 36-year-old unknown) male presenting today with his father, Brigido, as a (unknown) (no (unknown) (unknown) Kidney stones (units ( unknown) date) unknown) (unknown) (no (unknown) (unknown) Left renal stone (units (unknown) date) unknown) (unknown) (no (unknown) (unknown) Loc: [facility] (units (unkno wn) date) unknown) (unknown) (no (unknown) (unknown) Medical History (units (unknown) date) (Reviewed unknown) 06/01/22 @ 15:30 by Ni Moran [facility]) (unknown) (no (unknown) (unknown) Medications (units (un known) date) unknown) (unknown) (no (unknown) (unknown) Mother Cancer (units ( unknown) date) unknown) (unknown) (no (unknown) (unknown) 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 (unknown) (no (unknown) (unknown) Orders (units (unkno wn) date) unknown) (unknown) (no (unknown) (unknown) Orders: (units (unkno wn) date) unknown) (unknown) (no (unknown) (unknown) Oxygen Delivery (units (unknown) date) Method room air unknown) (unknown) (no (unknown) (unknown) PFSH (units (unkno wn) date) unknown) (unknown) (no (unknown) (unknown) POC Urine Dip (units ( unknown) date) Today N20.0 - unknown) Calculus of kidney, N20.1 - Calculus of ureter, (unknown) (no (unknown) (unknown) Patient: (units (unkno wn) date) Jaquan Rodríguez MR#: unknown) [id number] (unknown) (no (unknown) (unknown) Position Sitting (units (unknown) date) unknown) (unknown) (no (unknown) (unknown) Pulse 81 (units (unkno wn) date) unknown) (unknown) (no (unknown) (unknown) Pulse Oximetry (units (unknown) date) (%) 98 unknown) (unknown) (no (unknown) (unknown) Pulse Source (units (u nknown) date) Monitor unknown) (unknown) (no (unknown) (unknown) Reason For Visit (units (unknown) date) unknown) (unknown) (no (unknown) (unknown) Respiration 18 (units (unknown) date) unknown) (unknown) (no (unknown) (unknown) Results (units (unkno wn) date) unknown) (unknown) (no (unknown) (unknown) Signed By: (units (unk nown) date) unknown) (unknown) (no (unknown) (unknown) Sister Kidney (units ( unknown) date) stones unknown) (unknown) (no (unknown) (unknown) Smoking Status: (units (unknown) date) Never smoker unknown) (unknown) (no (unknown) (unknown) Social History (units (unknown) date) (Reviewed unknown) 06/01/22 @ 15:30 by MARY Morrow) (unknown) (no (unknown) (unknown) Surgical History (units (unknown) date) (Reviewed unknown) 06/01/22 @ 15:30 by MARY Morrow) (unknown) (no (unknown) (unknown) This note may (units ( unknown) date) have been all or unknown) partially generated using voice recognition (unknown) (no (unknown) (unknown) Tobacco Status (units (unknown) date) unknown) (unknown) (no (unknown) (unknown) Urine Appearance (units (unknown) date) Clear Last Edit unknown) by Em Sr RN on 06/06/22 13:56 (unknown) (no (unknown) (unknown) Urine Bilirubin (units (unknown) date) Negative Last unknown) Edit by Em Sr RN on 06/06/22 13:56 (unknown) (no (unknown) (unknown) Urine Blood 1+ (units (unknown) date) 25 Ryan/uL Last unknown) Edit by Em Sr RN on 06/06/22 13:56 (unknown) (no (unknown) (unknown) Urine Color (units (un known) date) Gabby Last Edit unknown) by Em Sr RN on 06/06/22 13:56 (unknown) (no (unknown) (unknown) Urine Dipstick (units (unknown) date) unknown) (unknown) (no (unknown) (unknown) Urine Glucose (units ( unknown) date) Negative mg/dL unknown) Last Edit by Em Sr RN on 06/06/22 13 (unknown) (no (unknown) (unknown) Urine Ketones (units ( unknown) date) Negative Last unknown) Edit by Em Sr RN on 06/06/22 13:56 (unknown) (no (unknown) (unknown) Urine Leukocyte (units (unknown) date) Esterase Negative unknown) Last Edit by Em Sr RN on 06/06 (unknown) (no (unknown) (unknown) Urine Nitrate (units ( unknown) date) Negative Last unknown) Edit by Em Sr RN on 06/06/22 13:56 (unknown) (no (unknown) (unknown) Urine Protein (units ( unknown) date) Negative Last unknown) Edit by Em Sr RN on 06/06/22 13:56 (unknown) (no (unknown) (unknown) Urine Specific (units (unknown) date) [place] 1.020 unknown) Last Edit by Em Sr RN on 06/06/22 (unknown) (no (unknown) (unknown) Urine (units (unkno wn) date) Urobilinogen - unknown) 0.2 mg/dL Last Edit by Em Sr RN on 06/06/ (unknown) (no (unknown) (unknown) Urine pH 6.0 (units (u nknown) date) Last Edit by unknown) Em Sr RN on 06/06/22 13:56 (unknown) (no (unknown) (unknown) Urology Office (units (unknown) date) Visit unknown) (unknown) (no (unknown) (unknown) Visit Reasons: (units (unknown) date) Pre-Op/COVID Test unknown) (unknown) (no (unknown) (unknown) Vitals (units (unkno wn) date) unknown) (unknown) (no (unknown) (unknown) Z87.442 - (units (unkn own) date) Personal history unknown) of urinary calculi (unknown) (no (unknown) (unknown) amoxicillin (units (un known) date) [AMOXICILLIN] unknown) Allergy (Unknown, Verified 06/06/22 13:39) (unknown) (no (unknown) (unknown) exposure to (units (un known) date) COVID-19 unknown) (unknown) (no (unknown) (unknown) fit in urgent (units ( unknown) date) for ongoing unknown) intermittent left flank pain. He has history of (unknown) (no (unknown) (unknown) have occurred. (units (unknown) date) If there are any unknown) questions, please contact the Medical Records (unknown) (no (unknown) (unknown) left intrarenal (units (unknown) date) calculi unknown) documented on [facility] (unknown) (no (unknown) (unknown) marital status: (units (unknown) date) unknown) (unknown) (no (unknown) (unknown) may occur. (units (unk nown) date) Occasional unknown) wrong-word or 'sound-alike' substitutions may have (unknown) (no (unknown) (unknown) number of (units (unkn own) date) children: 2 unknown) (unknown) (no (unknown) (unknown) obstructing 4 mm (units (unknown) date) left proximal unknown) ureteral calculus and 2 additional nonobstructing (unknown) (no (unknown) (unknown) occurred due to (units (unknown) date) the inherent unknown) limitations of voice recognition software. Please (unknown) (no (unknown) (unknown) omeprazole 20 mg (units (unknown) date) tablet,delayed unknown) release 40 mg PO DAILY #60 tabs 05/17/22 [Rx (unknown) (no (unknown) (unknown) ondansetron 4 mg (units (unknown) date) disintegrating unknown) tablet 4 mg PO Q8H PRN nausea and vomiting #10 (unknown) (no (unknown) (unknown) ongoing (units (unkno wn) date) difficulty with unknown) the current 1. He was referred to Dr. Marshal Wahl. (unknown) (no (unknown) (unknown) ongoing left (units (u nknown) date) renal colic. He unknown) apparently had passed previous stones, was having (unknown) (no (unknown) (unknown) oxycodone-acetam (units (unknown) date) inophen 5 mg-325 unknown) mg tablet (Percocet) 1 tab PO Q8H PRN pain #14 (unknown) (no (unknown) (unknown) paroxetine HCl 20 (units (unknown) date) mg tablet 20 mg unknown) PO DAILY 06/06/22 [History Confirmed 06/06/22] (unknown) (no (unknown) (unknown) read the note (units ( unknown) date) carefully and unknown) recognize, using context, where these substitutions (unknown) (no (unknown) (unknown) software. (units (unkn own) date) Although every unknown) effort is made to edit content, global account manager errors (unknown) (no (unknown) (unknown) tabs 06/01/22 (units ( unknown) date) [Rx Confirmed unknown) 06/06/22] (unknown) (no (unknown) (unknown) tabs 06/05/22 (units ( unknown) date) [Rx Confirmed unknown) 06/06/22] (unknown) (no (unknown) (unknown) tamsulosin 0.4 (units (unknown) date) mg capsule unknown) (Flomax) 0.4 mg PO BEDTIME #14 caps 06/01/22 [Rx Result panel 1054 (unknown) (no (unknown) (unknown) (no value) (units (unk nown) date) unknown) (unknown) (no (unknown) (unknown) / (units (unkno wn) date) unknown) (unknown) (no (unknown) (unknown) 06/06/22 (units (unkno wn) date) unknown) (unknown) (no (unknown) (unknown) 03/19/2022. The (units (unknown) date) patient presented unknown) to [facility] ED on 03/23/2022, with (unknown) (no (unknown) (unknown) 13:40 (units (unkno wn) date) unknown) (unknown) (no (unknown) (unknown) 13:56 (units (unkno wn) date) unknown) (unknown) (no (unknown) (unknown) 23 (units (unkno wn) date) unknown) (unknown) (no (unknown) (unknown) 36 Y/O M (units (unkno wn) date) presents to unknown) clinic for Preop and preop covid test. (unknown) (no (unknown) (unknown) 8158 (units (unkno wn) date) unknown) (unknown) (no (unknown) (unknown) :56 (units (unkno wn) date) unknown) (unknown) (no (unknown) (unknown) Age/Sex: 36 / M (units (unknown) date) Date of Service: unknown) (unknown) (no (unknown) (unknown) Allergies (units (unkn own) date) unknown) (unknown) (no (unknown) (unknown) [place], [place] (units ( unknown) date) [id number] unknown) (unknown) (no (unknown) (unknown) Assessment + (units (u nknown) date) Plan unknown) (unknown) (no (unknown) (unknown) Asthma (units (unkno wn) date) unknown) (unknown) (no (unknown) (unknown) Attending Dr: (units ( unknown) date) Arelis Parada unknown) (unknown) (no (unknown) (unknown) BP 125/86 (units (unkn own) date) unknown) (unknown) (no (unknown) (unknown) Blood Pressure (units (unknown) date) Location Lt unknown) brachial (unknown) (no (unknown) (unknown) COVID19 -Nasal (units (unknown) date) RAPID/Pre-Proc unknown) Today Z20.822 - Contact with and (suspected) (unknown) (no (unknown) (unknown) Chief Complaint (units (unknown) date) unknown) (unknown) (no (unknown) (unknown) Chief Complaint: (units (unknown) date) Left ureteral unknown) stone (unknown) (no (unknown) (unknown) Confirmed (units (unkn own) date) 06/06/22] unknown) (unknown) (no (unknown) (unknown) : 1985 (units (unknown) date) Acct:[id number] unknown) (unknown) (no (unknown) (unknown) Depression (units (unk nown) date) unknown) (unknown) (no (unknown) (unknown) Dept at (units (unkno wn) date) . unknown) (unknown) (no (unknown) (unknown) Details: (units (unkno wn) date) unknown) (unknown) (no (unknown) (unknown) Documented By: (units (unknown) date) Arelis Parada unknown) 06/06/22 1318 (unknown) (no (unknown) (unknown) Draft (units (unkno wn) date) unknown) (unknown) (no (unknown) (unknown) Family History (units (unknown) date) (Reviewed unknown) 06/01/22 @ 15:30 by Ni Moran [facility]) (unknown) (no (unknown) (unknown) Father Diabetes (units (unknown) date) mellitus unknown) (unknown) (no (unknown) (unknown) H/O vasectomy (units ( unknown) date) unknown) (unknown) (no (unknown) (unknown) HPI (units (unkno wn) date) unknown) (unknown) (no (unknown) (unknown) He was seen on (units (unknown) date) 05/30/2021, by unknown) Dr. Wahl. (unknown) (no (unknown) (unknown) Healthy adult (units ( unknown) date) unknown) (unknown) (no (unknown) (unknown) History of back (units (unknown) date) surgery unknown) (unknown) (no (unknown) (unknown) History of (units (unk nown) date) kidney stones unknown) (unknown) (no (unknown) (unknown) Hx of migraines (units (unknown) date) unknown) (unknown) (no (unknown) (unknown) Hyperlipidemia (units (unknown) date) unknown) (unknown) (no (unknown) (unknown) Hypertension (units (u nknown) date) unknown) (unknown) (no (unknown) (unknown) Intake Note: (units (u nknown) date) unknown) (unknown) (no (unknown) (unknown) Intake performed (units (unknown) date) by: unknown) Em Sr (unknown) (no (unknown) (unknown) Intake (units (unkno wn) date) unknown) (unknown) (no (unknown) (unknown) Intake- Clincial (units (unknown) date) Staff unknown) (unknown) (no (unknown) (unknown) [facility] (units (unknown) date) unknown) (unknown) (no (unknown) (unknown) Jaquan is a (units (unkno wn) date) 36-year-old unknown) male presenting today with his father, Brigido, as a (unknown) (no (unknown) (unknown) Kidney stones (units ( unknown) date) unknown) (unknown) (no (unknown) (unknown) Left renal stone (units (unknown) date) unknown) (unknown) (no (unknown) (unknown) Loc: [facility] (units (unkno wn) date) unknown) (unknown) (no (unknown) (unknown) Medical History (units (unknown) date) (Reviewed unknown) 06/01/22 @ 15:30 by Ni Moran [facility]) (unknown) (no (unknown) (unknown) Medications (units (un known) date) unknown) (unknown) (no (unknown) (unknown) Mother Cancer (units ( unknown) date) unknown) (unknown) (no (unknown) (unknown) 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 (unknown) (no (unknown) (unknown) Orders (units (unkno wn) date) unknown) (unknown) (no (unknown) (unknown) Orders: (units (unkno wn) date) unknown) (unknown) (no (unknown) (unknown) Oxygen Delivery (units (unknown) date) Method room air unknown) (unknown) (no (unknown) (unknown) PFSH (units (unkno wn) date) unknown) (unknown) (no (unknown) (unknown) POC Urine Dip (units ( unknown) date) Today N20.0 - unknown) Calculus of kidney, N20.1 - Calculus of ureter, (unknown) (no (unknown) (unknown) Patient: (units (unkno wn) date) MarcosJaquan MR#: unknown) [id number] (unknown) (no (unknown) (unknown) Position Sitting (units (unknown) date) unknown) (unknown) (no (unknown) (unknown) Pulse 81 (units (unkno wn) date) unknown) (unknown) (no (unknown) (unknown) Pulse Oximetry (units (unknown) date) (%) 98 unknown) (unknown) (no (unknown) (unknown) Pulse Source (units (u nknown) date) Monitor unknown) (unknown) (no (unknown) (unknown) Reason For Visit (units (unknown) date) unknown) (unknown) (no (unknown) (unknown) Respiration 18 (units (unknown) date) unknown) (unknown) (no (unknown) (unknown) Results (units (unkno wn) date) unknown) (unknown) (no (unknown) (unknown) Signed By: (units (unk nown) date) unknown) (unknown) (no (unknown) (unknown) Sister Kidney (units ( unknown) date) stones unknown) (unknown) (no (unknown) (unknown) Smoking Status: (units (unknown) date) Never smoker unknown) (unknown) (no (unknown) (unknown) Social History (units (unknown) date) (Reviewed unknown) 06/01/22 @ 15:30 by MARY Morrow) (unknown) (no (unknown) (unknown) Surgical History (units (unknown) date) (Reviewed unknown) 06/01/22 @ 15:30 by MARY Morrow) (unknown) (no (unknown) (unknown) This note may (units ( unknown) date) have been all or unknown) partially generated using voice recognition (unknown) (no (unknown) (unknown) Tobacco Status (units (unknown) date) unknown) (unknown) (no (unknown) (unknown) Urine Appearance (units (unknown) date) Clear Last Edit unknown) by Em Sr RN on 06/06/22 13:56 (unknown) (no (unknown) (unknown) Urine Bilirubin (units (unknown) date) Negative Last unknown) Edit by Em Sr RN on 06/06/22 13:56 (unknown) (no (unknown) (unknown) Urine Blood 1+ (units (unknown) date) 25 Ryan/uL Last unknown) Edit by Em Sr RN on 06/06/22 13:56 (unknown) (no (unknown) (unknown) Urine Color (units (un known) date) Gabby Last Edit unknown) by Em Sr RN on 06/06/22 13:56 (unknown) (no (unknown) (unknown) Urine Dipstick (units (unknown) date) unknown) (unknown) (no (unknown) (unknown) Urine Glucose (units ( unknown) date) Negative mg/dL unknown) Last Edit by Em Sr RN on 06/06/22 13 (unknown) (no (unknown) (unknown) Urine Ketones (units ( unknown) date) Negative Last unknown) Edit by Em Sr RN on 06/06/22 13:56 (unknown) (no (unknown) (unknown) Urine Leukocyte (units (unknown) date) Esterase Negative unknown) Last Edit by Em Sr RN on 06/06 (unknown) (no (unknown) (unknown) Urine Nitrate (units ( unknown) date) Negative Last unknown) Edit by Em Sr RN on 06/06/22 13:56 (unknown) (no (unknown) (unknown) Urine Protein (units ( unknown) date) Negative Last unknown) Edit by Em Sr RN on 06/06/22 13:56 (unknown) (no (unknown) (unknown) Urine Specific (units (unknown) date) [place] 1.020 unknown) Last Edit by Em Sr RN on 06/06/22 (unknown) (no (unknown) (unknown) Urine (units (unkno wn) date) Urobilinogen - unknown) 0.2 mg/dL Last Edit by Em Sr RN on 06/06/ (unknown) (no (unknown) (unknown) Urine pH 6.0 (units (u nknown) date) Last Edit by unknown) Em Sr RN on 06/06/22 13:56 (unknown) (no (unknown) (unknown) Urology Office (units (unknown) date) Visit unknown) (unknown) (no (unknown) (unknown) Visit Reasons: (units (unknown) date) Pre-Op/COVID Test unknown) (unknown) (no (unknown) (unknown) Vitals (units (unkno wn) date) unknown) (unknown) (no (unknown) (unknown) Z87.442 - (units (unkn own) date) Personal history unknown) of urinary calculi (unknown) (no (unknown) (unknown) amoxicillin (units (un known) date) [AMOXICILLIN] unknown) Allergy (Unknown, Verified 06/06/22 13:39) (unknown) (no (unknown) (unknown) exposure to (units (un known) date) COVID-19 unknown) (unknown) (no (unknown) (unknown) fit in urgent (units ( unknown) date) for ongoing unknown) intermittent left flank pain. He has history of (unknown) (no (unknown) (unknown) have occurred. (units (unknown) date) If there are any unknown) questions, please contact the Medical Records (unknown) (no (unknown) (unknown) left intrarenal (units (unknown) date) calculi unknown) documented on CT KUB at [facility] (unknown) (no (unknown) (unknown) marital status: (units (unknown) date) unknown) (unknown) (no (unknown) (unknown) may occur. (units (unk nown) date) Occasional unknown) wrong-word or 'sound-alike' substitutions may have (unknown) (no (unknown) (unknown) number of (units (unkn own) date) children: 2 unknown) (unknown) (no (unknown) (unknown) obstructing 4 mm (units (unknown) date) left proximal unknown) ureteral calculus and 2 additional nonobstructing (unknown) (no (unknown) (unknown) occurred due to (units (unknown) date) the inherent unknown) limitations of voice recognition software. Please (unknown) (no (unknown) (unknown) omeprazole 20 mg (units (unknown) date) tablet,delayed unknown) release 40 mg PO DAILY #60 tabs 05/17/22 [Rx (unknown) (no (unknown) (unknown) ondansetron 4 mg (units (unknown) date) disintegrating unknown) tablet 4 mg PO Q8H PRN nausea and vomiting #10 (unknown) (no (unknown) (unknown) ongoing (units (unkno wn) date) difficulty with unknown) the current 1. He was referred to Dr. Marshal Wahl He was (unknown) (no (unknown) (unknown) ongoing left (units (u nknown) date) renal colic. He unknown) apparently had passed previous stones, was having (unknown) (no (unknown) (unknown) oxycodone-acetam (units (unknown) date) inophen 5 mg-325 unknown) mg tablet (Percocet) 1 tab PO Q8H PRN pain #14 (unknown) (no (unknown) (unknown) paroxetine HCl 20 (units (unknown) date) mg tablet 20 mg unknown) PO DAILY 06/06/22 [History Confirmed 06/06/22] (unknown) (no (unknown) (unknown) radiopaque (units (unk nown) date) density unknown) consistent with a stone. (unknown) (no (unknown) (unknown) read the note (units ( unknown) date) carefully and unknown) recognize, using context, where these substitutions (unknown) (no (unknown) (unknown) seen again on (units ( unknown) date) 05/17/2022 with unknown) complaint of vague epigastric pain. CT imaging at (unknown) (no (unknown) (unknown) software. (units (unkn own) date) Although every unknown) effort is made to edit content, global account manager errors (unknown) (no (unknown) (unknown) tabs 06/01/22 (units ( unknown) date) [Rx Confirmed unknown) 06/06/22] (unknown) (no (unknown) (unknown) tabs 06/05/22 (units ( unknown) date) [Rx Confirmed unknown) 06/06/22] (unknown) (no (unknown) (unknown) tamsulosin 0.4 (units (unknown) date) mg capsule unknown) (Flomax) 0.4 mg PO BEDTIME #14 caps 06/01/22 [Rx (unknown) (no (unknown) (unknown) that time (units (unkn own) date) identified unknown) nonobstructing left renal calculi without evidence of (unknown) (no (unknown) (unknown) ureteral (units (unkno wn) date) calculus. KUB unknown) 04/17/2022, showed a single, 5 mm left interpolar Result panel 1055 (unknown) (no (unknown) (unknown) (no value) (units (unk nown) date) unknown) (unknown) (no (unknown) (unknown) (1) Left ureteral (units (unknown) date) calculus: unknown) (unknown) (no (unknown) (unknown) (2) Renal colic (units (unknown) date) on left side: unknown) (unknown) (no (unknown) (unknown) (3) Calculus of (units (unknown) date) proximal left unknown) ureter: (unknown) (no (unknown) (unknown) (4) History of (units (unknown) date) kidney stones: unknown) (unknown) (no (unknown) (unknown) (5) Family (units (unk nown) date) history of unknown) nephrolithiasis: (unknown) (no (unknown) (unknown) /23 (units (unkno wn) date) unknown) (unknown) (no (unknown) (unknown) 06/06/22 1458 (units ( unknown) date) unknown) (unknown) (no (unknown) (unknown) 06/06/22 (units (unkno wn) date) unknown) (unknown) (no (unknown) (unknown) 1. Schedule (units (un known) date) urgent add on for unknown) CYSTOSCOPY/PLACEME NT LEFT URETERAL STENT. (unknown) (no (unknown) (unknown) 03/19/2022. The (units (unknown) date) patient presented unknown) to [facility] ED on 03/23/2022, with (unknown) (no (unknown) (unknown) 13:40 (units (unkno wn) date) unknown) (unknown) (no (unknown) (unknown) 13:56 (units (unkno wn) date) unknown) (unknown) (no (unknown) (unknown) 2. Confirmation (units (unknown) date) of left unknown) ESWL/cystoscopy and left stent removal-near future. (unknown) (no (unknown) (unknown) 23 (units (unkno wn) date) unknown) (unknown) (no (unknown) (unknown) 3. Patient will (units (unknown) date) benefit from unknown) metabolic stone risk evaluation given personal (unknown) (no (unknown) (unknown) 36 Y/O M presents (units (unknown) date) to clinic for unknown) Preop and preop covid test. (unknown) (no (unknown) (unknown) 5498 (units (unkno wn) date) unknown) (unknown) (no (unknown) (unknown) :56 (units (unkno wn) date) unknown) (unknown) (no (unknown) (unknown) Age/Sex: 36 / M (units (unknown) date) Date of Service: unknown) (unknown) (no (unknown) (unknown) All systems (units (un known) date) reviewed + are unknown) unremarkable except as noted in HPI and below (unknown) (no (unknown) (unknown) Allergies (units (unkn own) date) unknown) (unknown) (no (unknown) (unknown) [place], [place] (units ( unknown) date) [address] unknown) (unknown) (no (unknown) (unknown) Assessment + Plan (units (unknown) date) unknown) (unknown) (no (unknown) (unknown) Asthma (units (unkno wn) date) unknown) (unknown) (no (unknown) (unknown) Attending Dr: (units ( unknown) date) Arelis Parada MD unknown) (unknown) (no (unknown) (unknown) BP 125/86 (units (unkn own) date) unknown) (unknown) (no (unknown) (unknown) Blood Pressure (units (unknown) date) Location Lt unknown) brachial (unknown) (no (unknown) (unknown) COVID19 -Nasal (units (unknown) date) RAPID/Pre-Proc unknown) Today Z20.822 - Contact with and (suspected) (unknown) (no (unknown) (unknown) Chest-equal and (units (unknown) date) unlabored unknown) expansion bilaterally. (unknown) (no (unknown) (unknown) Chief Complaint (units (unknown) date) unknown) (unknown) (no (unknown) (unknown) Chief Complaint: (units (unknown) date) Left ureteral unknown) stone (unknown) (no (unknown) (unknown) Code(s): (units (unkno wn) date) unknown) (unknown) (no (unknown) (unknown) Confirmed (units (unkn own) date) 06/06/22] unknown) (unknown) (no (unknown) (unknown) Const (units (unkno wn) date) unknown) (unknown) (no (unknown) (unknown) : 1985 (units (unknown) date) Acct:[id number] unknown) (unknown) (no (unknown) (unknown) Depression (units (unk nown) date) unknown) (unknown) (no (unknown) (unknown) Dept at (units (unkno wn) date) . unknown) (unknown) (no (unknown) (unknown) Details: (units (unkno wn) date) unknown) (unknown) (no (unknown) (unknown) Documented By: (units (unknown) date) Arelis Parada MD unknown) 06/06/22 1318 (unknown) (no (unknown) (unknown) ESWL at next (units (u nknown) date) available. unknown) (unknown) (no (unknown) (unknown) Encounter (units (unkn own) date) documentation, unknown) coordination of surgical scheduling, and billing-10 (unknown) (no (unknown) (unknown) Exam Narrative (units (unknown) date) unknown) (unknown) (no (unknown) (unknown) Exam Narrative: (units (unknown) date) unknown) (unknown) (no (unknown) (unknown) Exam (units (unkno wn) date) unknown) (unknown) (no (unknown) (unknown) [id number] (units (u nknown) date) encounter-25 unknown) minutes (unknown) (no (unknown) (unknown) Family History (units (unknown) date) (Reviewed 06/06/22 unknown) @ 14:54 by Arelis Parada MD) (unknown) (no (unknown) (unknown) Family history of (units (unknown) date) nephrolithiasis unknown) (unknown) (no (unknown) (unknown) Father Diabetes (units (unknown) date) mellitus unknown) (unknown) (no (unknown) (unknown) H/O vasectomy (units ( unknown) date) unknown) (unknown) (no (unknown) (unknown) HPI (units (unkno wn) date) unknown) (unknown) (no (unknown) (unknown) He was seen on (units (unknown) date) 05/30/2021, by Dr. whitney) Vish. Dr. Wahl recommended ESWL and (unknown) (no (unknown) (unknown) Head/neck-sclera (units (unknown) date) clear and pupils unknown) are round and equal bilaterally. No visible (unknown) (no (unknown) (unknown) Healthy adult (units ( unknown) date) unknown) (unknown) (no (unknown) (unknown) Heart-normal (units (u nknown) date) sinus rhythm. unknown) (unknown) (no (unknown) (unknown) History of back (units (unknown) date) surgery unknown) (unknown) (no (unknown) (unknown) History of kidney (units (unknown) date) stones unknown) (unknown) (no (unknown) (unknown) Hx of migraines (units (unknown) date) unknown) (unknown) (no (unknown) (unknown) Hyperlipidemia (units (unknown) date) unknown) (unknown) (no (unknown) (unknown) Hypertension (units (u nknown) date) unknown) (unknown) (no (unknown) (unknown) In absence of (units (unknown) date) Vish, I was unknown) apprised of the situation and patient's continued (unknown) (no (unknown) (unknown) Intake Note: (units (u nknown) date) unknown) (unknown) (no (unknown) (unknown) Intake performed (units (unknown) date) by: unknown) Em Sr (unknown) (no (unknown) (unknown) Intake (units (unkno wn) date) unknown) (unknown) (no (unknown) (unknown) Intake- Clincial (units (unknown) date) Staff unknown) (unknown) (no (unknown) (unknown) [facility] (units (unknown) date) unknown) (unknown) (no (unknown) (unknown) Jaquan is a (units (unkno wn) date) 36-year-old unknown) male presenting today with his father, Brigido, as a (unknown) (no (unknown) (unknown) Kidney stones (units ( unknown) date) unknown) (unknown) (no (unknown) (unknown) Left renal stone (units (unknown) date) unknown) (unknown) (no (unknown) (unknown) Left ureteral (units ( unknown) date) calculus unknown) (unknown) (no (unknown) (unknown) Loc: [facility] (units (unkno wn) date) unknown) (unknown) (no (unknown) (unknown) Medical History (units (unknown) date) (Updated 06/06/22 unknown) @ 14:55 by Arelis Parada MD) (unknown) (no (unknown) (unknown) Medications (units (un known) date) unknown) (unknown) (no (unknown) (unknown) Mother Cancer (units ( unknown) date) unknown) (unknown) (no (unknown) (unknown) 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 (unknown) (no (unknown) (unknown) N20.1 - Calculus (units (unknown) date) of ureter unknown) (unknown) (no (unknown) (unknown) N23 - Unspecified (units (unknown) date) renal colic unknown) (unknown) (no (unknown) (unknown) Orders (units (unkno wn) date) unknown) (unknown) (no (unknown) (unknown) Orders: (units (unkno wn) date) unknown) (unknown) (no (unknown) (unknown) Oxygen Delivery (units (unknown) date) Method room air unknown) (unknown) (no (unknown) (unknown) PFSH (units (unkno wn) date) unknown) (unknown) (no (unknown) (unknown) POC Urine Dip (units ( unknown) date) Today N20.0 - unknown) Calculus of kidney, N20.1 - Calculus of ureter, (unknown) (no (unknown) (unknown) Patient: (units (unkno wn) date) Jaquan Rodríguez MR#: unknown) [id number] (unknown) (no (unknown) (unknown) Plan (units (unkno wn) date) unknown) (unknown) (no (unknown) (unknown) Position Sitting (units (unknown) date) unknown) (unknown) (no (unknown) (unknown) Pulse 81 (units (unkno wn) date) unknown) (unknown) (no (unknown) (unknown) Pulse Oximetry (units (unknown) date) (%) 98 unknown) (unknown) (no (unknown) (unknown) Pulse Source (units (u nknown) date) Monitor unknown) (unknown) (no (unknown) (unknown) ROS (units (unkno wn) date) unknown) (unknown) (no (unknown) (unknown) Reason For Visit (units (unknown) date) unknown) (unknown) (no (unknown) (unknown) Renal colic on (units (unknown) date) left side unknown) (unknown) (no (unknown) (unknown) Respiration 18 (units (unknown) date) unknown) (unknown) (no (unknown) (unknown) Results (units (unkno wn) date) unknown) (unknown) (no (unknown) (unknown) Review of (units (unkn own) date) clinical chart unknown) note history, patient data, imaging library, and ED (unknown) (no (unknown) (unknown) Reviewed findings, (units (unknown) date) discussed unknown) impression, explained rationale and indications for (unknown) (no (unknown) (unknown) Signed By: (units (unk nown) date) <Electronically unknown) signed by Arelis Parada MD> (unknown) (no (unknown) (unknown) Signed (units (unkno wn) date) unknown) (unknown) (no (unknown) (unknown) Sister Kidney (units ( unknown) date) stones unknown) (unknown) (no (unknown) (unknown) Smoking Status: (units (unknown) date) Never smoker unknown) (unknown) (no (unknown) (unknown) Social History (units (unknown) date) (Reviewed 06/06/22 unknown) @ 14:54 by Arelis Parada MD) (unknown) (no (unknown) (unknown) Status: Acute (units ( unknown) date) unknown) (unknown) (no (unknown) (unknown) Surgical History (units (unknown) date) (Reviewed 06/06/22 unknown) @ 14:54 by Arelis Parada MD) (unknown) (no (unknown) (unknown) The imaging was (units (unknown) date) reviewed, unknown) recommendation remained the same, that is for left (unknown) (no (unknown) (unknown) The [facility] ([facility]) [facility] with recurrent (unknown) (no (unknown) (unknown) This note may (units ( unknown) date) have been all or unknown) partially generated using voice recognition (unknown) (no (unknown) (unknown) Tobacco Status (units (unknown) date) unknown) (unknown) (no (unknown) (unknown) Urine Appearance (units (unknown) date) Clear Last Edit by unknown) Em Sr RN on 06/06/22 13:56 (unknown) (no (unknown) (unknown) Urine Bilirubin (units (unknown) date) Negative Last Edit unknown) by Em Sr RN on 06/06/22 13:56 (unknown) (no (unknown) (unknown) Urine Blood 1+ 25 (units (unknown) date) Ryan/uL Last Edit unknown) by Em Sr RN on 06/06/22 13:56 (unknown) (no (unknown) (unknown) Urine Color Gabby (units (unknown) date) Last Edit by unknown) Em Sr RN on 06/06/22 13:56 (unknown) (no (unknown) (unknown) Urine Dipstick (units (unknown) date) unknown) (unknown) (no (unknown) (unknown) Urine Glucose (units ( unknown) date) Negative mg/dL unknown) Last Edit by Em Sr RN on 06/06/22 13 (unknown) (no (unknown) (unknown) Urine Ketones (units ( unknown) date) Negative Last Edit unknown) by Em Sr RN on 06/06/22 13:56 (unknown) (no (unknown) (unknown) Urine Leukocyte (units (unknown) date) Esterase Negative unknown) Last Edit by Em Sr RN on 06/06 (unknown) (no (unknown) (unknown) Urine Nitrate (units ( unknown) date) Negative Last Edit unknown) by Em Sr RN on 06/06/22 13:56 (unknown) (no (unknown) (unknown) Urine Protein (units ( unknown) date) Negative Last Edit unknown) by Em Sr RN on 06/06/22 13:56 (unknown) (no (unknown) (unknown) Urine Specific (units (unknown) date) [place] 1.020 Last unknown) Edit by Em Sr RN on 06/06/22 (unknown) (no (unknown) (unknown) Urine (units (unkno wn) date) Urobilinogen - 0.2 unknown) mg/dL Last Edit by Em Sr RN on (unknown) (no (unknown) (unknown) Urine pH 6.0 Last (units (unknown) date) Edit by Em Sr RN on 06/06/22 13:56 (unknown) (no (unknown) (unknown) Urology Office (units (unknown) date) Visit unknown) (unknown) (no (unknown) (unknown) Visit Reasons: (units (unknown) date) Pre-Op/COVID Test unknown) (unknown) (no (unknown) (unknown) Vitals (units (unkno wn) date) unknown) (unknown) (no (unknown) (unknown) Well-developed, (units (unknown) date) moderately over unknown) nourished young adult male in no (unknown) (no (unknown) (unknown) Z84.1 - Family (units (unknown) date) history of unknown) disorders of kidney and ureter (unknown) (no (unknown) (unknown) Z87.442 - (units (unkn own) date) Personal history unknown) of urinary calculi (unknown) (no (unknown) (unknown) amoxicillin (units (un known) date) [AMOXICILLIN] unknown) Allergy (Unknown, Verified 06/06/22 13:39) (unknown) (no (unknown) (unknown) ay occur. (units (unkn own) date) Occasional unknown) wrong-word or 'sound-alike' substitutions may have (unknown) (no (unknown) (unknown) calculus with (units ( unknown) date) associated unknown) moderate hydronephrosis. Upon retrospective review of (unknown) (no (unknown) (unknown) clinical (units (unkno wn) date) difficulties unknown) yesterday. He presents today as urgent fit in and (unknown) (no (unknown) (unknown) concerns and (units (u nknown) date) indicates a desire unknown) to proceed today as discussed. (unknown) (no (unknown) (unknown) current distress. (units (unknown) date) He is alert, and unknown) appropriate. (unknown) (no (unknown) (unknown) effects, possible (units (unknown) date) complications, unknown) perioperative limitations/restri ctions, and (unknown) (no (unknown) (unknown) encounter notes (units (unknown) date) for current unknown) encounter-20 minutes (unknown) (no (unknown) (unknown) evidence of (units (un known) date) adenopathy or JVD. unknown) (unknown) (no (unknown) (unknown) exposure to (units (un known) date) COVID-19 unknown) (unknown) (no (unknown) (unknown) fit in urgent for (units (unknown) date) ongoing unknown) intermittent left flank pain. He has history of (unknown) (no (unknown) (unknown) have occurred. If (units (unknown) date) there are any unknown) questions, please contact the Medical Records (unknown) (no (unknown) (unknown) imaging by me, my (units (unknown) date) impression unknown) probably is that the interpretation of a 7 mm (unknown) (no (unknown) (unknown) left flank pain. (units (unknown) date) CT KUB identified unknown) a 7 mm obstructing left proximal ureteral (unknown) (no (unknown) (unknown) left intrarenal (units (unknown) date) calculi documented unknown) on CT KUB at [facility] (unknown) (no (unknown) (unknown) marital status: (units (unknown) date) unknown) (unknown) (no (unknown) (unknown) minutes (units (unkno wn) date) unknown) (unknown) (no (unknown) (unknown) number of (units (unkn own) date) children: 2 unknown) (unknown) (no (unknown) (unknown) obstructing 4 mm (units (unknown) date) left proximal unknown) ureteral calculus and 2 additional nonobstructing (unknown) (no (unknown) (unknown) obstructing stone (units (unknown) date) is probably 2 unknown) stones in juxtaposition. (unknown) (no (unknown) (unknown) occurred due to (units (unknown) date) the inherent unknown) limitations of voice recognition software. Please (unknown) (no (unknown) (unknown) omeprazole 20 mg (units (unknown) date) tablet,delayed unknown) release 40 mg PO DAILY #60 tabs 05/17/22 [Rx (unknown) (no (unknown) (unknown) ondansetron 4 mg (units (unknown) date) disintegrating unknown) tablet 4 mg PO Q8H PRN nausea and vomiting #10 (unknown) (no (unknown) (unknown) ongoing (units (unkno wn) date) difficulty with unknown) the current 1. He was referred to Dr. Marshal Wahl He was (unknown) (no (unknown) (unknown) ongoing left (units (u nknown) date) renal colic. He unknown) apparently had passed previous stones, was having (unknown) (no (unknown) (unknown) oxycodone-acetami (units (unknown) date) nophen 5 mg-325 mg unknown) tablet (Percocet) 1 tab PO Q8H PRN pain #14 (unknown) (no (unknown) (unknown) paroxetine HCl 20 (units (unknown) date) mg tablet 20 mg PO unknown) DAILY 06/06/22 [History Confirmed 06/06/22] (unknown) (no (unknown) (unknown) read the note (units ( unknown) date) carefully and unknown) recognize, using context, where these substitutions (unknown) (no (unknown) (unknown) reasonable (units (unk nown) date) expectations of unknown) outcomes and recovery following cystoscopy and left (unknown) (no (unknown) (unknown) recurrent history (units (unknown) date) and father's unknown) history of recurrent stone disease. (unknown) (no (unknown) (unknown) relief of left (units (unknown) date) ureteral unknown) obstruction due to stone(s). Explained common side (unknown) (no (unknown) (unknown) scheduling for (units (unknown) date) that is pending. unknown) (unknown) (no (unknown) (unknown) seen again on (units ( unknown) date) 05/17/2022 with unknown) complaint of vague epigastric pain. CT imaging at (unknown) (no (unknown) (unknown) showed a single, (units (unknown) date) 5 mm left unknown) interpolar radiopaque density consistent with a (unknown) (no (unknown) (unknown) software. (units (unkn own) date) Although every unknown) effort is made to edit content, global account manager errors m (unknown) (no (unknown) (unknown) stone. (units (unkno wn) date) unknown) (unknown) (no (unknown) (unknown) surgical add on (units (unknown) date) for relief of left unknown) renal obstruction. (unknown) (no (unknown) (unknown) tabs 06/01/22 [Rx (units (unknown) date) Confirmed unknown) 06/06/22] (unknown) (no (unknown) (unknown) tabs 06/05/22 [Rx (units (unknown) date) Confirmed unknown) 06/06/22] (unknown) (no (unknown) (unknown) tamsulosin 0.4 mg (units (unknown) date) capsule (Flomax) unknown) 0.4 mg PO BEDTIME #14 caps 06/01/22 [Rx (unknown) (no (unknown) (unknown) that time (units (unkn own) date) identified unknown) nonobstructing left renal calculi without evidence of (unknown) (no (unknown) (unknown) ureteral (units (unkno wn) date) calculus. unknown) [place] units were measured at 700. KUB 04/17/2022, (unknown) (no (unknown) (unknown) ureteral stent (units (unknown) date) placement. He had unknown) no further specific clarifying questions or Result panel 1056 (unknown) (no date) (unknown) (unknown) (no value) (units (un known) unknown) (unknown) (no date) (unknown) (unknown) 06/06/22 (units (unkn own) unknown) (unknown) (no date) (unknown) (unknown) [address]units (unk n[address]) [address] unknown) (unknown) (no date) (unknown) (unknown) 13:24. (units (unkn own) unknown) (unknown) (no date) (unknown) (unknown) [id number] (units (unkn own) unknown) (unknown) (no date) (unknown) (unknown) Accession (units (unk nown) Number: unknown) [id number] (unknown) (no date) (unknown) (unknown) Age/Sex: 36 / (units (unknown) M Date of unknown) Service: (unknown) (no date) (unknown) (unknown) [place], [place] (units (unknown) [address] unknown) (unknown) (no date) (unknown) (unknown) Approved by: (units ( unknown) Nguyễn Tomas unknown) Melanie Montana on 06/06/2022 at 14:28 (unknown) (no date) (unknown) (unknown) Bones: No (units (unk nown) suspicious bony unknown) lesions. (unknown) (no date) (unknown) (unknown) Bowel: Bowel (units ( unknown) gas pattern is unknown) normal. There is a moderate amount of stool seen (unknown) (no date) (unknown) (unknown) [facility], CT KIDNEY URETER BLADDER (KUB), 06/01/2022, (unknown) (no date) (unknown) (unknown) CR, XR KUB, (units (u nknown) 04/17/2022, unknown) 12:09. (unknown) (no date) (unknown) (unknown) : (units (unkn own) 1985 unknown) Acct:[id number] (unknown) (no date) (unknown) (unknown) Dictated by: (units ( unknown) Nguyễn Tomas unknown) Melanie Montana on 06/06/2022 at 14:27 (unknown) (no date) (unknown) (unknown) FINDINGS: (units (unk nown) unknown) (unknown) (no date) (unknown) (unknown) Hospital, (units (unk nown) unknown) (unknown) (no date) (unknown) (unknown) IMPRESSION: 6 (units (unknown) mm calculus unknown) seen overlying the left ureter at the S2 level. (unknown) (no date) (unknown) (unknown) INDICATIONS: (units ( unknown) Left ureteral unknown) calculi (unknown) (no date) (unknown) (unknown) [facility] unknown) (unknown) (no date) (unknown) (unknown) [facility] (unkn own) [facility], CT, unknown) CT KIDNEY URETER BLADDER (KUB), 05/17/2022, 16:52. [facility]) (no date) (unknown) (unknown) Loc: OR (units (unkn own) unknown) (unknown) (no date) (unknown) (unknown) Ordering (units (unkn own) Provider: unknown) Arelis Parada MD (unknown) (no date) (unknown) (unknown) PROCEDURE: XR (units (unknown) KUB unknown) (unknown) (no date) (unknown) (unknown) Patient: (units (unkn own) Jaquan Rodríguez unknown) MR#: [id number] (unknown) (no date) (unknown) (unknown) Procedure: XR (units (unknown) KUB unknown) (unknown) (no date) (unknown) (unknown) Signed (units (unkn own) unknown) (unknown) (no date) (unknown) (unknown) Soft tissues: (units (unknown) The known left unknown) ureteral calculus is again seen overlying the (unknown) (no date) (unknown) (unknown) Surgical (units (unkn own) changes and unknown) devices: None. (unknown) (no date) (unknown) (unknown) TECHNIQUE: One (units (unknown) view of the unknown) abdomen acquired. (unknown) (no date) (unknown) (unknown) XRay Report (units (u nknown) unknown) (unknown) (no date) (unknown) (unknown) at the S2 (units (unk nown) level. On these unknown) images, it measures 6 mm. (unknown) (no date) (unknown) (unknown) colon. (units (unkn own) unknown) (unknown) (no date) (unknown) (unknown) left sacrum (units (u nknown) unknown) (unknown) (no date) (unknown) (unknown) within the (units (un known) unknown) Result panel 1057 (unknown) (no (unknown) (unknown) (no value) (units (unk nown) date) unknown) (unknown) (no (unknown) (unknown) 06/06/22 1549 (units ( unknown) date) unknown) (unknown) (no (unknown) (unknown) 5498 (units (unkno wn) date) unknown) (unknown) (no (unknown) (unknown) Age/Sex: 36 / M (units (unknown) date) unknown) (unknown) (no (unknown) (unknown) COVID-19 (units (unkno wn) date) unknown) (unknown) (no (unknown) (unknown) Changes to H+P: (units (unknown) date) No unknown) (unknown) (no (unknown) (unknown) Criteria for (units (u nknown) date) continued unknown) procedure: Expected advancement of disease process, (unknown) (no (unknown) (unknown) : 1985 (units (unknown) date) Acct:[id number] unknown) (unknown) (no (unknown) (unknown) Date of Service: (units (unknown) date) 06/06/22 unknown) (unknown) (no (unknown) (unknown) History + (units (unkn own) date) Physical unknown) reviewed/Exam performed by Physician: Yes (unknown) (no (unknown) (unknown) Increased loss (units (unknown) date) of function, unknown) Continuing or worsening of significant or severe (unknown) (no (unknown) (unknown) Interval Note (units ( unknown) date) unknown) (unknown) (no (unknown) (unknown) [facility] (units (unknown) date) [address] unknown) [place] [address] (unknown) (no (unknown) (unknown) Patient: (units (unkno wn) date) Jaquan Rodríguez MR#: unknown) [id number] (unknown) (no (unknown) (unknown) Pre-operative (units ( unknown) date) Note unknown) (unknown) (no (unknown) (unknown) Provider: (units (unkn own) date) Arelis Parada unknown) (unknown) (no (unknown) (unknown) Signed (units (unkno wn) date) By:<Electronicall unknown) y signed by Arelis Parada MD> (unknown) (no (unknown) (unknown) alternatives not (units (unknown) date) available or unknown) appropriate per current SOC (unknown) (no (unknown) (unknown) pain, (units (unkno wn) date) Deterioration of unknown) the patient's condition or overall health, Delay expected (unknown) (no (unknown) (unknown) to result in (units (u nknown) date) less-positive unknown) ultimate med/surg outcome and Non-surgical Result panel 1058 (unknown) (no (unknown) (unknown) (no value) (units (unk nown) date) unknown) (unknown) (no (unknown) (unknown) 06/06/22 (units (unkno wn) date) unknown) (unknown) (no (unknown) (unknown) 04/17/2022, (units (un known) date) 12:09. unknown) (unknown) (no (unknown) (unknown) [address] [place] [address] (units (unknown) date) unknown) (unknown) (no (unknown) (unknown) [address] (units (unkno wn) date) unknown) (unknown) (no (unknown) (unknown) A single (units (unkno wn) date) intraoperative unknown) fluoroscopic image is present demonstrating a ureteral (unknown) (no (unknown) (unknown) Accession Number: (units (unknown) date) [id number] unknown) (unknown) (no (unknown) (unknown) Age/Sex: 36 / M (units (unknown) date) Date of Service: unknown) (unknown) (no (unknown) (unknown) NAVEEN Priest (units ( unknown) date) [address] unknown) (unknown) (no (unknown) (unknown) Approved by: (units (u nknown) date) abby Kam M.D. on 06/07/2022 at 8:26 (unknown) (no (unknown) (unknown) COMPARISON: (units (un known) date) [facility], unknown) CR, XR KUB, 06/06/2022, 15:16. [facility], (unknown) (no (unknown) (unknown) CR, XR KUB, (units (un known) date) unknown) (unknown) (no (unknown) (unknown) : 1985 (units (unknown) date) Acct:[id number] unknown) (unknown) (no (unknown) (unknown) Dictated by: (units (u nknown) date) abby Kam M.D. on 06/07/2022 at 8:25 (unknown) (no (unknown) (unknown) FINDINGS: (units (unkn own) date) unknown) (unknown) (no (unknown) (unknown) IMPRESSION: (units (un known) date) Intraprocedural unknown) fluoroscopy was provided for guidance and (unknown) (no (unknown) (unknown) INDICATIONS: (units (u nknown) date) STENT PLACEMENT unknown) (unknown) (no (unknown) (unknown) [facility] (units (unknown) date) unknown) (unknown) (no (unknown) (unknown) Loc: OR (units (unkno wn) date) unknown) (unknown) (no (unknown) (unknown) Ordering (units (unkno wn) date) Provider: unknown) Arelis Parada MD (unknown) (no (unknown) (unknown) PROCEDURE: XR KUB (units (unknown) date) unknown) (unknown) (no (unknown) (unknown) Patient: (units (unkno wn) date) Jaquan Rodríguez MR#: unknown) [id number] (unknown) (no (unknown) (unknown) Procedure: XR KUB (units (unknown) date) unknown) (unknown) (no (unknown) (unknown) Signed (units (unkno wn) date) unknown) (unknown) (no (unknown) (unknown) TECHNIQUE: Single (units (unknown) date) intraoperative unknown) fluoroscopic image submitted. (unknown) (no (unknown) (unknown) XRay Report (units (un known) date) unknown) (unknown) (no (unknown) (unknown) anatomical (units (unk nown) date) unknown) (unknown) (no (unknown) (unknown) localization. (units ( unknown) date) Please see the unknown) procedure report for further details. (unknown) (no (unknown) (unknown) projecting over (units (unknown) date) the upper abdomen. unknown) (unknown) (no (unknown) (unknown) stent (units (unkno wn) date) unknown) Result panel 1059 (unknown) (no (unknown) (unknown) (no value) (units (unk nown) date) unknown) (unknown) (no (unknown) (unknown) (units (unknown) date) unknown) (unknown) (no (unknown) (unknown) Performed at: (units (unknown) date) 01 unknown) (unknown) (no (unknown) (unknown) . 01 (units (unkno wn) date) unknown) (unknown) (no (unknown) (unknown) . (units (unkno wn) date) unknown) (unknown) (no (unknown) (unknown) /CPE 06/07/2022 (units (unknown) date) 0620 Local unknown) (unknown) (no (unknown) (unknown) 0.2 x 0.1 x 0.1 (units (unknown) date) cm to 0.2 x 0.1 x unknown) 0.1 cm submitted entirely in 1 (unknown) (no (unknown) (unknown) [address] [place] [address] (units (unknown) date) unknown) (unknown) (no (unknown) (unknown) [address] [place] [address] (units (unknown) date) [address], unknown) [place], [place] [id number] (unknown) (no (unknown) (unknown) [id number] (units (unkno wn) date) unknown) (unknown) (no (unknown) (unknown) A. Bladder, (units (un known) date) 'Tumor', Left unknown) Ureteric Ridge, Biopsy: (unknown) (no (unknown) (unknown) [place] (units ( unknown) date) [address] unknown) (unknown) (no (unknown) (unknown) BLADDER TUMOR (units ( unknown) date) LEFT URETERIC unknown) RIDGE: (unknown) (no (unknown) (unknown) Background (units (unk nown) date) inflammation and unknown) reactive changes. (unknown) (no (unknown) (unknown) COMMENT: (units (unkno wn) date) unknown) (unknown) (no (unknown) (unknown) CPT . (units (unkno wn) date) unknown) (unknown) (no (unknown) (unknown) Collection Date: (units (unknown) date) 06/06/22 unknown) (unknown) (no (unknown) (unknown) DD/ (units (unknown) date) 0000 unknown) (unknown) (no (unknown) (unknown) Date of : (units (unknown) date) 1985 Admit unknown) Date: 06/06/22 (unknown) (no (unknown) (unknown) Deeper H/E (units (unk nown) date) levels are unknown) examined. (unknown) (no (unknown) (unknown) Diagnosis: (units (unk nown) date) unknown) (unknown) (no (unknown) (unknown) Dictated By: (units (u nknown) date) Cristy Rush unknown) (unknown) (no (unknown) (unknown) Electronically (units (unknown) date) signed: . unknown) (unknown) (no (unknown) (unknown) Gross (units (unkno wn) date) description: . unknown) (unknown) (no (unknown) (unknown) [facility] (units (unknown) date) unknown) (unknown) (no (unknown) (unknown) [facility] Accession (units ( unknown) date) Number: unknown) [id number] (unknown) (no (unknown) (unknown) [facility] (units (unknown) date) [place] [facility] unknown) (unknown) (no (unknown) (unknown) MD Moreno (units (unkn own) date) Jessica LINARES Phone: unknown) [phone] (unknown) (no (unknown) (unknown) (units (unknown) date) Dictating Dr: unknown) Cristy N Victor Manuel LINARES (unknown) (no (unknown) (unknown) MRV 06/13/2022 (units (unknown) date) 0920 Local unknown) (unknown) (no (unknown) (unknown) Material (units (unkno wn) date) submitted: . unknown) (unknown) (no (unknown) (unknown) Microscopic: . (units (unknown) date) unknown) (unknown) (no (unknown) (unknown) Minute fragment (units (unknown) date) of hyperplastic unknown) urothelial mucosa with few papillae; (unknown) (no (unknown) (unknown) Cristy N (units (unkno wn) date) MD Victor Manuel, unknown) Pathologist (unknown) (no (unknown) (unknown) N20.1 (units (unkno wn) date) unknown) (unknown) (no (unknown) (unknown) I- [phone] (units (unknown) date) unknown) (unknown) (no (unknown) (unknown) Negative for (units (u nknown) date) significant unknown) atypia and malignancy. (unknown) (no (unknown) (unknown) No. of (units (unkno wn) date) containers..01 unknown) Tissue (unknown) (no (unknown) (unknown) Ordering (units (unkno wn) date) Physician: unknown) Arelis Parada MD (unknown) (no (unknown) (unknown) Pathologist (units (un known) date) provided ICD-10: unknown) (unknown) (no (unknown) (unknown) Pathology (units (unkn own) date) Diagnostic Report unknown) (unknown) (no (unknown) (unknown) Patient name: (units ( unknown) date) MarcosJaquan Valentina unknown) (unknown) (no (unknown) (unknown) Received in (units (un known) date) formalin are 2 unknown) fragment(s) of wood, soft tissue measuring (unknown) (no (unknown) (unknown) SEE COMMENT. (units (u nknown) date) unknown) (unknown) (no (unknown) (unknown) Signed By: (units (unk nown) date) 06/13/22 1235 unknown) (unknown) (no (unknown) (unknown) Signed (units (unkno wn) date) unknown) (unknown) (no (unknown) (unknown) Specimen (units (unkno wn) date) Comment: A unknown) courtesy copy of this report has been sent to [phone] (unknown) (no (unknown) (unknown) TD/TT: 06/13/22 (units (unknown) date) 1235 unknown) (unknown) (no (unknown) (unknown) The biopsy (units (unk nown) date) consists of unknown) inflamed urothelial mucosa with hyperplastic (unknown) (no (unknown) (unknown) biopsy is small (units (unknown) date) and while it may unknown) represent early urothelial papilloma, the (unknown) (no (unknown) (unknown) bladder - (units (unkn own) date) BLADDER TUMOR unknown) LEFT URETERIC RIDGE (unknown) (no (unknown) (unknown) cassette(s) (units (un known) date) unknown) (unknown) (no (unknown) (unknown) cystoscopic (units (un known) date) correlation is unknown) necessary. (unknown) (no (unknown) (unknown) differential (units (u nknown) date) also includes unknown) reactive papillary hyperplasia. Clinical and (unknown) (no (unknown) (unknown) some early (units (unk nown) date) branching, with unknown) true-appearing vascular cores, lined by normal (unknown) (no (unknown) (unknown) thickness (units (unkn own) date) epithelium, unknown) umbrella cells, and without significant atypia. The (unknown) (no (unknown) (unknown) urothelial (units (unk nown) date) lining, which unknown) demonstrates few 'detached-appeari ng' papillae, Result panel 1060 (unknown) (no (unknown) (unknown) (no value) (units (unk nown) date) unknown) (unknown) (no (unknown) (unknown) 0.35 hybrid (units (un known) date) guidewire was then unknown) advanced into the left ureteral orifice and (unknown) (no (unknown) (unknown) 06/06/22 1735 (units ( unknown) date) unknown) (unknown) (no (unknown) (unknown) 1. (units (unkno wn) date) Cystoscopy/left unknown) ureteral stone manipulation without removal. (unknown) (no (unknown) (unknown) 1. Obstructing (units (unknown) date) left proximal unknown) ureteral calculus. (unknown) (no (unknown) (unknown) 1. Urethra-normal (units (unknown) date) caliber without unknown) annular stricture or lesion. (unknown) (no (unknown) (unknown) 2. (units (unkno wn) date) Cystoscopy/placeme unknown) nt left ureteral stent (7 Afghan by 22-32 cm multi-length). (unknown) (no (unknown) (unknown) 2. External (units (un known) date) sphincter-coapted unknown) with normal eye urothelium. (unknown) (no (unknown) (unknown) 2. Intractable (units (unknown) date) left renal colic. unknown) (unknown) (no (unknown) (unknown) 3. (units (unkno wn) date) Cystoscopy/bladder unknown) biopsy. (unknown) (no (unknown) (unknown) 3. Zagoyuad-4-6.5 (units (unknown) date) cm length with unknown) mild lateral lobe hyperplasia. (unknown) (no (unknown) (unknown) 3. 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 (unknown) (no (unknown) (unknown) 4. Bladder-normal (units (unknown) date) ureteral orifices unknown) bilaterally. There is a small, papillary, (unknown) (no (unknown) (unknown) 4. (units (unkno wn) date) Cystoscopy/fulgara unknown) tion. (unknown) (no (unknown) (unknown) 5498 (units (unkno wn) date) unknown) (unknown) (no (unknown) (unknown) Age/Sex: 36 / M (units (unknown) date) unknown) (unknown) (no (unknown) (unknown) Anesthesia Type: (units (unknown) date) General unknown) (unknown) (no (unknown) (unknown) Applied: other (units (unknown) date) (Seven Afghan by unknown) 22-32 cm multi-length stent.) (unknown) (no (unknown) (unknown) Click Yes if (units (u nknown) date) Unassisted: Yes unknown) (unknown) (no (unknown) (unknown) Closure Type: not (units (unknown) date) applicable unknown) (unknown) (no (unknown) (unknown) Complications: (units (unknown) date) none unknown) (unknown) (no (unknown) (unknown) Condition: stable (units (unknown) date) unknown) (unknown) (no (unknown) (unknown) : 1985 (units (unknown) date) Acct:[id number] unknown) (unknown) (no (unknown) (unknown) Date of Service: (units (unknown) date) 06/06/22 unknown) (unknown) (no (unknown) (unknown) Date of (units (unkno wn) date) procedure: unknown) 06/06/22 (unknown) (no (unknown) (unknown) Discharge home. (units (unknown) date) unknown) (unknown) (no (unknown) (unknown) Disposition: PACU (units (unknown) date) unknown) (unknown) (no (unknown) (unknown) Estimated Blood (units (unknown) date) Loss (mL): 0 unknown) (unknown) (no (unknown) (unknown) Findings: (units (unkn own) date) unknown) (unknown) (no (unknown) (unknown) Afghan by 22-32 (units (unknown) date) cm multi-length unknown) stent was positioned under direct and (unknown) (no (unknown) (unknown) Indications: (units (u nknown) date) unknown) (unknown) (no (unknown) (unknown) [facility] (units (unknown) date) [address] unknown) [place] [address] (unknown) (no (unknown) (unknown) NO RETRIEVAL LINE (units (unknown) date) was left attached. unknown) (unknown) (no (unknown) (unknown) Operative (units (unkn own) date) Date/Time/Diagnose unknown) s (unknown) (no (unknown) (unknown) Operative Note (units (unknown) date) unknown) (unknown) (no (unknown) (unknown) Operative Notes (units (unknown) date) unknown) (unknown) (no (unknown) (unknown) Patient was (units (un known) date) positioned in unknown) supine was administered general anesthesia. He was (unknown) (no (unknown) (unknown) Patient: (units (unkno wn) date) Jaquan Rodríguez MR#: unknown) [id number] (unknown) (no (unknown) (unknown) Plan for (units (unkno wn) date) aftercare: unknown) (unknown) (no (unknown) (unknown) Post-op (units (unkno wn) date) diagnosis: other unknown) (Small, low-grade, papillary neoplasm left ureteric (unknown) (no (unknown) (unknown) Post-operative (units (unknown) date) unknown) (unknown) (no (unknown) (unknown) Pre-op diagnosis: (units (unknown) date) 1. Obstructing unknown) left proximal ureteral calculus. (unknown) (no (unknown) (unknown) Procedure + (units (un known) date) Clinicians unknown) (unknown) (no (unknown) (unknown) Procedure in (units (u nknown) date) detail: unknown) (unknown) (no (unknown) (unknown) Procedure: (units (unk nown) date) unknown) (unknown) (no (unknown) (unknown) Provider: (units ( own) date) Arelis Parada MD unknown) (unknown) (no (unknown) (unknown) Same procedure as (units (unknown) date) scheduled: No unknown) (Incidental finding of small, low-grade, (unknown) (no (unknown) (unknown) Signed (units (unkno wn) date) By:<Electronically unknown) signed by Arelis Parada MD> (unknown) (no (unknown) (unknown) Specimen(s): (units (u nknown) date) other (Biopsy of unknown) bladder tumor.) (unknown) (no (unknown) (unknown) Surgeon: Arelis (units (unknown) date) Karma unknown) (unknown) (no (unknown) (unknown) The cold cup (units (un known) date) biopsy forceps unknown) were then utilized to engage the small bladder tumor (unknown) (no (unknown) (unknown) Time of (units (unkno wn) date) procedure: 17:10 unknown) (unknown) (no (unknown) (unknown) advanced (units (unkno wn) date) proximally under unknown) direct and fluoroscopic guidance. Over this a 7 (unknown) (no (unknown) (unknown) and all (units (unkno wn) date) instrumentation unknown) was removed. The patient was then repositioned in (unknown) (no (unknown) (unknown) and provide a (units ( unknown) date) cold excisional unknown) biopsy. The specimen is submitted to pathology (unknown) (no (unknown) (unknown) blades and to the (units (unknown) date) fragile nature of unknown) the tumor which was easily disrupted with (unknown) (no (unknown) (unknown) cauterized with (units (unknown) date) excellent unknown) hemostasis. The bladder was then drained completely (unknown) (no (unknown) (unknown) condition. (units (unk nown) date) unknown) (unknown) (no (unknown) (unknown) fluoroscopic (units (u nknown) date) guidance. unknown) (unknown) (no (unknown) (unknown) for routine gross (units (unknown) date) and microscopic unknown) examination. Quality of the specimen was (unknown) (no (unknown) (unknown) forceps were then (units (unknown) date) exchanged for the unknown) Bugbee cautery probe. The lesion was then (unknown) (no (unknown) (unknown) low-grade (units (unkn own) date) neoplasm at the unknown) distal extent of left ureteric ridge and located (unknown) (no (unknown) (unknown) manipulation. (units ( unknown) date) Intraoperative unknown) photographs were obtained. The cold cup biopsy (unknown) (no (unknown) (unknown) medially and (units (u nknown) date) posteriorly to the unknown) left ureteral orifice. (unknown) (no (unknown) (unknown) neoplasm at left (units (unknown) date) ureteric ridge) unknown) (unknown) (no (unknown) (unknown) ridge) (units (unkno wn) date) unknown) (unknown) (no (unknown) (unknown) supine, was (units (un known) date) awakened, then was unknown) transferred to [facility] awake and in stable (unknown) (no (unknown) (unknown) then passed the (units (unknown) date) lower urinary unknown) tract with the findings as described above. A (unknown) (no (unknown) (unknown) then repositioned (units (unknown) date) semi lithotomy and unknown) the lower abdomen, genitalia, and groin (unknown) (no (unknown) (unknown) unsatisfactory (units (unknown) date) and my opinion due unknown) to suboptimal coaptation of the biopsy cup (unknown) (no (unknown) (unknown) were then prepped (units (unknown) date) and draped in unknown) sterile fashion. The 22 Afghan panendoscope was Result panel 1061 (unknown) (no (unknown) (unknown) (no value) (units (unk nown) date) unknown) (unknown) (no (unknown) (unknown) 06/12/22 (units (unkno wn) date) unknown) (unknown) (no (unknown) (unknown) [address] [place] [address] (units (unknown) date) unknown) (unknown) (no (unknown) (unknown) 13:24. (units (unkno wn) date) unknown) (unknown) (no (unknown) (unknown) [address] (units (unkno wn) date) unknown) (unknown) (no (unknown) (unknown) Accession (units (unkn own) date) Number: unknown) [id number] (unknown) (no (unknown) (unknown) Age/Sex: 36 / M (units (unknown) date) Date of Service: unknown) (unknown) (no (unknown) (unknown) [place], [place] (units ( unknown) date) [address] unknown) (unknown) (no (unknown) (unknown) Approved by: (units (u nknown) date) Victor M Simpson M.D. on unknown) 06/12/2022 at 12:55 (unknown) (no (unknown) (unknown) Bones: No (units (unkn own) date) suspicious bony unknown) lesions. (unknown) (no (unknown) (unknown) Bowel: Bowel gas (units (unknown) date) pattern is unknown) nonobstructive. (unknown) (no (unknown) (unknown) COMPARISON: (units (un known) date) [facility], unknown) CT, CT KIDNEY URETER BLADDER (KUB), 06/01/2022, (unknown) (no (unknown) (unknown) : 1985 (units (unknown) date) Acct:[id number] unknown) (unknown) (no (unknown) (unknown) Dictated by: (units (u nknown) date) Victor M Simpson M.D. on unknown) 06/12/2022 at 12:52 (unknown) (no (unknown) (unknown) FINDINGS: (units (unkn own) date) unknown) (unknown) (no (unknown) (unknown) IMPRESSION: (units (un known) date) Interval unknown) placement of left-sided double-J ureteral stent with some (unknown) (no (unknown) (unknown) INDICATIONS: (units (u nknown) date) Kidney stone unknown) (unknown) (no (unknown) (unknown) [facility] (units (unknown) date) unknown) (unknown) (no (unknown) (unknown) [facility], (units (unknown) date) CR, XR KUB, unknown) 06/06/2022, 17:00. (unknown) (no (unknown) (unknown) Loc: RAD (units (unkno wn) date) unknown) (unknown) (no (unknown) (unknown) Ordering (units (unkno wn) date) Provider: unknown) Arelis Parada MD (unknown) (no (unknown) (unknown) PROCEDURE: XR (units ( unknown) date) KUB unknown) (unknown) (no (unknown) (unknown) Patient: (units (unkno wn) date) Jaquan Rodríguez MR#: unknown) M0002 (unknown) (no (unknown) (unknown) Procedure: XR (units ( unknown) date) KUB unknown) (unknown) (no (unknown) (unknown) Signed (units (unkno wn) date) unknown) (unknown) (no (unknown) (unknown) Soft tissues: No (units (unknown) date) suspicious unknown) abdominal calcifications. 7 mm oval calcification (unknown) (no (unknown) (unknown) Surgical changes (units (unknown) date) and devices: unknown) Double-J left ureteral stent is in place. (unknown) (no (unknown) (unknown) TECHNIQUE: One (units (unknown) date) view of the unknown) abdomen acquired. (unknown) (no (unknown) (unknown) XRay Report (units (un known) date) unknown) (unknown) (no (unknown) (unknown) along the distal (units (unknown) date) 3rd of the unknown) ureteral stent likely correlating with recently (unknown) (no (unknown) (unknown) described 7 (units (un known) date) unknown) (unknown) (no (unknown) (unknown) distal (units (unkno wn) date) unknown) (unknown) (no (unknown) (unknown) in size. (units (unkno wn) date) unknown) (unknown) (no (unknown) (unknown) migration of (units (u nknown) date) previously unknown) described 7 mm left ureteral stone. (unknown) (no (unknown) (unknown) mm ureteral (units (un known) date) stone. Comparing unknown) location to previous CT, this demonstrates some (unknown) (no (unknown) (unknown) noted (units (unkno wn) date) unknown) (unknown) (no (unknown) (unknown) transit from (units (u nknown) date) previous unknown) location. Visualized solid organ contours appear normal Result panel 1062 (unknown) (no (unknown) (unknown) (no value) (units (unk nown) date) unknown) (unknown) (no (unknown) (unknown) 06/15/22 (units (unkno wn) date) unknown) (unknown) (no (unknown) (unknown) 36 y/o M presents (units (unknown) date) to clinic for unknown) review KUB. Talk ESWL. (unknown) (no (unknown) (unknown) 5498 (units (unkno wn) date) unknown) (unknown) (no (unknown) (unknown) Age/Sex: 36 / M (units (unknown) date) Date of Service: unknown) (unknown) (no (unknown) (unknown) Allergies (units (unkn own) date) unknown) (unknown) (no (unknown) (unknown) [place], [place] (units ( unknown) date) [address] unknown) (unknown) (no (unknown) (unknown) Asthma (units (unkno wn) date) unknown) (unknown) (no (unknown) (unknown) Attending Dr: (units ( unknown) date) Arelis Parada MD unknown) (unknown) (no (unknown) (unknown) : 1985 (units (unknown) date) Acct:[id number] unknown) (unknown) (no (unknown) (unknown) Depression (units (unk nown) date) unknown) (unknown) (no (unknown) (unknown) Dept at (units (unkno wn) date) . unknown) (unknown) (no (unknown) (unknown) Documented By: (units (unknown) date) Arelis Parada MD unknown) 06/15/22 0756 (unknown) (no (unknown) (unknown) Draft (units (unkno wn) date) unknown) (unknown) (no (unknown) (unknown) Family History (units (unknown) date) (Reviewed 06/06/22 unknown) @ 14:54 by Arelis Parada MD) (unknown) (no (unknown) (unknown) Family history of (units (unknown) date) nephrolithiasis unknown) (unknown) (no (unknown) (unknown) Father Diabetes (units (unknown) date) mellitus unknown) (unknown) (no (unknown) (unknown) H/O vasectomy (units ( unknown) date) unknown) (unknown) (no (unknown) (unknown) Healthy adult (units ( unknown) date) unknown) (unknown) (no (unknown) (unknown) History of back (units (unknown) date) surgery unknown) (unknown) (no (unknown) (unknown) History of kidney (units (unknown) date) stones unknown) (unknown) (no (unknown) (unknown) Hx of migraines (units (unknown) date) unknown) (unknown) (no (unknown) (unknown) Hyperlipidemia (units (unknown) date) unknown) (unknown) (no (unknown) (unknown) Hypertension (units (u nknown) date) unknown) (unknown) (no (unknown) (unknown) Intake Note: (units (u nknown) date) unknown) (unknown) (no (unknown) (unknown) Intake performed (units (unknown) date) by: Renea Gibbs unknown) (unknown) (no (unknown) (unknown) Intake (units (unkno wn) date) unknown) (unknown) (no (unknown) (unknown) Intake- Clincial (units (unknown) date) Staff unknown) (unknown) (no (unknown) (unknown) [facility] (units (unknown) date) unknown) (unknown) (no (unknown) (unknown) Kidney stones (units ( unknown) date) unknown) (unknown) (no (unknown) (unknown) Left renal stone (units (unknown) date) unknown) (unknown) (no (unknown) (unknown) Left ureteral (units ( unknown) date) calculus unknown) (unknown) (no (unknown) (unknown) Loc: [facility] (units (unkno wn) date) unknown) (unknown) (no (unknown) (unknown) Medical History (units (unknown) date) (Updated 06/06/22 unknown) @ 14:55 by Arelis Parada MD) (unknown) (no (unknown) (unknown) Mother Cancer (units ( unknown) date) unknown) (unknown) (no (unknown) (unknown) 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 (unknown) (no (unknown) (unknown) PFSH (units (unkno wn) date) unknown) (unknown) (no (unknown) (unknown) Patient: (units (unkno wn) date) Jaquan Rodríguez MR#: unknown) [id number] (unknown) (no (unknown) (unknown) Reason For Visit (units (unknown) date) unknown) (unknown) (no (unknown) (unknown) Renal colic on (units (unknown) date) left side unknown) (unknown) (no (unknown) (unknown) Signed By: (units (unk nown) date) unknown) (unknown) (no (unknown) (unknown) Sister Kidney (units ( unknown) date) stones unknown) (unknown) (no (unknown) (unknown) Smoking Status: (units (unknown) date) Never smoker unknown) (unknown) (no (unknown) (unknown) Social History (units (unknown) date) (Reviewed 06/06/22 unknown) @ 14:54 by Arelis Parada MD) (unknown) (no (unknown) (unknown) Surgical History (units (unknown) date) (Reviewed 06/06/22 unknown) @ 14:58 by Cherry Moss RN) (unknown) (no (unknown) (unknown) This note may (units ( unknown) date) have been all or unknown) partially generated using voice recognition (unknown) (no (unknown) (unknown) Tobacco Status (units (unknown) date) unknown) (unknown) (no (unknown) (unknown) Urology Office (units (unknown) date) Visit unknown) (unknown) (no (unknown) (unknown) Visit Reasons: (units (unknown) date) review KUB / talk unknown) ESWL (unknown) (no (unknown) (unknown) alcohol intake: (units (unknown) date) never unknown) (unknown) (no (unknown) (unknown) amoxicillin (units (un known) date) [AMOXICILLIN] unknown) Allergy (Unknown, Verified 06/06/22 14:58) (unknown) (no (unknown) (unknown) have occurred. If (units (unknown) date) there are any unknown) questions, please contact the Medical Records (unknown) (no (unknown) (unknown) household (units (unkn own) date) members: spouse unknown) (unknown) (no (unknown) (unknown) marital status: (units (unknown) date) unknown) (unknown) (no (unknown) (unknown) may occur. (units (unk nown) date) Occasional unknown) wrong-word or 'sound-alike' substitutions may have (unknown) (no (unknown) (unknown) number of (units (unkn own) date) children: 2 unknown) (unknown) (no (unknown) (unknown) occurred due to (units (unknown) date) the inherent unknown) limitations of voice recognition software. Please (unknown) (no (unknown) (unknown) read the note (units ( unknown) date) carefully and unknown) recognize, using context, where these substitutions (unknown) (no (unknown) (unknown) software. (units (unkn own) date) Although every unknown) effort is made to edit content, global account manager errors Result panel 1063 (unknown) (no (unknown) (unknown) (no value) (units (unk nown) date) unknown) (unknown) (no (unknown) (unknown) 06/06/2022. He (units (unknown) date) reports mild stent unknown) related pain with voiding, but tolerable. He (unknown) (no (unknown) (unknown) 06/15/22 (units (unkno wn) date) unknown) (unknown) (no (unknown) (unknown) 08:03 (units (unkno wn) date) unknown) (unknown) (no (unknown) (unknown) 36 y/o M presents (units (unknown) date) to clinic for unknown) review [facility]. Rosalie ESWL. (unknown) (no (unknown) (unknown) 2923 (units (unkno wn) date) unknown) (unknown) (no (unknown) (unknown) Age/Sex: 36 / M (units (unknown) date) Date of Service: unknown) (unknown) (no (unknown) (unknown) Allergies (units (unkn own) date) unknown) (unknown) (no (unknown) (unknown) [place], [place] (units ( unknown) date) [id number] unknown) (unknown) (no (unknown) (unknown) Asthma (units (unkno wn) date) unknown) (unknown) (no (unknown) (unknown) Attending Dr: (units ( unknown) date) Arelis Parada MD unknown) (unknown) (no (unknown) (unknown) BP 120/75 (units (unkn own) date) unknown) (unknown) (no (unknown) (unknown) Blood Pressure (units (unknown) date) Location Lt unknown) brachial (unknown) (no (unknown) (unknown) Chief Complaint (units (unknown) date) unknown) (unknown) (no (unknown) (unknown) Chief Complaint: (units (unknown) date) Left ureteral unknown) calculus (unknown) (no (unknown) (unknown) Confirmed (units (unkn own) date) 06/15/22] unknown) (unknown) (no (unknown) (unknown) DAILY #30 tabs (units (unknown) date) 06/12/22 [Rx unknown) Confirmed 06/15/22] (unknown) (no (unknown) (unknown) : 1985 (units (unknown) date) Acct:[id number] unknown) (unknown) (no (unknown) (unknown) Depression (units (unk nown) date) unknown) (unknown) (no (unknown) (unknown) Dept at (units (unkno wn) date) . unknown) (unknown) (no (unknown) (unknown) Details: (units (unkno wn) date) unknown) (unknown) (no (unknown) (unknown) Documented By: (units (unknown) date) Arelis Parada MD unknown) 06/15/22 0756 (unknown) (no (unknown) (unknown) Draft (units (unkno wn) date) unknown) (unknown) (no (unknown) (unknown) Family History (units (unknown) date) (Reviewed 06/06/22 unknown) @ 14:54 by Arelis Parada MD) (unknown) (no (unknown) (unknown) Family history of (units (unknown) date) nephrolithiasis unknown) (unknown) (no (unknown) (unknown) Father Diabetes (units (unknown) date) mellitus unknown) (unknown) (no (unknown) (unknown) H/O vasectomy (units ( unknown) date) unknown) (unknown) (no (unknown) (unknown) HPI (units (unkno wn) date) unknown) (unknown) (no (unknown) (unknown) Healthy adult (units ( unknown) date) unknown) (unknown) (no (unknown) (unknown) History of back (units (unknown) date) surgery unknown) (unknown) (no (unknown) (unknown) History of kidney (units (unknown) date) stones unknown) (unknown) (no (unknown) (unknown) Hx of migraines (units (unknown) date) unknown) (unknown) (no (unknown) (unknown) Hyperlipidemia (units (unknown) date) unknown) (unknown) (no (unknown) (unknown) Hypertension (units (u nknown) date) unknown) (unknown) (no (unknown) (unknown) Intake Note: (units (u nknown) date) unknown) (unknown) (no (unknown) (unknown) Intake performed (units (unknown) date) by: Renea Gibbs unknown) (unknown) (no (unknown) (unknown) Intake (units (unkno wn) date) unknown) (unknown) (no (unknown) (unknown) Intake- Clincial (units (unknown) date) Staff unknown) (unknown) (no (unknown) (unknown) Intraoperative (units (unknown) date) cystoscopic unknown) findings and photographs were consistent with (unknown) (no (unknown) (unknown) [facility] (units (unknown) date) unknown) (unknown) (no (unknown) (unknown) Jaquan returns (units (u nknown) date) today with his unknown) dennis and supportive , Toni, for follow-up (unknown) (no (unknown) (unknown) KUB (units (unkno wn) date) unknown) (unknown) (no (unknown) (unknown) Kidney stones (units ( unknown) date) unknown) (unknown) (no (unknown) (unknown) Left renal stone (units (unknown) date) unknown) (unknown) (no (unknown) (unknown) Left ureteral (units ( unknown) date) calculus unknown) (unknown) (no (unknown) (unknown) Loc: [facility] (units (unkno wn) date) unknown) (unknown) (no (unknown) (unknown) Medical History (units (unknown) date) (Updated 06/06/22 unknown) @ 14:55 by Arelis Parada MD) (unknown) (no (unknown) (unknown) Medications (units (un known) date) unknown) (unknown) (no (unknown) (unknown) Mother Cancer (units ( unknown) date) unknown) (unknown) (no (unknown) (unknown) 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 Due to sample size a (unknown) (no (unknown) (unknown) Patient: (units (unkno wn) date) Jaquan Rodríguez MR#: unknown) [id number] (unknown) (no (unknown) (unknown) Position Sitting (units (unknown) date) unknown) (unknown) (no (unknown) (unknown) Pulse 84 (units (unkno wn) date) unknown) (unknown) (no (unknown) (unknown) Pulse Oximetry (units (unknown) date) (%) 97 unknown) (unknown) (no (unknown) (unknown) Pulse Source (units (u nknown) date) Monitor unknown) (unknown) (no (unknown) (unknown) Reason For Visit (units (unknown) date) unknown) (unknown) (no (unknown) (unknown) Renal colic on (units (unknown) date) left side unknown) (unknown) (no (unknown) (unknown) Respiration 16 (units (unknown) date) unknown) (unknown) (no (unknown) (unknown) Signed By: (units (unk nown) date) unknown) (unknown) (no (unknown) (unknown) Sister Kidney (units ( unknown) date) stones unknown) (unknown) (no (unknown) (unknown) Smoking Status: (units (unknown) date) Never smoker unknown) (unknown) (no (unknown) (unknown) Social History (units (unknown) date) (Reviewed 06/06/22 unknown) @ 14:54 by Arelis Parada MD) (unknown) (no (unknown) (unknown) Surgical History (units (unknown) date) (Reviewed 06/06/22 unknown) @ 14:58 by Cherry Moss RN) (unknown) (no (unknown) (unknown) This note may (units ( unknown) date) have been all or unknown) partially generated using voice recognition (unknown) (no (unknown) (unknown) Tobacco Status (units (unknown) date) unknown) (unknown) (no (unknown) (unknown) Urology Office (units (unknown) date) Visit unknown) (unknown) (no (unknown) (unknown) Visit Reasons: (units (unknown) date) review KUB / talk unknown) ESWL (unknown) (no (unknown) (unknown) Vitals (units (unkno wn) date) unknown) (unknown) (no (unknown) (unknown) alcohol intake: (units (unknown) date) never unknown) (unknown) (no (unknown) (unknown) amoxicillin (units (un known) date) [AMOXICILLIN] unknown) Allergy (Unknown, Verified 06/15/22 07:59) (unknown) (no (unknown) (unknown) an excellent (units (u nknown) date) recovery. unknown) (unknown) (no (unknown) (unknown) definitive (units (unk nown) date) confirm diagnosis unknown) of urothelial carcinoma was not made, but multiple (unknown) (no (unknown) (unknown) features (units (unkno wn) date) microscopically or unknown) consistent with low-grade urothelial carcinoma. (unknown) (no (unknown) (unknown) have occurred. If (units (unknown) date) there are any unknown) questions, please contact the Medical Records (unknown) (no (unknown) (unknown) household (units (unkn own) date) members: spouse unknown) (unknown) (no (unknown) (unknown) is not using or (units (unknown) date) requesting any unknown) pain medication. He otherwise reports a smooth (unknown) (no (unknown) (unknown) marital status: (units (unknown) date) unknown) (unknown) (no (unknown) (unknown) may occur. (units (unk nown) date) Occasional unknown) wrong-word or 'sound-alike' substitutions may have (unknown) (no (unknown) (unknown) number of (units (unkn own) date) children: 2 unknown) (unknown) (no (unknown) (unknown) occurred due to (units (unknown) date) the inherent unknown) limitations of voice recognition software. 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 unknown) (unknown) (no (unknown) (unknown) paroxetine HCl 20 (units (unknown) date) mg tablet 20 mg PO unknown) DAILY 06/06/22 [History Confirmed 06/15/22] (unknown) (no (unknown) (unknown) read the note (units ( unknown) date) carefully and unknown) recognize, using context, where these substitutions (unknown) (no (unknown) (unknown) software. (units (unkn own) date) Although every unknown) effort is made to edit content, global account manager errors (unknown) (no (unknown) (unknown) status post (units (un known) date) cystoscopy/placeme unknown) nt left ureteral stent/incidental TURBT (unknown) (no (unknown) (unknown) tabs 06/01/22 [Rx (units (unknown) date) Confirmed unknown) 06/15/22] (unknown) (no (unknown) (unknown) tabs 06/05/22 [Rx (units (unknown) date) Confirmed unknown) 06/15/22] (unknown) (no (unknown) (unknown) tamsulosin 0.4 mg (units (unknown) date) capsule (Flomax) unknown) 0.4 mg PO BEDTIME #14 caps 06/01/22 [Rx Result panel 1064 (unknown) (no (unknown) (unknown) (no value) (units (unk nown) date) unknown) (unknown) (no (unknown) (unknown) (1) Left ureteral (units (unknown) date) calculus: unknown) (unknown) (no (unknown) (unknown) (2) Family (units (unk nown) date) history of unknown) nephrolithiasis: (unknown) (no (unknown) (unknown) (3) History of (units (unknown) date) primary malignant unknown) neoplasm of urinary bladder: (unknown) (no (unknown) (unknown) 06/06/2022. He (units (unknown) date) reports mild stent unknown) related pain with voiding, but tolerable. He (unknown) (no (unknown) (unknown) 06/15/22 (units (unkno wn) date) unknown) (unknown) (no (unknown) (unknown) 08:03 (units (unkno wn) date) unknown) (unknown) (no (unknown) (unknown) 36 y/o M presents (units (unknown) date) to clinic for unknown) review KUB. Talk ESWL. (unknown) (no (unknown) (unknown) 7308 (units (unkno wn) date) unknown) (unknown) (no (unknown) (unknown) Age/Sex: 36 / M (units (unknown) date) Date of Service: unknown) (unknown) (no (unknown) (unknown) All systems (units (un known) date) reviewed + are unknown) unremarkable except as noted in HPI and below (unknown) (no (unknown) (unknown) Allergies (units (unkn own) date) unknown) (unknown) (no (unknown) (unknown) [place], [place] (units ( unknown) date) [id number] unknown) (unknown) (no (unknown) (unknown) Assessment + Plan (units (unknown) date) unknown) (unknown) (no (unknown) (unknown) Asthma (units (unkno wn) date) unknown) (unknown) (no (unknown) (unknown) Attending Dr: (units ( unknown) date) Arelis Parada MD unknown) (unknown) (no (unknown) (unknown) BP 120/75 (units (unkn own) date) unknown) (unknown) (no (unknown) (unknown) Blood Pressure (units (unknown) date) Location Lt unknown) brachial (unknown) (no (unknown) (unknown) Chest-equal and (units (unknown) date) unlabored unknown) expansion bilaterally. (unknown) (no (unknown) (unknown) Chief Complaint (units (unknown) date) unknown) (unknown) (no (unknown) (unknown) Chief Complaint: (units (unknown) date) Left ureteral unknown) calculus (unknown) (no (unknown) (unknown) Code(s): (units (unkno wn) date) unknown) (unknown) (no (unknown) (unknown) Confirmed (units (unkn own) date) 06/15/22] unknown) (unknown) (no (unknown) (unknown) Const (units (unkno wn) date) unknown) (unknown) (no (unknown) (unknown) DAILY #30 tabs (units (unknown) date) 06/12/22 [Rx unknown) Confirmed 06/15/22] (unknown) (no (unknown) (unknown) : 1985 (units (unknown) date) Acct:[id number] unknown) (unknown) (no (unknown) (unknown) Depression (units (unk nown) date) unknown) (unknown) (no (unknown) (unknown) Dept at (units (unkno wn) date) . unknown) (unknown) (no (unknown) (unknown) Details: (units (unkno wn) date) unknown) (unknown) (no (unknown) (unknown) Documented By: (units (unknown) date) Arelis Parada MD unknown) 06/15/22 0756 (unknown) (no (unknown) (unknown) Draft (units (unkno wn) date) unknown) (unknown) (no (unknown) (unknown) Exam Narrative (units (unknown) date) unknown) (unknown) (no (unknown) (unknown) Exam Narrative: (units (unknown) date) unknown) (unknown) (no (unknown) (unknown) Exam (units (unkno wn) date) unknown) (unknown) (no (unknown) (unknown) Family History (units (unknown) date) (Reviewed 06/15/22 unknown) @ 08:23 by Arelis Parada MD) (unknown) (no (unknown) (unknown) Family history of (units (unknown) date) nephrolithiasis unknown) (unknown) (no (unknown) (unknown) Father Diabetes (units (unknown) date) mellitus unknown) (unknown) (no (unknown) (unknown) H/O vasectomy (units ( unknown) date) unknown) (unknown) (no (unknown) (unknown) HPI (units (unkno wn) date) unknown) (unknown) (no (unknown) (unknown) He is a (units (unkno wn) date) well-developed, unknown) nourished, appropriate and pleasant young adult male in (unknown) (no (unknown) (unknown) Head/neck-sclera (units (unknown) date) are clear pupils unknown) are round and equal bilaterally. Neck is (unknown) (no (unknown) (unknown) Healthy adult (units ( unknown) date) unknown) (unknown) (no (unknown) (unknown) Heart-normal (units (u nknown) date) sinus rhythm. 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 (unknown) (no (unknown) (unknown) Hx of migraines (units (unknown) date) unknown) (unknown) (no (unknown) (unknown) Hyperlipidemia (units (unknown) date) unknown) (unknown) (no (unknown) (unknown) Hypertension (units (u nknown) date) unknown) (unknown) (no (unknown) (unknown) Intake Note: (units (u nknown) date) unknown) (unknown) (no (unknown) (unknown) Intake performed (units (unknown) date) by: Renea Gibbs unknown) (unknown) (no (unknown) (unknown) Intake (units (unkno wn) date) unknown) (unknown) (no (unknown) (unknown) Intake- Clincial (units (unknown) date) Staff unknown) (unknown) (no (unknown) (unknown) Intraoperative (units (unknown) date) cystoscopic unknown) findings and photographs were consistent with (unknown) (no (unknown) (unknown) [facility] (units (unknown) date) unknown) (unknown) (no (unknown) (unknown) Jaquan returns (units (u nknown) date) today with his unknown) dennis and supportive , Toni, for follow-up (unknown) (no (unknown) (unknown) KUB 06/12/2022, (units (unknown) date) identifies the unknown) stone now positioned over the sacral iliac (unknown) (no (unknown) (unknown) Kidney stones (units ( unknown) date) unknown) (unknown) (no (unknown) (unknown) Left renal stone (units (unknown) date) unknown) (unknown) (no (unknown) (unknown) Left ureteral (units ( unknown) date) calculus unknown) (unknown) (no (unknown) (unknown) Loc: [facility] (units (unkno wn) date) unknown) (unknown) (no (unknown) (unknown) Medical History (units (unknown) date) (Updated 06/15/22 unknown) @ 08:24 by Arelis Parada MD) (unknown) (no (unknown) (unknown) Medications (units (un known) date) unknown) (unknown) (no (unknown) (unknown) Mother Cancer (units ( unknown) date) unknown) (unknown) (no (unknown) (unknown) 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 Due to sample size a (unknown) (no (unknown) (unknown) Patient: (units (unkno wn) date) Jaquan Rodríguez MR#: unknown) [id number] (unknown) (no (unknown) (unknown) Position Sitting (units (unknown) date) unknown) (unknown) (no (unknown) (unknown) Pulse 84 (units (unkno wn) date) unknown) (unknown) (no (unknown) (unknown) Pulse Oximetry (units (unknown) date) (%) 97 unknown) (unknown) (no (unknown) (unknown) Pulse Source (units (u nknown) date) Monitor unknown) (unknown) (no (unknown) (unknown) ROS (units (unkno wn) date) unknown) (unknown) (no (unknown) (unknown) Reason For Visit (units (unknown) date) unknown) (unknown) (no (unknown) (unknown) Renal colic on (units (unknown) date) left side unknown) (unknown) (no (unknown) (unknown) Respiration 16 (units (unknown) date) unknown) (unknown) (no (unknown) (unknown) Signed By: (units (unk nown) date) unknown) (unknown) (no (unknown) (unknown) Sister Kidney (units ( unknown) date) stones unknown) (unknown) (no (unknown) (unknown) Smoking Status: (units (unknown) date) Never smoker unknown) (unknown) (no (unknown) (unknown) Social History (units (unknown) date) (Reviewed 06/15/22 unknown) @ 08:23 by Arelis Parada MD) (unknown) (no (unknown) (unknown) Status: Acute (units ( unknown) date) unknown) (unknown) (no (unknown) (unknown) Surgical History (units (unknown) date) (Reviewed 06/15/22 unknown) @ 08:23 by Arelis Parada MD) (unknown) (no (unknown) (unknown) This note may (units ( unknown) date) have been all or unknown) partially generated using voice recognition (unknown) (no (unknown) (unknown) Tobacco Status (units (unknown) date) unknown) (unknown) (no (unknown) (unknown) Urology Office (units (unknown) date) Visit unknown) (unknown) (no (unknown) (unknown) Visit Reasons: (units (unknown) date) review KUB / talk unknown) ESWL (unknown) (no (unknown) (unknown) Vitals (units (unkno wn) date) unknown) (unknown) (no (unknown) (unknown) Z84.1 - Family (units (unknown) date) history of unknown) disorders of kidney and ureter (unknown) (no (unknown) (unknown) Z85.51 - Personal (units (unknown) date) history of unknown) malignant neoplasm of bladder (unknown) (no (unknown) (unknown) alcohol intake: (units (unknown) date) never unknown) (unknown) (no (unknown) (unknown) amoxicillin (units (un known) date) [AMOXICILLIN] unknown) Allergy (Unknown, Verified 06/15/22 07:59) (unknown) (no (unknown) (unknown) an excellent (units (u nknown) date) recovery. unknown) (unknown) (no (unknown) (unknown) and alongside the (units (unknown) date) appropriately unknown) positioned left ureteral stent. (unknown) (no (unknown) (unknown) definitive (units (unk nown) date) confirm diagnosis unknown) of urothelial carcinoma was not made, but multiple (unknown) (no (unknown) (unknown) features (units (unkno wn) date) microscopically or unknown) consistent with low-grade urothelial carcinoma. (unknown) (no (unknown) (unknown) have occurred. If (units (unknown) date) there are any unknown) questions, please contact the Medical Records (unknown) (no (unknown) (unknown) household (units (unkn own) date) members: spouse unknown) (unknown) (no (unknown) (unknown) is not using or (units (unknown) date) requesting any unknown) pain medication. He otherwise reports a smooth (unknown) (no (unknown) (unknown) marital status: (units (unknown) date) unknown) (unknown) (no (unknown) (unknown) may occur. (units (unk nown) date) Occasional unknown) wrong-word or 'sound-alike' substitutions may have (unknown) (no (unknown) (unknown) no current (units (unk nown) date) distress. unknown) (unknown) (no (unknown) (unknown) number of (units (unkn own) date) children: 2 unknown) (unknown) (no (unknown) (unknown) occurred due to (units (unknown) date) the inherent unknown) limitations of voice recognition software. 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 unknown) (unknown) (no (unknown) (unknown) paroxetine HCl 20 (units (unknown) date) mg tablet 20 mg PO unknown) DAILY 06/06/22 [History Confirmed 06/15/22] (unknown) (no (unknown) (unknown) portion of the (units (unknown) date) left ureter at unknown) about the juncture of the middle and distal 3rd (unknown) (no (unknown) (unknown) read the note (units ( unknown) date) carefully and unknown) recognize, using context, where these substitutions (unknown) (no (unknown) (unknown) software. (units (unkn own) date) Although every unknown) effort is made to edit content, global account manager errors (unknown) (no (unknown) (unknown) status post (units (un known) date) cystoscopy/placeme unknown) nt left ureteral stent/incidental TURBT (unknown) (no (unknown) (unknown) tabs 06/01/22 [Rx (units (unknown) date) Confirmed unknown) 06/15/22] (unknown) (no (unknown) (unknown) tabs 06/05/22 [Rx (units (unknown) date) Confirmed unknown) 06/15/22] (unknown) (no (unknown) (unknown) tamsulosin 0.4 mg (units (unknown) date) capsule (Flomax) unknown) 0.4 mg PO BEDTIME #14 caps 06/01/22 [Rx (unknown) (no (unknown) (unknown) without (units (unkno wn) date) adenopathy or JVD unknown) visually. Result panel [id number] (unknown) (no (unknown) (unknown) (no value) (units (unk nown) date) unknown) (unknown) (no (unknown) (unknown) (1) Left ureteral (units (unknown) date) calculus: unknown) (unknown) (no (unknown) (unknown) (2) Family (units (unk nown) date) history of unknown) nephrolithiasis: (unknown) (no (unknown) (unknown) (3) History of (units (unknown) date) primary malignant unknown) neoplasm of urinary bladder: (unknown) (no (unknown) (unknown) 06/06/2022. He (units (unknown) date) reports mild stent unknown) related pain with voiding, but tolerable. He (unknown) (no (unknown) (unknown) 06/15/22 (units (unkno wn) date) unknown) (unknown) (no (unknown) (unknown) 08:03 (units (unkno wn) date) unknown) (unknown) (no (unknown) (unknown) 1. Schedule (units (un known) date) CYSTOSCOPY/LEFT unknown) URETEROSCOPIC LASER LITHOTRIPSY/LEFT URETERAL STENT (unknown) (no (unknown) (unknown) 2. Patient will (units (unknown) date) benefit from unknown) future metabolic stone risk evaluation. (unknown) (no (unknown) (unknown) 3. Patient will (units (unknown) date) need standard BTS unknown) cystoscopy for history of low-grade urothelial (unknown) (no (unknown) (unknown) 36 y/o M presents (units (unknown) date) to clinic for unknown) review KUB. Talk ESWL. (unknown) (no (unknown) (unknown) 5498 (units (unkno wn) date) unknown) (unknown) (no (unknown) (unknown) Age/Sex: 36 / M (units (unknown) date) Date of Service: unknown) (unknown) (no (unknown) (unknown) All systems (units (un known) date) reviewed + are unknown) unremarkable except as noted in HPI and below (unknown) (no (unknown) (unknown) Allergies (units (unkn own) date) unknown) (unknown) (no (unknown) (unknown) [place], [place] (units ( unknown) date) [id number] unknown) (unknown) (no (unknown) (unknown) Assessment + Plan (units (unknown) date) unknown) (unknown) (no (unknown) (unknown) Asthma (units (unkno wn) date) unknown) (unknown) (no (unknown) (unknown) Attending Dr: (units ( unknown) date) Arelis Parada MD unknown) (unknown) (no (unknown) (unknown) BP 120/75 (units (unkn own) date) unknown) (unknown) (no (unknown) (unknown) Blood Pressure (units (unknown) date) Location Lt unknown) brachial (unknown) (no (unknown) (unknown) Chest-equal and (units (unknown) date) unlabored unknown) expansion bilaterally. (unknown) (no (unknown) (unknown) Chief Complaint (units (unknown) date) unknown) (unknown) (no (unknown) (unknown) Chief Complaint: (units (unknown) date) Left ureteral unknown) calculus (unknown) (no (unknown) (unknown) Code(s): (units (unkno wn) date) unknown) (unknown) (no (unknown) (unknown) Confirmed (units (unkn own) date) 06/15/22] unknown) (unknown) (no (unknown) (unknown) Const (units (unkno wn) date) unknown) (unknown) (no (unknown) (unknown) DAILY #30 tabs (units (unknown) date) 06/12/22 [Rx unknown) Confirmed 06/15/22] (unknown) (no (unknown) (unknown) : 1985 (units (unknown) date) Acct:[id number] unknown) (unknown) (no (unknown) (unknown) Depression (units (unk nown) date) unknown) (unknown) (no (unknown) (unknown) Dept at (units (unkno wn) date) . unknown) (unknown) (no (unknown) (unknown) Details: (units (unkno wn) date) unknown) (unknown) (no (unknown) (unknown) Documented By: (units (unknown) date) Arelis Parada MD unknown) 06/15/22 0756 (unknown) (no (unknown) (unknown) Draft (units (unkno wn) date) unknown) (unknown) (no (unknown) (unknown) EXCHANGE. (units (unkn own) date) unknown) (unknown) (no (unknown) (unknown) Exam Narrative (units (unknown) date) unknown) (unknown) (no (unknown) (unknown) Exam Narrative: (units (unknown) date) unknown) (unknown) (no (unknown) (unknown) Exam (units (unkno wn) date) unknown) (unknown) (no (unknown) (unknown) Family History (units (unknown) date) (Reviewed 06/15/22 unknown) @ 08:23 by Arelis Parada MD) (unknown) (no (unknown) (unknown) Family history of (units (unknown) date) nephrolithiasis unknown) (unknown) (no (unknown) (unknown) Father Diabetes (units (unknown) date) mellitus unknown) (unknown) (no (unknown) (unknown) H/O vasectomy (units ( unknown) date) unknown) (unknown) (no (unknown) (unknown) HPI (units (unkno wn) date) unknown) (unknown) (no (unknown) (unknown) He is a (units (unkno wn) date) well-developed, unknown) nourished, appropriate and pleasant young adult male in (unknown) (no (unknown) (unknown) Head/neck-sclera (units (unknown) date) are clear pupils unknown) are round and equal bilaterally. Neck is (unknown) (no (unknown) (unknown) Healthy adult (units ( unknown) date) unknown) (unknown) (no (unknown) (unknown) Heart-normal (units (u nknown) date) sinus rhythm. 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 (unknown) (no (unknown) (unknown) Hx of migraines (units (unknown) date) unknown) (unknown) (no (unknown) (unknown) Hyperlipidemia (units (unknown) date) unknown) (unknown) (no (unknown) (unknown) Hypertension (units (u nknown) date) unknown) (unknown) (no (unknown) (unknown) Intake Note: (units (u nknown) date) unknown) (unknown) (no (unknown) (unknown) Intake performed (units (unknown) date) by: Renea Gibbs unknown) (unknown) (no (unknown) (unknown) Intake (units (unkno wn) date) unknown) (unknown) (no (unknown) (unknown) Intake- Clincial (units (unknown) date) Staff unknown) (unknown) (no (unknown) (unknown) Intraoperative (units (unknown) date) cystoscopic unknown) findings and photographs were consistent with (unknown) (no (unknown) (unknown) [facility] (units (unknown) date) unknown) (unknown) (no (unknown) (unknown) Jaquan returns (units (u nknown) date) today with his unknown) dennis and supportive , Toni, for follow-up (unknown) (no (unknown) (unknown) KUB 06/12/2022, (units (unknown) date) identifies the unknown) stone now positioned over the sacral iliac (unknown) (no (unknown) (unknown) Kidney stones (units ( unknown) date) unknown) (unknown) (no (unknown) (unknown) Left renal stone (units (unknown) date) unknown) (unknown) (no (unknown) (unknown) Left ureteral (units ( unknown) date) calculus unknown) (unknown) (no (unknown) (unknown) Loc: [facility] (units (unkno wn) date) unknown) (unknown) (no (unknown) (unknown) Medical History (units (unknown) date) (Updated 06/15/22 unknown) @ 08:24 by Arelis Parada MD) (unknown) (no (unknown) (unknown) Medications (units (un known) date) unknown) (unknown) (no (unknown) (unknown) Mother Cancer (units ( unknown) date) unknown) (unknown) (no (unknown) (unknown) 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 Due to sample size a (unknown) (no (unknown) (unknown) Patient: (units (unkno wn) date) Jaquan Rodríguez MR#: unknown) [id number] (unknown) (no (unknown) (unknown) Plan (units (unkno wn) date) unknown) (unknown) (no (unknown) (unknown) Position Sitting (units (unknown) date) unknown) (unknown) (no (unknown) (unknown) Pulse 84 (units (unkno wn) date) unknown) (unknown) (no (unknown) (unknown) Pulse Oximetry (units (unknown) date) (%) 97 unknown) (unknown) (no (unknown) (unknown) Pulse Source (units (u nknown) date) Monitor unknown) (unknown) (no (unknown) (unknown) ROS (units (unkno wn) date) unknown) (unknown) (no (unknown) (unknown) Reason For Visit (units (unknown) date) unknown) (unknown) (no (unknown) (unknown) Renal colic on (units (unknown) date) left side unknown) (unknown) (no (unknown) (unknown) Respiration 16 (units (unknown) date) unknown) (unknown) (no (unknown) (unknown) Signed By: (units (unk nown) date) unknown) (unknown) (no (unknown) (unknown) Sister Kidney (units ( unknown) date) stones unknown) (unknown) (no (unknown) (unknown) Smoking Status: (units (unknown) date) Never smoker unknown) (unknown) (no (unknown) (unknown) Social History (units (unknown) date) (Reviewed 06/15/22 unknown) @ 08:23 by Arelis Parada MD) (unknown) (no (unknown) (unknown) Status: Acute (units ( unknown) date) unknown) (unknown) (no (unknown) (unknown) Surgical History (units (unknown) date) (Reviewed 06/15/22 unknown) @ 08:23 by Arelis Parada MD) (unknown) (no (unknown) (unknown) This note may (units ( unknown) date) have been all or unknown) partially generated using voice recognition (unknown) (no (unknown) (unknown) Tobacco Status (units (unknown) date) unknown) (unknown) (no (unknown) (unknown) Urology Office (units (unknown) date) Visit unknown) (unknown) (no (unknown) (unknown) Visit Reasons: (units (unknown) date) review KUB / talk unknown) ESWL (unknown) (no (unknown) (unknown) Vitals (units (unkno wn) date) unknown) (unknown) (no (unknown) (unknown) Z84.1 - Family (units (unknown) date) history of unknown) disorders of kidney and ureter (unknown) (no (unknown) (unknown) Z85.51 - Personal (units (unknown) date) history of unknown) malignant neoplasm of bladder (unknown) (no (unknown) (unknown) alcohol intake: (units (unknown) date) never unknown) (unknown) (no (unknown) (unknown) amoxicillin (units (un known) date) [AMOXICILLIN] unknown) Allergy (Unknown, Verified 06/15/22 07:59) (unknown) (no (unknown) (unknown) an excellent (units (u nknown) date) recovery. unknown) (unknown) (no (unknown) (unknown) and alongside the (units (unknown) date) appropriately unknown) positioned left ureteral stent. (unknown) (no (unknown) (unknown) carcinoma (units (unkn own) date) 06/06/2022. unknown) (unknown) (no (unknown) (unknown) definitive (units (unk nown) date) confirm diagnosis unknown) of urothelial carcinoma was not made, but multiple (unknown) (no (unknown) (unknown) features (units (unkno wn) date) microscopically or unknown) consistent with low-grade urothelial carcinoma. (unknown) (no (unknown) (unknown) have occurred. If (units (unknown) date) there are any unknown) questions, please contact the Medical Records (unknown) (no (unknown) (unknown) household (units (unkn own) date) members: spouse unknown) (unknown) (no (unknown) (unknown) is not using or (units (unknown) date) requesting any unknown) pain medication. He otherwise reports a smooth (unknown) (no (unknown) (unknown) marital status: (units (unknown) date) unknown) (unknown) (no (unknown) (unknown) may occur. (units (unk nown) date) Occasional unknown) wrong-word or 'sound-alike' substitutions may have (unknown) (no (unknown) (unknown) no current (units (unk nown) date) distress. unknown) (unknown) (no (unknown) (unknown) number of (units (unkn own) date) children: 2 unknown) (unknown) (no (unknown) (unknown) occurred due to (units (unknown) date) the inherent unknown) limitations of voice recognition software. 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 unknown) (unknown) (no (unknown) (unknown) paroxetine HCl 20 (units (unknown) date) mg tablet 20 mg PO unknown) DAILY 06/06/22 [History Confirmed 06/15/22] (unknown) (no (unknown) (unknown) portion of the (units (unknown) date) left ureter at unknown) about the juncture of the middle and distal 3rd (unknown) (no (unknown) (unknown) read the note (units ( unknown) date) carefully and unknown) recognize, using context, where these substitutions (unknown) (no (unknown) (unknown) software. (units (unkn own) date) Although every unknown) effort is made to edit content, global account manager errors (unknown) (no (unknown) (unknown) status post (units (un known) date) cystoscopy/placeme unknown) nt left ureteral stent/incidental TURBT (unknown) (no (unknown) (unknown) tabs 06/01/22 [Rx (units (unknown) date) Confirmed unknown) 06/15/22] (unknown) (no (unknown) (unknown) tabs 06/05/22 [Rx (units (unknown) date) Confirmed unknown) 06/15/22] (unknown) (no (unknown) (unknown) tamsulosin 0.4 mg (units (unknown) date) capsule (Flomax) unknown) 0.4 mg PO BEDTIME #14 caps 06/01/22 [Rx (unknown) (no (unknown) (unknown) without (units (unkno wn) date) adenopathy or JVD unknown) visually. Result panel 1066 (unknown) (no (unknown) (unknown) (no value) (units (unk nown) date) unknown) (unknown) (no (unknown) (unknown) (1) Left ureteral (units (unknown) date) calculus: unknown) (unknown) (no (unknown) (unknown) (2) Family (units (unk nown) date) history of unknown) nephrolithiasis: (unknown) (no (unknown) (unknown) (3) History of (units (unknown) date) primary malignant unknown) neoplasm of urinary bladder: (unknown) (no (unknown) (unknown) 06/06/2022. He (units (unknown) date) reports mild stent unknown) related pain with voiding, but tolerable. He (unknown) (no (unknown) (unknown) 06/15/22 0952 (units ( unknown) date) unknown) (unknown) (no (unknown) (unknown) 06/15/22 (units (unkno wn) date) unknown) (unknown) (no (unknown) (unknown) 08:03 (units (unkno wn) date) unknown) (unknown) (no (unknown) (unknown) 1. Schedule (units (un known) date) CYSTOSCOPY/LEFT unknown) URETEROSCOPIC LASER LITHOTRIPSY/LEFT URETERAL STENT (unknown) (no (unknown) (unknown) 2. Patient will (units (unknown) date) benefit from unknown) future metabolic stone risk evaluation. (unknown) (no (unknown) (unknown) 3. Patient will (units (unknown) date) need standard BTS unknown) cystoscopy for history of low-grade urothelial (unknown) (no (unknown) (unknown) 36 y/o M presents (units (unknown) date) to clinic for unknown) review KUB. Talk ESWL. (unknown) (no (unknown) (unknown) 5239 (units (unkno wn) date) unknown) (unknown) (no (unknown) (unknown) Age/Sex: 36 / M (units (unknown) date) Date of Service: unknown) (unknown) (no (unknown) (unknown) All systems (units (un known) date) reviewed + are unknown) unremarkable except as noted in HPI and below (unknown) (no (unknown) (unknown) Allergies (units (unkn own) date) unknown) (unknown) (no (unknown) (unknown) [place], [place] (units ( unknown) date) [id number] unknown) (unknown) (no (unknown) (unknown) Assessment + Plan (units (unknown) date) unknown) (unknown) (no (unknown) (unknown) Asthma (units (unkno wn) date) unknown) (unknown) (no (unknown) (unknown) Attending Dr: (units ( unknown) date) Arelis Parada MD unknown) (unknown) (no (unknown) (unknown) BP 120/75 (units (unkn own) date) unknown) (unknown) (no (unknown) (unknown) Blood Pressure (units (unknown) date) Location Lt unknown) brachial (unknown) (no (unknown) (unknown) Chest-equal and (units (unknown) date) unlabored unknown) expansion bilaterally. (unknown) (no (unknown) (unknown) Chief Complaint (units (unknown) date) unknown) (unknown) (no (unknown) (unknown) Chief Complaint: (units (unknown) date) Left ureteral unknown) calculus (unknown) (no (unknown) (unknown) Code(s): (units (unkno wn) date) unknown) (unknown) (no (unknown) (unknown) Confirmed (units (unkn own) date) 06/15/22] unknown) (unknown) (no (unknown) (unknown) Const (units (unkno wn) date) unknown) (unknown) (no (unknown) (unknown) DAILY #30 tabs (units (unknown) date) 06/12/22 [Rx unknown) Confirmed 06/15/22] (unknown) (no (unknown) (unknown) : 1985 (units (unknown) date) Acct:[id number] unknown) (unknown) (no (unknown) (unknown) Depression (units (unk nown) date) unknown) (unknown) (no (unknown) (unknown) Dept at (units (unkno wn) date) . unknown) (unknown) (no (unknown) (unknown) Details: (units (unkno wn) date) unknown) (unknown) (no (unknown) (unknown) Documented By: (units (unknown) date) Arelis Parada MD unknown) 06/15/22 0756 (unknown) (no (unknown) (unknown) EXCHANGE. (units (unkn own) date) unknown) (unknown) (no (unknown) (unknown) Encounter (units (unkn own) date) documentation, unknown) coordination of surgical scheduling, and billing-10 (unknown) (no (unknown) (unknown) Exam Narrative (units (unknown) date) unknown) (unknown) (no (unknown) (unknown) Exam Narrative: (units (unknown) date) unknown) (unknown) (no (unknown) (unknown) Exam (units (unkno wn) date) unknown) (unknown) (no (unknown) (unknown) Explain the (units (un known) date) common side unknown) effects, possible complications, perioperative (unknown) (no (unknown) (unknown) [id number] (units (u nknown) date) encounter-35 unknown) minutes (unknown) (no (unknown) (unknown) Family History (units (unknown) date) (Reviewed 06/15/22 unknown) @ 08:23 by Arelis Parada MD) (unknown) (no (unknown) (unknown) Family history of (units (unknown) date) nephrolithiasis unknown) (unknown) (no (unknown) (unknown) Father Diabetes (units (unknown) date) mellitus unknown) (unknown) (no (unknown) (unknown) H/O vasectomy (units ( unknown) date) unknown) (unknown) (no (unknown) (unknown) HPI (units (unkno wn) date) unknown) (unknown) (no (unknown) (unknown) He is a (units (unkno wn) date) well-developed, unknown) nourished, appropriate and pleasant young adult male in (unknown) (no (unknown) (unknown) Head/neck-sclera (units (unknown) date) are clear pupils unknown) are round and equal bilaterally. Neck is (unknown) (no (unknown) (unknown) Healthy adult (units ( unknown) date) unknown) (unknown) (no (unknown) (unknown) Heart-normal (units (u nknown) date) sinus rhythm. 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 (unknown) (no (unknown) (unknown) Hx of migraines (units (unknown) date) unknown) (unknown) (no (unknown) (unknown) Hyperlipidemia (units (unknown) date) unknown) (unknown) (no (unknown) (unknown) Hypertension (units (u nknown) date) unknown) (unknown) (no (unknown) (unknown) Intake Note: (units (u nknown) date) unknown) (unknown) (no (unknown) (unknown) Intake performed (units (unknown) date) by: Renea Gibbs unknown) (unknown) (no (unknown) (unknown) Intake (units (unkno wn) date) unknown) (unknown) (no (unknown) (unknown) Intake- Clincial (units (unknown) date) Staff unknown) (unknown) (no (unknown) (unknown) Intraoperative (units (unknown) date) cystoscopic unknown) findings and photographs were consistent with (unknown) (no (unknown) (unknown) [facility] (units (unknown) date) unknown) (unknown) (no (unknown) (unknown) Jaquan returns (units (u nknown) date) today with his unknown) dennis and supportive , Toni, for follow-up (unknown) (no (unknown) (unknown) KUB 06/12/2022, (units (unknown) date) identifies the unknown) stone now positioned over the sacral iliac (unknown) (no (unknown) (unknown) Kidney stones (units ( unknown) date) unknown) (unknown) (no (unknown) (unknown) Left renal stone (units (unknown) date) unknown) (unknown) (no (unknown) (unknown) Left ureteral (units ( unknown) date) calculus unknown) (unknown) (no (unknown) (unknown) Loc: [facility] (units (unkno wn) date) unknown) (unknown) (no (unknown) (unknown) Medical History (units (unknown) date) (Updated 06/15/22 unknown) @ 08:24 by Arelis Parada MD) (unknown) (no (unknown) (unknown) Medications (units (un known) date) unknown) (unknown) (no (unknown) (unknown) Mother Cancer (units ( unknown) date) unknown) (unknown) (no (unknown) (unknown) 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 Due to sample size a (unknown) (no (unknown) (unknown) Patient: (units (unkno wn) date) Jaquan Rodríguez MR#: unknown) [id number] (unknown) (no (unknown) (unknown) Plan (units (unkno wn) date) unknown) (unknown) (no (unknown) (unknown) Position Sitting (units (unknown) date) unknown) (unknown) (no (unknown) (unknown) Pulse 84 (units (unkno wn) date) unknown) (unknown) (no (unknown) (unknown) Pulse Oximetry (units (unknown) date) (%) 97 unknown) (unknown) (no (unknown) (unknown) Pulse Source (units (u nknown) date) Monitor unknown) (unknown) (no (unknown) (unknown) ROS (units (unkno wn) date) unknown) (unknown) (no (unknown) (unknown) Reason For Visit (units (unknown) date) unknown) (unknown) (no (unknown) (unknown) Renal colic on (units (unknown) date) left side unknown) (unknown) (no (unknown) (unknown) Respiration 16 (units (unknown) date) unknown) (unknown) (no (unknown) (unknown) Review of (units (unkn own) date) clinical chart unknown) note history, patient data, imaging library, interval (unknown) (no (unknown) (unknown) Reviewed (units (unkno wn) date) findings, unknown) discussed impression, explained intraoperative findings, (unknown) (no (unknown) (unknown) Signed By: (units (unk nown) date) <Electronically unknown) signed by Arelis Parada MD> (unknown) (no (unknown) (unknown) Signed (units (unkno wn) date) unknown) (unknown) (no (unknown) (unknown) Sister Kidney (units ( unknown) date) stones unknown) (unknown) (no (unknown) (unknown) Smoking Status: (units (unknown) date) Never smoker unknown) (unknown) (no (unknown) (unknown) Social History (units (unknown) date) (Reviewed 06/15/22 unknown) @ 08:23 by Arelis Parada MD) (unknown) (no (unknown) (unknown) Status: Acute (units ( unknown) date) unknown) (unknown) (no (unknown) (unknown) Surgical History (units (unknown) date) (Reviewed 06/15/22 unknown) @ 08:23 by Arelis Parada MD) (unknown) (no (unknown) (unknown) This note may (units ( unknown) date) have been all or unknown) partially generated using voice recognition (unknown) (no (unknown) (unknown) Tobacco Status (units (unknown) date) unknown) (unknown) (no (unknown) (unknown) Urology Office (units (unknown) date) Visit unknown) (unknown) (no (unknown) (unknown) Visit Reasons: (units (unknown) date) review KUB / talk unknown) ESWL (unknown) (no (unknown) (unknown) Vitals (units (unkno wn) date) unknown) (unknown) (no (unknown) (unknown) Z84.1 - Family (units (unknown) date) history of unknown) disorders of kidney and ureter (unknown) (no (unknown) (unknown) Z85.51 - Personal (units (unknown) date) history of unknown) malignant neoplasm of bladder (unknown) (no (unknown) (unknown) alcohol intake: (units (unknown) date) never unknown) (unknown) (no (unknown) (unknown) amoxicillin (units (un known) date) [AMOXICILLIN] unknown) Allergy (Unknown, Verified 06/15/22 07:59) (unknown) (no (unknown) (unknown) an excellent (units (u nknown) date) recovery. unknown) (unknown) (no (unknown) (unknown) and alongside the (units (unknown) date) appropriately unknown) positioned left ureteral stent. (unknown) (no (unknown) (unknown) ay occur. (units (unkn own) date) Occasional unknown) wrong-word or 'sound-alike' substitutions may have (unknown) (no (unknown) (unknown) carcinoma (units (unkn own) date) 06/06/2022. unknown) (unknown) (no (unknown) (unknown) definitive (units (unk nown) date) confirm diagnosis unknown) of urothelial carcinoma was not made, but multiple (unknown) (no (unknown) (unknown) earliest (units (unkno wn) date) available date. unknown) (unknown) (no (unknown) (unknown) features (units (unkno wn) date) microscopically or unknown) consistent with low-grade urothelial carcinoma. (unknown) (no (unknown) (unknown) following (units (unkn own) date) ureteroscopic unknown) laser lithotripsy. He and his had no further (unknown) (no (unknown) (unknown) have occurred. If (units (unknown) date) there are any unknown) questions, please contact the Medical Records (unknown) (no (unknown) (unknown) household (units (unkn own) date) members: spouse unknown) (unknown) (no (unknown) (unknown) illustrations and (units (unknown) date) anatomic models to unknown) facilitate the discussion. Explained (unknown) (no (unknown) (unknown) is not using or (units (unknown) date) requesting any unknown) pain medication. He otherwise reports a smooth (unknown) (no (unknown) (unknown) limitations/restr (units (unknown) date) ictions, and unknown) reasonable expectations of outcomes and recovery (unknown) (no (unknown) (unknown) marital status: (units (unknown) date) unknown) (unknown) (no (unknown) (unknown) minutes (units (unkno wn) date) unknown) (unknown) (no (unknown) (unknown) no current (units (unk nown) date) distress. unknown) (unknown) (no (unknown) (unknown) number of (units (unkn own) date) children: 2 unknown) (unknown) (no (unknown) (unknown) occurred due to (units (unknown) date) the inherent unknown) limitations of voice recognition software. 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 unknown) (unknown) (no (unknown) (unknown) paroxetine HCl 20 (units (unknown) date) mg tablet 20 mg PO unknown) DAILY 06/06/22 [History Confirmed 06/15/22] (unknown) (no (unknown) (unknown) pathology report (units (unknown) date) and intraoperative unknown) findings for encounter-10 minutes (unknown) (no (unknown) (unknown) pathology report (units (unknown) date) interpretation and unknown) postprocedural imaging. Utilized Medical (unknown) (no (unknown) (unknown) portion of the (units (unknown) date) left ureter at unknown) about the juncture of the middle and distal 3rd (unknown) (no (unknown) (unknown) rationale and (units ( unknown) date) indications for unknown) above recommended interventions and follow-up. (unknown) (no (unknown) (unknown) read the note (units ( unknown) date) carefully and unknown) recognize, using context, where these substitutions (unknown) (no (unknown) (unknown) software. (units (unkn own) date) Although every unknown) effort is made to edit content, global account manager errors m (unknown) (no (unknown) (unknown) specific (units (unkno wn) date) clarifying unknown) questions or concerns and are desirous of proceeding at (unknown) (no (unknown) (unknown) status post (units (un known) date) cystoscopy/placeme unknown) nt left ureteral stent/incidental TURBT (unknown) (no (unknown) (unknown) tabs 06/01/22 [Rx (units (unknown) date) Confirmed unknown) 06/15/22] (unknown) (no (unknown) (unknown) tabs 06/05/22 [Rx (units (unknown) date) Confirmed unknown) 06/15/22] (unknown) (no (unknown) (unknown) tamsulosin 0.4 mg (units (unknown) date) capsule (Flomax) unknown) 0.4 mg PO BEDTIME #14 caps 06/01/22 [Rx (unknown) (no (unknown) (unknown) without (units (unkno wn) date) adenopathy or JVD unknown) visually. Result panel 1067 (unknown) (no date) (unknown) (unknown) (no value) (units (un known) unknown) (unknown) (no date) (unknown) (unknown) (no value) (units 146 38-1 unknown) (unknown) (no date) (unknown) (unknown) (no value) (units 772 02-0 unknown) (unknown) (no date) (unknown) (unknown) (no value) (units 857 93-8 unknown) (unknown) (no date) (unknown) (unknown) (no value) (units (un known) unknown) (unknown) (no date) (unknown) (unknown) (no value) (units (un known) unknown) (unknown) (no date) (unknown) (unknown) (no value) (units (un known) unknown) (unknown) (no date) (unknown) (unknown) (no value) (units (un known) unknown) (unknown) (no date) (unknown) (unknown) (no value) (units (un known) unknown) (unknown) (no date) (unknown) (unknown) (no value) (units (un known) unknown) (unknown) (no date) (unknown) (unknown) (no value) (units (un known) unknown) (unknown) (no date) (unknown) (unknown) (no value) (units (un known) unknown) (unknown) (no date) (unknown) (unknown) . (units (unkn own) unknown) (unknown) (no date) (unknown) (unknown) . (units 00477 -2 unknown) (unknown) (no date) (unknown) (unknown) 100 % (unkn own) (unknown) (no date) (unknown) (unknown) 10x15 mm 9802- 0 (unknown) (no date) (unknown) (unknown) 10x15 mm (unkn own) (unknown) (no date) (unknown) (unknown) 118 mg (unkn own) (unknown) (no date) (unknown) (unknown) 118 mg 9804- 6 (unknown) (no date) (unknown) (unknown) Brown (units (unkn own) unknown) (unknown) (no date) (unknown) (unknown) Brown (units 9796- 4 unknown) Result panel 1068 (unknown) (no (unknown) (unknown) (no value) (units (unk nown) date) unknown) (unknown) (no (unknown) (unknown) 06/16/22 0821 (units ( unknown) date) unknown) (unknown) (no (unknown) (unknown) 5498 (units (unkno wn) date) unknown) (unknown) (no (unknown) (unknown) Age/Sex: 36 / M (units (unknown) date) unknown) (unknown) (no (unknown) (unknown) COVID-19 (units (unkno wn) date) unknown) (unknown) (no (unknown) (unknown) Changes to H+P: (units (unknown) date) No unknown) (unknown) (no (unknown) (unknown) Continuing or (units ( unknown) date) worsening of unknown) significant or severe pain, Deterioration of the (unknown) (no (unknown) (unknown) Criteria for (units (u nknown) date) continued unknown) procedure: Expected advancement of disease process, (unknown) (no (unknown) (unknown) : 1985 (units (unknown) date) Acct:[id number] unknown) (unknown) (no (unknown) (unknown) Date of Service: (units (unknown) date) 06/16/22 unknown) (unknown) (no (unknown) (unknown) History + (units (unkn own) date) Physical unknown) reviewed/Exam performed by Physician: Yes (unknown) (no (unknown) (unknown) Interval Note (units ( unknown) date) unknown) (unknown) (no (unknown) (unknown) [facility] (units (unknown) date) [address] unknown) [place] [address] (unknown) (no (unknown) (unknown) Patient: (units (unkno wn) date) Jaquan Rodríguez MR#: unknown) [id number] (unknown) (no (unknown) (unknown) Possibility (units (un known) date) delay results in unknown) more complex future surgery or treatment, (unknown) (no (unknown) (unknown) Pre-operative (units ( unknown) date) Note unknown) (unknown) (no (unknown) (unknown) Provider: (units (unkn own) date) Arelis Parada unknown) (unknown) (no (unknown) (unknown) Signed (units (unkno wn) date) By:<Electronicall unknown) y signed by Arelis Parada MD> (unknown) (no (unknown) (unknown) appropriate per (units (unknown) date) current SOC unknown) (unknown) (no (unknown) (unknown) patient's (units (unkno wn) date) condition or unknown) overall health, Delay expected to result in less-positive (unknown) (no (unknown) (unknown) ultimate (units (unkno wn) date) med/surg outcome unknown) and Non-surgical alternatives not available or Result panel 1069 (unknown) (no (unknown) (unknown) (no value) (units (unk nown) date) unknown) (unknown) (no (unknown) (unknown) 06/16/22 0959 (units ( unknown) date) unknown) (unknown) (no (unknown) (unknown) 1. (units (unkno wn) date) Cystoscopy/left unknown) ureteral stent removal. (unknown) (no (unknown) (unknown) 1. Obstructing 7 (units (unknown) date) mm left mid unknown) ureteral calculus. (unknown) (no (unknown) (unknown) 1. (units (unkno wn) date) Urethra-normal unknown) caliber without annular stricture or lesion. (unknown) (no (unknown) (unknown) 2. (units (unkno wn) date) Cystoscopy/left unknown) ureteroscopic laser lithotripsy. (unknown) (no (unknown) (unknown) 2. External (units (un known) date) sphincter-coapted unknown) normal overlying urothelium. (unknown) (no (unknown) (unknown) 2. Retained left (units (unknown) date) ureteral stent. unknown) (unknown) (no (unknown) (unknown) 3. Prostate-3 cm (units (unknown) date) length unknown) nonobstructing. (unknown) (no (unknown) (unknown) 4. Bladder normal (units (unknown) date) urothelium unknown) throughout except and vicinity of the left ureteral (unknown) (no (unknown) (unknown) 5498 (units (unkno wn) date) unknown) (unknown) (no (unknown) (unknown) 6 cm balloon (units (u nknown) date) dilating catheter unknown) was then requested. This was then advanced over (unknown) (no (unknown) (unknown) Age/Sex: 36 / M (units (unknown) date) unknown) (unknown) (no (unknown) (unknown) Anesthesia Type: (units (unknown) date) General unknown) (unknown) (no (unknown) (unknown) Blood products (units (unknown) date) transfused: none unknown) (unknown) (no (unknown) (unknown) Click Yes if (units (u nknown) date) Unassisted: Yes unknown) (unknown) (no (unknown) (unknown) Closure Type: (units ( unknown) date) not applicable unknown) (unknown) (no (unknown) (unknown) Complications: (units (unknown) date) none unknown) (unknown) (no (unknown) (unknown) Condition: (units (unk nown) date) stable unknown) (unknown) (no (unknown) (unknown) : 1985 (units (unknown) date) Acct:[id number] unknown) (unknown) (no (unknown) (unknown) Date of Service: (units (unknown) date) 06/16/22 unknown) (unknown) (no (unknown) (unknown) Date of (units (unkno wn) date) procedure: unknown) 06/16/22 (unknown) (no (unknown) (unknown) Discharge home. (units (unknown) date) unknown) (unknown) (no (unknown) (unknown) Disposition: (units (u nknown) date) PACU unknown) (unknown) (no (unknown) (unknown) Estimated Blood (units (unknown) date) Loss (mL): 3 unknown) (unknown) (no (unknown) (unknown) Findings: (units (unkn own) date) unknown) (unknown) (no (unknown) (unknown) Indications: (units (u nknown) date) unknown) (unknown) (no (unknown) (unknown) [facility] (units (unknown) date) [address] [place] [address] Street unknown) [place] [address] (unknown) (no (unknown) (unknown) Operative (units (unkn own) date) Date/Time/Diagnos unknown) es (unknown) (no (unknown) (unknown) Operative Note (units (unknown) date) unknown) (unknown) (no (unknown) (unknown) Operative Notes (units (unknown) date) unknown) (unknown) (no (unknown) (unknown) Patient: (units (unkno wn) date) Jaquan Rodríguez MR#: unknown) [id number] (unknown) (no (unknown) (unknown) Plan for (units (unkno wn) date) aftercare: unknown) (unknown) (no (unknown) (unknown) Post-op (units (unkno wn) date) diagnosis: same unknown) (unknown) (no (unknown) (unknown) Post-operative (units (unknown) date) unknown) (unknown) (no (unknown) (unknown) Pre-op (units (unkno wn) date) diagnosis: 1. unknown) Obstructing 7 mm mid left ureteral calculus. (unknown) (no (unknown) (unknown) Procedure + (units (un known) date) Clinicians unknown) (unknown) (no (unknown) (unknown) Procedure in (units (u nknown) date) detail: unknown) (unknown) (no (unknown) (unknown) Procedure: (units (unk nown) date) unknown) (unknown) (no (unknown) (unknown) Provider: (units (unkn own) date) Arelis Parada unknown) (unknown) (no (unknown) (unknown) Same procedure (units (unknown) date) as scheduled: Yes unknown) (unknown) (no (unknown) (unknown) Signed (units (unkno wn) date) By:<Electronicall unknown) y signed by Arelis Parada MD> (unknown) (no (unknown) (unknown) Specimen(s): (units (u nknown) date) other (Stone unknown) fragments-left ureter.) (unknown) (no (unknown) (unknown) Surgeon: Arelis (units (unknown) date) Karma unknown) (unknown) (no (unknown) (unknown) The patient was (units (unknown) date) positioned in unknown) supine was administered general anesthesia. He (unknown) (no (unknown) (unknown) Time of (units (unkno wn) date) procedure: 09:35 unknown) (unknown) (no (unknown) (unknown) a 3 cc clot with (units (unknown) date) attached stone unknown) fragments which were then sent to the laboratory (unknown) (no (unknown) (unknown) and held in (units (un known) date) position for 5 unknown) minutes after which the balloon was deflated and (unknown) (no (unknown) (unknown) and then was (units (u nknown) date) advanced unknown) proximally, into the left ureteral orifice and then under (unknown) (no (unknown) (unknown) backloaded off (units (unknown) date) the hybrid unknown) guidewire. The panendoscope was also then backloaded (unknown) (no (unknown) (unknown) countered just (units (unknown) date) distal to its unknown) preoperative imaging position. A 200 micron laser (unknown) (no (unknown) (unknown) direct (units (unkno wn) date) visualization unknown) advanced more proximally until the index calculus was in (unknown) (no (unknown) (unknown) discarded. The (units (unknown) date) hybrid guidewire unknown) was then backloaded into the panendoscope in (unknown) (no (unknown) (unknown) drape. The semi (units (unknown) date) rigid ureteral unknown) scope was then introduced lower urinary tract (unknown) (no (unknown) (unknown) fiber was then (units (unknown) date) requested. All unknown) operating room personnel and patient were fitted (unknown) (no (unknown) (unknown) for stone (units (unkn own) date) analysis. The unknown) patient was then repositioned in supine, was awakened, (unknown) (no (unknown) (unknown) grasper was then (units (unknown) date) used to engage unknown) the distal end of the ureteral stent she was (unknown) (no (unknown) (unknown) left (units (unkno wn) date) ureterovesical unknown) junction. The balloon was then inflated to 18 atmospheres (unknown) (no (unknown) (unknown) methods. The (units (u nknown) date) semi rigid unknown) ureteral scope was then removed. The panendoscope was (unknown) (no (unknown) (unknown) off the hybrid (units (unknown) date) guidewire. The unknown) hybrid guidewire was then secured to the surgical (unknown) (no (unknown) (unknown) orifice where (units ( unknown) date) there is evidence unknown) of bolus edema and erythema. Recently resected (unknown) (no (unknown) (unknown) passed lower (units (u nknown) date) urinary tract unknown) with the findings as described above. A foreign body (unknown) (no (unknown) (unknown) reintroduced (units (un known) date) lower urinary unknown) tract and the bladder contents drained which included (unknown) (no (unknown) (unknown) subsequent stone (units (unknown) date) fragmentation. unknown) Stone powder, granules, and small fragments (unknown) (no (unknown) (unknown) the hybrid (units (unk nown) date) guidewire under unknown) direct visualization. It was positioned across the (unknown) (no (unknown) (unknown) the panendoscope (units (unknown) date) was then advanced unknown) forward and into the bladder. A 15 Afghan by (unknown) (no (unknown) (unknown) then advanced (units ( unknown) date) through the lumen unknown) of the ureteral stent and advanced proximally (unknown) (no (unknown) (unknown) then brought out (units (unknown) date) just past the unknown) urethral meatus. A 0.35 hybrid guidewire was (unknown) (no (unknown) (unknown) then prepped and (units (unknown) date) draped in sterile unknown) fashion. The 22 Afghan panendoscope was then (unknown) (no (unknown) (unknown) tiny bladder (units (u nknown) date) tumor and unknown) cauterized better healing well. (unknown) (no (unknown) (unknown) under (units (unkno wn) date) fluoroscopic unknown) guidance. The stent was then backloaded off the wire and (unknown) (no (unknown) (unknown) was then (units (unkno wn) date) repositioned unknown) semi-lithotomy lower abdomen, genitalia, and groin were (unknown) (no (unknown) (unknown) was transferred (units (unknown) date) to [facility] and unknown) then transported recovery in stable condition. (unknown) (no (unknown) (unknown) were then (units (unkn own) date) cleared from the unknown) ureteral lumen using both hydrostatic and mechanical (unknown) (no (unknown) (unknown) with laser (units (unk nown) date) safety eyewear. unknown) Laser lithotripsy was then commenced with excellent Result panel 1070 (unknown) (no date) (unknown) (unknown) 100 % (unkn own) (unknown) (no date) (unknown) (unknown) 10x15 mm (unkn own) (unknown) (no date) (unknown) (unknown) 10x15 mm (unkn own) (unknown) (no date) (unknown) (unknown) 118 mg (unkn own) (unknown) (no date) (unknown) (unknown) Brown (units (unkn own) unknown) (unknown) (no date) (unknown) (unknown) Comment (units (unkn own) unknown) (unknown) (no date) (unknown) (unknown) Comment (units (unkn own) unknown) (unknown) (no date) (unknown) (unknown) Comment (units (unkn own) unknown) (unknown) (no date) (unknown) (unknown) Comment (units (unkn own) unknown) (unknown) (no date) (unknown) (unknown) Comment (units (unkn own) unknown) (unknown) (no date) (unknown) (unknown) Comment (units (unkn own) unknown) (unknown) (no date) (unknown) (unknown) Comment (units (unkn own) unknown) (unknown) (no date) (unknown) (unknown) Comment (units (unkn own) unknown) (unknown) (no date) (unknown) (unknown) Comment (units (unkn own) unknown) (unknown) (no date) (unknown) (unknown) Test not (units (unkn own) performed unknown) Social History date description facility 2022-04-24 00:00 Never smoked tobacco (finding) [facility] 2022-05-17 00:00 Never smoked tobacco (finding) [facility] 2022-05-30 00:00 Never smoked tobacco (finding) [facility] 2022-06-01 00:00 Never smoked tobacco (finding) [facility] 2022-06-06 00:00 Never smoked tobacco (finding) [facility] 2022-06-15 00:00 Never smoked tobacco (finding) [facility] 2022-06-16 00:00 Ex-smoker (finding) [facility] Vital Signs date measurement value units 2022-04-24 00:00 BMI 32.1 kg/m2 2022-04-24 00:00 BP_diastolic 71 mmHg 2022-04-24 00:00 BP_systolic 125 mmHg 2022-04-24 00:00 heart_rate 111 /min 2022-04-24 00:00 height_metric 180.34 cm 2022-04-24 00:00 height_standard 71 in 2022-04-24 00:00 o2_saturation 98 % 2022-04-24 00:00 respiration_rate 16 /min 2022-04-24 00:00 temperature_metric 38.11 C 2022-04-24 00:00 temperature_standard 100.6 F 2022-04-24 00:00 weight_metric 104.32 kg 2022-04-24 00:00 weight_standard 229.99 lb 2022-05-17 00:00 BMI 31.4 kg/m2 2022-05-17 00:00 BP_diastolic 77 mmHg 2022-05-17 00:00 BP_systolic 138 mmHg 2022-05-17 00:00 heart_rate 95 /min 2022-05-17 00:00 height_metric 180.34 cm 2022-05-17 00:00 height_standard 71 in 2022-05-17 00:00 o2_saturation 99 % 2022-05-17 00:00 respiration_rate 18 /min 2022-05-17 00:00 temperature_metric 36.17 C 2022-05-17 00:00 temperature_standard 97.1 F 2022-05-17 00:00 weight_metric 102.05 kg 2022-05-17 00:00 weight_standard 224.98 lb 2022-06-01 00:00 BMI 31.4 kg/m2 2022-06-01 00:00 BP_diastolic 92 mmHg 2022-06-01 00:00 BP_systolic 133 mmHg 2022-06-01 00:00 heart_rate 110 /min 2022-06-01 00:00 height_metric 180.34 cm 2022-06-01 00:00 height_standard 71 in 2022-06-01 00:00 o2_saturation 98 % 2022-06-01 00:00 respiration_rate 15 /min 2022-06-01 00:00 temperature_metric 36.61 C 2022-06-01 00:00 temperature_standard 97.9 F 2022-06-01 00:00 weight_metric 102.05 kg 2022-06-01 00:00 weight_standard 224.98 lb 2022-06-06 00:00 BMI 30.7 kg/m2 2022-06-06 00:00 BP_diastolic 86 mmHg 2022-06-06 00:00 BP_diastolic 96 mmHg 2022-06-06 00:00 BP_systolic 125 mmHg 2022-06-06 00:00 BP_systolic 138 mmHg 2022-06-06 00:00 heart_rate 100 /min 2022-06-06 00:00 heart_rate 81 /min 2022-06-06 00:00 height_metric 180.34 cm 2022-06-06 00:00 height_standard 71 in 2022-06-06 00:00 o2_saturation 98 % 2022-06-06 00:00 respiration_rate 13 /min 2022-06-06 00:00 respiration_rate 18 /min 2022-06-06 00:00 temperature_metric 36.61 C 2022-06-06 00:00 temperature_standard 97.9 F 2022-06-06 00:00 weight_metric 99.79 kg 2022-06-06 00:00 weight_standard 220 lb 2022-06-15 00:00 BP_diastolic 75 mmHg 2022-06-15 00:00 BP_systolic 120 mmHg 2022-06-15 00:00 heart_rate 84 /min 2022-06-15 00:00 o2_saturation 97 % 2022-06-15 00:00 respiration_rate 16 /min 2022-06-16 00:00 BMI 31.4 kg/m2 2022-06-16 00:00 BP_diastolic 75 mmHg 2022-06-16 00:00 BP_systolic 113 mmHg 2022-06-16 00:00 heart_rate 93 /min 2022-06-16 00:00 height_metric 180.34 cm 2022-06-16 00:00 height_standard 71 in 2022-06-16 00:00 o2_saturation 99 % 2022-06-16 00:00 respiration_rate 15 /min 2022-06-16 00:00 temperature_metric 36 C 2022-06-16 00:00 temperature_standard 96.8 F 2022-06-16 00:00 weight_metric 102.05 kg 2022-06-16 00:00 weight_standard 224.98 lb
[2022-07-07 11:30] LABS: BASOPHILS # (AUTO) 0.1 10^3/uL (0.0-0.1); BASOPHILS % (AUTO) 0.4 %; EOSINOPHILS # (AUTO) 0.1 10^3/uL (0.0-0.7); EOSINOPHILS % (AUTO) 0.7 %; HCT - HEMATOCRIT 48.4 % (42.0-52.0); HGB - HEMOGLOBIN 16.7 g/dL (14.0-18.0); LYMPHOCYTES # (AUTO) 0.4 10^3/uL (1.5-3.5); LYMPHOCYTES % (AUTO) 2.9 %; MEAN CORPUSCULAR HEMOGLOBIN 30.5 pg (27.0-31.0); MEAN CORPUSCULAR HGB CONC 34.5 g/dL (32.0-36.0); MEAN CORPUSCULAR VOLUME 88.5 fL (80.0-94.0); MEAN PLATELET VOLUME 10.6 fL (7.4-11.4); MONOCYTES # (AUTO) 0.4 10^3/uL (0.0-1.0); MONOCYTES % (AUTO) 3.5 %; NEUTROPHILS # (AUTO) 11.6 10^3/uL (1.5-6.6); NEUTROPHILS % (AUTO) 91.9 %; PLT - PLATELET COUNT 283 10^3/uL (130-450); RED BLOOD COUNT 5.47 10^6/uL (4.70-6.10); RED CELL DISTRIBUTION WIDTH 12.5 % (12.0-15.0); WHITE BLOOD COUNT 12.6 x10^3/uL (4.8-10.8)
[2022-07-07 11:45] LABS: ALBUMIN 4.9 g/dL (3.2-5.5); ALBUMIN/GLOBULIN RATIO 1.5 (1.0-2.2); CALCIUM 9.6 mg/dL (8.5-10.3); CREATININE 1.1 mg/dL (0.6-1.2); POTASSIUM 4.1 mmol/L (3.5-5.0); TOTAL PROTEIN 8.1 g/dL (6.7-8.2)
[2022-07-07] MEDS ORDERED: FAMOTIDINE 20 MG/2 ML VIAL IVP STA (11:53)
[2022-07-07] MEDS ORDERED: HYDROmorphone 1 MG/ML CARPUJECT IVP STA (11:53)
[2022-07-07] MEDS ORDERED: DROPERIDOL 5 MG/2 ML VIAL IVP STA (11:53)
[2022-07-07 12:14] LABS: CRP - C-REACTIVE PROTEIN 1.3 mg/dL (0-1.0); MAGNESIUM 1.9 mg/dL (1.7-2.8)
[2022-07-07] MEDS ORDERED: LORazepam 2 MG/ML VIAL IVP STA (13:43)
[2022-07-07] MEDS ORDERED: MAG HYDROX/AL HYDROX/SIMETH 30 ML UDC PO STA (13:44)
[2022-07-07] MEDS ORDERED: diltiaZEM INJ 5 MG/ML VIAL IVP STA ×2 (14:08→15:05)
[2022-07-07] MEDS ORDERED: SUCRALFATE 1 GM/10 ML UDC PO STA (15:06)
--- NOTE | 2022-07-07 15:11 | ED Physician Documentation ---
PD HPI ABD PAIN - Stated complaint Stated Complaint: VOMITING/DIZZINESS - Chief complaint Chief Complaint: Abd Pain - History obtained from History obtained from: Patient - History of Present Illness Timing - onset: How many weeks ago (The patient states he has had a couple of weeks of epigastric pain that has increased notably last night into today. He had been evaluated for 5 days ago at [facility] and had prescribed omeprazole. He denies any improvement with this as yet.) Timing - duration: Weeks (2 weeks of some epigastric pains, noted initially while taking lots of Ibuprofen for recent kidney stones. Has cystoscopic removal of stones 2 weeks ago and flank pains are better. Epigastric pain has persisted.) Timing - details: Gradual onset, Still present (Much worse since yesterday with vomiting and some diarrhea without melena nor hematemesis.) Quality: Cramping, Aching, Pain Radiation: No: Lower back, Left flank, Right flank Improved by: No: Vomiting Worsened by: Eating Associated symptoms: Nausea (for few weeks), Vomiting, Diarrhea (since last night). No: Fever Recently seen: Emergency Dept (seen at [facility] ER for the epigastric pain last week and Rx Omeprazole for presume gastritis related to NSAID use for recent kidney stones.) Review of Systems Constitutional: denies: Fever, Chills Nose: denies: Rhinorrhea / runny nose Throat: denies: Sore throat Respiratory: denies: Cough GI: reports: Abdominal Pain (epigastric), Nausea, Vomiting, Diarrhea (since last night) : denies: Dysuria Skin: denies: Rash, Lesions Neurologic: reports: Generalized weakness. 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 To start workup, Seen by Jules Darlingkins surgery at [facility].) GI: Ulcers (possible ulcer vs gastritis from NSAIDs. ) : Kidney stones (With cystoscopic retrieval and removal 2 weeks ago at [facility] without complications.) - Present Medications Home Medications: Ambulatory Orders Medication Instructions Recorded Confirmed HYDROcod/ACETAM 5/325 [[place] 5/325] 1 ea PO Q6H PRN #18 tablet 07/07/22 Ondansetron Odt [Zofran] 4 mg TL Q6H PRN #10 tablet 07/07/22 Promethazine [Phenergan] 25 mg PO Q6H PRN #20 tab 07/07/22 Sucralfate [Carafate] 1 gm PO ACHS #60 tablet 07/07/22 - Allergies Allergies/Adverse Reactions: Allergies Allergy/AdvReac Type Severity Reaction Status Date / Time No Known Drug Allergies Allergy Verified 07/07/22 11:23 - Social History Does the pt smoke?: No Smoking Status: Never smoker PD ED PE NORMAL - Vitals Vital signs reviewed: Yes - General General: Alert and oriented X 3, Well developed/nourished, Other (Appears uncomfortable with upper abdominal pain as well as nausea and having emesis bag in hand.) - HEENT HEENT: Pharynx benign - Neck Neck: Supple, no meningeal sign, No adenopathy - Cardiac Cardiac: No murmur. No: RRR (tachycardic but regular. No noted murmur. ) - Respiratory Respiratory: No respiratory distress, Clear bilaterally - Abdomen Abdomen: Normal bowel sounds, Soft, Non distended, No organomegaly, Other (tender epigastric area without ) Results - Vitals Vitals: Vital Signs - 24 hr 07/07/22 07/07/22 07/07/22 10:37 12:42 14:00 Temperature 36.6 C Heart Rate 144 H 138 H 126 H Respiratory 24 22 25 H Rate Blood Pressure 120/104 H 115/57 L 155/86 H O2 Saturation 100 96 96 07/07/22 16:00 Temperature 37.8 C Heart Rate 130 H Respiratory 25 H Rate Blood Pressure 134/72 H O2 Saturation 97 Oxygen O2 Source Room air - Labs Labs: Laboratory Tests 07/07/22 07/07/22 07/07/22 11:25 11:25 11:25 WBC 12.6 H RBC 5.47 Hgb 16.7 Hct 48.4 MCV 88.5 MCH 30.5 MCHC 34.5 RDW 12.5 Plt Count 283 MPV 10.6 Neut # (Auto) 11.6 H Lymph # (Auto) 0.4 L [place] # (Auto) 0.4 Eos # (Auto) 0.1 Baso # (Auto) 0.1 Absolute Nucleated RBC 0.00 Nucleated RBC % 0.0 ESR 1 Sodium 141 Potassium 4.1 Chloride 110 Carbon Dioxide 17 L Anion Gap 14.0 H BUN 22 H Creatinine 1.1 Estimated GFR (MDRD) 75 L Glucose 133 H Calcium 9.6 Magnesium Total Bilirubin 1.0 AST 53 H ALT 130 H Alkaline Phosphatase 80 C-Reactive Protein Total Protein 8.1 Albumin 4.9 Globulin 3.2 Albumin/Globulin Ratio 1.5 Lipase 35 Stool Leukocytes, Qual Stl C. diff Tox B Gene 07/07/22 07/07/22 07/07/22 11:25 15:24 15:30 WBC RBC Hgb Hct MCV MCH MCHC RDW Plt Count MPV Neut # (Auto) Lymph # (Auto) [place] # (Auto) Eos # (Auto) Baso # (Auto) Absolute Nucleated RBC Nucleated RBC % ESR Sodium Potassium Chloride Carbon Dioxide Anion Gap BUN Creatinine Estimated GFR (MDRD) Glucose Calcium Magnesium 1.9 Total Bilirubin AST ALT Alkaline Phosphatase C-Reactive Protein 1.3 H Total Protein Albumin Globulin Albumin/Globulin Ratio Lipase Stool Leukocytes, Qual POSITIVE Stl C. diff Tox B Gene NEGATIVE PD Medical Decision Making - ED course Complexity details: considered differential, d/w patient, d/w health management consultant (Hospitalist regarding persistent tachycardia and the patient.) Reviewed Lab Results: The patient states he recently had CT scans for kidney stones and was having some of the epigastric pain at the time. No note of gallbladder or liver or pancreatic problems. Consideration of gastritis though no diagnostic test per se. Treated with omeprazole without improvement. He has had increased pain in that area. At this point given reported recent imaging and lab test without findings, I do not see a need to repeat the CT at this time. The patient does not have peritoneal findings of in his abdomen. The patient is in agreement with this. His blood count is ordered evaluated and normal. White count is minimally elevated. His chemistry panel was ordered and evaluated with showing normal LFTs and lipase. I did order a stool sample for C. difficile given the new onset of diarrhea as well. He has not stooled as yet in the ER. ED course: The patient presents with upper abdominal pain with nausea and vomiting consistent with prior episodes that of been presumed gastritis. He states he has had a CT scan just a week or so ago and evaluating kidney stones and did not have any abnormalities with his pancreas liver or gallbladder at that time. He was having some of this up for abdominal pain. He was prescribed omeprazole but has not noticed any improvement. Worsened pain with nausea and vomiting without any hemoptysis hematemesis. He did start some diarrhea as well the last couple of days. Denies melena. Given IV fluids as well as antiemetic and some H2 zeus. He did have improvement in his nausea as well as his pain. He is resting more comfortably at this time. He is able to take sips of water and was given some antacid as well. Shared discussion with the patient was not to initially undergo another CT scan. His abdomen is not distended and has only local tenderness in the epigastric area. He is feeling better and clinically looks better. Interestingly he remains tachycardic at 130s despite being on improved on pain and volume status with 2 to 3 L of fluid. His EKG did look like a sinus tachycardia without any apparent flutter waves. Still given the persistence in the 130s, I did give diltiazem 15 mg IV which showed variability in his heart rate down to approximately 1 10-1 15. The pattern remained the same. This to me would indicate not a atrial flutter but still likely sinus tachycardia of unknown reason. His heart sounds are crisp and I do not get a sense of heart involvement. His EKG does not show any ischemic changes or changes to suggest pericarditis. At this point I do not have a clear explanation for the persistent tachycardia. He denied any regular alcohol use or substance abuse to suggest a withdrawal pattern and he does not appear shaky. I did give Ativan 1 mg IV in case of just an adrenaline effect with the persistent tachycardia. This did not really have an effect either. At this point he is taking fluids and seems more comfortable. Repeat abdominal exam is still benign with only epigastric tenderness. I guess I feel comfortable enough there is not a more serious process, that we could discharge him with increased medication for his presumed gastritis despite persistent tachycardia. Notes that the blood pressure has remained good through this. Patient's family members present. The patient is feeling okay and resting. He feels comfortable heading home. He is not nauseous and states his abdomen is minimally tender and hurting. Abdominal exam is minimally tender in the epigastric area. He did have a watery bowel movement stool here and we did send it to the lab to test for C. difficile and leukocytes. His heart rate is down in to the 120 and still sinus tachycardia. I talked with our hospitalist about the persistent tachycardia and symptoms. Dr. Edilia dominguez came to the department and we tried pushing adenosine 6 and then 12 mg to get a slowing pause of the heart rate. It did appear to be a sinus rhythm. He remains tachycardic. We did also find the added information that the patient had had a adrenal tumor found on recent CT scan and he had been referred to a Jules Haines general surgery at [facility] for further work-up. Co nsideration is whether this is an adrenal affect. - Consults Consults: Consulted (name) (I tried talking with Dr. Jules Haines to whom the patient had been referred. However he was not available after hours and I talked to Dr. Dozier at who is on-call but was not really familiar with endocrine tumors surgeries so apologetic Coy said he was not able to help.) Departure - Departure Disposition: ED Place in Observation Clinical Impression: Acute epigastric pain, Nausea vomiting and diarrhea, Tachycardia Condition: Stable Record reviewed to determine appropriate education?: Yes Instructions: ED PUD Vs Gastritis Follow-Up: Pinky Kahn PA-C [Primary Care Provider] - [facility] [Provider Group] Prescriptions: Sucralfate [Carafate] 1 gm PO ACHS #60 tablet HYDROcod/ACETAM 5/325 [[place] 5/325] 1 ea PO Q6H PRN #18 tablet PRN Reason: Pain Promethazine [Phenergan] 25 mg PO Q6H PRN #20 tab PRN Reason: Nausea / Vomiting Ondansetron Odt [Zofran] 4 mg TL Q6H PRN #10 tablet PRN Reason: Nausea / Vomiting Comments: Your symptoms do sound most likely a gastritis or ulcer. The nausea and vomiting and diarrhea now since yesterday could also be a's superimposed "stomach flu" and hopefully that component would just be for a day or 2. We are doing a stool culture and studies to look for other problems such as a bacterial diarrhea. We will call you if there is any indication of bacterial infection on the stool studies, you should result later today or tomorrow. Meanwhile I would have you continue with the omeprazole you were previously directed. To that add sacral fate 4 times daily to help coat the stomach. Use Zofran/ondansetron or promethazine as needed for nausea and vomiting. Tylenol every 4-6 hours if needed for pain or hydrocodone/acetaminophen if needed for worse pain. Continue to avoid NSAIDs such as ibuprofen or naproxen so they do not bother your stomach. I sent new prescriptions to your preferred pharmacy. You can also add Imodium if needed for diarrhea. Recheck if not improved well over the next day or 2 and return if worse. Your heart rate was also remaining fast here. At this point I am not sure the reason is remaining so fast as we seem to have reduced your nausea, pain, dehydration and your blood test did not show any electrolyte problems or any abnormality with your liver function kidney function or lipase. Your abdomen feels soft at this time. Even though your heart rate remains fast, I do not see a serious cause for it at this time. We will see what it does over the next day or so as assuming you are feeling better if it comes back to normal.
[2022-07-07] MEDS ORDERED: DIPHENOX/ATROPINE 2.5/0.025 MG TABLET PO STA (16:04)
[2022-07-07] MEDS ORDERED: ADENOSINE 6 MG/2 ML VIAL IVP STA ×2 (16:39→16:49)
[2022-07-07] MEDS ORDERED: ONDANSETRON 4 MG/2 ML VIAL IVP PRN (18:00)
--- NOTE | 2022-07-07 18:00 | CONSULTATION NOTE ---
Referring Provider Name of Referring Provider:: DR Maldonado Consult Date: 07/07/22 Chief Complaint - Chief Complaint Chief Complaint: N/V for several days, abd pain and diarrhea recently History of Present Illness - History Obtained From History obtained from: ED provider, boris and patient's father in the room - History of Present Illness HPI Comment/Other: This is a 37-year-old male who has a history of kidney stones that were retrieved about 2 weeks ago. Because of the pain related to that he had been taking a lot of ibuprofen and Naprosyn and developed abdominal pain which was felt to be gastritis or an ulcer and he was put on omeprazole that he has taken for about a week. Since the kidney stone extraction he has had continued epigastric pain for 2 weeks some nausea and vomiting and then an increase in abdominal pain with new diarrhea that is for about 1 to 2 days. The work-up for the kidney stones and urology management was all done at [facility], we have no images here. The patient presented to the emergency room because of the abdominal pain and diarrhea on top of his nausea and vomiting. He was found to have a heart rate of 1 30-1 40 and sinus rhythm, normal blood pressure and mild prerenal azotemia. He was in mild pain. He was given pain medication, antiemetic, famotidine and 3 L of IV fluids. Despite that treatment, improvement in nausea and pain, he persisted to have a heart rate of 130. He was given diltiazem push x1. This only briefly brought down his heart rate to 115. The ED provider then reached out to me on the hospitalist team to discuss tachycardia management. I evaluated the patient at bedside at this time while he was getting Adenosine pushes. The patient was not nauseated, denied chest pain, palpitations or shortness of breath. Blood pressure was 130 in a regular narrow complex rhythm and blood pressure 120/70. The patient was given adenosine 6 mg IV push with no effect. The patient was then given adenosine 12 mg IV push and had very brief slowing of his heart rate, the underlying P waves were seen and rhythm was sinus tachycardia at a rate of 130, there were no flutter waves that were exposed. His tachycardia resumed quickly and he remains in sinus tach at a rate of 133. I then queried the pt and his father about Methamphetamine use which was denied. Excessive caffeine use was also denied. Then the father mentioned that maybe this has something to do with the tumor that was recently found on the adrenal gland. 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 The patient was referred to a surgeon for management of this. The surgeon recommended that the kidney stones be dealt with first. The patient states he has a plastic bottle at home and is ready to collect urine (presumably for metanephrines and normetanephrine's). Family history: Father has diabetes, 1 grandmother has a pacemaker Social history: The patient does not drink alcohol excessively, has 1 caffeine drink per day Review of systems: Only as above in the HPI, there is been no fever reported. The diarrhea is not bloody. 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 If the size is described as big as a peach these are almost always adrenaline secreting tumors. The patient is about to undergo 24-hour collection of metanephrines and normetanephrine's. He should not be on any beta-blockers or other autonomic medications during collection of that urine, which will make the specimen on reliable and he will need to repeat the whole study which will prolong his course and delay his care. A carcinoid tumor could also give this presentation of tachycardia plus diarrhea and may be found in the abdomen as a tumor. The collection of 5 HIAA should also be done to determine a carcinoid origin It is unclear why he suddenly had this tachycardia developed, since he was just under anesthesia having the kidney stone extraction and there was no description of persistent tachycardia then. If he had recent exposure to tyramine containing foods it may have promoted excretion of a compound to cause tachycard ia (fermented cheeses, some malcolm, champagne, soy sauce, avocados, override bananas, smoked fish or meat). Recommendations: I recommend contacting his provider who is managing the entire adrenal tumor work-up and described this persistent sinus tachycardia and obtain recommendations Meds/Allgy - Home Medications Home Medications: Ambulatory Orders Medication Instructions Recorded Confirmed HYDROcod/ACETAM 5/325 [[place] 5/325] 1 ea PO Q6H PRN #18 tablet 07/07/22 Ondansetron Odt [Zofran] 4 mg TL Q6H PRN #10 tablet 07/07/22 Promethazine [Phenergan] 25 mg PO Q6H PRN #20 tab 07/07/22 Sucralfate [Carafate] 1 gm PO ACHS #60 tablet 07/07/22 - Allergies Allergies/Adverse Reactions: Allergies Allergy/AdvReac Type Severity Reaction Status Date / Time No Known Drug Allergies Allergy Verified 07/07/22 11:23 Exam - Vital Signs Vital Signs: Vital Signs x48h Temp Pulse Resp BP Pulse Ox 07/07/22 16:00 37.8 C 130 H 25 H 134/72 H 97 07/07/22 14:00 126 H 25 H 155/86 H 96 07/07/22 12:42 138 H 22 115/57 L 96 07/07/22 10:37 36.6 C 144 H 24 120/104 H 100 Conclusion/Plan - Lab Results Fish Bones: 07/07/22 11:25 07/07/22 11:25
[2022-07-07] MEDS ORDERED: LOPERAMIDE 2 MG CAPSULE PO PRN (18:12)
--- NOTE | 2022-07-07 18:21 | HISTORY & PHYSICAL EXAMINATION ---
Chief Complaint - Chief Complaint Chief Complaint: N/V/D/, abd pain, persistent tachycardia History of Present Illness - Admitted From Admitted From:: ED - History Obtained From History obtained from: ED provider, patient and the patient's father at bedside - History of Present Illness HPI Comment/Other: This is a 37-year-old male who has a history of kidney stones that were retrieved about 2 weeks ago. Because of the pain related to that he had been taking a lot of ibuprofen and Naprosyn and developed abdominal pain which was felt to be gastritis or an ulcer and he was put on omeprazole that he has taken for about a week. Since the kidney stone extraction he has had continued epigastric pain for 2 weeks some nausea and vomiting and then an increase in abdominal pain with new diarrhea that is for about 1 to 2 days. The work-up for the kidney stones and urology management was all done at [facility], we have no images here. The patient presented to the emergency room because of the abdominal pain and diarrhea on top of his nausea and vomiting. He was found to have a heart rate of 130-140 in sinus rhythm, normal blood pressure and mild prerenal azotemia. He was in moderate distress from nausea and pain. He was given pain medication, antiemetic, famotidine and 3 L of IV fluids. Despite that treatment, improvement in nausea and pain, he persisted to have a heart rate of 130. He was given 15 mg diltiazem push x2. This only briefly brought down his heart rate to 115. The ED provider then reached out to me on the Hospitalist team to discuss tachycardia management. I evaluated the patient at bedside at this time while he was getting Adenosine pushes. The patient was not nauseated, denied chest pain, palpitations or shortness of breath. Blood pressure was 130 in a regular narrow complex rhythm and blood pressure 120/70. The patient was given adenosine 6 mg IV push with no effect. The patient was then given adenosine 12 mg IV push and had very brief slowing of his heart rate, the underlying P waves were seen and rhythm was sinus tachycardia at a rate of 130, there were no flutter waves that were exposed. His tachycardia resumed quickly and he remains in sinus tach at a rate of 133. I then queried the pt and his father about Methamphetamine use which was denied. Excessive caffeine use was also denied. Then the father mentioned that maybe this has something to do with the tumor that was recently found on the adrenal gland. 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 The patient was referred to a surgeon for management of this. The surgeon recommended that the kidney stones be dealt with first. The patient states he has a plastic bottle at home and is ready to collect urine over 24 hours (presumably for metanephrines and normetanephrine's). Just before leaving the ED, he spiked a temperature of 39.2 History - Past Medical History Cardiovascular: reports: None Respiratory: reports: None Neuro: reports: None Endocrine/Autoimmune: reports: Other (recent Dx of adrneal tumor/massseen on CT, done for eval of kidney stone. To start workup, Seen by Jules Haines surgery at [facility].) GI: reports: Ulcers (possible ulcer vs gastritis from NSAIDs. 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 No alcohol abuse. No cigs - Substance History Use: Uses substance without health or social issues: NONE Meds/Allgy - Home Medications Home Medications: Ambulatory Orders Medication Instructions Recorded Confirmed HYDROcod/ACETAM 5/325 [[place] 5/325] 1 ea PO Q6H PRN #18 tablet 07/07/22 Ondansetron Odt [Zofran] 4 mg TL Q6H PRN #10 tablet 07/07/22 Promethazine [Phenergan] 25 mg PO Q6H PRN #20 tab 07/07/22 Sucralfate [Carafate] 1 gm PO ACHS #60 tablet 07/07/22 PARoxetine HCL [Paxil] 20 mg PO DAILY 07/08/22 07/08/22 - Allergies Allergies/Adverse Reactions: Allergies Allergy/AdvReac Type Severity Reaction Status Date / Time No Known Drug Allergies Allergy Verified 07/07/22 11:23 Review of Systems - Constitutional Constitutional: reports: Weakness, Poor appetite - Gastrointestinal Gastrointestinal: reports: Abdominal pain, Diarrhea, Nausea, Vomiting - All Other Systems All Other Systems: reports: Reviewed and negative Exam - Vital Signs Reviewed Vital Signs: Yes Vital Signs: Vital Signs x48h Temp Pulse Resp BP Pulse Ox 07/07/22 18:00 39.3 C H 135 H 28 H 124/74 98 07/07/22 16:00 37.8 C 130 H 25 H 134/72 H 97 07/07/22 14:00 126 H 25 H 155/86 H 96 07/07/22 12:42 138 H 22 115/57 L 96 07/07/22 10:37 36.6 C 144 H 24 120/104 H 100 - Physical Exam General Appearance: positive: Alert, Moderate distress (from abd pain and nausea) Eyes Bilateral: positive: Normal inspection, No lid inflammation ENT: positive: ENT inspection nml, No signs of dehydration Neck: positive: Nml inspection, No JVD Respiratory: positive: No respiratory distress, Breath sounds nml Cardiovascular: positive: Regular rate & rhythm, No murmur, Tachycardia Abdomen: positive: Non-tender, Nml bowel sounds, No distention Skin: positive: Warm, Dry Extremities: positive: Non-tender, No pedal edema Neurologic/Psychiatric: positive: Oriented x3, Motor nml Sepsis Event Note (H) - Evaluation Current Stage of Sepsis: Sepsis Possible source of Sepsis: positive: GI tract/intra-abdominal, Genitourinary - Sepsis Criteria Sepsis Criteria: Recorded Temperature greater than 38.3C or Less than 36C, Recorded Heart Rate greater than 90 bpm, WBC count greater than 12,000 or less than 4000 Conclusion/Plan - Problem List (1) Atrial tachycardia Conclusion/Plan: Slowing down the ventricular rate briefly with Adenosine, we uncovered that he has an atrial or sinus tachycardia, not atrial flutter . 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 If the size is described as big as a peach these are almost always adrenaline secreting tumors. The patient is about to undergo 24-hour collection of metanephrines and normetanephrine's. He should not be on any beta-zeus medications during collection of that urine, which will make the specimen result unreliable and he will need to repeat the whole study which will prolong his course and delay his care. A carcinoid tumor could also give this presentation of tachycardia plus diarrhea and a carcinoid tumor may also be found in the abdomen. The collection of 5 HIAA should also be done to determine a carcinoid origin It is unclear why he suddenly got this tachycardia, since he was just under anesthesia having the kidney stone extraction and there was no description of persistent tachycardia then. We have treated his pain and nausea and dehydration in the ED. If he had recent exposure to tyramine containing foods it may have promoted excretion of a compound to cause tachycardia in pt's with pheo (fermented cheeses, some malcolm, champagne, soy sauce, avocados, override bananas, smoked fish or meat). Since he just spiked a fever, this may also be an obvious reason for persistent tachycardia. Plan: Place the patient in Observation, on telemetry. Every 2 hour vital signs Work-up for cause of the fever Continue to treat his pain, nausea and his fever I recommended contacting his provider who is managing the entire adrenal tumor work-up and describe this persistent sinus tachycardia and obtain recommendations. Dr Maldonado in the ED did that and the covering [facility] had no suggestions. It is unclear if the patient has had an otr flatbed driver, punch machine hand or geriatric care manager handling the work-up of the possible pheo. Outside records will be requested. We will start treatment with IV Cardizem 10 mg every 6 hours Consider diltiazem drip in ICU if needed AVOID B-BLOCKERS (2) Acute epigastric pain Conclusion/Plan: Even though the patient does not have peritoneal signs, determining if the abdominal pain is from a GI or source would be helpful. Plan: Obtain abdomen and pelvis CT imaging Start empiric IV BID Protonix Treat the pain with iv Tylenol or narcotics if needed. Avoid NSAIDs. (3) Nausea vomiting and diarrhea Conclusion/Plan: Patient was told recently he has either gastritis or an ulcer because of his high NSAID use. The diarrhea is more recent. It a sample was sent from the ED and it is C. difficile negative Plan: Continue with IV fluids Await bacterial stool cultures Give IV antiemetics Give bowel rest by just ordering clear liquid diet Obtain CT abdomen pelvis (4) Fever Conclusion/Plan: No abdominal imaging was done in the ER. The patient does have tachycardia, fever and elevated white count and now has criteria for sepsis Plan: Obtain abdominal/pelvic CT imaging Obtain blood cultures x2 Start empiric antibiotics to cover a GI and source because of the recent kidney stone manipulation: will start empiric Zosyn Treat the fever with IV Tylenol. Avoid NSAIDs. Since his CRP is mildly elevated, obtain lactic acid level Since his anion gap is elevated, obtain VBG to assure he is not acidotic. If his pH is acidotic, will admit to inpatient status and admit to the ICU. - Lab Results Fish Bones: 07/08/22 04:53 07/08/22 04:53 - EKG Results EKG Interpreted Independently: Yes EKG Comparison: Old EKG unavailable EKG Findings: EKG Atrial tach or sinus tach, rate 130, no prior EKG available for comparison.
[2022-07-07 18:36] LABS: PT - PROTHROMBIN TIME 11.7 secs (9.9-12.6)
--- NOTE | 2022-07-07 18:52 | CT Report ---
PROCEDURE: ABDOMEN/PELVIS WO INDICATIONS: N/V/D, abd pain, adrenal mass: poss pheo TECHNIQUE: Noncontrast 5 mm thick sections acquired from the diaphragms to the symphysis. 5 mm coronal and sagi ttal reformats were then performed. For radiation dose reduction, the following was used: automated exposure control, adjustment of mA and/or kV according to patient size. COMPARISON: 03/22/2022 FINDINGS: Image quality: Excellent. ABDOMEN: Lung bases: Lung bases are clear. Heart size is normal. Solid organs: Diffuse fatty liver infiltration can be seen. No focally suspicious liver lesion is s een. The spleen demonstrates normal size and demonstrates no suspicious lesions. Gallbladder wall do es not appear thickened. Pancreas is normal in contours. A right adrenal myelolipoma is again seen. The left adrenal gland is unremarkable. Kidneys are normal in size, without hydronephrosis or nephrolithiasis. Peritoneum and bowel: Unenhanced bowel loops demonstrate normal wall thickness and caliber. No free fluid or air. Nodes and vessels: No retroperitoneal or mesenteric adenopathy by size criteria. Aorta and inferior vena cava are normal in caliber. Miscellaneous: A mild fat-containing periumbilical hernia is seen. PELVIS: Genitourinary: Bladder wall thickness is normal. Miscellaneous: No inguinal hernias or adenopathy. Bones: No suspicious bony lesions. No vertebral body compression fractures. Thoracic spine postope rative hardware is partially seen. IMPRESSION: Negative for kidney stones or obstructive uropathy. The previously seen obstructing left ureteral stone has resolved. The previously seen nonobstructing left-sided kidney stones are also no longer seen. Additional findings: Thoracic spine postoperative hardware Fatty liver infiltration Right adrenal myelolipoma Fat-containing periumbilical hernia Reviewed by: Nguyễn Montana MD on 07/07/2022 5:50 PM AKST Approved by: Nguyễn Montana MD on 07/07/2022 5:50 PM AKST Station ID: [id number]
[2022-07-07] MEDS: ACETAMINOPHEN 1,000 MG/100 ML 1,000 MG/100 ML BAG IV PRN (19:02)
[2022-07-07 19:13] LABS: BILIRUBIN,URINE NEGATIVE (NEGATIVE); GLUCOSE, URINE (UA) NEGATIVE (NEGATIVE); KETONES,URINE (UA) NEGATIVE (NEGATIVE); LEUKOCYTE ESTERASE, URINE NEGATIVE (NEGATIVE); NITRITE,URINE NEGATIVE (NEGATIVE); OCCULT BLOOD,URINE NEGATIVE (NEGATIVE); PROTEIN,URINE NEGATIVE (NEGATIVE); UROBILINOGEN,URINE 0.2 (NORMAL) E.U./dL (NORMAL)
[2022-07-07 19:19] LABS: CLARITY,URINE CLEAR (CLEAR)
[2022-07-07] MEDS ORDERED: HYDROmorphone 1 MG/ML CARPUJECT IVP PRN (19:22)
[2022-07-07] MEDS: DEXTROSE 5%-0.9% NACL 1,000 ML IV SCH (19:25)
[2022-07-07 19:32] LABS: BACTERIA,URINE None Seen /HPF (None Seen); RBC,URINE None Seen /HPF (0-5); SQUAMOUS EPITHELIAL CELL,UR RARE Squamous (<= Few); WBC,URINE 0-3 /HPF (0-3)
[2022-07-07 19:37] LABS: VBG BASE EXCESS -4.8 mmol/L (-2 - +2); VBG HCO3 19.3 mmol/L (23-28); VBG OXYGEN SATURATION 97.2 % (60-80); VBG PCO2 33.2 mmHg (41-51); VBG PH 7.383 (7.31-7.41); VBG PO2 87.1 mmHg (25-47); VBG TOTAL CO2 20.4 mmol/L (24-29)
[2022-07-07] MEDS ORDERED: PIPERACILLIN/TAZOBACTAM 3.375 GM in SODIUM CHLORIDE 0.9% MINIBAG 100 ML IV ONE (20:00)
[2022-07-07] MEDS: diltiaZEM INJ 5 MG/ML VIAL IVP SCH (20:13)
[2022-07-07] MEDS: PANTOPRAZOLE 40 MG VIAL IVP SCH (21:27)
[2022-07-07] MEDS: SODIUM CHLORIDE FLUSH 0.9% 10 ML SYRINGE IVP SCH (21:27)
[2022-07-08] MEDS: PIPERACILLIN/TAZOBACTAM 3.375 GM in SODIUM CHLORIDE 0.9% MINIBAG 100 ML IV SCH ×4 (00:22→23:52)
[2022-07-08] MEDS: diltiaZEM INJ 5 MG/ML VIAL IVP SCH ×2 (02:16→09:32)
[2022-07-08] MEDS: ACETAMINOPHEN 1,000 MG/100 ML 1,000 MG/100 ML BAG IV PRN (02:27)
[2022-07-08] MEDS: SODIUM CHLORIDE FLUSH 0.9% 10 ML SYRINGE IVP PRN ×2 (02:43→09:25)
[2022-07-08] MEDS: SODIUM CHLORIDE FLUSH 0.9% 10 ML SYRINGE IVP SCH ×2 (02:48→16:48)
[2022-07-08 05:03] LABS: BASOPHILS % (AUTO) 0.4 %; HCT - HEMATOCRIT 36.8 % (42.0-52.0); HGB - HEMOGLOBIN 12.4 g/dL (14.0-18.0); LYMPHOCYTES # (AUTO) 0.8 10^3/uL (1.5-3.5); LYMPHOCYTES % (AUTO) 14.7 %; MEAN CORPUSCULAR HEMOGLOBIN 30.5 pg (27.0-31.0); MEAN CORPUSCULAR HGB CONC 33.7 g/dL (32.0-36.0); MEAN CORPUSCULAR VOLUME 90.6 fL (80.0-94.0); MEAN PLATELET VOLUME 10.4 fL (7.4-11.4); MONOCYTES # (AUTO) 0.4 10^3/uL (0.0-1.0); MONOCYTES % (AUTO) 7.2 %; NEUTROPHILS # (AUTO) 4.3 10^3/uL (1.5-6.6); NEUTROPHILS % (AUTO) 77.3 %; PLT - PLATELET COUNT 177 10^3/uL (130-450); RED BLOOD COUNT 4.06 10^6/uL (4.70-6.10); RED CELL DISTRIBUTION WIDTH 12.8 % (12.0-15.0); WHITE BLOOD COUNT 5.6 x10^3/uL (4.8-10.8)
[2022-07-08] MEDS: DEXTROSE 5%-0.9% NACL 1,000 ML IV SCH ×3 (05:08→20:15)
[2022-07-08 05:32] LABS: ALBUMIN 3.3 g/dL (3.2-5.5); BILIRUBIN,DIRECT 0.2 mg/dL (0.1-0.5); BILIRUBIN,TOTAL 1.4 mg/dL (0.2-1.0); CALCIUM 7.7 mg/dL (8.5-10.3); CREATININE 0.9 mg/dL (0.6-1.2); CRP - C-REACTIVE PROTEIN 7.5 mg/dL (0-1.0); MAGNESIUM 1.7 mg/dL (1.7-2.8); POTASSIUM 3.2 mmol/L (3.5-5.0); TOTAL PROTEIN 5.7 g/dL (6.7-8.2)
[2022-07-08] MEDS ORDERED: HYDROmorphone 1 MG/ML CARPUJECT IVP PRN (08:06)
[2022-07-08] MEDS: PANTOPRAZOLE 40 MG VIAL IVP SCH (09:25)
[2022-07-08] MEDS: POTASSIUM CHLOR 10 MEQ/100 ML 10 MEQ/100 ML BAG IV SCH ×3 (10:30→13:26)
[2022-07-08] MEDS ORDERED: diltiaZEM 30 MG TABLET PO SCH (12:00)
[2022-07-08] MEDS: ACETAMINOPHEN 325 MG TABLET PO PRN ×2 (13:32→20:23)
[2022-07-08] MEDS: PARoxetine 10 MG TABLET PO SCH (13:33)
--- NOTE | 2022-07-08 15:09 | PROVIDER PROGRESS NOTE ---
Assessment/Plan - Problem List (1) Fever Assessment/Plan: The patient did have tachycardia, fever and elevated white count and met criteria for sepsis. Source of a potential infection is not obvious. No abdominal imaging was done in the ED, a CT was ordered after admission. The CT abdomen/pelvis showed no colitis, gallbladder problems, no renal stones, or anything else focal to suggest a source of infection. The blood cultures x2 are neg to date. Labs were reviewed. WBC still elevated. Since his CRP was mildly elevated, a lactic acid level was done and was >2 last night. Since his anion gap is elev ated, we obtained a VBG, and he was not acidotic. We started empiric antibiotics to cover a GI and source because of the GI sx and the recent urinary tract (kidney stone)manipulation. He is on empiric iv Zosyn. Cause for the fever, elevated white blood count and lactic acid and CRP elevation are still not obvious. Because his GI symptoms have resolved, the urine is still now the most likely source. In this patient with an adrenal tumor, the fever may possibly have even been caused by the tumor Plan: We will admit the patient from Observation status to Inpatient stay Continue with empiric IV antibiotics Await blood culture final results Continue with IV fluids but decrease the rate (2) Atrial tachycardia Conclusion/Plan: Slowing down the ventricular rate briefly with Adenosine, we uncovered that he has an atrial or sinus tachycardia, not atrial flutter . 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 If the size is described as big as a peach these are almost always adrenaline secreting tumors. The patient is about to undergo 24-hour collection of metanephrines and normetanephrine's. He should not be on any beta-zeus medications during collection of that urine, which will make the specimen result unreliable and he will need to repeat the whole study which will prolong his course and delay his care. A carcinoid tumor could also give this presentation of tachycardia plus diarrhea, and a carcinoid tumor may also be found in the abdomen. The collection of 5 HIAA should also be done to determine a carcinoid origin. It is unclear why he now has this tachycardia, since he was just under anesthesia having the kidney stone extraction and there was no description of persistent tachycardia then. He spiked a fever last night, which may have added to a persistent tachycardia yesterday. He was started on Cardizem 10 mg IV every 6 hours last evening, and this did bring his heart rate down to 90 in sinus rhythm. Today, after I changed him to p.o. Cardizem early this morning, the heart rate is back up to 120s in sinus tachycardia Plan: We will admit the patient from Observation status to Inpatient stay Await work-up for cause of the fever We will adjust po Cardizem dose up AVOID B-BLOCKERS. He should not be on any beta-zeus medications during collection of the 24-hr urine, because that would make the specimen result unreliable and he will need to repeat the whole study which will prolong his Dx and treatment. All the above was explained to the patient again today, and to many family members in the room today (, aunt and uncle). (3) Acute epigastric pain Conclusion/Plan: Resolved The CT abdomen/pelvis showed no colitis, gallbladder problems, no renal stones, or anything else focal to suggest a source of infection. Patient had been told that he may have gastritis or an ulcer, because of his recent NSAID use, and had been put on H2 zeus Plan: Continue empiric BID Protonix, will change from iv to po Treat the pain with Tylenol or narcotics if needed. Avoid NSAIDs. (4) Nausea vomiting and diarrhea Conclusion/Plan: N/V have resolved. Patient was told recently he has either gastritis or an ulcer because of his high NSAID use. Stool sample was sent from the ED yesterday, and C. difficile result is negative. Bacterial cx of the stool is still pending. The patient disclosed to me today, that he gets about 48 hours of N/V/D, which then stops, and this recurs every week or so, for the last 2 mos. This is a very common feature of carcinoid tumors, I explained to the patient, and to family in the room today. Plan: Since his symptoms of nausea and vomiting have resolved and he is hungry, will advance his diet from clears to pure and if that is tolerated then advance even further Continue with IV fluids, will decrease the rate. Await bacterial stool cultures Give IV antiemetics if needed (5) Anxiety Patient wants to be put on his Paxil, which will be ordered. - Current Meds Current Meds: Current Medications Generic Name Dose Route Start Last Admin Trade Name Freq PRN Reason Stop Dose Admin Acetaminophen 650 mg 07/08/22 12:51 07/08/22 13:32 Acetaminophen 325 Mg Tablet PO 650 mg Q4HR PRN Administration Pain or Fever > 38C (100.4F) Piperacillin Sod/Tazobactam 100 mls @ 25 mls/hr 07/08/22 00:00 07/08/22 13:27 Sod 3.375 gm/ Sodium Chloride IV Infused Q8H SHIRA Infusion Ondansetron HCl 4 mg 07/07/22 18:00 07/07/22 19:22 Ondansetron 4 Mg/2 Ml Vial IVP 4 mg Q6HR PRN Administration Nausea / Vomiting Paroxetine HCl 20 mg 07/08/22 13:30 07/08/22 13:33 Paroxetine 10 Mg Tablet PO 20 mg DAILY SHIRA Administration Sodium Chloride 10 ml 07/07/22 18:00 07/08/22 09:25 Sodium Chloride Flush 0.9% 10 Ml Syringe IVP 10 ml PRN PRN Administration NEEDED PER PROVIDER ORDERS Sodium Chloride 10 ml 07/08/22 01:00 07/08/22 02:48 Sodium Chloride Flush 0.9% 10 Ml Syringe IVP 10 ml 0100,0900,1700 SHIRA Administration - Lab Result Fish Bone Diagrams: 07/08/22 04:53 07/08/22 04:53 - Additional Planning My Orders: My Active Orders 07/07/22 18:00 Home CPAP/BiPAP/NPPV [RC] .ONCE Initiate Lung Inflation Protoc [RC] .PROTOCOL Vital Signs [RC] Q4HR Ondansetron Inj [Zofran Inj] 4 mg IVP Q6HR PRN Sodium Chloride Flush 0.9% [Normal Saline Flush 0.9%] 10 ml IVP PRN PRN 07/07/22 18:03 Activity Orders [RC] Q2HR IO [RC] IOSHIFT Incentive Spirometry - RT [RC] TID Initiate Bowel Care Protocol [RC] .protocol Initiate Flu Vaccine Screening [RC] ONCE Initiate Line Care Protocol [RC] QSHIFT Initiate Personal Care Protoco [RC] .protocol Initiate Pneumonia Vaccine Scr [RC] ONCE Oxygen Therapy [RC] .PRN Code Status [OTHERS] Routine Condition of Patient [OTHERS] Routine DVT Prophylaxis [OTHERS] Routine 07/07/22 18:05 Daily Weight [RC] 0600 IV Insert [RC] .ONCE 07/07/22 18:06 Initiate Line Care Protocol [RC] [facility]RC] [facility] 07/07/22 18:12 Loperamide [Imodium] 2 mg PO QID PRN 07/07/22 18:58 CULTURE, BLOOD #1 [RM] Stat 07/07/22 19:02 CULTURE, BLOOD #2 [RM] Stat 07/07/22 19:10 Miscellaenous Nursing Order [RC] [facility] 07/08/22 00:00 Piperacillin/Tazobactam [Zosyn] 3.375 gm Sodium Chloride 0.9% Minibag [Normal Saline 0.9% Minibag] 100 ml IV Q8H 07/08/22 01:00 Sodium Chloride Flush 0.9% [Normal Saline Flush 0.9%] 10 ml IVP 0100,0900,1700 07/08/22 08:06 HYDROmorphone 1MG CARP [Dilaudid 1Mg Carp] 1 mg IVP Q6HR PRN 07/08/22 10:15 Telemetry- [RC] Q4HR 07/08/22 10:17 Dextrose 5%-0.9% NaCl [D5ns] 1,000 ml IV 60 mls/hr 07/08/22 Lunch DIET [Dysphagia - Puree] [DIET] 07/08/22 12:51 Acetaminophen [Tylenol] 650 mg PO Q4HR PRN 07/08/22 13:30 PARoxetine [Paxil] 20 mg PO DAILY 07/08/22 Dinner DIET [Soft Mechanical Diet] [DIET] 07/08/22 17:00 diltiaZEM [Cardizem] 60 mg PO QID 07/08/22 21:00 Pantoprazole [Protonix] 40 mg PO BID 07/09/22 05:00 CBC - COMP BLD CT W/AUTO DIFF [HEME] DAILYLAB COMPREHENSIVE METABOLIC PANEL [CHEM] DAILYLAB MAGNESIUM [CHEM] DAILYLAB 07/10/22 05:00 CBC - COMP BLD CT W/AUTO DIFF [HEME] DAILYLAB COMPREHENSIVE METABOLIC PANEL [CHEM] DAILYLAB 07/11/22 05:00 CBC - COMP BLD CT W/AUTO DIFF [HEME] DAILYLAB COMPREHENSIVE METABOLIC PANEL [CHEM] DAILYLAB 07/12/22 05:00 CBC - COMP BLD CT W/AUTO DIFF [HEME] DAILYLAB COMPREHENSIVE METABOLIC PANEL [CHEM] DAILYLAB Subjective - Subjective Patient Reports: Feeling Better (Nausea and vomiting have resolved. There have been no BMs. He is hungry and wants his diet advanced.), Resting Comfortably Objective Vital Signs: Vital Signs - 24 hr 07/07/22 07/07/22 07/07/22 16:00 18:00 19:00 Temperature 37.8 C 39.3 C H 38.1 C H Heart Rate 130 H 135 H Heart Rate [ 138 H Brachial] Respiratory 25 H 28 H 16 Rate Blood Pressure 134/72 H 124/74 Blood Pressure 107/59 L [Right Brachial artery] O2 Saturation 97 98 98 07/07/22 07/07/22 07/07/22 20:13 20:14 20:21 Temperature Heart Rate Heart Rate [ 120 H 117 H Brachial] Respiratory Rate Blood Pressure 109/49 L Blood Pressure 109/49 L 101/52 L [Right Brachial artery] O2 Saturation 07/07/22 07/07/22 07/07/22 20:26 20:31 20:46 Temperature 38.2 C H Heart Rate Heart Rate [ 112 H 111 H 116 H Brachial] Respiratory 18 Rate Blood Pressure Blood Pressure 112/55 L 106/53 L 108/60 [Right Brachial artery] O2 Saturation 94 94 07/07/22 07/07/22 07/07/22 21:00 21:15 23:00 Temperature 37.3 C 37.8 C Heart Rate Heart Rate [ 114 H 109 H 124 H Brachial] Respiratory 16 16 Rate Blood Pressure Blood Pressure 122/59 L 121/60 124/67 [Right Brachial artery] O2 Saturation 97 98 07/08/22 07/08/22 07/08/22 01:00 02:17 02:22 Temperature 38.1 C H Heart Rate Heart Rate [ 127 H 121 H 119 H Brachial] Respiratory 16 Rate Blood Pressure Blood Pressure 132/80 H 111/59 L 113/60 [Right Brachial artery] O2 Saturation 98 07/08/22 07/08/22 07/08/22 02:27 02:30 02:45 Temperature Heart Rate Heart Rate [ 112 H 115 H 114 H Brachial] Respiratory Rate Blood Pressure Blood Pressure 111/60 107/61 107/59 L [Right Brachial artery] O2 Saturation 07/08/22 07/08/22 07/08/22 02:54 03:00 03:15 Temperature 38.3 C H Heart Rate Heart Rate [ 106 H 107 H Brachial] Respiratory Rate Blood Pressure Blood Pressure 106/55 L 114/72 [Right Brachial artery] O2 Saturation 07/08/22 07/08/22 07/08/22 05:00 05:05 06:56 Temperature 36.9 C 36.6 C 36.8 C Heart Rate Heart Rate [ 97 103 H Brachial] Respiratory 16 16 Rate Blood Pressure Blood Pressure 110/67 115/65 [Right Brachial artery] O2 Saturation 99 97 07/08/22 07/08/22 07/08/22 08:56 09:32 09:35 Temperature 36.8 C Heart Rate Heart Rate [ 97 101 H Brachial] Respiratory 18 Rate Blood Pressure 126/76 Blood Pressure 126/76 123/71 [Right Brachial artery] O2 Saturation 100 07/08/22 07/08/22 07/08/22 09:40 09:45 09:50 Temperature Heart Rate Heart Rate [ 92 94 98 Brachial] Respiratory Rate Blood Pressure Blood Pressure 122/70 114/71 114/66 [Right Brachial artery] O2 Saturation 07/08/22 07/08/22 07/08/22 12:30 13:33 13:38 Temperature 37.4 C Heart Rate Heart Rate [ 107 H 125 H Brachial] Respiratory 18 Rate Blood Pressure 141/75 H Blood Pressure 137/79 H 141/75 H [Right Brachial artery] O2 Saturation 100 Oxygen O2 Source Room air I&O (Last 24 Hrs): Intake and Output Totals x24h 07/06/22 07/07/22 07/08/22 23:59 23:59 23:59 Intake Total 4300 3522.334 Balance 4300 3522.334 General: Alert, Oriented x3, No acute distress HEENT: Atraumatic, EOMI Neck: Supple, No JVD Neuro: Alert, Non Focal Cardiovascular: Regular rate, No murmurs, Other (Tachycardic) Respiratory: No respiratory distress, Breath sounds nml Abdomen: Normal bowel sounds, Soft, No tenderness Extremities: No clubbing, No edema, Other (Extensive tattoos over trunk and extremities) - Results Results: Laboratory Results WBC 5.6 x10^3/uL (4.8-10.8) 07/08/22 04:53 RBC 4.06 10^6/uL (4.70-6.10) L 07/08/22 04:53 Hgb 12.4 g/dL (14.0-18.0) L 07/08/22 04:53 Hct 36.8 % (42.0-52.0) L 07/08/22 04:53 MCV 90.6 fL (80.0-94.0) 07/08/22 04:53 MCH 30.5 pg (27.0-31.0) 07/08/22 04:53 MCHC 33.7 g/dL (32.0-36.0) 07/08/22 04:53 RDW 12.8 % (12.0-15.0) 07/08/22 04:53 Plt Count 177 10^3/uL (130-450) 07/08/22 04:53 MPV 10.4 fL (7.4-11.4) 07/08/22 04:53 Neut # (Auto) 4.3 10^3/uL (1.5-6.6) 07/08/22 04:53 Lymph # (Auto) 0.8 10^3/uL (1.5-3.5) L 07/08/22 04:53 [place] # (Auto) 0.4 10^3/uL (0.0-1.0) 07/08/22 04:53 Eos # (Auto) 0.0 10^3/uL (0.0-0.7) 07/08/22 04:53 Baso # (Auto) 0.0 10^3/uL (0.0-0.1) 07/08/22 04:53 Absolute Nucleated RBC 0.00 x10^3/uL 07/08/22 04:53 Nucleated RBC % 0.0 /100WBC 07/08/22 04:53 ESR 1 mm/Hr (0-15) 07/07/22 11:25 PT 11.7 secs (9.9-12.6) 07/07/22 18:20 INR 1.0 (0.8-1.2) 07/07/22 18:20 VBG pH 7.383 (7.31-7.41) 07/07/22 19:28 VBG pCO2 33.2 mmHg (41-51) L 07/07/22 19:28 VBG pO2 87.1 mmHg (25-47) H 07/07/22 19:28 VBG HCO3 19.3 mmol/L (23-28) L 07/07/22 19:28 VBG Total CO2 20.4 mmol/L (24-29) L 07/07/22 19:28 VBG O2 Saturation 97.2 % (60-80) H 07/07/22 19:28 VBG Base Excess -4.8 mmol/L (-2 - +2) L 07/07/22 19:28 Sodium 134 mmol/L (135-145) L 07/08/22 04:53 Potassium 3.2 mmol/L (3.5-5.0) L 07/08/22 04:53 Chloride 108 mmol/L (101-111) 07/08/22 04:53 Carbon Dioxide 21 mmol/L (21-32) 07/08/22 04:53 Anion Gap 5.0 (6-13) L 07/08/22 04:53 BUN 12 mg/dL (6-20) 07/08/22 04:53 Creatinine 0.9 mg/dL (0.6-1.2) 07/08/22 04:53 Estimated GFR (MDRD) 95 (>89) 07/08/22 04:53 Glucose 119 mg/dL (70-100) H 07/08/22 04:53 Lactic Acid 2.3 mmol/L (0.5-2.2) H 07/07/22 18:58 Calcium 7.7 mg/dL (8.5-10.3) L 07/08/22 04:53 Magnesium 1.7 mg/dL (1.7-2.8) 07/08/22 04:53 Total Bilirubin 1.4 mg/dL (0.2-1.0) H 07/08/22 04:53 Direct Bilirubin 0.2 mg/dL (0.1-0.5) 07/08/22 04:53 AST 34 IU/L (10-42) 07/08/22 04:53 ALT 83 IU/L (10-60) H 07/08/22 04:53 Alkaline Phosphatase 45 IU/L (42-121) 07/08/22 04:53 Troponin I High Sens 6.0 ng/L (2.3-19.7) 07/08/22 04:53 C-Reactive Protein 7.5 mg/dL (0-1.0) H 07/08/22 04:53 Total Protein 5.7 g/dL (6.7-8.2) L 07/08/22 04:53 Albumin 3.3 g/dL (3.2-5.5) 07/08/22 04:53 Globulin 2.4 g/dL (2.1-4.2) 07/08/22 04:53 Albumin/Globulin Ratio 1.5 (1.0-2.2) 07/07/22 11:25 Lipase 35 U/L (22-51) 07/07/22 11:25 TSH 0.91 uIU/mL (0.34-5.60) 07/08/22 04:53 Urine Color YELLOW 07/07/22 18:57 Urine Clarity CLEAR (CLEAR) 07/07/22 18:57 Urine pH 6.0 PH (5.0-7.5) 07/07/22 18:57 Ur Specific [place] 1.025 (1.002-1.030) 07/07/22 18:57 Urine Protein NEGATIVE mg/dL (NEGATIVE) 07/07/22 18:57 Urine Glucose (UA) NEGATIVE mg/dL (NEGATIVE) 07/07/22 18:57 Urine Ketones NEGATIVE mg/dL (NEGATIVE) 07/07/22 18:57 Urine Occult Blood NEGATIVE (NEGATIVE) 07/07/22 18:57 Urine Nitrite NEGATIVE (NEGATIVE) 07/07/22 18:57 Urine Bilirubin NEGATIVE (NEGATIVE) 07/07/22 18:57 Urine Urobilinogen 0.2 (NORMAL) E.U./dL (NORMAL) 07/07/22 18:57 Ur Leukocyte Esterase NEGATIVE (NEGATIVE) 07/07/22 18:57 Urine RBC None Seen /HPF (0-5) 07/07/22 18:57 Urine WBC 0-3 /HPF (0-3) 07/07/22 18:57 Ur Squamous Epith Cells RARE Squamous (<= Few) 07/07/22 18:57 Urine Bacteria None Seen /HPF (None Seen) 07/07/22 18:57 Urine Culture Comments NOT INDICATED 07/07/22 18:57 Stool Leukocytes, Qual POSITIVE (Negative) 07/07/22 15:30 Stl C. diff Tox B Gene NEGATIVE (NEGATIVE) 07/07/22 15:24 Sepsis Event Note (H) - Evaluation Current Stage of Sepsis: Sepsis Possible source of Sepsis: positive: GI tract/intra-abdominal, Genitourinary - Sepsis Criteria Sepsis Criteria: Recorded Temperature greater than 38.3C or Less than 36C, Recorded Heart Rate greater than 90 bpm, WBC count greater than 12,000 or less than 4000
[2022-07-08] MEDS: diltiaZEM 30 MG TABLET PO SCH ×2 (17:01→20:30)
[2022-07-08] MEDS: PANTOPRAZOLE 40 MG TABLET PO SCH (20:16)
[2022-07-09] MEDS: SODIUM CHLORIDE FLUSH 0.9% 10 ML SYRINGE IVP SCH ×2 (00:58→09:33)
[2022-07-09 04:51] LABS: BASOPHILS % (AUTO) 0.5 %; EOSINOPHILS # (AUTO) 0.1 10^3/uL (0.0-0.7); EOSINOPHILS % (AUTO) 3.3 %; HGB - HEMOGLOBIN 12.5 g/dL (14.0-18.0); LYMPHOCYTES # (AUTO) 1.2 10^3/uL (1.5-3.5); LYMPHOCYTES % (AUTO) 28.7 %; MEAN CORPUSCULAR HEMOGLOBIN 30.6 pg (27.0-31.0); MEAN CORPUSCULAR HGB CONC 33.8 g/dL (32.0-36.0); MEAN CORPUSCULAR VOLUME 90.5 fL (80.0-94.0); MEAN PLATELET VOLUME 10.4 fL (7.4-11.4); MONOCYTES # (AUTO) 0.5 10^3/uL (0.0-1.0); NEUTROPHILS # (AUTO) 2.3 10^3/uL (1.5-6.6); PLT - PLATELET COUNT 185 10^3/uL (130-450); RED BLOOD COUNT 4.09 10^6/uL (4.70-6.10); RED CELL DISTRIBUTION WIDTH 12.9 % (12.0-15.0); WHITE BLOOD COUNT 4.2 x10^3/uL (4.8-10.8)
[2022-07-09 05:03] LABS: ALBUMIN 3.6 g/dL (3.2-5.5); ALBUMIN/GLOBULIN RATIO 1.5 (1.0-2.2); BILIRUBIN,TOTAL 0.7 mg/dL (0.2-1.0); CALCIUM 8.3 mg/dL (8.5-10.3); CREATININE 0.8 mg/dL (0.6-1.2); POTASSIUM 3.7 mmol/L (3.5-5.0)
[2022-07-09] MEDS: PIPERACILLIN/TAZOBACTAM 3.375 GM in SODIUM CHLORIDE 0.9% MINIBAG 100 ML IV SCH (07:54)
[2022-07-09] MEDS: diltiaZEM 30 MG TABLET PO SCH ×2 (09:30→12:26)
[2022-07-09] MEDS: PANTOPRAZOLE 40 MG TABLET PO SCH (09:33)
[2022-07-09] MEDS: PARoxetine 10 MG TABLET PO SCH (09:33)
--- NOTE | 2022-07-09 11:04 | Discharge Plan ---
Discharge Plan Problem Reviewed?: Yes Disposition: Home, Self Care Condition: Stable Prescriptions: diltiaZEM [Cardizem] 60 mg PO QID #120 tablet Loperamide [Imodium] 2 mg PO QID PRN #8 cap PRN Reason: Diarrhea Pantoprazole [Protonix] 40 mg PO BID #60 tab Ondansetron Odt [Zofran] 4 mg TL Q6H PRN #10 tablet PRN Reason: Nausea / Vomiting Diet: Regular Activity Restrictions: Activity as Tolerated Shower Restrictions: No Driving Restrictions: No Instruction Topics: Metanephrine Urine, Catecholamines Urine, 5- Hydroxyindoleacetic Acid Urine Health Concerns: You were hospitalized to manage a fever and your episodic nausea, vomiting and diarrhea. With the history of your adrenal tumor, we suspect that these fluc tuating symptoms that you get are from the hormone release of the tumor. You are being discharged home today. Continue to collect the urine as previously ordered by your doctor. Stay on your usual diet and normal oral hydration that you have always done. You are being discharged home to take a new medicine for heart rate control called Cardizem, to take 4 times a day. The prescription was electronically sent to your [facility] pharmacy in [place]. 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 You have a restriction to lift only 10 pounds or less. A letter to your employer was provided to you, outlining this new restriction. You may resume taking your other pre-hospital medications. Plan of Treatment: As above. Care Goals: Improvement in symptoms and stabilization are the goals. Assessment: The patient understands and is agreeable with the plan. Additional Instructions or Follow Up instructions: Keep your appointment to Dr. Haines this Sunday. If you have new or worsening symptoms, call Dr. Haines office, or your PCP's office for advice, or come to the ER. No Smoking: If you smoke, Please STOP! Call for help. Follow-up with: Pinky Kahn PA-C [Primary Care Provider] -
--- NOTE | 2022-07-09 11:12 | DISCHARGE SUMMARY ---
Discharge Summary Admit Date: 07/07/22 Discharge Date: 07/09/22 Discharging Provider: Dr Kylee Anadn Primary Care Provider: RADHA Kahn Condition at Discharge: Fair Discharge Disposition: 01 Home, Self Care - HPI History of Present Illness: This is a 37-year-old male who has a history of kidney stones that were retrieved about 2 weeks ago. Because of the prior pain from that, he had been taking a lot of Ibuprofen and Naprosyn and developed abdominal pain which was felt to be gastritis or an ulcer and he was put on omeprazole which he has taken for about a week. Since the kidney stone extraction, he has had continued epigastric pain for 2 weeks some nausea and vomiting and then an increase in abdominal pain with new diarrhea for about 1 to 2 days. The work-up for the kidney stones and urology management was all done at [facility], we have no images here. The patient presented to the emergency room because of the abdominal pain and diarrhea on top of his nausea and vomiting. He was found to have a heart rate of 130-140 in sinus rhythm, normal blood pressure and mild prerenal azotemia. He was in moderate distress from nausea and pain. He was given pain medication, antiemetic, famotidine and 3 L of IV fluids. Despite that treatment, and improvement in his nausea and pain, he persisted to have a heart rate of 130. He was given 15 mg diltiazem push x2. This only briefly brought down his heart rate to 115. The ED provider then reached out to me on the Hospitalist team to discuss tachycardia management. I evaluated the patient at bedside in the ED, as he was getting Adenosine pushes. The patient was not nauseated, denied chest pain, palpitations or shortness of breath. Heart rate was 130 in a regular, narrow QRS-complex rhy thm, and blood pressure was 120/70. The patient was given adenosine 6 mg IV push with no effect. He was then given adenosine 12 mg IV push and had very brief slowing of his ventricular rate, and the underlying P waves were seen and rhythm was identified as sinus tachycardia at a rate of 130, there were no flutter waves that were exposed. His tachycardia resumed quickly and he remains in sinus tach at a rate of 133. I then queried the pt and his father, who was at bedside, about Methamphetamine use which was denied. Excessive caffeine use was also denied. Then the father mentioned that "maybe this has something to do with the tumor that was recently found on the adrenal gland". 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 The patient had been referred to a surgeon for management of this, and they said the surgeon recommended that the kidney stones be dealt with first. The patient reported he has a plastic jug at home and is ready to collect urine over 24 hours (presumably for metanephrines and normetanephrine's). Due to persistent tachycardia, the patient will be hospitalized. Just before leaving the ED, he spiked a temperature of 39.2. - HOSPITAL COURSE Hospital Course: (1) Adrenal tumor As in #2 and #4 below. He started his 24 hr urine collection on day of discharge. He needs to avoid B-blockers during collection of the 24-hr urine for VMA and metanephrines. Also, collection of 5 HIAA should be done to determine a carcinoid origin (not sure if the outpatient W/U had ordered 5 HIAA). If a pheochromocytoma is found, his Cardizem should be stopped, and he needs alpha blockers started, then B-blockers started, in that order, before his tumor surgery. (2) Atrial tachycardia Slowing down the ventricular rate briefly with Adenosine, we uncovered that he has an atrial or sinus tachycardia, not atrial flutter . 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 If the size is described as big as a peach these are almost always adrenaline secreting tumors. The patient was about to undergo 24-hour collection of metanephrines and normetanephrines. He should not be on any beta- zeus medications during collection of that urine, which would make the specimen result unreliable and he would need to repeat the whole study which would delay his diagnosis and prolong his course. Alternatively, a carcinoid tumor could also give this presentation of tachycardia plus diarrhea, and a carcinoid tumor may also be found in the abdomen. The collection of 5 HIAA should also be done to determine a carcinoid origin (not sure if the outpatient W/U had ordered this). Interestingly, when he was recently under anesthesia having the kidney stone extraction, there was no description of persistent tachycardia then. He spiked a fever at presentation, which may have added to a persistent tachycardia . He was started on Cardizem 10 mg IV every 6 hours, and this did bring his heart rate down to 90 in sinus rhythm. It was then changed to p.o. Cardizem 30 mg q6h, and the heart rate was back up to 120s in sinus tachycardia. He was then admitted from Observation status to Inpatient stay, for further management. We awaited cultures as work-up the fever, and needed to adjust p.o. Cardizem dose up. He needs to avoid B-blockers during collection of the 24-hr urine. Everything was explained to the patient and to many family members. Finally, Cardizem 60 mg p.o. q6h controlled his HR to 80-90, and he was discharged on this dose. (3) Nausea vomiting and diarrhea Patient was told recently he has either gastritis or an ulcer because of his high NSAID use. Stool sample sent from the ED and C. difficile wasnegative. Bacterial cx of the stool was still pending. The patient disclosed to me that he gets about 48 hours of N/V/D, which then stops, and this recurs every week or so, for the last 2 mos. This is a very common feature of carcinoid tumors, I explained to the patient, and to family in the room. His diet was advanced which he tolerated. (4) Fever The patient did have tachycardia, fever and elevated white count of 12.6 at admission, and we considered sepsis. We started empiric antibiotics to cover a GI and source because of the recent urinary tract (kidney stone) manipulation. He was put on iv fluids and empiric iv Zosyn. But a source of a potential infection was not obvious by exam. No abdominal imaging was done in the ED, thus a CT was ordered after admission. It showed no colitis, gallbladder problems, no renal stones, or anything else focal to suggest a source of infection. Blood cultures remained neg. WBC was 5 the next day. There were no more fevers. His antibiotics were stopped. (5) Acute epigastric pain The CT abdomen/pelvis showed no colitis, gallbladder problems, no renal stones, or anything else focal. Patient had been told that he may have gastritis or an ulcer, because of his recent NSAID use. We continued his H2 zeus. (6) Anxiety Patient is on Paxil, which we continued here. - ALLERGIES Allergies/Adverse Reactions: Allergies Allergy/AdvReac Type Severity Reaction Status Date / Time No Known Drug Allergies Allergy Verified 07/07/22 11:23 - MEDICATIONS Home Medications: Ambulatory Orders Medication Instructions Recorded Confirmed Ondansetron Odt [Zofran] 4 mg TL Q6H PRN #10 tablet 07/07/22 PARoxetine HCL [Paxil] 20 mg PO DAILY 07/08/22 07/08/22 Acetaminophen [Tylenol] 650 mg PO Q4HR PRN tab 07/09/22 Loperamide [Imodium] 2 mg PO QID PRN #8 cap 07/09/22 Pantoprazole [Protonix] 40 mg PO BID #60 tab 07/09/22 diltiaZEM [Cardizem] 60 mg PO QID #120 tablet 07/09/22 diltiaZEM [Cardizem] 60 mg PO QID #120 tablet 07/09/22 - PHYSICAL EXAM AT DISCHARGE General Appearance: positive: No acute distress, Alert Eyes Bilateral: positive: Normal inspection, EOMI, No lid inflammation ENT: positive: ENT inspection nml, No signs of dehydration Neck: positive: Nml inspection, Thyroid nml, No JVD Respiratory: positive: No respiratory distress, Breath sounds nml Cardiovascular: positive: Regular rate & rhythm, No murmur Abdomen: positive: Non-tender, Nml bowel sounds, No distention Skin: positive: Warm, Dry Extremities: positive: Non-tender, No pedal edema Neurologic/Psychiatric: positive: Oriented x3, Motor nml, Sensation nml - LABS Result Diagrams: 07/09/22 04:42 07/09/22 04:42 - DIAGNOSTIC IMAGING Diagnostic Imaging Results: Final report reviewed - SEPSIS Possible source of Sepsis: GI tract/intra-abdominal, Genitourinary Sepsis Criteria: Recorded Temperature greater than 38.3C or Less than 36C, Recorded Heart Rate greater than 90 bpm, WBC count greater than 12,000 or less than 4000 - FOLLOW UP Follow Up: See Dr Haines in next few days, appointment already scheduled. - TIME SPENT Time Spent in Discharge (Minutes): 30
[2022-07-09 12:28] VITALS: BP 128/72
== END 2022-07-09 12:46 | disposition home or self-care (01) | DRG 872 ==
LOC: ED 10:27 → MS2 18:00 → OBSVTOIN 07-08 08:04
PROVIDERS: ADMIT Internal Medicine; ATTEND Internal Medicine
DX: A41.9 Sepsis, unspecified organism (principal); I47.1 Supraventricular tachycardia; D35.00 Benign neoplasm of unspecified adrenal gland; R11.2 Nausea with vomiting, unspecified; R19.7 Diarrhea, unspecified; R10.13 Epigastric pain; F41.9 Anxiety disorder, unspecified; Z20.822 Contact with and (suspected) exposure to COVID-19; Z87.442 Personal history of urinary calculi; R79.89 Other specified abnormal findings of blood chemistry; R50.9 Fever, unspecified
CPT/HCPCS: 36415; 74176; 80048; 80053; 80076; 81001; 82803; 83605; 83630; 83690; 83735; 84443; 84484; 85025; 85610; 85651; 86140; 87040; 87045; 87046; 87427; 87493; 93005; 96361; 96365; 96366; 96367; 96375; 96376; 99285; A9270; G0378; J0131; J0153; J1170; J2060; 87086

== ENCOUNTER 2022-07-31 08:00 | Outpatient (CLI) | payer BC | END 2022-07-31 23:59 | disposition home or self-care (01) | LOC: LAB.WCP 08:00 | PROVIDERS: ATTEND Physician Assistant Medical | DX: E27.9 Disorder of adrenal gland, unspecified (principal); R00.0 Tachycardia, unspecified; R11.2 Nausea with vomiting, unspecified | CPT/HCPCS: 81599; 82570; 83497 ==

== ENCOUNTER 2023-04-23 10:16 | Outpatient (CLI) | payer BC ==
[2023-04-23 12:46] LABS: BASOPHILS # (AUTO) 0.1 10^3/uL (0.0-0.1); BASOPHILS % (AUTO) 1.3 %; EOSINOPHILS # (AUTO) 0.2 10^3/uL (0.0-0.7); EOSINOPHILS % (AUTO) 4.4 %; HCT - HEMATOCRIT 42.8 % (42.0-52.0); HGB - HEMOGLOBIN 14.5 g/dL (14.0-18.0); LYMPHOCYTES # (AUTO) 1.6 10^3/uL (1.5-3.5); LYMPHOCYTES % (AUTO) 28.9 %; MEAN CORPUSCULAR HEMOGLOBIN 30.7 pg (27.0-31.0); MEAN CORPUSCULAR HGB CONC 33.9 g/dL (32.0-36.0); MEAN CORPUSCULAR VOLUME 90.5 fL (80.0-94.0); MEAN PLATELET VOLUME 11.7 fL (7.4-11.4); MONOCYTES # (AUTO) 0.5 10^3/uL (0.0-1.0); MONOCYTES % (AUTO) 9.6 %; NEUTROPHILS % (AUTO) 55.4 %; PLT - PLATELET COUNT 282 10^3/uL (130-450); RED BLOOD COUNT 4.73 10^6/uL (4.70-6.10); WHITE BLOOD COUNT 5.4 x10^3/uL (4.8-10.8)
[2023-04-23 13:14] LABS: THYROID STIMULATING HORMONE 1.42 uIU/mL (0.34-5.60)
[2023-04-23 13:18] LABS: ALBUMIN 4.5 g/dL (3.2-5.5); ALKALINE PHOSPHATASE 77 IU/L (42-121); ALT ALANINE AMINOTRANSFERASE 68 IU/L (10-60); AST ASPARTATE AMINOTRANSFERASE 51 IU/L (10-42); BILIRUBIN,TOTAL 0.4 mg/dL (0.2-1.0); BUN - BLOOD UREA NITROGEN 11 mg/dL (6-20); CALCIUM 9.2 mg/dL (8.5-10.3); CARBON DIOXIDE - CO2 24 mmol/L (21-32); CHLORIDE 105 mmol/L (101-111); CHOL/HDL RATIO 4.7 (<5.0); CHOLESTEROL 160 mg/dL; CREATININE 0.8 mg/dL (0.6-1.3); GFR - MDRD 109 (>89); GLUCOSE 91 mg/dL (74-104); HDL CHOLESTEROL 34 mg/dL; LDL CHOLESTEROL,CALCULATED 86 mg/dL; LDL/HDL RATIO 2.5 (<3.6); POTASSIUM 3.7 mmol/L (3.5-4.5); SODIUM 136 mmol/L (135-145); TOTAL PROTEIN 6.8 g/dL (6.4-8.9); TRIGLYCERIDES 198 mg/dL (48-352); VLDL CHOLESTEROL 40 mg/dL
== END 2023-04-23 10:17 | disposition home or self-care (01) ==
LOC: LAB.N 10:16
PROVIDERS: ATTEND Physician Assistant Medical
DX: Z00.00 Encounter for general adult medical examination without abnormal findings (principal)
CPT/HCPCS: 36415; 80053; 80061; 83721; 84443; 85025